=== PATIENT | male | born 1940 | race Caucasian/White ===

== ENCOUNTER 2017-10-16 15:26 | Inpatient (IN) | payer OTHER, MEDICARE ==
[~2017-10-16] VITALS: Ht 167.6 cm; Wt 77.9 kg
[~2017-10-16 15:26] MED LIST: ACET-1138 PO; ALLO1TAB51 PO; ASPEC325 PO; ATOR-22 PO; CETI10TA84 PO; FURO-85 PO; GLC/500 PO; GLUC1CAP33 PO; KRIL1CAP7 PO; LOSA1TAB PO; MULT-190 PO; NCY50 PO; OMEP20CA9 PO; PROB1CAP41 PO; QUIN200T PO; SAW450CA5 PO; TNR50 PO
--- NOTE | 2017-10-16 16:14 | EMERGENCY ROOM VISIT NOTE ---
History Report prepared by Carlos: Marty Godinez Under the Supervision of: Dr. Jamie Devine M.D. First contact with patient: 16:02 Chief Complaint: SHORTNESS OF BREATH Stated Complaint: SOB,FATIGUE,COUGH Nursing Triage Summary: c/o SOB, non productive cough and weakness for a few weeks. pt was sent by pcp for evaluation due to EKG that was performed at their office. History of Present Illness The patient is a 77 year old male who presents to the Emergency Room with complaints of constant shortness of breath beginning two to three weeks ago. The patient states he was evaluated today and told he has an abnormal EKG. He reports he has also been experiencing a cough and extreme fatigue. He notes states nothing makes his symptoms better or worse. The patient notes he has a history of pneumonia with acute renal failure. He states he has a history of seasonal allergies and has been blowing his nose. The patient reports he currently takes Lasix for his hypertension and Plavix for bilateral iliac stents. He denies using inhalers, a history of smoking, trouble eating or drinking, chest pain, diarrhea, fevers, body aches, vomiting, nausea, and congestion. Source of History: patient Onset: two to three weeks ago Quality: other (SOB) Timing: constant Modifying Factors (Worsening): other (nothing) Modifying Factors (Relieving): other (nothing) Associated Symptoms: + cough, + fatigue, No fevers, No chest pain, No nausea , No vomiting, No diarrhea Note: Denies: congestion, body aches, trouble eating or drinking Review of Systems See HPI for pertinent positives and negatives. A total of ten systems were reviewed and were otherwise negative. 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 (11) Lymphoma (12) Pneumonia (13) Stomach problems (14) Ulcer Surgical Problems: (1) H/O cataract removal with insertion of prosthetic lens (2) H/O colonoscopy (3) H/O inguinal hernia repair (4) H/O lymph node biopsy (5) History of back surgery (6) History of carpal tunnel surgery (7) S/p rectal fistula repair (8) S/P tonsillectomy and adenoidectomy Family History Cancer Diabetes mellitus Gallbladder disease Heart disease Hypertension Kidney disease Kidney stones Social History Smoking Status: Never Smoker Alcohol Use: occasionally Drug Use: none Marital Status: Housing Status: lives with significant other Occupation Status: retired Current/Historical Medications Scheduled Acetaminophen (Tylenol Extra Strength), 1,000 MG PO Q8 Allopurinol (Allopurinol), 100 MG PO BID Amoxicillin (Amoxil), 2,000 MG PO UD Aspirin (Aspirin Ec), 81 MG PO DAILY Atenolol (Atenolol), 1 TAB PO QAM Atorvastatin (Lipitor), 40 MG PO QPM Clopidogrel Bisulfate (Clopidogrel), 75 MG PO DAILY Furosemide (Lasix), 20 MG PO QAM Glucosamine-Chondroitin (Glucosamine & Chondroitin 500-400 mg), 1 CAP PO BID Krill Oil (Krill Oil [place]-3), 1 CAP PO QAM Losartan Potassium (Cozaar), 25 MG PO QP Metformin Hcl (Glucophage), 500 MG PO BID Ocuvite Preservision (Ocuvite Preservision), 1 TAB PO QAM Pantoprazole (Pantoprazole Sodium), 40 MG PO DAILY Probiotic Product (Probiotic Daily), 1 CAP PO MWF Saw [place] (Seren[place] Repens) (Saw [place]), 1 CAP PO QPM [Leg Cramps], 1 TAB PO QPM Scheduled PRN Cetirizine (Zyrtec), 10 MG PO QAM PRN for PRN Allergies Coded Allergies: POLLEN (Verified Allergy, Unknown, HAYFEVER, 03/11/16) Lactose Intolerance (GI) (Verified Adverse Reaction, Unknown, GI UPSET, ) Lisinopril (Verified Adverse Reaction, Unknown, COUGH, 03/11/16) Physical Exam Vital Signs Date Time Temp Pulse Resp B/P (MAP) Pulse Ox O2 Delivery O2 Flow Rate FiO2 10/16/17 18:19 67 18 165/90 94 Nasal Cannula 2.0 10/16/17 17:11 65 18 158/89 92 Room Air 10/16/17 16:44 64 10/16/17 16:30 99 Room Air 10/16/17 15:44 36.5 63 20 164/79 95 Room Air Physical Exam GENERAL: Awake, alert, fatigued-appearing, in no distress HENT: Normocephalic, atraumatic. Oropharynx has dry mucus membranes otherwise unremarkable. EYES: Normal conjunctiva. Sclera non-icteric. NECK: Supple. No nuchal rigidity. FROM. No JVD. RESPIRATORY: Clear to auscultation. CARDIAC: Regular rate, normal rhythm. Extremities warm and well perfused. Pulses equal. ABDOMEN: Soft, non-distended. No tenderness to palpation. No rebound or guarding. No masses. RECTAL: Deferred. MUSCULOSKELETAL: Chest examination reveals no tenderness. The back is symmetrical on inspection without obvious abnormality. There is no CVA tenderness to palpation. No joint edema. LOWER EXTREMITIES: Calves are equal size bilaterally and non-tender. No edema. No discoloration. NEURO: Normal sensorium. No sensory or motor deficits noted. SKIN: No rash or jaundice noted. Medical Decision & Procedures ER Provider Diagnostic Interpretation: X-ray: Per my interpretation, radiologist review. CHEST ONE VIEW PORTABLE CLINICAL HISTORY: CHEST PAIN dyspnea COMPARISON STUDY: 03/12/2016 FINDINGS: The bones soft tissues and hemidiaphragms are normal. The cardiomediastinal silhouette is normal. The lungs are clear. The pulmonary vasculature is normal. IMPRESSION: Negative chest. The above report was generated using voice recognition software. It may contain grammatical, syntax or spelling errors. Electronically signed by: Dioni Chapin M.D. 10/16/2017 4:32 PM Dictated Date/Time: 10/16/2017 4:32 PM Laboratory Results 10/16/17 16:28 Red Blood Count 4.94, Mean Corpuscular Volume 89.7, Mean Corpuscular Hemoglobin 31.2, Mean Corpuscular Hemoglobin Concent 34.8, Mean Platelet Volume 10.6, Neutrophils (%) (Auto) 61.2, Lymphocytes (%) (Auto) 32.7, Monocytes (%) (Auto) 5.0, Eosinophils (%) (Auto) 0.7, Basophils (%) (Auto) 0.3, Neutrophils # (Auto) 4.38, Lymphocytes # (Auto) 2.34, Monocytes # (Auto) 0.36, Eosinophils # (Auto) 0.05, Basophils # (Auto) 0.02 10/16/17 16:28 Test 10/16/17 16:28 10/16/17 17:13 White Blood Count 7.16 K/uL (4.8-10.8) Red Blood Count 4.94 M/uL (4.7-6.1) Hemoglobin 15.4 g/dL (14.0-18.0) Hematocrit 44.3 % (42-52) Mean Corpuscular Volume 89.7 fL (80-100) Mean Corpuscular Hemoglobin 31.2 pg (25-34) Mean Corpuscular Hemoglobin Concent 34.8 g/dl (32-36) Platelet Count 170 K/uL (130-400) Mean Platelet Volume 10.6 fL (7.4-10.4) Neutrophils (%) (Auto) 61.2 % Lymphocytes (%) (Auto) 32.7 % Monocytes (%) (Auto) 5.0 % Eosinophils (%) (Auto) 0.7 % Basophils (%) (Auto) 0.3 % Neutrophils # (Auto) 4.38 K/uL (1.4-6.5) Lymphocytes # (Auto) 2.34 K/uL (1.2-3.4) Monocytes # (Auto) 0.36 K/uL (0.11-0.59) Eosinophils # (Auto) 0.05 K/uL (0-0.5) Basophils # (Auto) 0.02 K/uL (0-0.2) RDW Standard Deviation 43.9 fL (36.4-46.3) RDW Coefficient of Variation 13.5 % (11.5-14.5) Immature Granulocyte % (Auto) 0.1 % Immature Granulocyte # (Auto) 0.01 K/uL (0.00-0.02) Anion Gap 5.0 mmol/L (3-11) Est Creatinine Clear Calc Drug Dose 40.5 ml/min Estimated GFR () 50.9 Estimated GFR (Non- 43.9 BUN/Creatinine Ratio 12.0 (10-20) Calcium Level 8.9 mg/dl (8.5-10.1) Magnesium Level 1.7 mg/dl (1.8-2.4) Total Bilirubin 0.9 mg/dl (0.2-1) Direct Bilirubin 0.2 mg/dl (0-0.2) Aspartate Amino Transf (AST/SGOT) 30 U/L (15-37) Alanine Aminotransferase (ALT/SGPT) 32 U/L (12-78) Alkaline Phosphatase 84 U/L (45-117) Pro-B-Type Natriuretic Peptide 2879 pg/ml (0-1800) Total Protein 7.8 gm/dl (6.4-8.2) Albumin 4.2 gm/dl (3.4-5.0) Lipase 194 U/L (73-393) Influenza Type A (RT-PCR) Neg for Influ A (NEG) Influenza Type B (RT-PCR) Neg for Influ B (NEG) Laboratory results reviewed by me Medications Administered Medications (Trade) Dose Ordered Sig/Corine Route Start Time Stop Time Status Last Admin Dose Admin Aspirin (Aspirin Chew) 324 mg NOW STAT PO 10/16/17 18:07 10/16/17 18:09 DC 10/16/17 18:14 324 MG Magnesium Sulfate (Magnesium Sulfate 1gm / D5W) 2 gm NOW STAT IV 10/16/17 18:07 10/16/17 18:09 DC 10/16/17 18:14 2 GM ECG Per My Interpretation Indication: SOB/dyspnea Rate (beats per minute): 63 Rhythm: normal sinus Findings: nonspecific-ST abn (Lateral), T-wave inversion (Leads V2 and V3) Comparison ECG Date: 03/12/2016 Change: TWI are new. ED Course 1603: The patient was evaluated in room B03B. A complete history and physical exam was performed. 1813: Upon reexamination, the patient was resting. I discussed the test results and treatment plan with him. The patient will be evaluated for further management. 1818: I discussed the patient's case with Dr. Gallardo, [facility] Hospitalist. The patient will be evaluated for further management. Medical Decision I reviewed the patient's past medical history, medications, and the nursing notes as described above. Differential diagnosis: Etiologies such as infections, reactive airway disease, pneumonia, pneumothorax , COPD, CHF, cardiac ischemia, pulmonary embolism, musculoskeletal, gastrointestinal, as well as others were entertained. The patient is a 77-year-old gentleman with a past medical history of CKD and PVD status post iliac stents who presents emergency department after being referred by his PCP for EKG changes from prior in the setting of feeling shortness of breath and fatigue over the past week per hpi. On arrival the patient is fatigued appearing but otherwise well-appearing in no acute distress , afebrile stable vital signs. Patient denies any chest pain or shortness of breath at this time. EKG demonstrates T-wave inversions in V2 V3 that are new from prior. Initial troponin elevated at 0.8 which is new for the patient. Creatinine 1.5 at baseline. BNP 2800 however chest x-ray unremarkable. Magnesium 1.7 repleted. Given the patient's symptoms over the past week patient 's troponin elevation is possibly related to an NSTEMI already occurred earlier in the week. The patient was given aspirin. Will continue to trend troponins at this time. Case was discussed with Tammy Kim Hospitalist, who will admit the patient for further management. Medication Reconcilliation Current Medication List: was personally reviewed by me Blood Pressure Screening Patient's blood pressure: Elevated blood pressure Monitored by hospitalist. Consults Time Called: 1812 Consulting Physician: Tammy Kim Hospitalist Returned Call: 1818 I discussed the patient's case with [facility]. The patient will be evaluated for further management. Impression Primary Impression: Elevated troponin I level Additional Impression: Shortness of breath Scribe Attestation The scribe's documentation has been prepared under my direction and personally reviewed by me in its entirety. I confirm that the note above accurately reflects all work, treatment, procedures, and medical decision making performed by me. Departure Information Dispostion Being Evaluated By Hospitalist Referrals Enio Berg III, M.D. (PCP) Patient Instructions My [facility] Problem Qualifiers
--- NOTE | 2017-10-16 16:33 | DIAGNOSTIC IMAGING REPORT ---
CHEST ONE VIEW PORTABLE CLINICAL HISTORY: CHEST PAIN dyspnea COMPARISON STUDY: 03/12/2016 FINDINGS: The bones soft tissues and hemidiaphragms are normal. The cardiomediastinal silhouette is normal. The lungs are clear. The pulmonary vasculature is normal. IMPRESSION: Negative chest. The above report was generated using voice recognition software. It may contain grammatical, syntax or spelling errors. Electronically signed by: Dioni Chapin M.D. 10/16/2017 4:32 PM Dictated Date/Time: 10/16/2017 4:32 PM
[2017-10-16 16:50] LABS: BASO % 0.3 %; BASO ABS # 0.02 K/uL (0-0.2); EOS % 0.7 %; EOS ABS # 0.05 K/uL (0-0.5); HEMATOCRIT 44.3 % (42-52); HEMOGLOBIN 15.4 g/dL (14.0-18.0); IG# 0.01 K/uL (0.00-0.02); LYMPH % 32.7 %; LYMPH ABS # 2.34 K/uL (1.2-3.4); MEAN CELL VOLUME 89.7 fL (80-100); MEAN CORPUSCULAR HEMOGLOBIN 31.2 pg (25-34); MEAN CORPUSCULAR HGB CONC 34.8 g/dl (32-36); MEAN PLATELET VOLUME 10.6 fL (7.4-10.4); MONO ABS # 0.36 K/uL (0.11-0.59); NEUT % 61.2 %; NEUT ABS # 4.38 K/uL (1.4-6.5); PLATELET COUNT 170 K/uL (130-400); RED CELL DISTRIBUTION WIDTH CV 13.5 % (11.5-14.5); RED CELL DISTRIBUTION WIDTH SD 43.9 fL (36.4-46.3); WHITE BLOOD COUNT 7.16 K/uL (4.8-10.8)
[2017-10-16 17:13] LABS: ALBUMIN 4.2 gm/dl (3.4-5.0); CALCIUM 8.9 mg/dl (8.5-10.1); CREATININE 1.51 mg/dl (0.60-1.40); POTASSIUM 4.1 mmol/L (3.5-5.1)
[2017-10-16] MEDS ORDERED: LEG CRAMPS PO (17:19)
[2017-10-16] MEDS ORDERED: ASPI81TA28 PO (17:19)
[2017-10-16] MEDS ORDERED: PANT40TA2 PO (17:19)
[2017-10-16] MEDS ORDERED: AMOX500C3 PO (17:19)
[2017-10-16] MEDS ORDERED: ALL100 PO (17:19)
[2017-10-16] MEDS ORDERED: PLV75 PO (17:19)
[2017-10-16 17:27] LABS: TOTAL PROTEIN 7.8 gm/dl (6.4-8.2)
[2017-10-16] MEDS ORDERED: ASPIRIN 81 MG CHEW PO STA (18:07)
[2017-10-16] MEDS ORDERED: MAGNESIUM SULFATE 1GM / D5W 1 GM BAG IV STA (18:07)
[2017-10-16 18:22] LABS: INFLUENZA A PCR Neg for Influ A (NEG); INFLUENZA B PCR Neg for Influ B (NEG)
[2017-10-16] MEDS ORDERED: POLYETHYLENE (MIRALAX) 17 GM PACK PO PRN (18:30)
[2017-10-16] MEDS ORDERED: ALUMINUM/MAGNESIUM/SIMETH (MAALOX MAX) 30 ML UDC PO PRN (18:30)
[2017-10-16] MEDS ORDERED: NITROGLYCERIN 0.4 MG SL PER TAB CHARGE SL PRN (18:30)
[2017-10-16] MEDS ORDERED: ONDANSETRON INJ 2 MG/ML 2 ML VIAL IV PRN (18:30)
[2017-10-16] MEDS ORDERED: ACETAMINOPHEN 325 MG TAB PO PRN (18:30)
[2017-10-16] MEDS ORDERED: MAGNESIUM HYDROXIDE SUSP 30 ML UDC PO PRN (18:30)
[2017-10-16] MEDS ORDERED: MAGNESIUM SULFATE 1GM / D5W 100 ML IV STA (18:32)
[2017-10-16] MEDS ORDERED: GLUCOSE 40% GEL 15 GM TUBE PO PRN (18:45)
[2017-10-16] MEDS ORDERED: GLUCOSE 10 TABS/TUBE PO PRN (18:45)
[2017-10-16] MEDS ORDERED: GLUCAGON FOR INJ 1 MG VIAL SQ PRN (18:45)
[2017-10-16] MEDS ORDERED: DEXTROSE 50% 50 ML SYR IV PRN (18:45)
[2017-10-16] MEDS ORDERED: CARBOHYDRATES FOR HYPOGLYCEMIA PO PRN (18:45)
[2017-10-16 19:26] LABS: INR 1.1 (0.9-1.1)
[2017-10-16 19:35] VITALS: BP 197/115; PULSE 73; TEMP 36.6; O2SAT 93; Ht 167.6 cm; Wt 77.9 kg
--- NOTE | 2017-10-16 19:55 | History and Physical ---
History & Physical Date & Time of Service: October 16, 2017 at 19:54 Chief Complaint: Chest Pain Primary Care Physician: Enio Berg III, M.D. History of Present Illness Source: patient This 77-year-old male with past medical history of CKD stage III, hypertension, type type 2 diabetes, dyslipidemia, aortic valve disease, peripheral vascular disease status post bilateral iliac artery stent placement Presented to ER complaining of shortness of breath/dyspnea on exertion which has been ongoing for the past several week. At baseline patient is very active does workout at [facility] approximately 45 minutes for weightlifting/static by cycle Denies of any shortness of breath or chest heaviness with with vigorous exercise No syncopal episode In the ER patient's vitals remained stable denies of any symptom of chest heaviness, SOB or orthopnea Past Medical/Surgical History Medical Problems: (1) Asthma (2) Bronchitis (3) Chest pain (4) CKD (chronic kidney disease), stage III (5) Congestive heart failure (6) Diabetes (7) Dyslipidemia (8) Gout (9) History of GI bleed (10) HTN (hypertension) (11) Hypoxemia (12) Left Hip DJD (13) Lymphoma (14) Pneumonia (15) Respiratory failure, acute (16) Stomach problems (17) Ulcer Surgical Problems: (1) H/O cataract removal with insertion of prosthetic lens (2) H/O colonoscopy (3) H/O inguinal hernia repair (4) H/O lymph node biopsy (5) History of back surgery (6) History of carpal tunnel surgery (7) S/p rectal fistula repair (8) S/P tonsillectomy and adenoidectomy Family History Cancer Diabetes mellitus Gallbladder disease Heart disease Hypertension Kidney disease Kidney stones Social History Smoking Status: Never Smoker Drug Use: none Marital Status: Occupational Status: retired Multi-Drug Resistant Organisms History of MDRO: Yes Type of MDRO: MRSA Allergies Coded Allergies: POLLEN (Verified Allergy, Unknown, HAYFEVER, 03/11/16) Lactose Intolerance (GI) (Verified Adverse Reaction, Unknown, GI UPSET, ) Lisinopril (Verified Adverse Reaction, Unknown, COUGH, 03/11/16) Home Medications Scheduled Acetaminophen (Tylenol Extra Strength), 1,000 MG PO Q8 Allopurinol (Allopurinol), 100 MG PO BID Amoxicillin (Amoxil), 2,000 MG PO UD Aspirin (Aspirin Ec), 81 MG PO DAILY Atenolol (Atenolol), 1 TAB PO QAM Atorvastatin (Lipitor), 40 MG PO QPM Clopidogrel Bisulfate (Clopidogrel), 75 MG PO DAILY Furosemide (Lasix), 20 MG PO QAM Glucosamine-Chondroitin (Glucosamine & Chondroitin 500-400 mg), 1 CAP PO BID Krill Oil (Krill Oil [place]-3), 1 CAP PO QAM Losartan Potassium (Cozaar), 25 MG PO QP Metformin Hcl (Glucophage), 500 MG PO BID Ocuvite Preservision (Ocuvite Preservision), 1 TAB PO QAM Pantoprazole (Pantoprazole Sodium), 40 MG PO DAILY Probiotic Product (Probiotic Daily), 1 CAP PO MWF Saw [place] ([place]) (Saw [place]), 1 CAP PO QPM [Leg Cramps], 1 TAB PO QPM Scheduled PRN Cetirizine (Zyrtec), 10 MG PO QAM PRN for PRN Review of Systems Constitutional: + problem reported (gradual decrease extercise tolerance over period of 1 yr ) Respiratory: + shortness of breath, + dyspnea on exertion Cardiovascular: No chest pain, No orthopnea, No PND, No edema, No claudication , No palpitations, No problem reported Abdomen: No pain, No nausea, No vomiting, No diarrhea, No constipation, No GI bleeding, No problem reported Musculoskeletal: No joint pain, No muscle pain, No swelling, No calf pain, No problem reported Neurologic: No memory loss, No paralysis, No weakness, No numbness/tingling, No vertigo, No balance problems, No problem reported Physical Exam Vital Signs Date Time Temp Pulse Resp B/P (MAP) Pulse Ox O2 Delivery O2 Flow Rate FiO2 10/16/17 19:00 64 18 173/87 92 10/16/17 18:19 67 18 165/90 94 Nasal Cannula 2.0 10/16/17 17:11 65 18 158/89 92 Room Air 10/16/17 16:44 64 10/16/17 16:30 99 Room Air 10/16/17 15:44 36.5 63 20 164/79 95 Room Air General Appearance: no apparent distress, + mild distress Head: atraumatic Eyes: normal inspection, PERRL, EOMI, sclerae normal ENT: normal ENT inspection Neck: no JVD, no carotid bruits, trachea midline Respiratory/Chest: chest non-tender, lungs clear, normal breath sounds, no respiratory distress Cardiovascular: regular rate, rhythm, no edema, no gallop, no JVD Abdomen/GI: normal bowel sounds, non tender, soft Extremities/Musculoskelatal: normal capillary refill, no pedal edema Neurologic/Psych: no motor/sensory deficits, alert, normal mood/affect, oriented x 3 Skin: normal color, warm/dry, no rash Lymphatic: no adenopathy Diagnostics Laboratory Results Results Past 24 Hours Test 10/16/17 16:28 10/16/17 17:13 10/16/17 19:03 Range/Units White Blood Count 7.16 4.8-10.8 K/uL Red Blood Count 4.94 4.7-6.1 M/uL Hemoglobin 15.4 14.0-18.0 g/dL Hematocrit 44.3 42-52 % Mean Corpuscular Volume 89.7 80-100 fL Mean Corpuscular Hemoglobin 31.2 25-34 pg Mean Corpuscular Hemoglobin Concent 34.8 32-36 g/dl Platelet Count 170 130-400 K/uL Mean Platelet Volume 10.6 7.4-10.4 fL Neutrophils (%) (Auto) 61.2 % Lymphocytes (%) (Auto) 32.7 % Monocytes (%) (Auto) 5.0 % Eosinophils (%) (Auto) 0.7 % Basophils (%) (Auto) 0.3 % Neutrophils # (Auto) 4.38 1.4-6.5 K/uL Lymphocytes # (Auto) 2.34 1.2-3.4 K/uL Monocytes # (Auto) 0.36 0.11-0.59 K/uL Eosinophils # (Auto) 0.05 0-0.5 K/uL Basophils # (Auto) 0.02 0-0.2 K/uL RDW Standard Deviation 43.9 36.4-46.3 fL RDW Coefficient of Variation 13.5 11.5-14.5 % Immature Granulocyte % (Auto) 0.1 % Immature Granulocyte # (Auto) 0.01 0.00-0.02 K/uL Sodium Level 141 136-145 mmol/L Potassium Level 4.1 3.5-5.1 mmol/L Chloride Level 106 98-107 mmol/L Carbon Dioxide Level 30 21-32 mmol/L Anion Gap 5.0 3-11 mmol/L Blood Urea Nitrogen 18 7-18 mg/dl Creatinine 1.51 0.60-1.40 mg/dl Est Creatinine Clear Calc Drug Dose 40.5 ml/min Estimated GFR () 50.9 Estimated GFR (Non- 43.9 BUN/Creatinine Ratio 12.0 10-20 Random Glucose 92 70-99 mg/dl Calcium Level 8.9 8.5-10.1 mg/dl Magnesium Level 1.7 1.8-2.4 mg/dl Total Bilirubin 0.9 0.2-1 mg/dl Direct Bilirubin 0.2 0-0.2 mg/dl Aspartate Amino Transf (AST/SGOT) 30 15-37 U/L Alanine Aminotransferase (ALT/SGPT) 32 12-78 U/L Alkaline Phosphatase 84 45-117 U/L Troponin I 0.851 0-0.045 ng/ml Pro-B-Type Natriuretic Peptide 2879 0-1800 pg/ml Total Protein 7.8 6.4-8.2 gm/dl Albumin 4.2 3.4-5.0 gm/dl Lipase 194 73-393 U/L Influenza Type A (RT-PCR) Neg for Influ A NEG Influenza Type B (RT-PCR) Neg for Influ B NEG Prothrombin Time 12.0 9.0-12.0 SECONDS Prothromb Time International Ratio 1.1 0.9-1.1 D-Dimer 450 0-500 ug/L FEU CXR normal EKG Twelve-lead EKG shows possible inferior infarct -T-wave inversion in the lead III and aVF with ST-T wave changes in V1 to V6 Impression Assessment and Plan MILD ELEVATION OF TROPONIN WITH EKG CHANGES Does not have any anginal symptom Cardiac risk factors include: Age/type 2 diabetes/peripheral vascular disease/ CKD/family history of coronary artery disease Patient has multiple family members including parents/siblings has VA status post CABG Father had VA at age 55 Had mild elevation of troponin, with EKG changes ST-T wave depression in anterior and inferior leads Monitoring telemetry Serial cardiac markers will be checked Resting echo ordered Cardiology evaluation requested Patient is ordered to be n.p.o. past midnight For possible cardiac stress test in the morning SHORTNESS OF BREATH/DYSPNEA ON EXERTION Does not have typical symptom of angina/dyspnea on exertion Chest x-ray shows no pulmonary congestion/normal proBNP D-dimer negative Patient does have underlying valvular disease/severely sclerotic aortic valve Echocardiogram ordered in a.m. to assess for the progression of aortic stenosis CKD STAGE III Renal function at baseline HYPERTENSION Blood pressure stable continue outpatient meds-losartan/Lasix HYPERLIPIDEMIA On statin Fasting lipid profile added in a.m. labs HISTORY OF PERIPHERAL ARTERY DISEASE STATUS POST ILIAC ARTERY STENT Status post bilateral iliac artery revascularization with stent /angioplasty done on 10/14/2016 at [facility] in [place] No report of leg pain or intermittent claudication Patient is continued with aspirin and Plavix and statin VALVULAR HEART DISEASE Echocardiogram in March 2016: Showed EF of 55-60% severe aortic sclerotic disease Mild mitral stenosis/mild tricuspid regurgitation Repeat echocardiogram ordered CODE STATUS: Full code DVT prophylaxis: Subcu heparin DISPOSITION: Expected to be discharged home when medically stable Medicine follow-up with Dr. Berg Level of Care Telemetry Resuscitation Status FULL RESUSCITATION VTE Prophylaxis Risk Level: Moderate Given or contraindicated: Unfractionated heparin SQ Additional Copies To Enio Berg III, M.D.
[2017-10-16] MEDS ORDERED: IV FLUIDS COMPLETED PRN (20:15)
[2017-10-16 20:35] VITALS: BP 178/97
[2017-10-16] MEDS ORDERED: [UNRECOGNIZED DRUG - OTHER] PO SCH (21:00)
[2017-10-16] MEDS ORDERED: GLUCOSAMINE CHONDROITIN PO SCH (21:00)
[2017-10-16] MEDS ORDERED: ATORVASTATIN 40 MG TAB PO SCH (21:00)
[2017-10-16] MEDS ORDERED: CRAMPS PO SCH (21:00)
[2017-10-16] MEDS ORDERED: NON-FORMULARY MEDICATION (Saw Palmetto (Serenoa Repens) (Saw Palmetto) 1 CAP) PO SCH (21:00)
[2017-10-16] MEDS: INSULIN ASPART 100 UNITS/ML 3 ML PEN SC SCH (21:00)
[2017-10-16] MEDS: ALLOPURINOL 100 MG TAB PO SCH (21:02)
[2017-10-16] MEDS: HEPARIN SOD 5000 UNIT/0.5 ML CARP SQ SCH (21:03)
[2017-10-16] MEDS: ALBUT/IPRATROP 3MG/0.5MG NEB 3 ML VIAL INH PRN (22:05)
[2017-10-16] MEDS ORDERED: NURSING VERBAL MED ORDER ONE (22:30)
[2017-10-16 22:40] VITALS: PULSE 68; O2SAT 93
[2017-10-16 23:47] VITALS: BP 160/85; PULSE 71; TEMP 36.4; O2SAT 92
[2017-10-17] VITALS (16 sets, daily range): BP systolic 134–178; BP diastolic 75–97; PULSE 59–74; TEMP 36.3–37; O2SAT 88–97
[2017-10-17] MEDS: ALBUT/IPRATROP 3MG/0.5MG NEB 3 ML VIAL INH PRN (04:24)
[2017-10-17] MEDS: HEPARIN SOD 5000 UNIT/0.5 ML CARP SQ SCH ×3 (06:21→21:07)
[2017-10-17 06:49] LABS: HEMATOCRIT 42.1 % (42-52); HEMOGLOBIN 14.4 g/dL (14.0-18.0); MEAN CELL VOLUME 89.4 fL (80-100); MEAN CORPUSCULAR HEMOGLOBIN 30.6 pg (25-34); MEAN CORPUSCULAR HGB CONC 34.2 g/dl (32-36); MEAN PLATELET VOLUME 10.7 fL (7.4-10.4); PLATELET COUNT 142 K/uL (130-400); RED CELL DISTRIBUTION WIDTH CV 13.6 % (11.5-14.5); RED CELL DISTRIBUTION WIDTH SD 44.2 fL (36.4-46.3); WHITE BLOOD COUNT 5.84 K/uL (4.8-10.8)
[2017-10-17] MEDS: INSULIN ASPART 100 UNITS/ML 3 ML PEN SC SCH ×4 (07:00→20:59)
[2017-10-17 07:25] LABS: CALCIUM 8.7 mg/dl (8.5-10.1); CREATININE 1.44 mg/dl (0.60-1.40); POTASSIUM 3.4 mmol/L (3.5-5.1)
[2017-10-17 07:42] LABS: HEMOGLOBIN A1C 6.3 % (4.5-5.6)
[2017-10-17] MEDS ORDERED: CLOPIDOGREL BISULFATE 75 MG TAB PO SCH (09:00)
[2017-10-17] MEDS ORDERED: ASPIRIN 81 MG ECTAB PO SCH (09:00)
[2017-10-17] MEDS: CETIRIZINE HCL 10 MG TAB PO PRN (09:36)
[2017-10-17] MEDS: ASPIRIN 81 MG ECTAB PO SCH (09:36)
[2017-10-17] MEDS: OMEGA-3 (PURIFIED FISH OIL) 1 GM CAP PO SCH (09:36)
[2017-10-17] MEDS: ALLOPURINOL 100 MG TAB PO SCH ×2 (09:36→21:02)
[2017-10-17] MEDS: CEROVITE ADV FORMULA TAB PO SCH (09:37)
[2017-10-17] MEDS: PANTOprazole SOD 40 MG TAB PO SCH (09:37)
--- NOTE | 2017-10-17 10:35 | ECHOCARDIOGRAM REPORT ---
*NOTICE TO RECEIVING DEMOCRAT AGENCY This information is strictly Confidential and protected under [place] law. [place] law prohibits you from making any further disclosure of this information unless further disclosure is expressly permitted by the written consent of the person to whom it pertains or is authorized by law. A general authorization for the release of medical or other information is not sufficient for this purpose. Hospital accepts no responsibility if the information is made available to any other person, INCLUDING THE PATIENT. Interpretation Summary * Name: SHANTE SHAH JR Study Date: 10/17/2017 06:29 AM BP: 152/79 mmHg * Patient Location: C.2E\S\E207\S\1 HR: 66 * : 1940 (M/d/yyy) Gender: Male Height: 66 in * Age: 77 yrs Ethnicity: CA Weight: 174 lb * Ordering Physician: Merly Gallardo * Referring Physician: Self, Referred * Performed By: Asya Fry RDCS * * Reason For Study: Chest pain * BSA: 1.9 m2 * -- Conclusions -- * Normal LV chamber size with mild concentric LVH. * Normal LV systolic function, EF 60-65%. * Incompletely visualized mid/basal inferior wall, however, grossly appear to be hypokinetic. Otherwise, normal wall motion. * Grade II diastolic dysfunction. * Moderate to severe calcification of the aortic valve with reduced systolic excursion of all three leaflets. Doppler readings do not support stenosis, however, visually appears to be at least moderately stenotic. No aortic regurgitation. * There is severe mitral annular calcification. The mitral valve leaflets appear thickened. Calcified mitral apparatus causing mitral stenosis. There is no mitral regurgitation noted. * Moderate left atrial enlargement. Procedure Details * A complete two-dimensional transthoracic echocardiogram was performed (2D, M-mode, Doppler and color flow Doppler). Left Ventricle * The left ventricle is normal in size. * There is mild concentric left ventricular hypertrophy. * Ejection Fraction = 60-65%. * Left ventricular systolic function is normal. * Incompletely visualized mid/basal inferior wall, however, grossly appear to be hypokinetic. Otherwise, normal wall motion. Right Ventricle * The right ventricular cavity size is normal (basal dimension <4.2 cm in right ventricular apical 4-chamber view). * The right ventricular systolic function is normal as assessed by tricuspid annular plane systolic excursion (TAPSE) (normal >1.5 cm). Atria * The left atrium is moderately dilated. * Right atrial size is normal. * No ASD detected; PFO is not assessed. Mitral Valve * There is severe mitral annular calcification. * The mitral valve leaflets appear thickened, but open well. * Calcified mitral apparatus causing mitral stenosis. * There is mild mitral stenosis. * There is no mitral regurgitation noted. Tricuspid Valve * The tricuspid valve is normal in structure and function. Aortic Valve * Moderate to severe calcification of the aortic valve with reduced systolic excursion of all three leaflets. Doppler readings do not support stenosis, however, visually appears to be at least moderately stenotic. No aortic regurgitation. Pulmonic Valve * The pulmonary valve is not well seen, but the Doppler examination is normal without significant regurgitation or stenosis. Great Vessels * The aortic root and proximal ascending aorta are normal sized. Pericardium/Pleural * There is no pericardial effusion. Left Ventricular Diastolic Function * Diastolic dysfunction, Grade II (pseudonormalization pattern). MMode 2D Measurements and Calculations IVSd 1.2 cm LVIDd 3.6 cm LVIDs 2.5 cm LVPWd 1.2 cm IVS/LVPW 1.0 FS 31.4 % EDV(Teich) 55.9 ml ESV(Teich) 22.3 ml EF(Teich) 60.2 % EDV(cubed) 48.3 ml ESV(cubed) 15.6 ml EF(cubed) 67.7 % LV mass(C)d 138.0 grams LV mass(C)dI 73.2 grams/m\S\2 SV(Teich) 33.7 ml SI(Teich) 17.9 ml/m\S\2 SV(cubed) 32.7 ml SI(cubed) 17.3 ml/m\S\2 Ao root diam 3.5 cm Ao root area 9.5 cm\S\2 ACS 0.39 cm LA dimension 3.6 cm asc Aorta Diam 3.5 cm LA/Ao 1.0 LVOT diam 2.0 cm LVOT area 3.2 cm\S\2 LVAd ap4 20.3 cm\S\2 LVLd ap4 7.1 cm EDV(MOD-sp4) 48.7 ml EDV(sp4-el) 49.3 ml LVAs ap4 11.0 cm\S\2 LVLs ap4 6.2 cm ESV(MOD-sp4) 18.8 ml ESV(sp4-el) 16.6 ml EF(MOD-sp4) 61.3 % EF(sp4-el) 66.2 % LVAd ap2 20.0 cm\S\2 LVLd ap2 7.0 cm EDV(MOD-sp2) 46.8 ml EDV(sp2-el) 48.5 ml LVAs ap2 11.2 cm\S\2 LVLs ap2 6.0 cm ESV(MOD-sp2) 20.2 ml ESV(sp2-el) 17.7 ml EF(MOD-sp2) 56.9 % EF(sp2-el) 63.5 % LVLd %diff -1.67 % EDV(MOD-bp) 47.8 ml LVLs %diff -3.61 % ESV(MOD-bp) 19.6 ml EF(MOD-bp) 59.0 % SV(MOD-sp4) 29.8 ml SI(MOD-sp4) 15.8 ml/m\S\2 SV(MOD-sp2) 26.6 ml SI(MOD-sp2) 14.1 ml/m\S\2 SV(MOD-bp) 28.2 ml SI(MOD-bp) 15.0 ml/m\S\2 SV(sp4-el) 32.6 ml SI(sp4-el) 17.3 ml/m\S\2 SV(sp2-el) 30.8 ml SI(sp2-el) 16.3 ml/m\S\2 Doppler Measurements and Calculations MV E max ying 218.9 cm/sec MV A max ying 141.0 cm/sec MV E/A 1.6 MV V2 max 211.8 cm/sec MV max PG 17.9 mmHg MV V2 mean 123.6 cm/sec MV mean PG 7.0 mmHg MV V2 VTI 56.6 cm MV P1/2t max ying 211.8 cm/sec MV P1/2t 83.6 msec MVA(P1/2t) 2.6 cm\S\2 MV dec slope 742.1 cm/sec\S\2 MV dec time 0.34 sec Ao V2 max 198.2 cm/sec Ao max PG 15.7 mmHg Ao max PG (full) 13.5 mmHg Ao V2 mean 130.8 cm/sec Ao mean PG 7.9 mmHg Ao V2 VTI 39.6 cm KERA(V,A) 1.2 cm\S\2 KERA(V,D) 1.2 cm\S\2 LV V1 max PG 2.2 mmHg LV V1 max 74.9 cm/sec SV(Ao) 376.5 ml SI(Ao) 199.7 ml/m\S\2 PA V2 max 82.8 cm/sec PA max PG 2.7 mmHg PA acc slope 551.0 cm/sec\S\2 PA acc time 0.10 sec PA pr(Accel) 34.6 mmHg
[2017-10-17] MEDS: SODIUM CHLORIDE 0.9% 1000ML 1,000 ML IV SCH (11:00)
--- NOTE | 2017-10-17 12:27 | HISTORY & PHYSICAL EXAMINATION ---
DATE OF ADMISSION: 10/17/2017 INPATIENT CONSULTATION DATE OF CONSULTATION: 10/17/2017. CONSULTATION REQUESTED BY: Merly Gallardo M.D. REASON FOR CONSULTATION: Dyspnea with exertion. 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 The patient states that for the last several weeks he has noticed he has been having difficult time getting his breath. He is normally very active, but over the last several weeks, he has noticed that his breathing has become a significant issue for him and curtailing his activities. He states he is normally able to walk long distances without an issue and rides exercise bike on a daily basis, but even those activities are making him short of breath now. Particularly, when he gets on his exercise bike, he notes that he gets significantly short of breath almost immediately, but continues to pedal and is able to work through the shortness of breath. Luckily though, he denies experiencing any chest pain, palpitations, shoulder pain, neck pain, jaw pain, diaphoresis or nausea. He states he has just been short of breath. He wanted to see his primary care physician and was seen by Dr. Dwyer on 10/16/2017. A resting EKG was performed, which was markedly abnormal and he is sent into the Emergency Room for further evaluation. In the emergency room, his initial troponin was mildly elevated at 0.8 and he was admitted to telemetry. The patient has no complaints at rest and has no issues overnight and again denies experiencing any chest pain. PAST SURGICAL HISTORY: 1. Bilateral iliac stents in 2017. 2. Left total hip. 3. Carpal tunnel surgery. 4. Knee surgery. 5. Tonsillectomy as a child. 6. Hernia repair as a child. 7. Cataracts. 8. History of A-port placement. MEDICAL ILLNESSES: 1. Peripheral vascular disease. 2. Dyslipidemia. 3. Prediabetes. 4. Borderline severe aortic stenosis and significant mitral annular calcifications. 5. Remote tobacco use history. 6. Stage III chronic kidney disease. FAMILY HISTORY: Noncontributory. SOCIAL HISTORY: The patient is a former smoker, smoked for 20 years, quit in 1969. Denies any alcohol or recreational drug use. He is . He has two children. They are in good health. Multiple grandchildren. He is very involved with his family. 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 ALLERGIES: LISINOPRIL. REVIEW OF SYSTEMS: As per HPI, all review of systems reviewed and negative at this time. MEDICATIONS AN OUTPATIENT: 1. Aspirin 81 mg daily. 2. Clopidogrel 75 mg daily. 3. Atorvastatin 40 mg daily. 4. Atenolol 25 mg b.i.d. 5. Allopurinol daily. 6. Lasix one tablet daily as needed. 7. Losartan 25 mg daily. 8. Metoprolol 500 mg b.i.d. 9. Protonix daily. PHYSICAL EXAM: VITALS: Temperature 36.4, pulse 69, respiratory rate 12, blood pressure 147/81. GENERAL: Awake, alert, oriented x3 in no acute distress. HEENT: Normocephalic, atraumatic. Pupils equal, round, reactive to light and accommodation. Extraocular muscles intact. Anicteric sclerae. Moist mucous membranes. NECK: No JVD. No bruit. CARDIOVASCULAR: Regular. Positive S4. Normal S1 and S2. No S3. Soft 2/6 mid-to-late systolic ejection murmur greatest at the right sternal border without radiation. No rubs. PULMONARY: Clear to auscultation bilaterally. No rales, rhonchi, or wheezing. ABDOMEN: Bowel sounds x4. Soft. No rebound, guarding, tenderness. No organomegaly. EXTREMITIES: No clubbing, cyanosis or edema. +2 pedal pulses bilaterally. SKIN: Warm and dry. TEST RESULTS: A 12-lead EKG performed in the Emergency Department on 10/16/2017 at 1552 independently reviewed at this time shows normal sinus rhythm at 63 beats per minute, low voltage study, inverted T waves anteriorly and inferiorly. The anterior ST segment depressions are new compared to previous study of 2017. LABORATORY STUDIES OF SIGNIFICANCE: Initial troponin of 0.8. Sodium 142, potassium 3.4, BUN 16, creatinine 1.44. IMPRESSION: 1. Unstable angina. 2. Peripheral vascular disease. 3. Remote tobacco use history. 4. Prediabetes. 5. Hypertension. 6. Dyslipidemia. 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 The patient, his , son and two grandsons were counseled on the pathophysiology of atherosclerotic disease and unstable angina. The patient was counseled at this point given his symptoms, along with EKG changes and possible inferior wall motion abnormality on echocardiogram, but I do believe he is suffering from unstable angina and I believe the most prudent course of action at this point will be for direct visualization of his coronary anatomy, so the patient will go for cardiac catheterization today. In the meantime, I will start him on fluids given his chronic kidney disease and his renal function will be followed closely afterwards. In terms of his echocardiogram, he did have severe sclerosis and calcifications of the mitral and aortic valves, which showed that he does have progressive atherosclerotic disease. So after the catheterization, I will likely change his atorvastatin to Crestor 40 mg daily. He will also need carotid Dopplers at some point.
[2017-10-17] MEDS ORDERED: HEPARIN SOD (PORCINE) 1000 UNIT/ML 10 ML VIAL ONE (15:33)
[2017-10-17] MEDS: MIDAZOLAM HCL 1 MG/ML 2ML VIAL ONE (15:33)
[2017-10-17] MEDS ORDERED: NiCARDipine HCL INJ 2.5 MG/ML 10 ML AMP ONE (15:33)
[2017-10-17] MEDS: FENTANYL CITRATE INJ 50 MCG/1 ML 2 ML VIAL ONE (15:33)
[2017-10-17] MEDS ORDERED: NITROGLYCERIN/D5W 100MCG/ML 20ML SYR ONE (15:34)
[2017-10-17] MEDS ORDERED: MIDAZOLAM HCL 1 MG/ML 2ML VIAL ONE (16:21)
[2017-10-17] MEDS ORDERED: FENTANYL CITRATE INJ 50 MCG/1 ML 2 ML VIAL ONE (16:21)
[2017-10-17] MEDS ORDERED: NITROGLYCERIN 2% OINTMENT 30GM TUBE EXT ONE (16:24)
--- NOTE | 2017-10-17 16:42 | Pre Sedation Assessment ---
Pre Sedation Assessment General Date of Sedation: October 17, 2017. Vital Signs Past 12 Hours Date Time Temp Pulse Resp B/P (MAP) Pulse Ox O2 Delivery O2 Flow Rate FiO2 10/17/17 16:40 66 18 137/74 (95) 10/17/17 16:35 66 18 146/80 (102) 10/17/17 16:30 80 18 161/91 (114) 96 Room Air 10/17/17 15:59 36.4 61 18 178/92 (120) 96 Nasal Cannula 2.0 10/17/17 12:00 96 Room Air 2.0 10/17/17 11:48 37.0 64 18 160/91 (114) 96 10/17/17 08:00 Room Air 10/17/17 07:09 36.4 69 16 147/81 (103) 94 Nasal Cannula 2.0 Review Cardiovascular: regular rate, rhythm, no edema Lungs: chest non-tender, lungs clear Pre-Sedation Airway Assessment Smoking Status: Never Smoker Hx of Sleep Apnea: No Hx of difficult intubation: No Short Thick Neck: No Thyro-mental Distance: > 3 Finger Breadths Oral Cavity: Capped Teeth Mallampati Classification: Class III ASA Classification: Class III NPO Status Date of Last Intake of Fluids: October 17, 2017 Time of Last Intake of Fluids: 0900 Date of Last Intake of Solids: October 16, 2017 Time of Last Intake of Solids: 2000 Procedure Planning Contraindications for Sedation: None Current Medications Reviewed: Yes Notes The planned sedation has been discussed with the patient. Informed Consent was obtained. I have identified the patient, determined the appropriateness of sedation and have assessed the patient immediately prior to the procedure. All medicine(s) and interventions are by my order.
--- NOTE | 2017-10-17 16:43 | Post Sedation Assessment ---
Post Sedation Assessment General Date of Sedation October 17, 2017. Vital Signs: Vital Signs Past 12 Hours Date Time Temp Pulse Resp B/P (MAP) Pulse Ox O2 Delivery O2 Flow Rate FiO2 10/17/17 16:40 66 18 137/74 (95) 10/17/17 16:35 66 18 146/80 (102) 10/17/17 16:30 80 18 161/91 (114) 96 Room Air 10/17/17 15:59 36.4 61 18 178/92 (120) 96 Nasal Cannula 2.0 10/17/17 12:00 96 Room Air 2.0 10/17/17 11:48 37.0 64 18 160/91 (114) 96 10/17/17 08:00 Room Air 10/17/17 07:09 36.4 69 16 147/81 (103) 94 Nasal Cannula 2.0 Post Procedure Recovery Score Activity: (2) Moves 4 extremities * Respiration: (2) Deep breath/cough Circulation: (2) +/-20% PreAnes Value Consciousness: (2) Fully Awake Oxygen Saturation: (2) > 92% On Room Air Post Anesthesia Score: 10 Discharge Sedation Level of Care: Fast Track Phase II Post Sedation Plan On clinical assessment, the patient appears to have tolerated the sedation without complications. Patient is recovering as anticipated. Patient will continue to be monitored by nursing and may be discharged when sedation discharge criteria are met per below protocol. Upon Completions of procedure and additional 15 minutes continue every 5 minute vital signs and the P.A.R. score; then discharge to a Phase I or Fast Track to Phase II per the following guidelines: * Discharge Patient to appropriate Phase II area if PAR is 8 or greater or return to pre- procedure baseline. The post - procedure orders will be as directed. * If PAR score is less than 8 or not return to pre-procedure baseline then patient will follow Phase I monitoring till PAR is reached for Phase II. The Phase I may be done in procedure room or may call to secure a Phase I area. * If naloxone or flumazenil are used for reversal, hold in Phase I for an additional 60 -120 minutes before discharge to Phase II. Please call the Sedation Physician to re-evaluate and complete post-note for discharge to Phase II area. Do NOT discharge from procedure sedation or Phase 1 until post- sedation evaluation note is complete by procedure /sedation MD Sedation Discharge Instructions to be given to the patient at discharge to home.
[2017-10-17] MEDS ORDERED: SODIUM CHLORIDE 0.9% 1000ML 1,000 ML IV SCH (16:46)
--- NOTE | 2017-10-17 16:46 | [facility] Post Operative Brief Note ---
Preliminary Procedure Note Procedure Date October 17, 2017. Pre-Procedure Diagnosis Acute Coronary Syndrome AUC Score 7 Post-Procedure Diagnosis Severe CAD, Normal Intracardiac Pressures Procedure(s) Performed Coronary Angiography, Left Heart Cath Rehabilitation Technician Noel Orthotist/Prosthetist(s) Chris Estimated Blood Loss 10 Preliminary Findings Severe multivessel disease including ostial and distal left main disease. Recommend evaluation for CABG Recommendations CABG Specimens None Anesthesia Moderate Procedural Complication(s) None Disposition PCU
--- NOTE | 2017-10-17 16:58 | Cardiac Catheterization ---
Procedure Note Procedure Date October 17, 2017. Pre-Procedure Diagnosis Non STEMI AUC Score 8 Post-Procedure Diagnosis Severe CAD, Normal Intracardiac Pressures Procedure(s) Performed Coronary Angiography, Left Heart Cath Trip Follower john Programming Specialist(s) crescencio Estimated Blood Loss 10 Medication(s) Fentanyl, Heparin, Nicardipine, Nitroglycerin, Versed, Lidocaine 1% Summary of Findings Indication: NSTEMI Access: 6Fr right radial artery Catheters: [place], [id number], [place] Findings: LM - heavily calcified, 60% ostial stenosis, 70-80% distal stenosis at bifurcation of LAD/circumflex LAD - moderately calcified proximally with 20 percent proximal to mid disease; mid to distal vessel moderate caliber without significant disease Circumflex - mildly calcified, 40 percent proximal disease, gives moderate caliber distal OM mild disease RCA - dominant, large caliber vessel, moderately calcified with diffuse proximal to mid disease with 2 areas of focal stenosis up to 90 percent; distal vessel with minimal disease LVEDP - 16 Arterial Closure: TR band Summary: 1. 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 Borderline intracardiac filling pressure Recommendations: Evaluation by [facility] Cardiac surgery for possible bypass surgery Continued ASCVD risk factor modification and antihypertensives per Dr. Duncan. Hemodynamics Rest Ao: 156/62/98 Final Ao: 164/77/113 LV: 154/16 Recommendations CABG Specimens None Radiation Exposure (mGy) 2002 Contrast (mls) 90 Fluids (cc crystalloids) 63 Drains None Anesthesia Moderate Procedural Complication(s) None Disposition PCU ACC Data Cardiac Status Clinical evaluation leading to the procedure CAD Presntation: Non STEMI Anginal Classification: CCS IV Heart Failure: No, NYHA Class: CCS I Cardiogenic Shock w/in 24Hrs: No Cardiac Arrest w/in 24Hrs: No Imaging studies past 6 months: Yes Stress studies past 6 months: No Closure Device Percutaneous Entry Location: Radial Closure Device: Radial Band Recommendations: CABG Intraprocedure Events Significant Dissection: No Perforation: No
--- NOTE | 2017-10-17 17:05 | Progress Note ---
Progress Note Date of Service October 17, 2017. Progress Note Cardiac cath revealed severe left main stenosis along with mid RCA stenosis coronary artery bypass is the intervention of choice discussed at great length with patient and family (, son, daughter in law, 2 grandsons) all in agreement clinically stable and on plavix will likely d/c to home in AM with outpatient CT surgery eval this week either at [facility] or [facility] (my office will arrange) . Plan: d/c Plavix change atenolol to metoprolol increase atorvastatin resume diet
[2017-10-17] MEDS: ATORVASTATIN 40 MG TAB PO SCH (21:02)
[2017-10-17] MEDS: METOPROLOL TARTRATE 25 MG TAB PO SCH (21:02)
--- NOTE | 2017-10-17 21:02 | Progress Note ---
Medicine Progress Note Date & Time of Visit: October 17, 2017 at 13:50 . Subjective CC: Follow-up visit for chest pain and other problems. HPI: Feels better. Scheduled for cardiac cath later today. No further chest pain. No cough or shortness of breath. ROS: General- no fever, no chills Resp- as noted above in HPI Cardiac- as noted above in HPI GI- no nausea, no vomiting, no diarrhea, no constipation - no dysuria, no difficulty voiding . Objective Last 8 Hrs Date Time Temp Pulse Resp B/P (MAP) Pulse Ox O2 Delivery O2 Flow Rate FiO2 10/17/17 19:00 36.4 61 18 141/78 (99) 95 Oxymask 4.0 10/17/17 17:48 36.4 63 20 156/88 (110) 94 Oxymask 4.0 10/17/17 17:30 36.6 60 20 145/78 (100) 93 Oxymask 4.0 10/17/17 17:15 36.4 59 20 135/75 (95) 92 Oxymask 10/17/17 17:00 92 Oxymask 4.0 10/17/17 16:57 36.3 61 18 134/82 (99) 88 Nasal Cannula 2.0 10/17/17 16:44 65 18 127/77 (94) 10/17/17 16:40 66 18 137/74 (95) 10/17/17 16:35 66 18 146/80 (102) 10/17/17 16:30 80 18 161/91 (114) 96 Room Air 10/17/17 15:59 36.4 61 18 178/92 (120) 96 Nasal Cannula 2.0 Physical Exam: General-lying in bed, no distress Lungs- clear to auscultation; no respiratory distress Cardiovascular- RRR; II/IV systolic murmur at base; no gallop appreciated; no JVD; no pretibial edema Abdomen- + bowel sounds, soft, nontender Extremities- no cyanosis; no calf tenderness Neuro- alert, oriented Skin- warm & dry . Laboratory Results: Last 24 Hours Test 10/17/17 00:03 10/17/17 06:14 10/17/17 07:42 10/17/17 11:27 Troponin I 0.723 ng/ml 0.606 ng/ml White Blood Count 5.84 K/uL Red Blood Count 4.71 M/uL Hemoglobin 14.4 g/dL Hematocrit 42.1 % Mean Corpuscular Volume 89.4 fL Mean Corpuscular Hemoglobin 30.6 pg Mean Corpuscular Hemoglobin Concent 34.2 g/dl RDW Standard Deviation 44.2 fL RDW Coefficient of Variation 13.6 % Platelet Count 142 K/uL Mean Platelet Volume 10.7 fL Sodium Level 142 mmol/L Potassium Level 3.4 mmol/L Chloride Level 106 mmol/L Carbon Dioxide Level 28 mmol/L Anion Gap 8.0 mmol/L Blood Urea Nitrogen 16 mg/dl Creatinine 1.44 mg/dl Est Creatinine Clear Calc Drug Dose 42.0 ml/min Estimated GFR () 53.9 Estimated GFR (Non- 46.5 BUN/Creatinine Ratio 10.9 Random Glucose 121 mg/dl Estimated Average Glucose 134 mg/dl Hemoglobin A1c 6.3 % Calcium Level 8.7 mg/dl Magnesium Level 2.1 mg/dl Triglycerides Level 189 mg/dl Cholesterol Level 89 mg/dl HDL Cholesterol 24 mg/dl LDL Cholesterol, Calculated 27 mg/dl VLDL Cholesterol, Calculated 38 mg/dl Cholesterol/HDL Ratio 3.7 Bedside Glucose 112 mg/dl 105 mg/dl Test 10/17/17 17:34 Bedside Glucose 109 mg/dl Date/Time Source Procedure Growth Status 10/17/17 07:10 Nasal MRSA DNA Surveillance Screen - Final Specimen Positive for MRSA by DNA Probe Complete Assessment & Plan ACUTE CORONARY SYNDROME (UNSTABLE ANGINA vs NON-STEMI) Serial troponins 0.851, 0.723, 0.606. EKG in the ED demonstrated normal sinus rhythm, T-wave inversions anteriorly and inferiorly, ST depression in lateral precordial leads. EKG this morning showed normal sinus rhythm at 70/minute, less pronounced ST, T- wave changes. Receiving aspirin, atenolol, statin. Seen in consultation by Cardiology. Echocardiogram demonstrated mild concentric LVH, possible inferior wall hypokinesis, overall LVEF 60-65%, grade 2 diastolic dysfunction, moderate- severe calcification of aortic valve with moderate stenosis. Cardiac catheterization recommended and is pending. AORTIC STENOSIS Echo showed moderate-severe calcification of aortic valve with moderate stenosis. Hemodynamically stable. Management per Cardiology. HYPERTENSION Continue atenolol. COPD Stable. CKD III Serum creatinine on admission 1.51. Serum creatinine today = 1.44. Follow. DIABETES MELLITUS TYPE 2 Usually well-controlled on metformin. Hemoglobin A1c 6.3. Fasting blood sugar this morning = 112. Hold metformin during hospital stay. Insulin coverage PRN. VTE PROPHYLAXIS SQ heparin. Ambulate. DISPOSITION Expected discharge to home. Family Medicine follow-up with Dr. Berg. . Current Inpatient Medications: Current Inpatient Medications Medications (Trade) Dose Ordered Sig/Corine Route Start Time Stop Time Status Last Admin Dose Admin Allopurinol (Zyloprim Tab) 100 mg BID PO 10/16/17 21:00 11/15/17 20:59 10/17/17 09:36 100 MG Aspirin (Ecotrin Tab) 81 mg DAILY PO 10/17/17 09:00 11/16/17 08:59 10/17/17 09:36 81 MG Cetirizine HCl (zyrTEC TAB) 10 mg QAM PRN PO 10/16/17 18:30 11/15/17 18:29 Multivitamins/ Minerals (Multivitamin W/ Minerals Tab) 1 tab QAM PO 10/17/17 09:00 11/16/17 08:59 10/17/17 09:37 1 TAB Pantoprazole Sodium (Protonix Tab) 40 mg DAILY PO 10/17/17 09:00 11/16/17 08:59 10/17/17 09:37 40 MG Fish Oil ([place]-3 (Purified Fish Oil) Cap) 1 gm QAM PO 10/17/17 09:00 11/16/17 08:59 10/17/17 09:36 1 GM Lactobacillus Acidophilus (Floranex Tab) 4 tab MoWeFr@0900 PO 10/18/17 09:00 11/17/17 08:59 Heparin Sodium (Porcine) (Heparin Sq 5000 Unit/0.5ml) 5,000 unit Q8 SQ 10/16/17 22:00 11/15/17 21:59 10/17/17 06:21 5,000 UNIT Acetaminophen (Tylenol Tab) 650 mg Q4H PRN PO 10/16/17 18:30 11/15/17 18:29 Al Hydrox/Mg Hydrox/Simethicone (Maalox Max Susp) 15 ml Q4H PRN PO 10/16/17 18:30 11/15/17 18:29 Magnesium Hydroxide (Milk Of Magnesia Susp) 30 ml Q12H PRN PO 10/16/17 18:30 11/15/17 18:29 Nitroglycerin (Nitrostat Tab) 0.4 mg UD PRN SL 10/16/17 18:30 11/15/17 18:29 Polyethylene (Miralax Powder Packet) 17 gm DAILY PRN PO 10/16/17 18:30 11/15/17 18:29 Insulin Aspart (novoLOG ASPART) SLIDING SCALE If C... ACHS SC 10/16/17 21:00 11/15/17 20:59 Glucose (Glucose 40% Gel) 15-30 GRAMS 15 GRAMS... UD PRN PO 10/16/17 18:45 11/15/17 18:44 Glucose (Glucose Chew Tab) 4-8 Tablets 4 Tabl... UD PRN PO 10/16/17 18:45 11/15/17 18:44 Dextrose (Dextrose 50% 50ML Syringe) 25-50ML 25ML FOR ... UD PRN IV 10/16/17 18:45 11/15/17 18:44 Glucagon (Glucagon Inj) 1 mg UD PRN SQ 10/16/17 18:45 11/15/17 18:44 Carbohydrates (Carbohydrates For Hypoglycemia) 15-30 GRAMS 15 grams if BSG 54-69... UD PRN PO 10/16/17 18:45 11/15/17 18:44 Miscellaneous (Iv Fluids Completed) 1 ea PRN PRN N/A 10/16/17 20:15 10/16/18 20:14 Albuterol/ Ipratropium (Duoneb) 3 ml Q6H PRN INH 10/16/17 22:30 11/15/17 22:29 10/17/17 04:24 3 ML Sodium Chloride 1,000 ml @ 100 mls/hr Q10H IV 10/17/17 10:15 11/16/17 10:14 10/17/17 11:00 100 MLS/HR Sodium Chloride 1,000 ml @ 75 mls/hr [id number] IV 10/17/17 16:46 10/17/17 23:25 10/17/17 17:33 75 MLS/HR Atorvastatin Calcium (Lipitor Tab) 80 mg QPM PO 10/17/17 21:00 11/15/17 20:59 Metoprolol Tartrate (Lopressor Tab) 25 mg BID PO 10/17/17 21:00 11/16/17 20:59
[2017-10-18] VITALS (8 sets, daily range): BP systolic 153–165; BP diastolic 78–88; PULSE 67–78; TEMP 36.4–36.6; O2SAT 91–96
[2017-10-18] MEDS: ALBUT/IPRATROP 3MG/0.5MG NEB 3 ML VIAL INH PRN (01:22)
[2017-10-18] MEDS ORDERED: GUAIFENESIN 200 MG TAB PO ONE (02:45)
[2017-10-18] MEDS: SODIUM CHLORIDE 0.9% 1000ML 1,000 ML IV SCH ×2 (02:46→06:15)
[2017-10-18] MEDS: HEPARIN SOD 5000 UNIT/0.5 ML CARP SQ SCH ×3 (06:23→20:38)
[2017-10-18] MEDS: INSULIN ASPART 100 UNITS/ML 3 ML PEN SC SCH ×4 (07:00→20:37)
[2017-10-18 07:25] LABS: CREATININE 1.39 mg/dl (0.60-1.40); POTASSIUM 3.9 mmol/L (3.5-5.1)
[2017-10-18] MEDS: ALLOPURINOL 100 MG TAB PO SCH ×2 (07:26→20:34)
[2017-10-18] MEDS: METOPROLOL TARTRATE 25 MG TAB PO SCH ×2 (07:28→20:34)
[2017-10-18] MEDS: ASPIRIN 81 MG ECTAB PO SCH (07:28)
[2017-10-18] MEDS: CEROVITE ADV FORMULA TAB PO SCH (07:28)
[2017-10-18] MEDS: OMEGA-3 (PURIFIED FISH OIL) 1 GM CAP PO SCH (07:28)
[2017-10-18] MEDS: PANTOprazole SOD 40 MG TAB PO SCH (07:28)
[2017-10-18] MEDS ORDERED: LACTOBACILLUS ACIDOPHILUS (FLORANEX) TAB PO SCH (09:00)
--- NOTE | 2017-10-18 09:06 | DIAGNOSTIC IMAGING REPORT ---
CAROTID DOPPLER NECK ART HISTORY: Mental status change carotid stenosis COMPARISON: None. TECHNIQUE: Real-time, grayscale, and color Doppler sonography of the carotid arteries was performed. Imaging reviewed in the transverse and longitudinal planes. All measurements were calculated based on NASCET criteria. FINDINGS: Antegrade flow is seen in the bilateral vertebral arteries. The brachial pressures are hemodynamically similar. Moderate atherosclerotic change The peak systolic velocity within the right ICA is 65. The right systolic ratio is 0.8 The peak systolic velocity within the left ICA is 53. The left systolic ratio is 0.6. IMPRESSION: No hemodynamically significant stenosis seen within the carotid arteries. Moderate plaque formation bilaterally The above report was generated using voice recognition software. It may contain grammatical, syntax or spelling errors. Electronically signed by: Dioni Chapin M.D. 10/18/2017 9:05 AM Dictated Date/Time: 10/18/2017 9:02 AM
[2017-10-18] MEDS: CETIRIZINE HCL 10 MG TAB PO PRN (10:31)
[2017-10-18] MEDS ORDERED: FLUTICASONE PROPIONATE NA SPR 16 GM BTL ONE (10:54)
[2017-10-18] MEDS ORDERED: AMLODIPINE BESYLATE 5 MG TAB PO ONE (11:00)
--- NOTE | 2017-10-18 12:18 | Cardiology Follow-Up ---
Subjective Subjective Date of Service: October 18, 2017. Pt evaluation today including: conversation w/ patient, conversation w/ family , physical exam, chart review, lab review, review of studies, review of inpatient medication list Additional Details: Pt seen and examined with and grandson at bedside. States that he feels well. Cough overnight with some postnasal drip. Denies cp, sob, palpitations, lightheadedness or dizziness. Still requiring oxygen at rest. Tele reviewed: sinus rhythm without arrhythmia or significant valvular pathology. Problem List Medical Problems: (1) Elevated troponin I level Status: Acute (2) Shortness of breath Status: Acute Review of Systems Respiratory: No see HPI, No cough, No sputum, No wheezing, No shortness of breath, No dyspnea on exertion, No dyspnea at rest, No hemoptysis, No problem reported Cardiac: No see HPI, No chest pain, No orthopnea, No PND, No edema, No claudication, No palpitations, No problem reported Objective Vital Signs Last Vital Signs Documentation Date Time Temp Pulse Resp B/P (MAP) Pulse Ox O2 Delivery O2 Flow Rate FiO2 10/18/17 11:22 36.4 67 16 153/83 (106) 92 Room Air 10/18/17 08:00 2.0 Physical Exam: General Appearance: WD/WN, no apparent distress Eyes: bilateral eyes normal inspection, bilateral eyes PERRL, bilateral eyes EOMI ENT: normal ENT inspection, hearing grossly normal, pharynx normal Neck: supple, no adenopathy, thyroid normal, no JVD, no carotid bruits, trachea midline Respiratory/Chest: chest non-tender, lungs clear, normal breath sounds, no respiratory distress, no accessory muscle use Cardiovascular: regular rate, rhythm, no JVD, + systolic murmur (3/6 mid to late, vitor, 2nd ics), + gallop/S4 Abdomen: normal bowel sounds, non tender, soft, no organomegaly, no pulsatile mass Extremities: normal inspection, no pedal edema, no calf tenderness 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 Gillespie, head of cardiothoracic surgery, at [facility] he has reviewed the films and would like to transfer patient to [facility] for CABG in the very near future patient's valves will likely be evaluated further by [facility] discussed with patient, he is in agreement spoke with Dr. Alfonso, also in agreement with plan and will arrange transfer to [facility] cardiothoracic surgery service today last dose of Plavix 10/17 ok to transfer from cardiac standpoint.
--- NOTE | 2017-10-18 13:11 | DIAGNOSTIC IMAGING REPORT ---
CHEST ONE VIEW PORTABLE CLINICAL HISTORY: cough COMPARISON STUDY: 10/16/2017 FINDINGS: The cardiac and mediastinal contours are normal. There is no evidence of focal pulmonary consolidation. There is no evidence of failure. No pleural effusions are visualized.[A 4 mm nodule within the right midlung zone, and a 3 mm nodule within the left upper lung zone, are likely postinflammatory. There is persistent but diminished interstitial thickening at the lung bases. IMPRESSION: No active disease in the chest. Electronically signed by: Jose Polk M.D. 10/18/2017 1:10 PM Dictated Date/Time: 10/18/2017 1:09 PM
--- NOTE | 2017-10-18 14:48 | Progress Note ---
Medicine Progress Note Date & Time of Visit: October 18, 2017 at 14:41. Subjective Doing well. No anginal symptoms. Mild nonproductive cough. No dyspnea at rest. No nausea or vomiting. . Objective Last 8 Hrs Date Time Temp Pulse Resp B/P (MAP) Pulse Ox O2 Delivery O2 Flow Rate FiO2 10/18/17 12:00 Room Air 10/18/17 11:22 36.4 67 16 153/83 (106) 92 Room Air 10/18/17 08:00 Nasal Cannula 2.0 10/18/17 06:58 36.4 78 19 165/88 (113) 92 Nasal Cannula 2.0 Physical Exam: General- sitting in chair, no distress Lungs- clear to auscultation; no respiratory distress Cardiovascular- RRR; II/IV systolic murmur at base; no gallop appreciated; no JVD; no pretibial edema Abdomen- + bowel sounds, soft, nontender Extremities- no cyanosis; no calf tenderness; mid bruising at cath site right wrist; capillary refill right fingers 1 sec Neuro- alert, oriented Skin- warm & dry . Laboratory Results: Last 24 Hours Test 10/17/17 17:34 10/17/17 20:57 10/18/17 06:18 10/18/17 07:30 Bedside Glucose 109 mg/dl 110 mg/dl 103 mg/dl Sodium Level 140 mmol/L Potassium Level 3.9 mmol/L Chloride Level 110 mmol/L Carbon Dioxide Level 26 mmol/L Anion Gap 4.0 mmol/L Blood Urea Nitrogen 16 mg/dl Creatinine 1.39 mg/dl Est Creatinine Clear Calc Drug Dose 43.7 ml/min Estimated GFR () 56.3 Estimated GFR (Non- 48.5 BUN/Creatinine Ratio 11.7 Random Glucose 104 mg/dl Calcium Level 8.0 mg/dl Magnesium Level 2.1 mg/dl Test 10/18/17 11:27 Bedside Glucose 113 mg/dl Assessment & Plan ACUTE CORONARY SYNDROME (UNSTABLE ANGINA vs NON-STEMI) Serial troponins 0.851, 0.723, 0.606. EKG in the ED demonstrated normal sinus rhythm, T-wave inversions anteriorly and inferiorly, ST depression in lateral precordial leads. EKG this morning showed normal sinus rhythm at 70/minute, less pronounced ST, T- wave changes. Receiving aspirin, atenolol, statin. Seen in consultation by Cardiology. Echocardiogram demonstrated mild concentric LVH, possible inferior wall hypokinesis, overall LVEF 60-65%, grade 2 diastolic dysfunction, moderate- severe calcification of aortic valve without Doppler evidence of significant aortic stenosis, mild mitral stenosis. Cardiac catheterization performed 10/17/17. Summary: 1. 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 Borderline intracardiac filling pressure CABG recommended. Clopidogrel discontinued 10/17/17. Aspirin continued. Beta kerri changed from atenolol to metoprolol. Dr. Duncan discussed case with Dr. Gillespie (Cardiothoracic Surgery at [facility]). CABG tentatively planned for 10/20/17. HYPERTENSION Beta kerri transitioned from atenolol to metoprolol. COPD Stable. CKD III Serum creatinine on admission 1.51. Serum creatinine today = 1.39. Follow. DIABETES MELLITUS TYPE 2 Usually well-controlled on metformin. Hemoglobin A1c 6.3. Fasting blood sugar this morning = 103. Hold metformin during hospital stay. Insulin coverage PRN. DYSLIPIDEMIA LDL-c = 27. Atorvastatin increased to 80 mg daily in light of cath findings. COUGH Patient complained of mild nonproductive cough. History of seasonal allergies. No fever. Chest x-ray- no infiltrates, effusions, CHF. HISTORY OF DELIRIUM Experienced postop confusion in 2016 after receiving diphenhydramine and scopolamine. No problems during this hospitalization. 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 VTE PROPHYLAXIS SQ heparin. Ambulate. DISPOSITION Arrangements being made for transfer to [facility] for CABG. [facility] called. Patient accepted by Dr. Gillespie, CT Surgery. Family Medicine follow-up with Dr. Berg. . Current Inpatient Medications: Current Inpatient Medications Medications (Trade) Dose Ordered Sig/Corine Route Start Time Stop Time Status Last Admin Dose Admin Allopurinol (Zyloprim Tab) 100 mg BID PO 10/16/17 21:00 11/15/17 20:59 10/18/17 07:26 100 MG Aspirin (Ecotrin Tab) 81 mg DAILY PO 10/17/17 09:00 11/16/17 08:59 10/18/17 07:28 81 MG Cetirizine HCl (zyrTEC TAB) 10 mg QAM PRN PO 10/16/17 18:30 11/15/17 18:29 10/18/17 10:31 10 MG Multivitamins/ Minerals (Multivitamin W/ Minerals Tab) 1 tab QAM PO 10/17/17 09:00 11/16/17 08:59 10/18/17 07:28 1 TAB Pantoprazole Sodium (Protonix Tab) 40 mg DAILY PO 10/17/17 09:00 11/16/17 08:59 10/18/17 07:28 40 MG Fish Oil ([place]-3 (Purified Fish Oil) Cap) 1 gm QAM PO 10/17/17 09:00 11/16/17 08:59 10/18/17 07:28 1 GM Lactobacillus Acidophilus (Floranex Tab) 4 tab MoWeFr@0900 PO 10/18/17 09:00 11/17/17 08:59 10/18/17 07:27 4 TAB Heparin Sodium (Porcine) (Heparin Sq 5000 Unit/0.5ml) 5,000 unit Q8 SQ 10/16/17 22:00 11/15/17 21:59 10/18/17 14:30 5,000 UNIT Acetaminophen (Tylenol Tab) 650 mg Q4H PRN PO 10/16/17 18:30 11/15/17 18:29 Al Hydrox/Mg Hydrox/Simethicone (Maalox Max Susp) 15 ml Q4H PRN PO 10/16/17 18:30 11/15/17 18:29 Magnesium Hydroxide (Milk Of Magnesia Susp) 30 ml Q12H PRN PO 10/16/17 18:30 11/15/17 18:29 Nitroglycerin (Nitrostat Tab) 0.4 mg UD PRN SL 10/16/17 18:30 11/15/17 18:29 Polyethylene (Miralax Powder Packet) 17 gm DAILY PRN PO 10/16/17 18:30 11/15/17 18:29 Insulin Aspart (novoLOG ASPART) SLIDING SCALE If C... ACHS SC 10/16/17 21:00 11/15/17 20:59 Glucose (Glucose 40% Gel) 15-30 GRAMS 15 GRAMS... UD PRN PO 10/16/17 18:45 11/15/17 18:44 Glucose (Glucose Chew Tab) 4-8 Tablets 4 Tabl... UD PRN PO 10/16/17 18:45 11/15/17 18:44 Dextrose (Dextrose 50% 50ML Syringe) 25-50ML 25ML FOR ... UD PRN IV 10/16/17 18:45 11/15/17 18:44 Glucagon (Glucagon Inj) 1 mg UD PRN SQ 10/16/17 18:45 11/15/17 18:44 Carbohydrates (Carbohydrates For Hypoglycemia) 15-30 GRAMS 15 grams if BSG 54-69... UD PRN PO 10/16/17 18:45 11/15/17 18:44 Miscellaneous (Iv Fluids Completed) 1 ea PRN PRN N/A 10/16/17 20:15 10/16/18 20:14 Albuterol/ Ipratropium (Duoneb) 3 ml Q6H PRN INH 10/16/17 22:30 11/15/17 22:29 10/18/17 01:22 3 ML Sodium Chloride 1,000 ml @ 100 mls/hr Q10H IV 10/17/17 10:15 11/16/17 10:14 10/18/17 02:46 100 MLS/HR Atorvastatin Calcium (Lipitor Tab) 80 mg QPM PO 10/17/17 21:00 11/15/17 20:59 10/17/17 21:02 80 MG Metoprolol Tartrate (Lopressor Tab) 25 mg BID PO 10/17/17 21:00 11/16/17 20:59 10/18/17 07:28 25 MG Fluticasone Propionate (Flonase Nasal [place]) 2 sprays DAILY NA 10/19/17 09:00 11/18/17 08:59
[2017-10-18] MEDS ORDERED: NURSING VERBAL MED ORDER ONE (15:15)
--- NOTE | 2017-10-18 16:18 | Discharge Summary ---
Discharge Summary Date of Service October 18, 2017. Discharge Summary Admission Date: October 17, 2017 at 14:04 Discharge Date: October 18, 2017 Discharge Disposition: Acute care facility ([facility]) Principal Diagnosis: non ST-elevation myocardial infarction multivessel coronary artery disease (80% left main, 20% LAD lesions, 40% proximal circ, 90% late proximal RCA, 90% mid RCA) . 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 Procedures: cardiac monitoring echocardiogram cardiac catheterization 10/17/17 carotid duplex . Consultations: Cardiology with Dr. Duncan and Dr. Cohen . Admission Information HPI (per Admitting provider): This 77-year-old male with past medical history of CKD stage III, hypertension, type type 2 diabetes, dyslipidemia, aortic valve disease, peripheral vascular disease status post bilateral iliac artery stent placement Presented to ER complaining of shortness of breath/dyspnea on exertion which has been ongoing for the past several week. At baseline patient is very active does workout at [facility] approximately 45 minutes for weightlifting/static by cycle Denies of any shortness of breath or chest heaviness with with vigorous exercise No syncopal episode In the ER patient's vitals remained stable denies of any symptom of chest heaviness, SOB or orthopnea . Physical Exam (per Admitting): General Appearance: no apparent distress, + mild distress Head: atraumatic Eyes: normal inspection, PERRL, EOMI, sclerae normal ENT: normal ENT inspection Neck: no JVD, no carotid bruits, trachea midline Respiratory/Chest: chest non-tender, lungs clear, normal breath sounds, no respiratory distress Cardiovascular: regular rate, rhythm, no edema, no gallop, no JVD Abdomen/GI: normal bowel sounds, non tender, soft Extremities/Musculoskelatal: normal capillary refill, no pedal edema Neurologic/Psych: no motor/sensory deficits, alert, normal mood/affect, oriented x 3 Skin: normal color, warm/dry, no rash Lymphatic: no adenopathy Hospital Course ACUTE CORONARY SYNDROME (UNSTABLE ANGINA vs NON-STEMI) Presented with dyspnea on exertion. EKG in the ED demonstrated normal sinus rhythm, T-wave inversions anteriorly and inferiorly, ST depression in lateral precordial leads. Serial troponins 0.851, 0.723, 0.606. Subsequent EKG showed normal sinus rhythm at 70/minute, less pronounced ST, T- wave changes. Received aspirin, atenolol, statin. Seen in consultation by Cardiology. Echocardiogram demonstrated mild concentric LVH, possible inferior wall hypokinesis, overall LVEF 60-65%, grade 2 diastolic dysfunction, moderate- severe calcification of aortic valve without Doppler evidence of significant aortic stenosis, mild mitral stenosis. Cardiac catheterization performed 10/17/17. Summary: 1. 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 Borderline intracardiac filling pressure CABG recommended. Aspirin continued. Clopidogrel discontinued 10/17/17. Beta kerri changed from atenolol to metoprolol. Dr. Duncan discussed case with Dr. Gillespie (Cardiothoracic Surgery at [facility]). CABG tentatively planned for 10/20/17. HYPERTENSION Beta kerri transitioned from atenolol to metoprolol. COPD Stable. CKD III Serum creatinine on admission 1.51. Serum creatinine today = 1.39. Follow. DIABETES MELLITUS TYPE 2 Usually well-controlled on metformin. Hemoglobin A1c 6.3. Fasting blood sugar this morning = 103. Hold metformin during hospital stay. Insulin coverage PRN. DYSLIPIDEMIA LDL-c = 27. Atorvastatin increased to 80 mg daily in light of cath findings. COUGH Patient complained of mild nonproductive cough. History of seasonal allergies. No fever. Chest x-ray- no infiltrates, effusions, CHF. HISTORY OF DELIRIUM Experienced postop confusion in 2016 after receiving diphenhydramine and scopolamine. No problems during this hospitalization. Avoid medications with [employer] side effects, especially anticholinergic meds, as much as possible. VTE PROPHYLAXIS SQ heparin. Ambulate. DISPOSITION Arrangements being made for transfer to [facility] for CABG. [facility] called. Patient accepted by Dr. Gillespie, CT Surgery. Family Medicine follow-up with Dr. Berg. . Total time spent on discharge = 50 min. This includes examination of the patient, discharge planning, medication reconciliation, and communication with other providers. . Discharge Instructions Reported Home Medications Medications Dose Route/Sig Max Daily Dose Days Date Category Dose Instructions Amoxil (Amoxicillin) 500 Mg Cap 2,000 Mg PO UD 10/16/17 Reported [Leg Cramps] 1 Tab PO QPM 10/16/17 Reported Pantoprazole Sodium (Pantoprazole) 40 Mg Tab 40 Mg PO DAILY 10/16/17 Reported Aspirin Ec (Aspirin) 81 Mg Tab 81 Mg PO DAILY 10/16/17 Reported Allopurinol 100 Mg Tab 100 Mg PO BID 10/16/17 Reported Clopidogrel (Clopidogrel Bisulfate) 75 Mg Tab 75 Mg PO DAILY 10/16/17 Reported Tylenol Extra Strength (Acetaminophen) 500 Mg Tab 1,000 Mg PO Q8 30 03/12/16 Rx Take 3 times per day to lessen pain. Zyrtec (Cetirizine HCl) 10 Mg Tab 10 Mg PO QAM PRN 03/01/16 Reported Ocuvite Preservision (Multivitamins/Minerals) 1 Tab Tab 1 Tab PO QAM 03/01/16 Reported Lipitor (Atorvastatin Calcium) 20 Mg Tab 40 Mg PO QPM 03/01/16 Reported Glucophage (Metformin Hcl) 500 Mg Tab 500 Mg PO BID 03/01/16 Reported Probiotic Daily (Probiotic Product) 1 Cap Cap 1 Cap PO MWF 07/06/15 Reported Glucosamine & Chondroitin 500-400 mg (Glucosamine-Chondroitin) 1 Cap Cap 1 Cap PO BID 07/06/15 Reported Saw [place] (Saw [place] (Serenoa Repens)) 450 Mg Cap 1 Cap PO QPM 07/06/15 Reported Cozaar (Losartan Potassium) 25 Mg Tab 25 Mg PO QP 07/06/15 Reported Lasix (Furosemide) 20 Mg Tab 20 Mg PO QAM 07/06/15 Reported Krill Oil [place]-3 (Krill Oil) 1 Cap Cap 1 Cap PO QAM 07/06/15 Reported ON HOLD PER PT Atenolol 50 Mg Tab 1 Tab PO QAM 08/01/14 Reported Current Inpatient Medications Medications (Trade) Dose Ordered Sig/Corine Route Start Time Stop Time Status Last Admin Dose Admin Allopurinol (Zyloprim Tab) 100 mg BID PO 10/16/17 21:00 11/15/17 20:59 10/18/17 07:26 100 MG Aspirin (Ecotrin Tab) 81 mg DAILY PO 10/17/17 09:00 11/16/17 08:59 10/18/17 07:28 81 MG Cetirizine HCl (zyrTEC TAB) 10 mg QAM PRN PO 10/16/17 18:30 11/15/17 18:29 10/18/17 10:31 10 MG Multivitamins/ Minerals (Multivitamin W/ Minerals Tab) 1 tab QAM PO 10/17/17 09:00 11/16/17 08:59 10/18/17 07:28 1 TAB Pantoprazole Sodium (Protonix Tab) 40 mg DAILY PO 10/17/17 09:00 11/16/17 08:59 10/18/17 07:28 40 MG Fish Oil ([place]-3 (Purified Fish Oil) Cap) 1 gm QAM PO 10/17/17 09:00 11/16/17 08:59 10/18/17 07:28 1 GM Lactobacillus Acidophilus (Floranex Tab) 4 tab MoWeFr@0900 PO 10/18/17 09:00 11/17/17 08:59 10/18/17 07:27 4 TAB Heparin Sodium (Porcine) (Heparin Sq 5000 Unit/0.5ml) 5,000 unit Q8 SQ 10/16/17 22:00 11/15/17 21:59 10/18/17 14:30 5,000 UNIT Acetaminophen (Tylenol Tab) 650 mg Q4H PRN PO 10/16/17 18:30 11/15/17 18:29 Al Hydrox/Mg Hydrox/Simethicone (Maalox Max Susp) 15 ml Q4H PRN PO 10/16/17 18:30 11/15/17 18:29 Magnesium Hydroxide (Milk Of Magnesia Susp) 30 ml Q12H PRN PO 10/16/17 18:30 11/15/17 18:29 Nitroglycerin (Nitrostat Tab) 0.4 mg UD PRN SL 10/16/17 18:30 11/15/17 18:29 Polyethylene (Miralax Powder Packet) 17 gm DAILY PRN PO 10/16/17 18:30 11/15/17 18:29 Insulin Aspart (novoLOG ASPART) SLIDING SCALE If C... ACHS SC 10/16/17 21:00 11/15/17 20:59 Glucose (Glucose 40% Gel) 15-30 GRAMS 15 GRAMS... UD PRN PO 10/16/17 18:45 11/15/17 18:44 Glucose (Glucose Chew Tab) 4-8 Tablets 4 Tabl... UD PRN PO 10/16/17 18:45 11/15/17 18:44 Dextrose (Dextrose 50% 50ML Syringe) 25-50ML 25ML FOR ... UD PRN IV 10/16/17 18:45 11/15/17 18:44 Glucagon (Glucagon Inj) 1 mg UD PRN SQ 10/16/17 18:45 11/15/17 18:44 Carbohydrates (Carbohydrates For Hypoglycemia) 15-30 GRAMS 15 grams if BSG 54-69... UD PRN PO 10/16/17 18:45 11/15/17 18:44 Miscellaneous (Iv Fluids Completed) 1 ea PRN PRN N/A 10/16/17 20:15 10/16/18 20:14 Albuterol/ Ipratropium (Duoneb) 3 ml Q6H PRN INH 10/16/17 22:30 11/15/17 22:29 10/18/17 01:22 3 ML Atorvastatin Calcium (Lipitor Tab) 80 mg QPM PO 10/17/17 21:00 11/15/17 20:59 10/17/17 21:02 80 MG Metoprolol Tartrate (Lopressor Tab) 25 mg BID PO 10/17/17 21:00 11/16/17 20:59 10/18/17 07:28 25 MG Fluticasone Propionate (Flonase Nasal [place]) 2 sprays DAILY NA 5/10/18 09:00 11/18/17 08:59 ALLERGIES / ADRs: diphenhydramine delirium lisinopril cough DIET: AHA, diabetic, low lactose IV: saline lock ACTIVITY: as tolerated O2: per protocol VTE heparin 5000 units SQ q 8 hrs PROPHYLAXIS: Thank you for receiving this patient in transfer. Please call or TigerText if you have any questions. Enio Alfonso . Additional Copies To Enio Berg III, M.D.
[2017-10-18] MEDS ORDERED: NTRSLP4 SL (17:30)
[2017-10-18] MEDS ORDERED: LPR25 PO (17:30)
[2017-10-18] MEDS ORDERED: LPT40 PO (17:30)
--- NOTE | 2017-10-18 17:31 | Discharge Instructions ---
Discharge Instructions Date of Service October 18, 2017. Admission Reason for Admission: chest pain . Discharge Discharge Diagnosis / Problem: heart attack Discharge Goals Goal(s): Decrease discomfort, Improve disease control Activity Recommendations Activity Limitations: as noted below (as instructed at [employer]) . Instructions / Follow-Up Instructions / Follow-Up APPOINTMENTS: FAMILY MEDICINE Dr. Berg OTHER INSTRUCTIONS: Seek medical attention if you have: * temperature above 101 * chest pain or trouble breathing * abdominal pain, nausea, vomiting * diarrhea, dark stools or bloody stools * any unanswered questions or concerns Call 911 if symptoms are severe. Call if you have any questions or problems. My cell # is [phone]. You can also reach a [facility] hospitalist on duty at [facility] 24 hours a day by calling [phone]. Please take good care of yourself. Enio Alfonso . Current Hospital Diet Patient's current hospital diet: Diabetes Type 2 Diet, AHA Diet (Heart Healthy) Discharge Diet Recommended Diet: AHA Diet (Heart Healthy), Diabetes Type 2 Diet Pending Studies Studies pending at discharge: no Laboratory Results Hemoglobin A1c Test 10/17/17 06:14 Range/Units Estimated Average Glucose 134 mg/dl Hemoglobin A1c 6.3 H 4.5-5.6 % Lipid Panel Test 10/17/17 06:14 Range/Units Triglycerides Level 189 H 0-150 mg/dl Cholesterol Level 89 0-200 mg/dl HDL Cholesterol 24 mg/dl Cholesterol/HDL Ratio 3.7 LDL Cholesterol, Calculated 27 mg/dl Medical Emergencies . Who to Call and When: Medical Emergencies: If at any time you feel your situation is an emergency, please call 911 immediately. . Non-Emergent Contact Non-Emergency issues call your: Primary Care Provider, Business Planner, Hospital Doctor . . "Provider Documentation" section prepared by Enio Alfonso. .
[2017-10-18] MEDS: ATORVASTATIN 40 MG TAB PO SCH (20:33)
[2017-10-19] MEDS ORDERED: FLUTICASONE PROPIONATE NA SPR 16 GM BTL SCH (09:00)
== END 2017-10-18 21:10 | disposition short-term general hospital (02) | DRG 281 ==
LOC: C.EDB 15:26 → C.2E 18:27 → ENRESERV 18:33 → OBSVTOIN 10-17 14:04
PROVIDERS: ADMIT Hospitalist; ATTEND Hospitalist
PROC: B2111ZZ Fluoroscopy of Multiple Coronary Arteries using Low Osmolar Contrast (ICD-10-PCS; principal; 2017-10-17 15:10)
PROC: 4A023N7 Measurement of Cardiac Sampling and Pressure, Left Heart, Percutaneous Approach (ICD-10-PCS; principal; 2017-10-17 15:10)
DX: I21.4 Non-ST elevation (NSTEMI) myocardial infarction (principal); C83.30 Diffuse large B-cell lymphoma, unspecified site; I25.110 Atherosclerotic heart disease of native coronary artery with unstable angina pectoris; I08.0 Rheumatic disorders of both mitral and aortic valves; I12.9 Hypertensive chronic kidney disease with stage 1 through stage 4 chronic kidney disease, or unspecified chronic kidney disease; E11.22 Type 2 diabetes mellitus with diabetic chronic kidney disease; N18.3 Chronic kidney disease, stage 3 (moderate); J44.9 Chronic obstructive pulmonary disease, unspecified; R06.02 Shortness of breath; R05 Cough; E78.5 Hyperlipidemia, unspecified; M10.9 Gout, unspecified; M16.12 Unilateral primary osteoarthritis, left hip; I73.9 Peripheral vascular disease, unspecified; E73.9 Lactose intolerance, unspecified; Z95.820 Peripheral vascular angioplasty status with implants and grafts; Z96.642 Presence of left artificial hip joint; Z86.59 Personal history of other mental and behavioral disorders; Z86.14 Personal history of Methicillin resistant Staphylococcus aureus infection; Z87.891 Personal history of nicotine dependence; Z82.49 Family history of ischemic heart disease and other diseases of the circulatory system; Z79.2 Long term (current) use of antibiotics; Z79.02 Long term (current) use of antithrombotics/antiplatelets; Z79.82 Long term (current) use of aspirin; Z79.84 Long term (current) use of oral hypoglycemic drugs; Z79.899 Other long term (current) drug therapy; Z88.8 Allergy status to other drugs, medicaments and biological substances

== ENCOUNTER 2019-02-20 04:59 | Inpatient (IN) ==
--- NOTE | 2019-02-05 15:56 | PAT Medication Instructions ---
Medication Instructions Date of Service February 05, 2019 Home Medications Glucosamine Chondroitin 1 cap PO BID Ocuvite Eye Health 1 tab PO QAM Probiotic and Acidophilus 1 cap PO DAILY PRN albuterol sulfate 2 puff INHALATION Q6H PRN allopurinol 100 mg PO BID amlodipine 2.5 mg PO QAM amoxicillin 500 mg PO UD PRN aspirin [Aspirin Low Dose] 81 mg PO QAM atorvastatin 40 mg PO PM benzonatate 200 mg PO TID PRN calcitriol 0.25 mcg PO QAM cetirizine 10 mg PO DAILY PRN clopidogrel 75 mg PO QAM docusate sodium 100 mg PO BID furosemide 20 mg PO QAM losartan 50 mg PO QAM metformin 500 mg PO BIDM pantoprazole 40 mg PO QPM saw palmetto fruit 450 mg PO QPM Leg Cramps/Quinine 324mg 1 dose PO HS Continue as directed amoxicillin 500 mg PO UD PRN ASK your prescriber and surgeon clopidogrel 75 mg PO QAM (in order for spinal anesthesia, clopidogrel/plavix needs to be stopped 7 days prior to surgery- please check is this is okay with doctor that prescribes this medication to you) STOP taking 2 weeks before surgery (or as soon as possible if surgery is within 2 weeks) Glucosamine Chondroitin 1 cap PO BID Ocuvite Eye Health 1 tab PO QAM saw [place]met[place] fruit 450 mg PO QPM Leg Cramps/Quinine 324mg 1 dose PO HS DO NOT take the morning of surgery Probiotic and Acidophilus 1 cap PO DAILY PRN benzonatate 200 mg PO TID PRN calcitriol 0.25 mcg PO QAM cetirizine 10 mg PO DAILY PRN docusate sodium 100 mg PO BID furosemide 20 mg PO QAM losartan 50 mg PO QAM metformin 500 mg PO BIDM Take morning of surgery With a small sip of water, OTHERWISE NOTHING TO EAT OR DRINK AFTER MIDNIGHT: albuterol sulfate 2 puff INHALATION Q6H PRN (use if needed; please bring with you to hospital day of surgery if possible) allopurinol 100 mg PO BID amlodipine 2.5 mg PO QAM aspirin [Aspirin Low Dose] 81 mg PO QAM Take evening before surgery albuterol sulfate 2 puff INHALATION Q6H PRN (if needed) allopurinol 100 mg PO BID atorvastatin 40 mg PO PM benzonatate 200 mg PO TID PRN (if needed) docusate sodium 100 mg PO BID metformin 500 mg PO BIDM pantoprazole 40 mg PO QPM Other Notes If you have any questions please call us at [phone] or [phone] or [phone] or [phone]
--- NOTE | 2019-02-06 09:50 | Anesthesiology Consultation ---
Date of Service February 06, 2019 Assessment & Plan (1) Encounter for pre-operative examination: - Cardiology note: 01/29/19: As long as he is asymptomatic from a cardiac standpoint, I would place him as a moderate risk for adverse perioperative cardiovascular event, i.e. heart attack, stroke or , with risk of approximately less than 5%. If you are accepting this risk, no preop is necessary." Patient denies cardiopulmonary complaints at PAT visit 02/06/19* - *Hx aortic stenosis*: Moderate aortic stenosis (KERA 1.0cm2, MG 7mmhg) per 06/2018 ECHO Chart Review Chart Review: Acceptable Risk for Surgery (pending preop testing (testing, CXR)) and Patient seen in Pre Admission Testing Teaching & Discussion Pre-Anesthesia Teaching/Discussion Notes: Instructed NPO after midnight before surgery,except medications with 15 cc of water. Medication instructions provided according to the PAT guidelines. History Surgery Operation Date: 02/20/19 09:05 Proposed Procedures p Right Total Hip Replacement - Thien Reynoso MD Height/Weight Height: 5 ft 6 in Weight: 77.7 kg Allergies Allergy/AdvReac Type Severity Reaction Status Date / Time amiodarone Allergy Unknown "streaking Verified 02/01/19 13:51 up vein" and painful lactose Allergy Unknown GI UPSET Verified 02/01/19 13:51 pollen extracts Allergy Unknown HAYFEVER Verified 02/01/19 13:51 tramadol Allergy Unknown Hallucinati Verified 02/01/19 13:51 ng lisinopril AdvReac Unknown COUGH Verified 02/01/19 13:51 Medications Home Medications Medication Instructions Recorded Confirmed Last Taken Glucosamine Chondroitin 1 cap PO BID 01/11/19 02/01/19 02/01/19 Ocuvite Eye Health 1 tab PO QAM 01/11/19 02/01/19 02/01/19 Probiotic and Acidophilus 1 cap PO DAILY PRN 01/11/19 02/01/19 01/13/19 albuterol sulfate 2 puff INHALATION Q6H PRN 01/11/19 02/01/19 Unknown allopurinol 100 mg PO BID 01/11/19 02/01/19 02/01/19 amlodipine 2.5 mg PO QAM 01/11/19 02/01/19 02/01/19 amoxicillin 500 mg PO UD PRN 01/11/19 02/01/19 Unknown aspirin [Aspirin Low Dose] 81 mg PO QAM 01/11/19 02/01/19 02/01/19 atorvastatin 40 mg PO PM 01/11/19 02/01/19 01/13/19 benzonatate 200 mg PO TID PRN 01/11/19 02/01/19 Unknown calcitriol 0.25 mcg PO QAM 01/11/19 02/01/19 02/01/19 cetirizine 10 mg PO DAILY PRN 01/11/19 02/01/19 01/13/19 clopidogrel 75 mg PO QAM 01/11/19 02/01/19 02/01/19 docusate sodium 100 mg PO BID 01/11/19 02/01/19 02/01/19 furosemide 20 mg PO QAM 01/11/19 02/01/19 02/01/19 losartan 50 mg PO QAM 01/11/19 02/01/19 02/01/19 metformin 500 mg PO BIDM 01/11/19 02/01/19 02/01/19 pantoprazole 40 mg PO QPM 01/11/19 02/01/19 01/13/19 saw palmetto fruit 450 mg PO QPM 01/11/19 02/01/19 01/13/19 Leg Cramps 1 dose PO HS 02/01/19 02/01/19 Unknown Past Medical History Medical History Aortic stenosis Moderate aortic stenosis (KERA 1.0cm2, MG 7mmhg) Asthma allergy induced-- inhaler prn Chronic kidney disease, stage 3 baseline creatinine 1.4-1.7 per chart reviewe Colitis Diabetes mellitus, type 2 Diverticular disease Fibromyalgia Gout Hearing deficit History of GI bleed Hyperlipidemia Hypertension Non-Hodgkin lymphoma diagnosed 2004 s/p chemo Osteoarthritis PAD (peripheral artery disease) s/p b/l iliac artery stents (2015) Exercise / Class Metabolic Activity III < 4 Walking/Shop/Light housework Past Family History Family History Grandmother (Paternal) Family history of diabetes mellitus Mother Family history of diabetes mellitus Aunt Family history of diabetes mellitus Uncle Family history of diabetes mellitus Grandfather (Maternal) Family history of diabetes mellitus Sister Family history of diabetes mellitus Father Family hx colonic polyps Other No family history of adverse response to anesthesia Past Surgical History Surgical History History of bilateral carpal tunnel release History of cardiac cath 2017= subsequent CABG x3 History of lumbar discectomy History of lymph node biopsy History of phacoemulsification of cataract of both eyes with intraocular lens implantation History of tonsillectomy and adenoidectomy History of tooth extraction History of total left hip replacement History of umbilical hernia repair Hx of left inguinal hernia repair Hx of right inguinal hernia repair S/P CABG x 3 10/2016 S/P colonoscopy 01/15/19 Status post insertion of iliac artery stent b/l (2015) Past Anesthesia History No Family Hx of Anesthesia Complications and Other 10/08/18 lap hernia repair ([facility])-- decreased pulse ox, placed on oxygen for an hour and then discharged to home, no further issues. No anesthesia issues/complications per anesthesia records (Grade view 1, MAC#3, ETT 7.5) History of PONV No Hx of PONV and No Hx of Motion Sickness Social History Smoking Status: Former smoker Do You Dip or Chew Tobacco: No (HX OF) Smoking End Date: QUIT 40 YEARS AGO Hx Alcohol Use: No alcohol intake frequency: other Alcohol Intake Frequency Comment: ONCE A MONTH Hx Substance Use: No substance use type: does not use Review of Systems Occasional reflux. Patient denies chest pain, shortness of breath, cough, wheezing, palpitations. Physical Exam Vital Signs VITALS BP 130/78 P 0 TEMP 97.8 SP02 95%RA RESP 18 PHYSICAL Mildly decreased cervical extension Full TMJ range of motion. TMD 3.5 finger breaths Mallampati Score 2 Dentition: missing molars, several caps including upper front right Lungs: clear throughout to auscultation Cardiac: regular rate and rhythm, I/ systolic murmur Spine: normal Carotid arteries: negative bruit Extremities: no edema Testing Laboratory Results 01/09/19 WBC 10.43 H/H 16.5/47.2 PLATELETS 159 SODIUM 142 POTASSIUM 4.7 CHLORIDE 103 CO2 25 BUN 24 CREATININE 1.6 GFR 41.3 GLUCOSE 132 Electrocardiogram Date: 07/03/18 NSR at 61bpm. Rightward axis. Septal infarct. TWA, consider inferior ischemia vs. nonspecific changes (significantly improved compared to 9/20/[address] [facility]). Subsequent nuclear stress test done 07/06/18* Echocardiogram Date: 06/29/18 EF 55-60%. Abnormal septal wall motion consistent with postoperative state, otherwise "normal." Mild cLVH. Moderate aortic stenosis (KERA 1.0cm2, MG 7mmhg).* Estimated PASP 59mmhg. Grade III DD. Severe mitral annular calcification. Moderate MV leaflets calcified. Mild TR. Stress Test Date: 07/06/18 Type: nuclear Myocardial perfusion is normal. LVEF >70%. 112% MPHR. 5.4METS. Cardiac Catheterization Date: 10/17/17 Severe multivessel disease including ostial and distal left main disease. 60% ostial left main, 70-80% distal left main at bifurcation of LAD/circumflex. 90% disease in late-proximal and mid RCA. Subsequent CABG x 3*
--- NOTE | 2019-02-06 10:32 | XRay Report ---
XR chest Pre-admission PA/Lat HISTORY: preop COMPARISON: 10/18/2017. FINDINGS: The lungs are clear. Cardiac silhouette is normal in size. No pleural effusions. No pneumot horax. Stable punctate calcified granuloma within the right midlung zone. Poststernotomy changes note d. IMPRESSION: No acute process. Electronically signed by: Venkat Yost M.D. 02/06/2019 10:31 AM
[2019-02-06 11:02] LABS: INR 1.1 (0.9-1.1); Partial Thromboplastin Time 27.2 Seconds (21.0-31.0); Prothrombin Time 11.4 Seconds (9.0-12.0)
[2019-02-06 11:41] LABS: Estimated Average Glucose 137 mg/dl; Hemoglobin A1C 6.4 % (4.5-5.6)
--- NOTE | 2019-02-17 13:24 | History and Physical Report ---
DATE OF ADMISSION: 02/20/2019 CHIEF COMPLAINT: Right hip pain. HISTORY OF PRESENT ILLNESS: A 79-year-old gentleman well known to me from previous left hip replacement done back in 02/2016. Over the past year, he has developed increased pain and discomfort in his right hip. It is really starting to limit his activities. About a month ago, he was markedly debilitated by the pain. It has eased up a little bit. He describes mostly groin pain and thigh pain. The more he walks, the more it hurts. He has nighttime discomfort. He has difficulty going up and down stairs and putting his shoes-on on this side. He elected to proceed with right hip replacement. Of note, since his last hip replacement, he did have bypass surgery at [facility] in 10/2017. He has also had some vascular stenting. PAST MEDICAL HISTORY: 1. Coronary artery disease status post CABG done at [facility] in 10/2017. 2. Elevated cholesterol. 3. Diabetes x10 years. 4. Arthritis. 5. History of non-Hodgkin's lymphoma, disease free since 2009. PAST SURGICAL HISTORY: Include: 1. Laparoscopic herniorrhaphy. 2. CABG x3 done at [facility] in 2017. 3. Left hip replacement on 03/11/2016. 4. Carpal tunnel release. 5. Fistula. 6. Vasectomy. 7. Right knee scope. ALLERGIES: None. CURRENT MEDICINES: 1. Plavix 75 mg. 2. Allopurinol 100 mg a day. 3. Atenolol 50 mg. 4. Glipizide. 5. Metformin. 6. Furosemide. 7. Amlodipine. 8. Docusate sodium. 9. Calcitriol. 10. Albuterol. 11. Baby aspirin. 12. Clotrimazole. SOCIAL HISTORY: A 79-year-old male. He is . Lives in [place]. PRIMARY CARE PHYSICIAN: Dr. Berg. JAILER: Dr. Duncan. FAMILY HISTORY: Noncontributory. REVIEW OF SYSTEMS: Significant for coronary artery disease. He is on Plavix. Denies any current chest pain or shortness of breath. Denies any known history of DVT or PE. PHYSICAL EXAMINATION: GENERAL: Shows a pleasant, healthy appearing elderly male. He looks younger than his stated age. HEENT: Benign. NECK: Supple, no lymphadenopathy. LUNGS: Clear to auscultation. HEART: Has a regular rate and rhythm. ABDOMEN: Soft, nontender, nondistended. EXTREMITIES: Grossly neurovascularly intact except as follows: Examination of the right hip reveals the patient walks with a little bit of a limp. Leg lengths clinically appear pretty equal. He does have stiffness and pain with hip motion. He can internally rotate to neutral, external rotation to 20 degrees. Negative straight leg raise. X-RAYS: X-ray of the right hip were reviewed, shows advanced right hip DJD. He has got near complete loss of his superior joint space. ASSESSMENT: A 79-year-old gentleman who is status post a left hip replacement with advanced right hip degenerative joint disease. It has gotten significantly worse clinically over the past year. He would like to have his right hip replaced. PLAN: We will proceed with right total hip replacement. The risks and benefits of this procedure were explained to the patient including but not limited to DVT, PE, , infection, neurological injury, vascular injury, bleeding problem, pain, limited range of motion, stiffness, failure to relieve symptoms, incomplete relief of symptoms, need for further surgery in future, fracture, leg length inequality, nerve palsy, dislocation, etc. The patient understands and desires to proceed. Informed consent was obtained. He will need to stop his Plavix 7 days preop. He had a lot of troubles with confusion after his hip surgery in the past. We will try and limit his pain medicines, particularly tramadol. We will try and stick to Tylenol as much as possible. We will use Plavix for DVT prophylaxis along with TEDs and SCDs.
[2019-02-20] MEDS ORDERED: LR 15ML/HR IV SCH ×2 (06:00)
[2019-02-20] MEDS ORDERED: FAMOTIDINE 20 MG TAB PO SCH (06:00)
[2019-02-20] MEDS ORDERED: ACETAMINOPHEN 500 MG TAB PO SCH (06:00)
[2019-02-20] MEDS ORDERED: CEFAZOLIN 1000MG 1,000 MG/7.5 ML SYR IV SCH (06:00)
[2019-02-20] MEDS ORDERED: METOCLOPRAMIDE HCL 10 MG TABLET PO SCH (06:00)
[2019-02-20] MEDS ORDERED: GABAPENTIN 300 MG CAP PO SCH (06:00)
[2019-02-20] MEDS ORDERED: CEFAZOLIN 2000MG 2,000 MG/15 ML SYR IV SCH (06:00)
[2019-02-20] MEDS ORDERED: BUPIVACAINE 0.5 % 5 MG/1 ML PF 10ML VIAL ONE (06:22)
[2019-02-20] MEDS ORDERED: LIDOCAINE HCL 2% 2 ML VIAL/AMP(20MG/ML) INFIL ONE (06:48)
[2019-02-20] MEDS ORDERED: ONDANSETRON INJ 2 MG/ML 2 ML VIAL ONE (06:48)
[2019-02-20] MEDS ORDERED: fentaNYL citrate 100 MCG/2 ML VIAL ONE (06:48)
[2019-02-20] MEDS ORDERED: MIDAZOLAM HCL 1 MG/ML 2ML VIAL ONE (06:48)
[2019-02-20] MEDS ORDERED: PROPOFOL IV EMULSION 10 MG/ML 20 ML VIAL IV ONE (06:48)
--- NOTE | 2019-02-20 06:52 | History & Physical Bridge Note ---
Date of Service February 20, 2019 History & Physical Bridge Note I have examined the patient, reviewed the History & Physical and in the interval since the performance of the History & Physical I have noted the following changes of clinical significance: no changes noted
[2019-02-20] MEDS ORDERED: BACITRACIN INJ 50,000 UNIT VIAL ONE (07:00)
[2019-02-20] MEDS ORDERED: BUPIVACAINE/EPINEPHRINE 0.5% MPF 1:200,000 30 ML VIAL ONE (07:00)
[2019-02-20] MEDS ORDERED: PHENYLEPHRINE HCL 10 MG/ML VIAL ONE (08:04)
[2019-02-20] MEDS ORDERED: ePHEDrine sulfate 50 MG/ML AMP ONE (08:04)
[2019-02-20] MEDS ORDERED: VANCOMYCIN HCL 1000MG/20ML VIAL ONE (08:34)
[2019-02-20] MEDS ORDERED: fentaNYL citrate 100 MCG/2 ML VIAL IV PRN (08:35)
[2019-02-20] MEDS ORDERED: PHENYLEPHRINE 100MCG/ML 5ML SYR IV PRN (08:35)
[2019-02-20] MEDS ORDERED: LABETALOL HCL IV 5 MG/ML 20ML IV PRN (08:35)
[2019-02-20] MEDS ORDERED: ATROPINE SULFATE 0.1 MG/ML 10ML SYR IV PRN (08:35)
[2019-02-20] MEDS ORDERED: ePHEDrine sulfate 50 MG/ML AMP IV PRN (08:35)
[2019-02-20] MEDS ORDERED: ONDANSETRON INJ 2 MG/ML 2 ML VIAL IV PRN ×2 (08:35→10:27)
--- NOTE | 2019-02-20 08:44 | Post Operative Brief Note ---
PG Immediate Post Op with CF Date of Surgery February 20, 2019 Pre & Post Diagnosis Operation Date: 02/20/19 07:15 Pre-Op Diagnosis: Right Hip Degenerative Joint Disease Post-Op Diagnosis: Right Hip Degenerative Joint Disease Procedure Operation Date: 02/20/19 07:15 Actual Procedures p Right Total Hip Arthroplasty, Uncemented(Right) - Thien Reynoso MD Surgeon Thien Reynoso MD [employer] Piper, PAC Estimated Blood Loss 200 Findings Consistent with Post-Op Diagnosis Fluids 800 cc Specimens Specimen Description: Permanent Specimen A: Right femoral head Drains Cole Catheter Anesthesia Type Spinal MAC Complications none Disposition Accompanied Patient To Recovery: Yes Disposition: Recovery Room
--- NOTE | 2019-02-20 09:18 | XRay Report ---
XR hip 1V RT w pelvis CLINICAL HISTORY: Postoperative evaluation. COMPARISON: Pelvis radiograph February 01, 2019. FINDINGS: Alignment of the total right hip arthroplasty is anatomic. There is no fracture or unexpec tevin radiopaque foreign body. Acetabular screws and skin lopez are noted. Left hip arthroplasty is n oted. IMPRESSION: Expected findings following total right hip arthroplasty. Electronically signed by: Vaughn Lujan M.D. 02/20/2019 9:17 AM
--- NOTE | 2019-02-20 10:03 | Anesthesiology Progress Note ---
Date of Service February 20, 2019 Anesthesia Post Procedure Vital Signs Vital Signs: Temp Pulse Pulse Resp BP Pulse Ox 02/20/19 09:55 78 16 104/57 L 100 02/20/19 09:45 36.3 C L 79 13 106/55 L 99 02/20/19 09:35 80 12 102/53 L 100 02/20/19 09:25 80 10 L 110/53 L 100 02/20/19 09:15 81 12 103/53 L 99 02/20/19 09:05 83 13 116/51 L 97 02/20/19 08:55 84 13 119/66 96 02/20/19 08:46 36.2 C L 87 16 101/52 L 100 02/20/19 05:38 36.6 C 107 H 16 175/100 H 93 Pain Intensity Right Hip: Pain Intensity: 0 Transfer of Care Handoff Completed per policy Notes Mental Status: alert / awake / arousable Patient Amnestic to Procedure: Yes Nausea / Vomiting: adequately controlled Pain: adequately controlled Airway Patency, RR, SpO2: stable & adequate BP & HR: stable & adequate Hydration State: stable & adequate Neuraxial Anesthesia: was administered and sensory block is resolving Anesthetic Complications: no major complications apparent and Pt Satisfied with anesthetic care
[2019-02-20] MEDS ORDERED: MULTIVITAMIN TAB PO SCH (10:27)
[2019-02-20] MEDS ORDERED: GLUCOSE 10 TABS/TUBE PO PRN (10:27)
[2019-02-20] MEDS ORDERED: BISACODYL 10 MG SUPP PR PRN (10:27)
[2019-02-20] MEDS ORDERED: VANCOMYCIN CONSULT ACTIVE PRN (10:27)
[2019-02-20] MEDS ORDERED: TAMSULOSIN HCL 0.4 MG CAP PO PRN (10:27)
[2019-02-20] MEDS ORDERED: CARBOHYDRATES FOR HYPOGLYCEMIA PO PRN (10:27)
[2019-02-20] MEDS ORDERED: ALUMINUM/MAGNESIUM SUSP 30 ML UDC PO PRN (10:27)
[2019-02-20] MEDS ORDERED: CETIRIZINE HCL 10 MG TABLET PO PRN (10:27)
[2019-02-20] MEDS ORDERED: BENZONATATE 100 MG CAPSULE PO PRN (10:27)
[2019-02-20] MEDS ORDERED: GLUCAGON FOR INJ 1 MG VIAL SQ PRN (10:27)
[2019-02-20] MEDS ORDERED: METOCLOPRAMIDE HCL INJ 5 MG/ML 2 ML VIAL IV PRN (10:27)
[2019-02-20] MEDS ORDERED: GLUCOSE 40% GEL 15 GM TUBE PO PRN (10:27)
[2019-02-20] MEDS ORDERED: MAGNESIUM HYDROXIDE SUSP 30 ML UDC PO PRN (10:27)
[2019-02-20] MEDS ORDERED: PHARMACY GLYCEMIC MGMT CONSULT STA (10:27)
[2019-02-20] MEDS ORDERED: LACTOBACILLUS ACIDOPHILUS (FLORANEX) TAB PO PRN (10:27)
[2019-02-20] MEDS ORDERED: DEXTROSE 50% 50 ML SYRINGE IV PRN (10:27)
[2019-02-20] MEDS ORDERED: ALBUTEROL HFA 8 GM INHALER INH PRN (10:27)
[2019-02-20] MEDS ORDERED: NON-FORMULARY MEDICATION (Docusate Sodium 100 MG) PO SCH (10:27)
[2019-02-20] MEDS ORDERED: NALOXONE HCL 0.4 MG/1 ML VIAL/CARP IV PRN (10:27)
[2019-02-20] MEDS ORDERED: PHARMACY GLYCEMIC MGMT CONSULT PRN (10:41)
[2019-02-20] MEDS: SODIUM CHLORIDE 0.9% 1000ML 1,000 ML IV SCH (10:50)
[2019-02-20] MEDS: ASPIRIN 81 MG ECTAB PO SCH (10:51)
[2019-02-20] MEDS: AMLODIPINE BESYLATE 5 MG TAB PO SCH (10:51)
[2019-02-20] MEDS: ALLOPURINOL 100 MG TAB PO SCH ×2 (10:52→21:39)
[2019-02-20] MEDS: DOCUSATE SODIUM 100 MG CAP PO SCH ×2 (11:40→21:41)
[2019-02-20] MEDS: FUROSEMIDE 20 MG TAB PO SCH (11:40)
[2019-02-20] MEDS: LOSARTAN POTASSIUM 50 MG TAB PO SCH (11:41)
[2019-02-20] MEDS: CALCITRIOL 0.25 MCG CAPSULE PO SCH (11:42)
[2019-02-20] MEDS: CEROVITE ADV FORMULA TAB PO SCH (12:00)
--- NOTE | 2019-02-20 12:01 | Operative Report ---
DATE OF OPERATION: 02/20/2019 SURGEON: Thien Reynoso MD RN ENT: ERNST Casas PREOPERATIVE DIAGNOSIS: Right hip degenerative joint disease. POSTOPERATIVE DIAGNOSIS: Right hip degenerative joint disease. PROCEDURE PERFORMED: Right uncemented ceramic on highly cross-linked polyethylene total hip arthroplasty. COMPLICATIONS: None. ESTIMATED BLOOD LOSS: 200 mL. FLUID REPLACEMENT: 800 mL crystalloid fluid replacement. ANESTHESIA: Spinal. DRAINS: None. SPECIMEN: Right femoral head sent for pathology. OPERATIVE INDICATIONS: The patient is a 79-year-old gentleman who has had a long history of some hip problems. He underwent a left hip replacement 3 years ago. Over the past year, he has developed increasing pain and discomfort in his right hip that has been pretty incapacitating at times. X-rays showed advanced hip arthritis. He elected to proceed with surgical treatment. OPERATIVE FINDINGS: Operative findings revealed fairly advanced hip DJD. He did have full thickness cartilage loss of his femoral head. Not a lot of osteophyte formation. He did have a pretty significant hip joint effusion. OPERATIVE IMPLANTS: Operative implants consisted of: 1. A Biomet G7 size 56 mm acetabular shell. 2. A 6.5 cancellous acetabular screws, 1 at 35 mm in length and 1 at 25 mm in length. 3. An apex hole eliminator. 4. A highly cross-linked polyethylene liner with 56 mm outer diameter, 36 mm inner diameter. 5. A DePuy Corail size 12 KLA femoral stem. 6. A +5/36 mm ceramic articular ball. OPERATIVE PROCEDURE: The patient was taken to the operating room, identified and placed on the operating table in supine position. All contact areas were appropriately padded. IV antibiotics provided by anesthesia team. Spinal anesthetic had been implemented in the holding area. Cole catheter was placed in sterile fashion. The patient was then placed in the left lateral decubitus position. An axillary roll was placed. [facility] was used for positioning. Right hip and leg were then prepped and draped in usual sterile fashion. A posterolateral approach to the right hip was then performed through a curvilinear incision centered over the greater trochanter. Sharp dissection was carried through subcutaneous tissue down to the level of the IT band and gluteal fascia. The IT band and gluteal fascia was incised longitudinally in line with skin incision. The underlying greater trochanteric bursa was excised. The piriformis and external rotators were taken off the posterior aspect of the hip joint along with the posterior capsule as a single layer. Great care was taken throughout the procedure to protect the sciatic nerve at all times. Hip was internally rotated and dislocated. Femoral neck osteotomy cut was made with the initial cut about 17 mm above the lesser trochanter. Femoral head was removed and sent for pathology. The femur was retracted anteriorly. Attention was then drawn to the acetabulum. The acetabulum labrum was excised. The pulvinar fat was excised. Sequential reaming of the acetabulum was then performed beginning with size 45 and progressing up to 55. We then placed a 56 mm Biomet G7 acetabular shell in about 40 degrees of lateral opening and 20 degrees of anteversion. It was fixed with two 6.5 cancellous acetabular screws. A trial liner was placed. Attention was then drawn to the femur. The proximal femur was entered with a [employer] cutter followed by canal finder. I broached beginning with a size 8 and progressing up to 12. I got good fit at 12. I then trialed the hip. It was fully stable, but just seemed a little bit tight. Therefore, I removed the implant and resected the neck cut about 5 mm. I replaced the implant. Once again, I got good fit. I trialed the hip and the hip was fully stable. Soft tissue tension seemed appropriate. It was fully stable in full extension and external rotation and flexion to 90 degrees, internal rotation to over [address] I elected to place these implants. All trial implants were removed. An apex hole eliminator was placed. A highly cross-linked polyethylene liner was placed. A DePuy Corail size 12 KLA femoral stem was impacted in position. A +5/36 mm articular ball was placed. Hip was located and once again found to be stable. Attention was then drawn toward closing. The wound was irrigated with copious amounts of pulsatile lavage solution. I did inject locally with 50 mL of 0.5% Marcaine with epinephrine. Posterior capsule and external rotators were then repaired through drill holes with #2 Ti-Cron suture. The IT band and gluteal fascia were then closed with #1 PDS suture and subcutaneous tissue was then closed with 2 layers, the deep layer #1 Vicryl suture and subcutaneous tissue with 2-0 Dexon suture in a buried interrupted fashion. Skin was closed with skin lopez. Leg was then cleaned, dried and a sterile dressing with Xeroform, 4 x 4, sterile ABD pad and foam tape was applied. The patient then transferred to the recovery room in stable condition. The patient tolerated the procedure well with no complication. All needle and sponge counts were correct at the end of the operation. I attest to the content of the Intraoperative Record and any orders documented therein. Any exception s are noted below.
--- NOTE | 2019-02-20 12:19 | Pharmacy Report ---
Glycemic Control Consultation - Date of Service February 20, 2019 - Scope Scope: Glycemic Pharmacist consulted by Dr Reynoso on 02/20 for glycemic control and to write orders per [facility] inpatient glycemic control protocol - Objective Weight: 77.2 kg Accuchecks BSG (last 24hrs): 02/20/19 02/20/19 02/20/19 05:31 08:53 11:38 POC Glucose 118 H 167 H 105 H HbA1c: Hemoglobin A1c 6.4 % (4.5-5.6) H 02/06/19 09:26 - Recent Pertinent Medications Outpatient Anti-diabetic Regimen: * Metformin 500 mg BID * A1c = 6.4 % 02/06/19 Risk Factors for Insulin Resistance: * Recent Surgery: POD 0 s/p R SARAH * Diet: NPO -> type 2 diabetes - Assessment & Plan Assessment & Plan: ASSESSMENT: * 79 y/o male admitted s/p R SARAH. He has a history of type 2 diabetes, well controlled as per A1c. * Pt is maintained on oral antidiabetic agents as an outpatient * Oral agents are not recommended for inpatient use d/t drug interactions, changing PO intake, and difficulty titrating for acute hyper/hypoglycemia. ADA recommends re-initiating outpatient oral agents 1-2 days prior to discharge if/when appropriate if they were held on admission. * Will hold oral agents for admission and utilize SQ basal bolus insulin regimen which is the recommended regimen for inpatient glycemic control. * Will initiate weight based insulin dosing for insulin kailey patient and titrate based on BSG trends. PLAN FOR INPATIENT GLYCEMIC CONTROL: * Holding outpatient oral diabetes medications - can consider resuming tomorrow, as long as patient meets criteria * Basal insulin * Lantus 15 units SQ x 1 at dinner today. Further dosing tomorrow if plan will be to resume metformin at a later date * Bolus insulin * NovoLog per scale ACHS or Q6hrs while NPO * Goal Range: Low 110 mg/dL - High 150 mg/dL * Correction Factor: 30 mg/dL/unit * Nutritional / Prandial insulin per carb ratio of 1 unit per 10 grams CHO consumed Discharge Recommendations: * A1c = 6.4 % on * Goal A1c = < 8 % based on age and comorbidities Less stringent A1C goals (such as less than 8%) may be appropriate for patients with a history of severe hypoglycemia, limited life expectancy, advanced microvascular or macrovascular complications, extensive comorbid conditions, or long-standing diabetes in whom the goal is difficult to achieve despite diabetes self-management education, appropriate glucose monitoring, and effective doses of multiple glucose-lowering agents including insulin. * Recommend to continue outpatient regimen on discharge Thank you.
[2019-02-20] MEDS: INSULIN ASPART 100 UNITS/ML 3 ML PEN SC SCH ×3 (12:57→22:47)
[2019-02-20] MEDS: KETOROLAC TROMETHAMINE 15 MG/ML VIAL IV SCH ×2 (12:59→18:06)
[2019-02-20] MEDS: ACETAMINOPHEN 500 MG TAB PO SCH ×2 (12:59→21:40)
[2019-02-20] MEDS: CEFAZOLIN 1000MG 1,000 MG/7.5 ML SYR IV SCH (16:27)
[2019-02-20] MEDS ORDERED: LANTUS PER UNIT CHARGE SQ SCH (16:30)
[2019-02-20] MEDS: ASCORBIC ACID 500 MG TAB PO SCH (16:35)
[2019-02-20] MEDS: FERROUS GLUCONATE 324 MG TAB PO SCH (16:35)
--- NOTE | 2019-02-20 18:05 | Progress Note ---
DATE: 02/20/2019 SUBJECTIVE: A 79-year-old gentleman postop from a right hip replacement. He is doing well. Not having any pain yet. No chest pain or shortness of breath. Not feeling dizzy or lightheaded. OBJECTIVE: VITAL SIGNS: Temperature 36.4. Vital signs stable. GENERAL: This is a pleasant elderly male. He is sitting up in bed. He is awake, alert and oriented and appropriate. LUNGS: Clear to auscultation. HEART: Has a regular rate and rhythm. ABDOMEN: Soft, nontender, nondistended. EXTREMITIES: Grossly neurovascularly intact except as follows. Examination of the right hip and leg reveals his leg lengths to be equal. Dressing is clean, dry and intact. His thigh is soft and supple. His hip is located. He is neurologically intact. X-RAYS: The right hip from recovery room reviewed. It shows right uncemented total hip arthroplasty. Components looked to be in good position. No signs of problems. ASSESSMENT: A 79-year-old gentleman postop from a right hip replacement, doing well. Pain is controlled. Hip is located. He is neurologically intact. He did have some problems with confusion and sundowning last visit. We are going to really try and limit narcotics and avoid these issues if possible. PLAN: 1. DVT prophylaxis including thigh-high TEDs, SCDs, and aspirin once a day and restart plavix POD 1 2. PT/OT. Weight bear as tolerated. Right total hip protocol. 3. IV antibiotics x24 hours. 4. Disposition: Hoping to be discharged home likely with some home health once adequately recovered and medically stable. FLAQUITA
[2019-02-20] MEDS ORDERED: VANCOMYCIN HCL 1,250 MG in SODIUM CHLORIDE 0.9% 250 ML IV SCH (20:00)
[2019-02-20] MEDS ORDERED: CRAMPS PO SCH (21:00)
[2019-02-20] MEDS ORDERED: SAW PALMETTO FRUIT 450 MG PO SCH (21:00)
[2019-02-20] MEDS: PANTOprazole 40 MG TAB PO SCH (21:39)
[2019-02-20] MEDS: SENNA 8.6 MG TAB PO SCH (21:39)
[2019-02-20] MEDS: ATORVASTATIN 40 MG TAB PO SCH (21:39)
[2019-02-21] MEDS: SODIUM CHLORIDE 0.9% 1000ML 1,000 ML IV SCH (00:01)
[2019-02-21] MEDS: KETOROLAC TROMETHAMINE 15 MG/ML VIAL IV SCH ×3 (00:07→06:21)
[2019-02-21] MEDS: CEFAZOLIN 1000MG 1,000 MG/7.5 ML SYR IV SCH (00:07)
[2019-02-21 06:10] LABS: Basophils # (auto) 0.03 K/uL (0-0.2); Basophils % (auto) 0.4 %; Eosinophils # (auto) 0.07 K/uL (0-0.5); Eosinophils % (auto) 0.9 %; Hematocrit (blood only) 34.8 % (42-52); Hemoglobin 11.8 g/dL (14.0-18.0); Immature Granulocytes # (auto) 0.02 K/uL (0.00-0.02); Immature Granulocytes % (auto) 0.3 %; Lymphocytes % (auto) 19.2 %; Mean Corpuscular Hgb Conc 33.9 g/dL (32-36); Mean Corpuscular Volume 90.6 fL (80-100); Mean Platelet Volume 10.6 fL (7.4-10.4); Monocytes # (auto) 0.94 K/uL (0.11-0.59); Monocytes % (auto) 12.1 %; Neutrophils # (auto) 5.24 K/uL (1.4-6.5); Neutrophils % (auto) 67.1 %; Platelet Count 112 K/uL (130-400); RDW Coefficient of Variation 13.5 % (11.5-14.5); RDW Standard Deviation 44.3 fL (36.4-46.3); Red Blood Count 3.84 M/uL (4.7-6.1)
[2019-02-21] MEDS: ACETAMINOPHEN 500 MG TAB PO SCH ×4 (06:19→21:31)
[2019-02-21 06:44] LABS: BUN Creatinine Ratio 11.5 (10-20); Calcium 8.5 mg/dl (8.5-10.1); Creatinine Clr Calc Pharmacy 31.2 ml/min; Est GFR (African American) 38.5; Est GFR (Non-African American) 33.2; Potassium 4.4 mmol/L (3.5-5.1)
--- NOTE | 2019-02-21 07:46 | Progress Note ---
DATE: 02/21/2019 SUBJECTIVE: A 79-year-old gentleman postop day 1 from a right hip replacement. He is doing well. Pain is controlled. No chest pain or shortness of breath. Not feeling dizzy or lightheaded. OBJECTIVE: VITAL SIGNS: Temperature 36.7. Vital signs stable. GENERAL: Shows a pleasant, middle-aged male. He is lying in bed, appears awake, alert, appropriate and oriented. EXTREMITIES: Examination of the right hip reveals the leg lengths to be equal. Dressing is clean, dry and intact. Thigh is soft and supple. He is neurologically intact. LABORATORY DATA: Hemoglobin is 11.8. Hematocrit 34.8. Electrolytes are pretty stable. Creatinine is slightly elevated. ASSESSMENT: A 79-year-old gentleman postoperative day 1 from right hip replacement, doing pretty well. His pain is controlled. Hip is located. He is neurologically intact. is slightly elevated and we are going to hold his Toradol. PLAN: 1. DVT prophylaxis including thigh-high TEDs, SCDs, and back on his Plavix. He is also on a baby aspirin; we will use that for DVT prophylaxis. 2. PT/OT. Weight bear as tolerated. Right total hip protocol. 3. Pain control. Doing pretty well with current pain regimen. 4. Elevated creatinine. Encourage p.o. intake. Stop his Toradol. 6. Disposition: Plan to discharge to home with some home health once medically stable.
--- NOTE | 2019-02-21 08:18 | Anesthesiology Progress Note ---
Date of Service February 21, 2019 Anesthesia Post Procedure Vital Signs Vital Signs: Temp Pulse Pulse Resp BP BP Pulse Ox 02/21/19 07:44 36.8 C 96 H 18 106/66 96 02/21/19 03:16 36.7 C 90 16 107/66 100 02/20/19 23:30 37.5 C 98 H 16 120/75 92 02/20/19 19:28 37.4 C 102 H 18 136/71 90 02/20/19 15:53 36.4 C L 90 18 124/73 97 02/20/19 13:27 36.3 C L 84 18 127/86 97 02/20/19 12:30 36.4 C L 85 16 117/71 97 02/20/19 11:31 36.3 C L 81 16 122/77 94 02/20/19 10:30 36.5 C 82 18 105/64 96 02/20/19 10:15 79 12 108/61 94 02/20/19 10:05 80 15 110/55 L 100 02/20/19 09:55 78 16 104/57 L 100 02/20/19 09:45 36.3 C L 79 13 106/55 L 99 02/20/19 09:35 80 12 102/53 L 100 02/20/19 09:25 80 10 L 110/53 L 100 02/20/19 09:15 81 12 103/53 L 99 02/20/19 09:05 83 13 116/51 L 97 02/20/19 08:55 84 13 119/66 96 02/20/19 08:46 36.2 C L 87 16 101/52 L 100 Pain Intensity Right Hip: Pain Intensity: 0 Notes Mental Status: alert / awake / arousable and participated in evaluation Nausea / Vomiting: adequately controlled Pain: adequately controlled Airway Patency, RR, SpO2: stable & adequate BP & HR: stable & adequate Hydration State: stable & adequate
[2019-02-21] MEDS: FERROUS GLUCONATE 324 MG TAB PO SCH ×2 (09:19→18:23)
[2019-02-21] MEDS: ASCORBIC ACID 500 MG TAB PO SCH ×2 (09:20→18:23)
[2019-02-21] MEDS: DOCUSATE SODIUM 100 MG CAP PO SCH ×2 (09:20→21:30)
[2019-02-21] MEDS: LOSARTAN POTASSIUM 50 MG TAB PO SCH (09:20)
[2019-02-21] MEDS: AMLODIPINE BESYLATE 5 MG TAB PO SCH (09:21)
[2019-02-21] MEDS: CEROVITE ADV FORMULA TAB PO SCH (09:21)
[2019-02-21] MEDS: ASPIRIN 81 MG ECTAB PO SCH (09:21)
[2019-02-21] MEDS: CLOPIDOGREL BISULFATE 75 MG TAB PO SCH (09:22)
[2019-02-21] MEDS: FUROSEMIDE 20 MG TAB PO SCH (09:23)
[2019-02-21] MEDS: ALLOPURINOL 100 MG TAB PO SCH ×2 (09:23→21:31)
[2019-02-21] MEDS: CALCITRIOL 0.25 MCG CAPSULE PO SCH (09:23)
[2019-02-21] MEDS: INSULIN ASPART 100 UNITS/ML 3 ML PEN SC SCH ×4 (09:26→22:02)
[2019-02-21] MEDS: HYDROmorphone INJ 0.5 MG/0.5 ML SYR IV PRN ×3 (12:45→19:54)
[2019-02-21] MEDS: ATORVASTATIN 40 MG TAB PO SCH (21:30)
[2019-02-21] MEDS: PANTOprazole 40 MG TAB PO SCH (21:30)
[2019-02-21] MEDS: SENNA 8.6 MG TAB PO SCH (21:30)
[2019-02-22] MEDS: ACETAMINOPHEN 500 MG TAB PO SCH (05:21)
[2019-02-22 06:21] LABS: BUN Creatinine Ratio 12.3 (10-20); Calcium 8.2 mg/dl (8.5-10.1); Creatinine Clr Calc Pharmacy 38.3 ml/min; Est GFR (African American) 49.4; Est GFR (Non-African American) 42.6; Potassium 4.2 mmol/L (3.5-5.1)
--- NOTE | 2019-02-22 08:03 | Progress Note ---
DATE: 02/22/2019 SUBJECTIVE: A 79-year-old gentleman postop day 2 from right hip replacement. Had quite a bit of pain yesterday but doing better this morning. No chest pain, no shortness of breath. Not feeling dizzy or lightheaded. OBJECTIVE: VITAL SIGNS: Temperature is 36.8. Vital signs stable. GENERAL: Shows a pleasant elderly male. He is sitting up in his bedside chair, talking to his . He is awake, alert, and oriented. EXTREMITIES: Examination of the right hip reveals the incision to be clean, dry and intact. The leg lengths are equal. Fairly minimal thigh swelling. He can dorsiflex and plantarflex his foot appropriately. He is neurologically intact. LABORATORY DATA: Creatinine improved at 1.53. He has got some chronic underlying renal insufficiency. ASSESSMENT: A 79-year-old gentleman postop day 2 from a right hip replacement, doing reasonably well. Had a good bit of pain yesterday but doing better this morning. His creatinine is improved. We have been holding his Toradol. That may be one reason why he had a little bit more pain yesterday. PLAN: 1. DVT prophylaxis including thigh-high TEDs, SCDs, back on his Plavix and his baby aspirin daily. 2. PT/OT. Weight bear as tolerated. Right total hip protocol. 3. Pain control, doing okay with current pain regimen. We will write for some Dilaudid p.o. as needed at home. 4. Disposition: Plan to discharge to home with some home health. FLAQUITA
[2019-02-22] MEDS: ASPIRIN 81 MG ECTAB PO SCH (08:06)
[2019-02-22] MEDS: DOCUSATE SODIUM 100 MG CAP PO SCH (08:06)
[2019-02-22] MEDS: LOSARTAN POTASSIUM 50 MG TAB PO SCH (08:07)
[2019-02-22] MEDS: FERROUS GLUCONATE 324 MG TAB PO SCH (08:07)
[2019-02-22] MEDS: CEROVITE ADV FORMULA TAB PO SCH (08:07)
[2019-02-22] MEDS: ALLOPURINOL 100 MG TAB PO SCH (08:07)
[2019-02-22] MEDS: CLOPIDOGREL BISULFATE 75 MG TAB PO SCH (08:07)
[2019-02-22] MEDS: AMLODIPINE BESYLATE 5 MG TAB PO SCH (08:08)
[2019-02-22] MEDS: ASCORBIC ACID 500 MG TAB PO SCH (08:09)
[2019-02-22] MEDS: FUROSEMIDE 20 MG TAB PO SCH (08:10)
[2019-02-22] MEDS: CALCITRIOL 0.25 MCG CAPSULE PO SCH (08:11)
[2019-02-22] MEDS: INSULIN ASPART 100 UNITS/ML 3 ML PEN SC SCH (09:13)
--- NOTE | 2019-02-27 16:12 | Discharge Summary ---
ADMITTING PHYSICIAN AND SURGEON: Dr. Thien Reynoso. ADMITTING DIAGNOSIS: Right hip degenerative joint disease. SURGERY PERFORMED: Right total hip arthroplasty. SECONDARY DIAGNOSES: Coronary artery disease, elevated cholesterol, diabetes, arthritis and non-Hodgkin's lymphoma. CONSULTS: None obtained. HISTORY AND PHYSICAL EXAMINATION: Well documented in the patient's chart. HOSPITAL COURSE: The patient was admitted on 02/20/2019 underwent total hip arthroplasty, tolerated the procedure well. There were no complications. He was transferred to the PACU postoperatively and later to the orthopedic floor for further care. He was given Ancef for antibiotic prophylaxis, TONY stockings, SCDs for DVT prophylaxis and also was on Plavix and a baby aspirin daily. Hemoglobin, hematocrit and vital signs were monitored during his hospital stay and remained stable, did not require any blood transfusions. There were no complications. By postoperative day 2 he was tolerating a diabetic diet. Pain was controlled with oral pain medicine. He was participating in physical therapy. On postop day 2 he was discharged home. He was given printed discharge instructions as well as new prescriptions for extra strength Tylenol and hydromorphone. Continue his home medications, continue physical therapy, weightbearing as tolerated, TONY stockings, total hip precautions. Follow up approximately 2 weeks postop or sooner if there are any problems or concerns.
== END 2019-02-22 10:59 | disposition home or self-care (01) | DRG 470 ==
LOC: ASU 04:59 → 3E 08:49

== ENCOUNTER 2020-07-10 12:47 | Inpatient (IN) ==
--- NOTE | 2020-07-10 13:30 | Emergency Department Note ---
Impression & Plan Pleural effusion, Elevated troponin, Breath shortness ED Provider Note NAME: SHANTE SHAH JR AGE: 80 SEX: M : 1940 ARRIVES VIA: Walk-In INFORMANT: Patient ED PROVIDER(S): Anshu Garrison DO CHIEF COMPLAINT: shortness of breath HPI: Patient is an 80-year-old male that presents to the ER for shortness of breath and a cough. Symptoms have been present for the past 3 months. He is short of breath when he lies flat. History of non-Hodgkin's lymphoma and he was treated for this and has been cancer free since 2009. Patient denies any belly pain, nausea, vomiting or diarrhea. No dysuria, urgency or frequency. Seen evaluated by PCP and had an x-ray done and was referred in for possible effusion. ROS: See above HPI for pertinent positives & negatives. A total of 10 systems reviewed and were otherwise negative. PAST MEDICAL HISTORY:See Below PAST SURGICAL HISTORY:See Below FAMILY HISTORY:See Below SOCIAL HISTORY:See Below HOME MEDICATIONS:See Below ALLERGIES:See Below VITALS:See Below PHYSICAL EXAMINATION: GENERAL: Sitting up in bed, alert, well appearing, well nourished, no distress, non-toxic EYE EXAM: normal conjunctiva. OROPHARYNX: Mask in place NECK: supple, no nuchal rigidity, no adenopathy, non-tender LUNGS: Diminished at the right base. Normal chest wall mechanics HEART: no murmurs, S1 normal and S2 normal ABDOMEN: abdomen soft, non-tender, normo-active bowel sounds, no masses, no rebound or guarding. BACK: Back is symmetrical on inspection and there is no deformity, no midline tenderness, no CVA tenderness. SKIN: no rashes and no bruising UPPER EXTREMITIES: upper extremities are grossly normal. LOWER EXTREMITIES: No pitting edema. NEURO EXAM: Normal sensorium, cranial nerves II-XII grossly intact, normal speech, no gross weakness of arms, no gross weakness of legs. MEDICAL DECISION MAKING: Patient is an 80-year-old male with a history of non-Hodgkin's lymphoma that presents the ER for shortness of breath referred in by PCP. IV was established blood work was obtained. He does take Plavix. Labs show no significant leukocytosis or anemia. INR at 1.4. BMP with a creatinine of 1.7. Troponin was elevated at 0.070. proBNP was elevated to 8000. Chest x-ray with a right-sided pleural effusion. He denies any chest pain. Previous history of a CABG x3. He was updated bedside discussed with hospitalist admitted for further work-up. Do favor that the effusion is likely related to his non-Hodgkin's lymphoma but cannot be certain at this time. Triage Nursing notes reviewed. Limited review of prior medical records performed Vital Signs: reviewed and remarkable for no significant abnormalities Differential diagnosis: Differential diagnoses includes but is not limited to pneumonia, bronchitis, COPD/Asthma exacerbation, pneumothorax, pulmonary embolism, congestive heart failure, acute coronary syndrome ER treatment provided: See below Diagnostics interpreted by me: ECG: Sinus rhythm rate of 93 Poor baseline Inferior Q waves QTC 447 Cardiac Monitoring: An order was placed for continuous cardiac monitoring. The monitor shows a rate of 91 with sinus rhythm. Laboratory studies: As stated above and show below. Imaging studies: Portable AP upright 1 view of the chest shows pleural effusion Consultation(s): Discussed with the hospitalist for further work-up Procedures: none Critical Care: None Past Med/Surg History Medical History (Updated 07/10/20 @ 16:46 by Maya Bae PA-C) Aortic stenosis Moderate aortic stenosis (KERA 1.0cm2, MG 7mmhg) Asthma allergy induced-- inhaler prn CAD (coronary artery disease) Chronic kidney disease, stage 3 baseline creatinine 1.4-1.7 per chart reviewe Colitis Diabetes mellitus, type 2 Diverticular disease Fibromyalgia Gout Hearing deficit History of GI bleed Hyperlipidemia Hypertension Non-Hodgkin lymphoma diagnosed 2004 s/p chemo Osteoarthritis PAD (peripheral artery disease) s/p b/l iliac artery stents (2015) Surgical History (Updated 07/10/20 @ 16:43 by Maya Bae PA-C) History of bilateral carpal tunnel release History of cardiac cath 2017= subsequent CABG x3 History of lumbar discectomy History of lymph node biopsy History of phacoemulsification of cataract of both eyes with intraocular lens implantation History of tonsillectomy and adenoidectomy History of tooth extraction History of total left hip replacement History of umbilical hernia repair Hx of left inguinal hernia repair Hx of right inguinal hernia repair S/P CABG x 3 2018 S/P colonoscopy 01/15/19 Status post insertion of iliac artery stent b/l (2015) Family History Grandmother (Paternal) Family history of diabetes mellitus Mother Family history of diabetes mellitus Aunt Family history of diabetes mellitus Uncle Family history of diabetes mellitus Grandfather (Maternal) Family history of diabetes mellitus Sister Family history of diabetes mellitus Father Family hx colonic polyps Other No family history of adverse response to anesthesia Social History Smoking Status: Never smoker Second Hand Exposure: Yes (father smoked); Hx Alcohol Use: No Hx Substance Use: No Preferred Language: Divehi Communication Ability: Effective Service Person Required: No Beliefs That Will Affect Care: None marital status: Current Living Situation: Spouse Other Information That Helps Us Care for You: No Feels Safe at Home: Yes Safety Concerns: Feels Safe At This Time Assistive Devices: None, Hearing Aid - Bilateral and Walker Allergies Allergies Allergy/AdvReac Type Severity Reaction Status Date / Time amiodarone Allergy Unknown "streaking Verified 07/10/20 15:00 up vein" and painful lactose Allergy Unknown GI UPSET Verified 07/10/20 15:00 pollen extracts Allergy Unknown HAYFEVER Verified 07/10/20 15:00 tramadol Allergy Unknown Hallucinati Verified 07/10/20 15:00 ng lisinopril AdvReac Unknown COUGH Verified 07/10/20 15:00 Home Meds Home Medications Medication Instructions Recorded Confirmed Glucosamine Chondroitin 1 cap PO BID 01/11/19 07/10/20 Ocuvite Eye Health 1 tab PO QAM 01/11/19 07/10/20 albuterol sulfate 2 puff INHALATION Q6H PRN 01/11/19 07/10/20 allopurinol 100 mg PO BID 01/11/19 07/10/20 amlodipine 2.5 mg PO QPM 01/11/19 07/10/20 amoxicillin 500 mg PO UD PRN 01/11/19 07/10/20 aspirin [Aspirin Low Dose] 81 mg PO QAM 01/11/19 07/10/20 atorvastatin 40 mg PO PM 01/11/19 07/10/20 benzonatate 200 mg PO TID PRN 01/11/19 07/10/20 calcitriol 0.25 mcg PO QAM 01/11/19 07/10/20 cetirizine 10 mg PO DAILY PRN 01/11/19 07/10/20 clopidogrel 75 mg PO QAM 01/11/19 07/10/20 docusate sodium 100 mg PO BID 01/11/19 07/10/20 losartan 50 mg PO QPM 01/11/19 07/10/20 metformin 500 mg PO BIDM 01/11/19 07/10/20 saw palmetto 450 mg PO QPM 01/11/19 07/10/20 Leg Cramps 1 dose PO HS 02/01/19 07/10/20 famotidine 40 mg PO DAILY 07/10/20 07/10/20 furosemide 40 mg PO DAILY 07/10/20 07/10/20 omeprazole 20 mg PO DAILY 07/10/20 07/10/20 Results & Data (ED) Vital Signs Vital Signs - 24 hr 07/10/20 13:01 07/10/20 13:18 07/10/20 13:30 Temperature 36.5 C Temperature Source Oral Pulse Rate 95 H 87 88 Pulse Rate [Left Finger] Pulse Rate from SpO2 Sensor 88 Pulse Rhythm Regular Pulse Strength Normal Respiratory Rate 20 17 20 Respiratory Effort / Characteristics Non-Labored Respiratory Depth Normal Respiratory Pattern Regular Blood Pressure 119/85 Blood Pressure [Left Arm] Blood Pressure Mean 96 Blood Pressure Mean [Left Arm] Blood Pressure Position Sitting Pulse Oximetry 92 93 Oxygen Delivery Method Room Air Oxygen Flow Rate Sepsis Recent Fever Within 48 Hours No Sepsis New/Unexplained Change in Mental Status No Sepsis Action Taken by Nursing No Action Required 07/10/20 13:43 07/10/20 13:47 07/10/20 14:00 Temperature Temperature Source Pulse Rate 85 83 Pulse Rate [Left Finger] Pulse Rate from SpO2 Sensor 86 87 Pulse Rhythm Pulse Strength Respiratory Rate 19 19 Respiratory Effort / Characteristics Respiratory Depth Respiratory Pattern Blood Pressure 116/82 Blood Pressure [Left Arm] Blood Pressure Mean 93 Blood Pressure Mean [Left Arm] Blood Pressure Position Pulse Oximetry 94 93 93 Oxygen Delivery Method Room Air Oxygen Flow Rate Sepsis Recent Fever Within 48 Hours Sepsis New/Unexplained Change in Mental Status Sepsis Action Taken by Nursing 07/10/20 14:49 07/10/20 14:54 Temperature Temperature Source Pulse Rate Pulse Rate [Left Finger] 87 Pulse Rate from SpO2 Sensor Pulse Rhythm Pulse Strength Respiratory Rate 18 Respiratory Effort / Characteristics Respiratory Depth Respiratory Pattern Blood Pressure Blood Pressure [Left Arm] 116/79 Blood Pressure Mean Blood Pressure Mean [Left Arm] 91 Blood Pressure Position Pulse Oximetry 92 95 Oxygen Delivery Method Room Air Nasal Cannula Oxygen Flow Rate 2 Sepsis Recent Fever Within 48 Hours Sepsis New/Unexplained Change in Mental Status Sepsis Action Taken by Nursing Laboratory Data Result diagrams: 07/10/20 13:40 07/10/20 13:40 Lab Results 07/10/20 07/10/20 07/10/20 Range/Units 13:40 13:40 13:40 WBC 8.29 (4.8-10.8) K/uL RBC 5.23 (4.7-6.1) M/uL Hgb 16.4 (14.0-18.0) g/dL Hct 47.9 (42-52) % MCV 91.6 (80-100) fL MCH 31.4 (25-34) pg MCHC 34.2 (32-36) g/dL RDW Std Deviation 52.8 H (36.4-46.3) fL RDW Coeff of Josh 15.9 H (11.5-14.5) % Plt Count 128 L (130-400) K/uL MPV 11.6 H (7.4-10.4) fL Immature Gran % (Auto) 0.2 % Neut % (Auto) 75.0 % Lymph % (Auto) 16.0 % Grady % (Auto) 8.4 % Eos % (Auto) 0.2 % Baso % (Auto) 0.2 % Neut # (Auto) 6.20 (1.4-6.5) K/uL Lymph # (Auto) 1.33 (1.2-3.4) K/uL Grady # (Auto) 0.70 H (0.11-0.59) K/uL Eos # (Auto) 0.02 (0-0.5) K/uL Baso # (Auto) 0.02 (0-0.2) K/uL Immature Gran # (Auto) 0.02 (0.00-0.02) K/uL PT 14.6 H (9.0-12.0) Seconds INR 1.4 H (0.9-1.1) APTT 31.9 H (21.0-31.0) Seconds PTT Ratio 1.1 Sodium 136 (136-145) mmol/L Potassium 4.1 (3.5-5.1) mmol/L Chloride 104 (98-107) mmol/L Carbon Dioxide 24 (21-32) mmol/L Anion Gap 8.0 (3-11) BUN 40 H (7-18) mg/dl Creatinine 1.70 H (0.6-1.4) mg/dl Est Cr Clr Drug Dosing 33.9 ml/min Est GFR ( Amer) 43.2 Est GFR (Non-Af Amer) 37.3 BUN/Creatinine Ratio 23.8 H (10-20) Glucose 102 H (70-99) mg/dl Calcium 10.0 (8.5-10.1) mg/dl Total Bilirubin 1.4 H (0.2-1) mg/dl AST 33 (15-37) U/L ALT 34 (12-78) U/L Alkaline Phosphatase 325 H (45-117) U/L Troponin I 0.070 H* (0-0.045) ng/ml NT-Pro-B Natriuret Pep 8072 H (0-1800) pg/ml Total Protein 7.7 (6.4-8.2) gm/dl Albumin 4.2 (3.4-5.0) gm/dl Globulin 3.5 (2.5-4.0) gm/dl Albumin/Globulin Ratio 1.2 (0.9-2) Lipase 377 (73-393) U/L Specimen Hemolysis COVID-19 Eval Order SARS-CoV-2, RNA, NAAT (NEGATIVE) 07/10/20 07/10/20 Range/Units 15:05 15:05 WBC (4.8-10.8) K/uL RBC (4.7-6.1) M/uL Hgb (14.0-18.0) g/dL Hct (42-52) % MCV (80-100) fL MCH (25-34) pg MCHC (32-36) g/dL RDW Std Deviation (36.4-46.3) fL RDW Coeff of Josh (11.5-14.5) % Plt Count (130-400) K/uL MPV (7.4-10.4) fL Immature Gran % (Auto) % Neut % (Auto) % Lymph % (Auto) % Grady % (Auto) % Eos % (Auto) % Baso % (Auto) % Neut # (Auto) (1.4-6.5) K/uL Lymph # (Auto) (1.2-3.4) K/uL Grady # (Auto) (0.11-0.59) K/uL Eos # (Auto) (0-0.5) K/uL Baso # (Auto) (0-0.2) K/uL Immature Gran # (Auto) (0.00-0.02) K/uL PT (9.0-12.0) Seconds INR (0.9-1.1) APTT (21.0-31.0) Seconds PTT Ratio Sodium (136-145) mmol/L Potassium (3.5-5.1) mmol/L Chloride (98-107) mmol/L Carbon Dioxide (21-32) mmol/L Anion Gap (3-11) BUN (7-18) mg/dl Creatinine (0.6-1.4) mg/dl Est Cr Clr Drug Dosing ml/min Est GFR ( Amer) Est GFR (Non-Af Amer) BUN/Creatinine Ratio (10-20) Glucose (70-99) mg/dl Calcium (8.5-10.1) mg/dl Total Bilirubin (0.2-1) mg/dl AST (15-37) U/L ALT (12-78) U/L Alkaline Phosphatase (45-117) U/L Troponin I (0-0.045) ng/ml NT-Pro-B Natriuret Pep (0-1800) pg/ml Total Protein (6.4-8.2) gm/dl Albumin (3.4-5.0) gm/dl Globulin (2.5-4.0) gm/dl Albumin/Globulin Ratio (0.9-2) Lipase (73-393) U/L Specimen Hemolysis COVID-19 Eval Order Covid19 [facility] SARS-CoV-2, RNA, NAAT NEGATIVE (NEGATIVE) Administered Medications Discontinued Medications Furosemide (Furosemide 10 Mg/Ml 10 Ml Vial) 60 mg IV NOW STA Stop: 07/10/20 16:31 Last Admin: 07/10/20 16:47 Dose: 60 mg Documented by: [id number] Discharge Plan Visit Data Chief Complaint: Referred by Doctor Stated Complaint: REFERRED BY DR. VILLALBA FOR INFUSION ED Provider: Anshu Garrison Discharge Problem: Pleural effusion, Elevated troponin, Breath shortness Patient Disposition: Admitted As Inpatient Discharge Instructions Interventions: ED Discharge Assessment Last Done: 07/10/20 16:35
--- NOTE | 2020-07-10 13:41 | XRay Report ---
XR chest 1V portable CLINICAL HISTORY: Atypical chest pain COMPARISON STUDY: 02/06/2019 FINDINGS: The heart is the upper limits of normal in size. There are postsurgical changes of midline sternotomy. There is a new right basilar opacity, likely representing a combination of pleural fluid and right lower lobe atelectasis/consolidation.[A pulmonary infarct with associated pleural fluid cou ld appear similar. IMPRESSION: New right basilar opacity, likely representing a combination of pleural fluid and right l ower lobe atelectasis/consolidation. Clinical and radiographic follow-up are recommended. ACT 112: Negative or not required by law. Electronically signed by: Jose Polk M.D. 07/10/2020 1:40 PM
[2020-07-10 13:53] LABS: Basophils # (auto) 0.02 K/uL (0-0.2); Basophils % (auto) 0.2 %; Eosinophils # (auto) 0.02 K/uL (0-0.5); Eosinophils % (auto) 0.2 %; Hematocrit (blood only) 47.9 % (42-52); Hemoglobin 16.4 g/dL (14.0-18.0); Immature Granulocytes # (auto) 0.02 K/uL (0.00-0.02); Immature Granulocytes % (auto) 0.2 %; Lymphocytes # (auto) 1.33 K/uL (1.2-3.4); Mean Corpuscular Hemoglobin 31.4 pg (25-34); Mean Corpuscular Hgb Conc 34.2 g/dL (32-36); Mean Corpuscular Volume 91.6 fL (80-100); Mean Platelet Volume 11.6 fL (7.4-10.4); Monocytes % (auto) 8.4 %; Platelet Count 128 K/uL (130-400); RDW Coefficient of Variation 15.9 % (11.5-14.5); RDW Standard Deviation 52.8 fL (36.4-46.3); Red Blood Count 5.23 M/uL (4.7-6.1); White Blood Count 8.29 K/uL (4.8-10.8)
[2020-07-10 14:03] LABS: INR 1.4 (0.9-1.1); Partial Thromboplastin Ratio 1.1; Partial Thromboplastin Time 31.9 Seconds (21.0-31.0); Prothrombin Time 14.6 Seconds (9.0-12.0)
[2020-07-10 14:14] LABS: Albumin Level 4.2 gm/dl (3.4-5.0); BUN Creatinine Ratio 23.8 (10-20); Bilirubin,Total 1.4 mg/dl (0.2-1); Creatinine Clr Calc Pharmacy 33.9 ml/min; Est GFR (African American) 43.2; Est GFR (Non-African American) 37.3; Potassium 4.1 mmol/L (3.5-5.1)
[2020-07-10 14:22] LABS: Albumin Globulin Ratio 1.2 (0.9-2); Globulin 3.5 gm/dl (2.5-4.0); Total Protein 7.7 gm/dl (6.4-8.2); Troponin I 0.07 ng/ml (0-0.045)
--- NOTE | 2020-07-10 15:32 | Electrocardiogram Report ---
Test Reason : Blood Pressure : / mmHG Vent. Rate : 093 BPM Atrial Rate : 093 BPM P-R Int : 170 ms QRS Dur : 094 ms QT Int : 360 ms P-R-T Axes : 094 231 076 degrees QTc Int : 447 ms Poor data quality, interpretation may be adversely affected Suspect arm lead reversal, interpretation assumes no reversal Normal sinus rhythm Right superior axis deviation Incomplete right bundle branch block Inferior infarct , age undetermined Abnormal ECG When compared with ECG of 18-OCT-2017 06:56, Incomplete right bundle branch block is now Present Confirmed by Luis Monsivais ([id number]) on 07/10/2020 3:32:20 PM Referred By: Confirmed By:Jeremy Monsivais
[2020-07-10] MEDS ORDERED: FUROSEMIDE 10 MG/ML 10 ML VIAL IV STA (16:30)
--- NOTE | 2020-07-10 16:34 | Electrocardiogram Report ---
Test Reason : Blood Pressure : / mmHG Vent. Rate : 083 BPM Atrial Rate : 083 BPM P-R Int : 196 ms QRS Dur : 094 ms QT Int : 418 ms P-R-T Axes : 070 227 121 degrees QTc Int : 491 ms Normal sinus rhythm Right superior axis deviation Possible Inferior infarct (cited on or before 10-JUL-2020) Abnormal ECG When compared with ECG of 10-JUL-2020 13:10, No significant change was found Confirmed by Luis Monsivais ([id number]) on 07/10/2020 4:34:02 PM Referred By: REFERRED SELF Confirmed By:Jeremy Monsivais
--- NOTE | 2020-07-10 16:34 | History & Physical Report ---
Date of Service July 10, 2020 Assessment & Plan (1) CHF (congestive heart failure): (2) Acute respiratory failure with hypoxia: Pt is 80 y/o M with PMH CAD s/p CABG x 3 in 2018, HTN, HLD, PAD s/p bilateral iliac stent, CKD III, DM II, PAD, aortic stenosis presented to ER with c/o progressive SOB, cough x 3 months with increased BLE x several weeks. In ER pt afebrile, O2 sat noted to drop to high 80's on RA up to 95% on 2L via NC, other vitals stable No leukocytosis, BNP: 8072. Negative COVID. CXR: New right basilar opacity, likely representing a combination of pleural fluid and right lower lobe atelectasis/consolidation No signs of infection at this time. Dose lasix 60mg IV now Monitor I&Os, low sodium diet Echo Consider cardiology consult if no improvement AM labs (3) Elevated troponin: Initial troponin: 0.7. EKG without acute ST elevation H/O CKD Trend troponin (4) CAD (coronary artery disease): S/P CABG x 3 in 2018 Continue aspirin, statin, plavix (5) Aortic stenosis: History echo: 05/2019, EF: 50-54%, borderline diffuse left ventricular hypokinesis, borderline severe-severe aortic stenosis, mild pulmonary hypertension Obtain new echo (6) Diabetes mellitus, type 2: A1c: 6.8 on 04/2020 Hold metformin Novolog sliding scale per protocol (7) HTN (hypertension): Continue amlodipine, losartan (8) CKD (chronic kidney disease), stage III: Cr: 1.7. Baseline Cr: 1.6-1.7 Monitor renal functions, avoid nephrotoxic agents when possible DVT Prophylaxis -Heparin SQ DNR/DNI as per discussion with pt Follows with Dr Berg for routine care Pt was seen and care coordinated with Dr Andrade. See addendum History of Present Illness Chief Complaint: SOB Primary Care Provider: Enio Berg MD Pt is 80 y/o M with PMH CAD s/p CABG x 3 in 2018, HTN, HLD, PAD s/p bilateral iliac stent, CKD III, DM II, PAD, aortic stenosis presented to ER with c/o pr ogressive SOB x 3 months. Patient reports nonproductive cough x3 months. Has been taking Mucinex and Tessalon Perles and ProAir without improvement. Also complains of progressive exertional shortness of breath and orthopnea. Noticed increased bilateral lower extremity edema. Had a 4 pound weight gain. This week increase Lasix from 40 mg daily to twice daily. Also reports progressive fatigue. Denies any chest pains. Denies fevers, diaphoresis, N/V/D/C, OCHOA, dizziness, syncope, vision changes, neck pain, palpitations, hemoptysis, sore throat, choking, otalgia, rhinorrhea, abdominal pain, paresthesias, weakness, extremity weakness, rashes, urinary symptoms. Allergies Allergy/AdvReac Type Severity Reaction Status Date / Time amiodarone Allergy Unknown "streaking Verified 07/10/20 15:00 up vein" and painful lactose Allergy Unknown GI UPSET Verified 07/10/20 15:00 pollen extracts Allergy Unknown HAYFEVER Verified 07/10/20 15:00 tramadol Allergy Unknown Hallucinati Verified 07/10/20 15:00 ng lisinopril AdvReac Unknown COUGH Verified 07/10/20 15:00 Home Medications Medication Instructions Recorded Confirmed Type Glucosamine Chondroitin 1 cap PO BID 01/11/19 07/10/20 History Ocuvite Eye Health 1 tab PO QAM 01/11/19 07/10/20 History albuterol sulfate 2 puff INHALATION Q6H PRN 01/11/19 07/10/20 History allopurinol 100 mg PO BID 01/11/19 07/10/20 History amlodipine 2.5 mg PO QPM 01/11/19 07/10/20 History amoxicillin 500 mg PO UD PRN 01/11/19 07/10/20 History aspirin [Aspirin Low Dose] 81 mg PO QAM 01/11/19 07/10/20 History atorvastatin 40 mg PO PM 01/11/19 07/10/20 History benzonatate 200 mg PO TID PRN 01/11/19 07/10/20 History calcitriol 0.25 mcg PO QAM 01/11/19 07/10/20 History cetirizine 10 mg PO DAILY PRN 01/11/19 07/10/20 History clopidogrel 75 mg PO QAM 01/11/19 07/10/20 History docusate sodium 100 mg PO BID 01/11/19 07/10/20 History losartan 50 mg PO QPM 01/11/19 07/10/20 History metformin 500 mg PO BIDM 01/11/19 07/10/20 History saw palmetto 450 mg PO QPM 01/11/19 07/10/20 History Leg Cramps 1 dose PO HS 02/01/19 07/10/20 History famotidine 40 mg PO DAILY 07/10/20 07/10/20 History furosemide 40 mg PO DAILY 07/10/20 07/10/20 History omeprazole 20 mg PO DAILY 07/10/20 07/10/20 History Past Med/Surg History Medical History (Updated 07/10/20 @ 16:46 by Maya Bae PA-C) Aortic stenosis Moderate aortic stenosis (KERA 1.0cm2, MG 7mmhg) Asthma allergy induced-- inhaler prn CAD (coronary artery disease) Chronic kidney disease, stage 3 baseline creatinine 1.4-1.7 per chart reviewe Colitis Diabetes mellitus, type 2 Diverticular disease Fibromyalgia Gout Hearing deficit History of GI bleed Hyperlipidemia Hypertension Non-Hodgkin lymphoma diagnosed 2004 s/p chemo Osteoarthritis PAD (peripheral artery disease) s/p b/l iliac artery stents (2015) Surgical History (Updated 07/10/20 @ 16:43 by Maya Bae PA-C) History of bilateral carpal tunnel release History of cardiac cath 2017= subsequent CABG x3 History of lumbar discectomy History of lymph node biopsy History of phacoemulsification of cataract of both eyes with intraocular lens implantation History of tonsillectomy and adenoidectomy History of tooth extraction History of total left hip replacement History of umbilical hernia repair Hx of left inguinal hernia repair Hx of right inguinal hernia repair S/P CABG x 3 2018 S/P colonoscopy 01/15/19 Status post insertion of iliac artery stent b/l (2015) Family History Grandmother (Paternal) Family history of diabetes mellitus Mother Family history of diabetes mellitus Aunt Family history of diabetes mellitus Uncle Family history of diabetes mellitus Grandfather (Maternal) Family history of diabetes mellitus Sister Family history of diabetes mellitus Father Family hx colonic polyps Other No family history of adverse response to anesthesia Social History Smoking Status: Never smoker Second Hand Exposure: Yes (father smoked); Hx Alcohol Use: No Hx Substance Use: No Preferred Language: Syriac Communication Ability: Effective 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 Beliefs That Will Affect Care: None marital status: Current Living Situation: Spouse Other Information That Helps Us Care for You: No Feels Safe at Home: Yes Safety Concerns: Feels Safe At This Time Assistive Devices: Glasses, Hearing Aid - Left and Hearing Aid - Right Review of Systems Review of Systems: All systems reviewed & are unremarkable except as noted in HPI & below Physical Exam Physical Exam: General: no distress, WDWN Head: normocephalic, atraumatic Eyes: PERRL, EOM's intact, conjunctiva non-injected, anicteric ENT: normal inspection external ears, nose, mucous membranes moist Neck: supple, trachea midline Lungs: clear, no respiratory distress, no wheezing/rhonchi/rales CV: RRR, + systolic murmur, no JVD, 2+ pretibial edema Abd: normal BS, soft, non-tender Ext: no cyanosis, BLE with brown skin discoloration, no calf tenderness Neuro: A&O x 3, no focal deficits noted, normal affect Skin: warm, dry Results & Data Results & Data ([facility]) Vital Signs (Past 12 Hours) Vital Signs Temp Pulse Pulse Resp BP BP Pulse Ox 07/10/20 16:05 88 18 123/82 95 07/10/20 14:54 95 07/10/20 14:49 87 18 116/79 92 07/10/20 14:00 83 19 93 07/10/20 13:47 93 07/10/20 13:43 85 19 116/82 94 07/10/20 13:30 88 20 93 07/10/20 13:18 87 17 07/10/20 13:01 36.5 C 95 H 20 119/85 92 Laboratory Results Short CBC 07/10/20 Range/Units 13:40 WBC 8.29 (4.8-10.8) K/uL Hgb 16.4 (14.0-18.0) g/dL Hct 47.9 (42-52) % Plt Count 128 L (130-400) K/uL BMP 07/10/20 13:40 Sodium 136 Potassium 4.1 Chloride 104 Carbon Dioxide 24 BUN 40 H Creatinine 1.70 H Glucose 102 H Calcium 10.0 Cardiac Enzymes 07/10/20 Range/Units 13:40 Troponin I 0.070 H* (0-0.045) ng/ml Liver Function 07/10/20 Range/Units 13:40 Total Bilirubin 1.4 H (0.2-1) mg/dl AST 33 (15-37) U/L ALT 34 (12-78) U/L Alkaline Phosphatase 325 H (45-117) U/L Albumin 4.2 (3.4-5.0) gm/dl Diagnostic Findings CXR: IMPRESSION: New right basilar opacity, likely representing a combination of pleural fluid and right lower lobe atelectasis/consolidation. Clinical and radiographic follow-up are recommended. Code Status & VTE Plan VTE Prophylaxis Plan VTE Prophylaxis will be ordered: Yes Supervising Physician Co-Signing Physician Notes Acute hypoxic respiratory failure Acute on chronic diastolic heart failure exacerbation History of coronary artery disease status post CABG x3 History of peripheral arterial disease status post bilateral iliac stents Diabetes mellitus type 2 History of hypertension History of hyperlipidemia Worsening shortness of breath and cough that has been going on for the last 3 months but is progressively getting worse over the last few days. Patient is lately using 4 pillows but he has gained weight. Increase his Lasix dose from 40 mg daily to twice daily for the last 1 week but still does not feel significant improvement. Start patient on IV Lasix 60 mg twice daily. We will repeat a transthoracic echo. Patient denies any exposure to Covid patient. COVID-19 is negative. Monitor ins and outs along with daily weights. Trend cardiac enzymes. Patient denies any chest pain. Patient was seen and discussed with ERNST Correia Late entry Patient was seen and examined on 07/10/2020.
[2020-07-10] MEDS ORDERED: GLUCOSE 40% GEL 15 GM TUBE PO PRN (17:12)
[2020-07-10] MEDS ORDERED: CARBOHYDRATES FOR HYPOGLYCEMIA PO PRN (17:12)
[2020-07-10] MEDS ORDERED: CETIRIZINE HCL 10 MG TABLET PO PRN (17:12)
[2020-07-10] MEDS ORDERED: GLUCOSE 10 TABS/TUBE PO PRN (17:12)
[2020-07-10] MEDS ORDERED: ACETAMINOPHEN 325 MG TAB PO PRN (17:12)
[2020-07-10] MEDS ORDERED: GLUCAGON FOR INJ 1 MG VIAL SQ PRN (17:12)
[2020-07-10] MEDS ORDERED: DEXTROSE 50% 50 ML SYRINGE IV PRN (17:12)
[2020-07-10] MEDS: allopurinoL 100 MG TAB PO SCH (21:02)
[2020-07-10] MEDS: amLODIPine BESYLATE 5 MG TAB PO SCH (21:02)
[2020-07-10] MEDS: ATORVASTATIN 40 MG TAB PO SCH (21:04)
[2020-07-10] MEDS: DOCUSATE SODIUM 100 MG CAP PO SCH (21:05)
[2020-07-10] MEDS: HEPARIN SOD 5,000 UNIT/0.5 ML VIAL SQ SCH (21:07)
[2020-07-10] MEDS: INSULIN ASPART 100 UNITS/ML 3 ML PEN SC SCH (21:13)
[2020-07-10] MEDS: LOSARTAN POTASSIUM 50 MG TAB PO SCH (21:24)
[2020-07-11] MEDS: HEPARIN SOD 5,000 UNIT/0.5 ML VIAL SQ SCH ×3 (05:59→20:54)
[2020-07-11 06:55] LABS: Hemoglobin 15.9 g/dL (14.0-18.0); Mean Corpuscular Hemoglobin 31.4 pg (25-34); Mean Corpuscular Hgb Conc 34.6 g/dL (32-36); Mean Corpuscular Volume 90.9 fL (80-100); Mean Platelet Volume 12.7 fL (7.4-10.4); Platelet Count 128 K/uL (130-400); RDW Standard Deviation 52.9 fL (36.4-46.3); Red Blood Count 5.06 M/uL (4.7-6.1); White Blood Count 7.35 K/uL (4.8-10.8)
[2020-07-11 07:01] LABS: BUN Creatinine Ratio 25.5 (10-20); Calcium 9.3 mg/dl (8.5-10.1); Creatinine Clr Calc Pharmacy 29.9 ml/min; Est GFR (African American) 40.8; Est GFR (Non-African American) 35.2
[2020-07-11 07:03] LABS: Platelet Estimate Decreased (Normal)
[2020-07-11] MEDS: CALCITRIOL 0.25 MCG CAPSULE PO SCH (08:19)
[2020-07-11] MEDS: DOCUSATE SODIUM 100 MG CAP PO SCH ×2 (08:19→20:54)
[2020-07-11] MEDS: ASPIRIN 81 MG ECTAB PO SCH (08:20)
[2020-07-11] MEDS: FAMOTIDINE 40 MG TABLET PO SCH (08:20)
[2020-07-11] MEDS: CLOPIDOGREL BISULFATE 75 MG TAB PO SCH (08:20)
[2020-07-11] MEDS: allopurinoL 100 MG TAB PO SCH ×2 (08:20→20:54)
[2020-07-11] MEDS: PANTOprazole 40 MG TAB PO SCH (08:20)
[2020-07-11] MEDS: INSULIN ASPART 100 UNITS/ML 3 ML PEN SC SCH ×4 (08:23→20:42)
[2020-07-11] MEDS ORDERED: FUROSEMIDE 60 MG in SYRINGE 0 ML IV ONE ×2 (09:30→11:47)
[2020-07-11] MEDS ORDERED: HEPARIN SODIUM/DEXTROSE 25,000 UNITS/500 ML BAG IV SCH (09:45)
--- NOTE | 2020-07-11 10:10 | Ultrasound Report ---
US venous doppler LE BI CLINICAL HISTORY: Leg edema. Possible pulmonary embolism. COMPARISON STUDY: No previous studies for comparison. FINDINGS: Real-time and color flow Doppler imaging were performed. Flow was seen within the femoral, popliteal and calf veins with no intraluminal thrombus demonstrated. The saphenous vein is patent. IMPRESSION: No evidence of lower extremity DVT. ACT 112: Negative or not required by law. Electronically signed by: Jose Polk M.D. 07/11/2020 10:09 AM
[2020-07-11] MEDS ORDERED: HEPARIN 25000 UNIT/500 ML D5W IV ONE (10:23)
[2020-07-11] MEDS ORDERED: Heparin Adult STANDARD Wt-Based Dextrose 5% 25,000 units/500 mL IV SCH (10:30)
[2020-07-11] MEDS ORDERED: HEPARIN IV BOLUS 5,000 UNITS in SYRINGE 0 ML IV ONE (10:30)
--- NOTE | 2020-07-11 10:51 | Cardiology Consultation ---
Date of Consultation July 11, 2020 Assessment & Plan (1) Acute respiratory failure with hypoxia: (2) Right lower lobe pulmonary infiltrate: (3) Suspected pulmonary embolism: (4) Congestive heart failure with right ventricular systolic dysfunction: (5) Aortic stenosis: (6) Mitral stenosis: (7) Elevated troponin: (8) CKD (chronic kidney disease), stage III: 80-year-old patient admitted with acute on chronic respiratory insufficiency. 2D transthoracic echocardiographic evidence of RV dilatation and dysfunction. Pulmonary embolus is suspected. Recommend intravenous heparin infusion, VQ scan, and lower extremity venous duplex. Physical exam evidence of lower extremity edema suggesting congestive heart failure with primarily right-sided signs/symptoms. Continue diuretic therapy with close monitoring of GFR, electrolytes, and daily weight. Patient will receive 60 mg IV Lasix today with repeat lab testing in a.m. Pulmonary consultation requested due to x-ray evidence of right lower lobe consolidation. Considerations for pulmonary infarct, infiltrate, pleural effusi on, versus mucous plug with volume loss. Evidence of rheumatic valvular heart disease with borderline severe aortic stenosis (not supported by Doppler interrogation) and moderate mitral stenosis. Systolic gradients unchanged when compared to most recent echocardiogram reviewed in the [facility] medical record dated 05/2019. Consideration for referral to [facility] valve clinic for invasive evaluation pending clinical course and response to medical therapy. History of Present Illness Reason for Consultation: acute on chronic CHF, SOB Requesting Physician: Dr. Kaufman Attending Physician: Ezra Andrade MD History of Present Illness 80-year-old patient presented to the emergency department with or than 2 months of progressive shortness of breath. Patient began noticing a nonproductive cough more than 8 weeks ago. His functional capacity has slowly declined with progressive dyspnea. Endorses orthopnea without paroxysmal nocturnal dyspnea. Reports bilateral lower extremity edema. Patient treated with Mucinex and [id number] remedies. No improvement. No significant weight changes. Denies exertional chest heaviness or tightness. Complex cardiovascular history listed below. Treated with IV Lasix on admission. Fluid balance -1300 cc with mild improvement of respiratory symptoms. Oxygen saturation stable on 2 L nasal cannula. Denies any recent noncompliance with cardiovascular therapies or diuretics. History of chronic kidney disease with stable creatinine on admission. sinus rhythm without No palpitations, lightheadedness, dizziness, sy ncope, or near syncope. Telemetry demonstrates dysrhythmia. PMH: 1.Coronary artery disease, status post CABG x3, October 2017, with a LUCERO to the LAD, vein graft to OM1, and vein graft to the RCA. 2.Moderate aortic stenosis. 3.Peripheral arterial disease with bilateral iliac stents, October 2016, following with Vascular Surgery. 4.Dyslipidemia. 5.Prediabetes. 6.Stage III chronic kidney disease. 7.Fleeting postoperative atrial fibrillation, with an adverse reaction to amiodarone. Allergies Allergy/AdvReac Type Severity Reaction Status Date / Time amiodarone Allergy Unknown "streaking Verified 07/10/20 15:00 up vein" and painful lactose Allergy Unknown GI UPSET Verified 07/10/20 15:00 pollen extracts Allergy Unknown HAYFEVER Verified 07/10/20 15:00 tramadol Allergy Unknown Hallucinati Verified 07/10/20 15:00 ng lisinopril AdvReac Unknown COUGH Verified 07/10/20 15:00 Home Medications Medication Instructions Recorded Confirmed Type Glucosamine Chondroitin 1 cap PO BID 01/11/19 07/10/20 History Ocuvite Eye Health 1 tab PO QAM 01/11/19 07/10/20 History albuterol sulfate 2 puff INHALATION Q6H PRN 01/11/19 07/10/20 History allopurinol 100 mg PO BID 01/11/19 07/10/20 History amlodipine 2.5 mg PO QPM 01/11/19 07/10/20 History amoxicillin 500 mg PO UD PRN 01/11/19 07/10/20 History aspirin [Aspirin Low Dose] 81 mg PO QAM 01/11/19 07/10/20 History atorvastatin 40 mg PO PM 01/11/19 07/10/20 History benzonatate 200 mg PO TID PRN 01/11/19 07/10/20 History calcitriol 0.25 mcg PO QAM 01/11/19 07/10/20 History cetirizine 10 mg PO DAILY PRN 01/11/19 07/10/20 History clopidogrel 75 mg PO QAM 01/11/19 07/10/20 History docusate sodium 100 mg PO BID 01/11/19 07/10/20 History losartan 50 mg PO QPM 01/11/19 07/10/20 History metformin 500 mg PO BIDM 01/11/19 07/10/20 History saw palmetto 450 mg PO QPM 01/11/19 07/10/20 History Leg Cramps 1 dose PO HS 02/01/19 07/10/20 History famotidine 40 mg PO DAILY 07/10/20 07/10/20 History furosemide 40 mg PO DAILY 07/10/20 07/10/20 History omeprazole 20 mg PO DAILY 07/10/20 07/10/20 History Patient History Medical History (Updated 07/12/20 @ 10:04 by Wiliam Urbina MD) Aortic stenosis Moderate aortic stenosis (KERA 1.0cm2, MG 7mmhg) Asthma allergy induced-- inhaler prn CAD (coronary artery disease) Chronic kidney disease, stage 3 baseline creatinine 1.4-1.7 per chart reviewe Colitis Coronary artery disease Diabetes mellitus, type 2 Diverticular disease Fibromyalgia Gout Hearing deficit History of GI bleed Hyperlipidemia Hypertension Non-Hodgkin lymphoma diagnosed 2004 s/p chemo Osteoarthritis PAD (peripheral artery disease) s/p b/l iliac artery stents (2015) Pleural effusion due to CHF (congestive heart failure) Right lower lobe pulmonary infiltrate Shortness of breath Surgical History History of bilateral carpal tunnel release History of cardiac cath 2017= subsequent CABG x3 History of lumbar discectomy History of lymph node biopsy History of phacoemulsification of cataract of both eyes with intraocular lens implantation History of tonsillectomy and adenoidectomy History of tooth extraction History of total left hip replacement History of umbilical hernia repair Hx of left inguinal hernia repair Hx of right inguinal hernia repair S/P CABG x 3 2018 S/P colonoscopy 01/15/19 Status post insertion of iliac artery stent b/l (2015) Family History Grandmother (Paternal) Family history of diabetes mellitus Mother Family history of diabetes mellitus Aunt Family history of diabetes mellitus Uncle Family history of diabetes mellitus Grandfather (Maternal) Family history of diabetes mellitus Sister Family history of diabetes mellitus Father Family hx colonic polyps Other No family history of adverse response to anesthesia Social History Smoking Status: Never smoker Second Hand Exposure: Yes (father smoked); Hx Alcohol Use: No Hx Substance Use: No Preferred Language: Central African 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 Beliefs That Will Affect Care: None marital status: Current Living Situation: Spouse Other Information That Helps Us Care for You: No Feels Safe at Home: Yes Safety Concerns: Feels Safe At This Time Assistive Devices: None Review of Systems Review of Systems: All systems reviewed & are unremarkable except as noted in Subjective Physical Exam Constitutional: well nourished, + ill appearing and average body habitus; no acute distress Respiratory: Auscultation: + diminished lung sounds (Right base ) and + crackles (Right base); no rales, no rhonchi and no wheezes Cardiovascular: Rate/Rhythm: regular rate and regular rhythm Heart Sounds: normal S1, normal S2 and + murmur (Soft, 1/6 systolic ejection murmur heard best at the right second intercost) Vessels: + JVD and + carotid bruit Extremities: + pedal edema (1+ bilateral pretibial) Gastrointestinal (Abdomen): Inspection/Auscultation: abdomen normal to inspection and normal bowel sounds; abdomen not distended Percussion/Palpation: abdomen soft; abdomen nontender and no guarding Skin: no rashes, warm and dry Neurologic: CN's II-XI intact bilaterally and moves all extremities Motor/Sensory: no tremor Psychiatric: A+Ox3, euthymic affect Results & Data ([facility]) Vital Signs (Past 12 Hours) Vital Signs Temp Pulse Pulse Resp BP Pulse Ox 07/11/20 07:55 36.4 C L 99 H 18 141/89 H 95 07/11/20 03:50 36.5 C 92 H 18 123/84 94 07/11/20 00:04 36.4 C L 07/10/20 23:57 94 H 07/10/20 23:29 35.6 C L 92 H 18 110/73 93 (1) Aortic stenosis Cardiac valve disease etiology: rheumatic Qualified Code(s): I06.0 - R heumatic aortic stenosis (2) 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
--- NOTE | 2020-07-11 10:51 | Pulmonary Consultation ---
Date of Consultation July 11, 2020 Assessment & Plan (1) Right lower lobe pulmonary infiltrate: The CT chest that I ordered demonstrates bilateral effusions, right greater than left. There is bilateral compressive atelectasis. I did speak with the patient's severity of illness coordinator and the hospitalist regarding these findings. We are going to try another dose of IV Lasix, 60 mg. I will obtain a follow-up chest x-ray tomorrow. If the effusion appears to be improved and the patient is clinically improved, I will hold off thoracentesis. Otherwise if he continues to have significant symptoms, we will consider performing a therapeutic and diagnostic thoracentesis. VQ scan is ordered to assess for the possibility of pulmonary embolism given his worsening RV failure seen on echo. Pulmonary continue to follow along with you. Thank you for the consult. (2) Shortness of breath: (3) CHF (congestive heart failure): (4) Coronary artery disease: History of Present Illness Reason for Consultation: Right lower lobe infiltrate Requesting Physician: Dr. Alex Attending Physician: Ezra Andrade MD History of Present Illness 80-year-old male with a past medical history of coronary artery bypass grafting x3 in 2018, peripheral artery disease, CKD 3, diabetes mellitus, aortic stenosis and secondary pulmonary hypertension who presented to the hospital last night due to progressive shortness of breath and cough. Patient has tried [id number] medications and Tessalon Perles without significant improvement. He uses albuterol occasionally without much improvement. He did note a 4 to 5 pound weight gain. He is followed by [facility] cardiology as an outpatient for history of aortic stenosis. Echo completed today demonstrated severe dilation of the right ventricle. RVSP was estimated at 54 mmHg. EF was 50%. Aortic valve was severely calcified. Lower extremity Doppler completed today which was negative for evidence of DVT. WBC count has been normal. Platelet count is mildly low at 128,000. INR is 1.4. Creatinine is elevated at 1.78. His baseline creatinine appears to be 1.4-1.5. COVID-19 testing was negative. Chest x-ray demonstrates a new right basilar opacity. He was initiated on a heparin drip by cardiology due to concern of possible pulmonary embolism. He is being sent for VQ scan. He is also chronically on Plavix and aspirin. Patient notes increasing orthopnea, lower extremity edema and cough. He denies any chest pain or pressure. He does note his symptoms seem similar to when he had his coronary artery bypass grafting in 2018. He denies any fevers or chills. No night sweats. He is currently eating his lunch. He feels better after receiving IV Lasix. He denies any dizziness or headache. 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 He did smoke cigarettes over 50 years ago. He is fairly independent at home. Allergies Allergy/AdvReac Type Severity Reaction Status Date / Time amiodarone Allergy Unknown "streaking Verified 07/10/20 15:00 up vein" and painful lactose Allergy Unknown GI UPSET Verified 07/10/20 15:00 pollen extracts Allergy Unknown HAYFEVER Verified 07/10/20 15:00 tramadol Allergy Unknown Hallucinati Verified 07/10/20 15:00 ng lisinopril AdvReac Unknown COUGH Verified 07/10/20 15:00 Home Medications Medication Instructions Recorded Confirmed Type Glucosamine Chondroitin 1 cap PO BID 01/11/19 07/10/20 History Ocuvite Eye Health 1 tab PO QAM 01/11/19 07/10/20 History albuterol sulfate 2 puff INHALATION Q6H PRN 01/11/19 07/10/20 History allopurinol 100 mg PO BID 01/11/19 07/10/20 History amlodipine 2.5 mg PO QPM 01/11/19 07/10/20 History amoxicillin 500 mg PO UD PRN 01/11/19 07/10/20 History aspirin [Aspirin Low Dose] 81 mg PO QAM 01/11/19 07/10/20 History atorvastatin 40 mg PO PM 01/11/19 07/10/20 History benzonatate 200 mg PO TID PRN 01/11/19 07/10/20 History calcitriol 0.25 mcg PO QAM 01/11/19 07/10/20 History cetirizine 10 mg PO DAILY PRN 01/11/19 07/10/20 History clopidogrel 75 mg PO QAM 01/11/19 07/10/20 History docusate sodium 100 mg PO BID 01/11/19 07/10/20 History losartan 50 mg PO QPM 01/11/19 07/10/20 History metformin 500 mg PO BIDM 01/11/19 07/10/20 History saw palmetto 450 mg PO QPM 01/11/19 07/10/20 History Leg Cramps 1 dose PO HS 02/01/19 07/10/20 History famotidine 40 mg PO DAILY 07/10/20 07/10/20 History furosemide 40 mg PO DAILY 07/10/20 07/10/20 History omeprazole 20 mg PO DAILY 07/10/20 07/10/20 History Patient History Medical History (Updated 07/11/20 @ 11:11 by Joseph Alex DO) Aortic stenosis Moderate aortic stenosis (KERA 1.0cm2, MG 7mmhg) Asthma allergy induced-- inhaler prn CAD (coronary artery disease) Chronic kidney disease, stage 3 baseline creatinine 1.4-1.7 per chart reviewe Colitis Coronary artery disease Diabetes mellitus, type 2 Diverticular disease Fibromyalgia Gout Hearing deficit History of GI bleed Hyperlipidemia Hypertension Non-Hodgkin lymphoma diagnosed 2004 s/p chemo Osteoarthritis PAD (peripheral artery disease) s/p b/l iliac artery stents (2015) Right lower lobe pulmonary infiltrate Shortness of breath Surgical History History of bilateral carpal tunnel release History of cardiac cath 2017= subsequent CABG x3 History of lumbar discectomy History of lymph node biopsy History of phacoemulsification of cataract of both eyes with intraocular lens implantation History of tonsillectomy and adenoidectomy History of tooth extraction History of total left hip replacement History of umbilical hernia repair Hx of left inguinal hernia repair Hx of right inguinal hernia repair S/P CABG x 3 2018 S/P colonoscopy 01/15/19 Status post insertion of iliac artery stent b/l (2015) Family History Grandmother (Paternal) Family history of diabetes mellitus Mother Family history of diabetes mellitus Aunt Family history of diabetes mellitus Uncle Family history of diabetes mellitus Grandfather (Maternal) Family history of diabetes mellitus Sister Family history of diabetes mellitus Father Family hx colonic polyps Other No family history of adverse response to anesthesia Social History Smoking Status: Never smoker Second Hand Exposure: Yes (father smoked); Hx Alcohol Use: No Hx Substance Use: No Preferred Language: Khmer Communication Ability: Effective 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 Beliefs That Will Affect Care: None marital status: Current Living Situation: Spouse Other Information That Helps Us Care for You: No Feels Safe at Home: Yes Safety Concerns: Feels Safe At This Time Assistive Devices: Glasses, Hearing Aid - Left and Hearing Aid - Right Review of Systems Review of Systems: All systems reviewed & are unremarkable except as noted in HPI & below Physical Exam Constitutional: WD/WN, vitals as above Eyes: PERRL, conjunctivae normal, anicteric sclerae ENMT: external ear and nose normal, oropharynx normal Ears: + hearing impairment Neck: normal visual inspection Respiratory: Diminished breath sounds at the right lung base. No significant tachypnea present. Cardiovascular: RRR, no murmur, no edema Gastrointestinal (Abdomen): normal bowel sounds, soft, nontender, no hepatosplenomegaly Musculoskeletal: no cyanosis or clubbing, extremities motor strength 5/5 Skin: no rashes, warm and dry Neurologic: PERRL, EOMI, accommodation nl, no face palsy, no dysarthria Psychiatric: A+Ox3, euthymic affect Results & Data Results & Data ([facility]) Vital Signs (Past 12 Hours) Vital Signs Temp Pulse Pulse Resp BP Pulse Ox 07/11/20 07:55 97.5 F L 99 H 18 141/89 H 95 07/11/20 03:50 97.7 F 92 H 18 123/84 94 07/11/20 00:04 97.5 F L 07/10/20 23:57 94 H 07/10/20 23:29 96.1 F L 92 H 18 110/73 93 I reviewed the vital signs, labs and imaging PG Care Time/CCT Total # of Minutes Spent Total Time Spent with Patient: Total time spent is greater than 50% in coordination of care (as documented) at patient's floor/unit and/or counseling patient: Coding Level of Care Code 86065 Inpt Consult Level 5 Diagnoses Right lower lobe pulmonary infiltrate R91.8 Shortness of breath R06.02 CHF (congestive heart failure) I50.9 Coronary artery disease I25.10
--- NOTE | 2020-07-11 10:53 | Hospitalist Progress Note ---
Date of Service July 11, 2020 Assessment & Plan (1) CHF (congestive heart failure): (2) Acute respiratory failure with hypoxia: Pt is 80 y/o M with PMH CAD s/p CABG x 3 in 2018, HTN, HLD, PAD s/p bilateral iliac stent, CKD III, DM II, PAD, aortic stenosis presented to ER with c/o progressive SOB, cough x 3 months with increased BLE x several weeks. She presented with worsening shortness of breath and cough for the last 3 months. proBNP of roughly 8000 on admission. Chest x-ray with concern for effusion/atelectasis. Patient remains afebrile but white count is within normal limit. On new oxygen requirement of 2 L. Adequate urine output this admission. Will give another IV Lasix 60 mg now. Monitor ins and outs along with daily weights. Continue to monitor daily BMP. Will consult cardiology for further input. Transthoracic echo is pending. Cardiac enzymes trended upward. However patient denies any chest pain. Will await cardiology input. (3) Elevated troponin: Initial troponin: 0.7-0.075 in the setting of CKD. Patient denies any chest pain. EKG nonischemic. (4) CAD (coronary artery disease): S/P CABG x 3 in 2018 Continue aspirin, statin, plavix (5) Aortic stenosis: History echo: 05/2019, EF: 50-54%, borderline diffuse left ventricular hypokinesis, borderline severe-severe aortic stenosis, mild pulmonary hypertension Transthoracic echo is pending. (6) Diabetes mellitus, type 2: A1c: 6.8 on 04/2020 Hold metformin Novolog sliding scale per protocol (7) HTN (hypertension): Continue amlodipine, losartan (8) CKD (chronic kidney disease), stage III: Cr: 1.7-.78. Baseline Cr: 1.6-1.7 Monitor renal functions, avoid nephrotoxic agents when possible DVT Prophylaxis -Heparin SQ DNR/DNI as per discussion with pt Follows with Dr Berg for routine care Admission and Anticipated Discharge Date Admission Date: July 10, 2020 Subjective Patient is doing okay this morning. Currently he is on 2 L of nasal cannula. Reports he is feeling better than he came in with. Reports shortness of breath is improved. Denies any chest pain or any significant cough. Denies any abdominal pain, diarrhea or dysuria. Review of Systems Review of Systems: All systems reviewed & are unremarkable except as noted in HPI & below Physical Exam Physical Exam: General: A&Ox3 HENT: NCAT, MMM, EOMI Eyes: PERRLA Neck: Supple, normal range of motion CVS: normal rate and rhythm Resp: b/l basal crackles appreciated Abdomen: Soft, distended and nontender Extremities: 2+ lower extremity edema Neuro: face symmetric, strength grossly equal, no focal deficit Skin: warm and dry, no rashes/lesions/errythema MSK: normal ROM, no joint swelling/erythema Results & Data Results & Data ([facility]) Vital Signs (Past 12 Hours) Vital Signs Temp Pulse Pulse Resp BP Pulse Ox 07/11/20 07:55 36.4 C L 99 H 18 141/89 H 95 07/11/20 03:50 36.5 C 92 H 18 123/84 94 07/11/20 00:04 36.4 C L 07/10/20 23:57 94 H 07/10/20 23:29 35.6 C L 92 H 18 110/73 93
--- NOTE | 2020-07-11 11:46 | CT Scan Report ---
CT chest diagnostic wo con CLINICAL HISTORY: Abnormal chest x-ray. COMPARISON STUDY: CT scan dated 08/01/2014 CT DOSE: 342.75 mGy.cm TECHNIQUE: CT of the thorax was performed from the thoracic inlet to the lung bases. Images are revi ewed in the axial, sagittal, and coronal planes. IV contrast was not administered for this examinatio n. A dose lowering technique was utilized adhering to the principles of ALARA. FINDINGS: Thyroid: Imaged portions of the thyroid gland are normal in appearance. Thoracic aorta: The thoracic aorta is normal in course and caliber, noting standard 3 vessel arch neo rj. There is minimal grade vessel gas, likely iatrogenic. Heart: The heart is mildly enlarged. There are coronary artery calcifications. There is no significan t pericardial effusion. There are postsurgical changes of a midline sternotomy Lungs and pleural spaces: There is a small left pleural effusion, and moderate right pleural effusion . There are multiple scattered calcified granulomas and micronodules, likely postinflammatory. There are dependent right lower lobe airspace opacities, likely representing compressive atelectasis. Mediastinum: There is no evidence of pathologic mediastinal lymphadenopathy Cyn: There is no evidence of pathologic hilar adenopathy given the limitations of a noncontrast stud y. Axilla: There is no evidence of pathologic axillary lymphadenopathy. There is mild distention of the left subscapular bursa. Upper abdomen: There is upper abdominal ascites. Skeletal structures: There are no lytic or blastic osseous lesions. IMPRESSION: 1. Moderate right pleural effusion and small left pleural effusion 2. Dependent right lower lobe airspace opacities likely representing compressive atelectasis 3. No evidence of pathologic adenopathy 4. Upper abdominal ascites ACT 112: Negative or not required by law. Electronically signed by: Jose Polk M.D. 07/11/2020 11:45 AM
--- NOTE | 2020-07-11 12:52 | Nuclear Medicine Report ---
NM pul perfusion CLINICAL HISTORY: Chest pain. Abnormal chest x-ray. COMPARISON STUDY: Chest CT dated 07/11/2020 FINDINGS: The perfusion study was performed following the intravenous administration of 5 mCi of technetium 99m MAA. Ventilation studies are not being performed during the Covid pandemic. There are perfusion defects corresponding to the pleural effusions. Other than these defects, there a re no moderate or large perfusion defects. This study is felt to be of relatively low probability for pulmonary embolism. IMPRESSION: 1. Perfusion defects corresponding pleural effusions 2. The study is felt to be of relatively low probability of acute pulmonary embolism. ACT 112: Negative or not required by law. Electronically signed by: Jose Polk M.D. 07/11/2020 12:50 PM
--- NOTE | 2020-07-11 13:22 | Electrocardiogram Report ---
Test Reason : Blood Pressure : / mmHG Vent. Rate : 087 BPM Atrial Rate : 087 BPM P-R Int : 186 ms QRS Dur : 090 ms QT Int : 404 ms P-R-T Axes : 077 153 022 degrees QTc Int : 486 ms Normal sinus rhythm Right axis deviation Septal infarct , age undetermined Abnormal ECG When compared with ECG of 10-JUL-2020 16:03, Questionable change in QRS axis Nonspecific T wave abnormality, improved in Lateral leads Confirmed by Ruperto Cedeno ([id number]) on 07/11/2020 1:21:25 PM Referred By: REFERRED SELF Confirmed By:Ruperto Cedeno
[2020-07-11] MEDS: amLODIPine BESYLATE 5 MG TAB PO SCH (20:52)
[2020-07-11] MEDS: LOSARTAN POTASSIUM 50 MG TAB PO SCH (20:53)
[2020-07-11] MEDS: ATORVASTATIN 40 MG TAB PO SCH (20:53)
[2020-07-12 08:04] LABS: Basophils # (auto) 0.03 K/uL (0-0.2); Basophils % (auto) 0.4 %; Eosinophils # (auto) 0.02 K/uL (0-0.5); Eosinophils % (auto) 0.3 %; Hematocrit (blood only) 46.7 % (42-52); Hemoglobin 16.1 g/dL (14.0-18.0); Immature Granulocytes # (auto) 0.02 K/uL (0.00-0.02); Immature Granulocytes % (auto) 0.3 %; Lymphocytes # (auto) 1.62 K/uL (1.2-3.4); Lymphocytes % (auto) 23.2 %; Mean Corpuscular Hemoglobin 31.6 pg (25-34); Mean Corpuscular Hgb Conc 34.5 g/dL (32-36); Mean Corpuscular Volume 91.6 fL (80-100); Monocytes # (auto) 0.68 K/uL (0.11-0.59); Monocytes % (auto) 9.8 %; Platelet Count 107 K/uL (130-400); RDW Standard Deviation 53.5 fL (36.4-46.3); White Blood Count 6.97 K/uL (4.8-10.8)
[2020-07-12 08:29] LABS: Calcium 9.6 mg/dl (8.5-10.1); Creatinine Clr Calc Pharmacy 32.2 ml/min; Est GFR (African American) 44.8; Est GFR (Non-African American) 38.6
[2020-07-12] MEDS: DOCUSATE SODIUM 100 MG CAP PO SCH ×2 (08:29→20:19)
[2020-07-12] MEDS: allopurinoL 100 MG TAB PO SCH ×2 (08:29→20:18)
[2020-07-12] MEDS: HEPARIN SOD 5,000 UNIT/0.5 ML VIAL SQ SCH ×3 (08:29→20:20)
[2020-07-12] MEDS: CLOPIDOGREL BISULFATE 75 MG TAB PO SCH (08:30)
[2020-07-12] MEDS: ASPIRIN 81 MG ECTAB PO SCH (08:30)
[2020-07-12] MEDS: PANTOprazole 40 MG TAB PO SCH (08:30)
[2020-07-12] MEDS: FAMOTIDINE 40 MG TABLET PO SCH (08:30)
[2020-07-12] MEDS: CALCITRIOL 0.25 MCG CAPSULE PO SCH (08:30)
[2020-07-12 08:32] LABS: Albumin Globulin Ratio 1.2 (0.9-2); Bilirubin,Total 1.4 mg/dl (0.2-1); Globulin 3.3 gm/dl (2.5-4.0); Total Protein 7.3 gm/dl (6.4-8.2)
[2020-07-12] MEDS: INSULIN ASPART 100 UNITS/ML 3 ML PEN SC SCH ×4 (08:32→20:13)
[2020-07-12] MEDS ORDERED: FUROSEMIDE 60 MG in SYRINGE 0 ML IV ONE ×2 (08:45→11:03)
--- NOTE | 2020-07-12 09:07 | XRay Report ---
XR chest 2V PA/lateral CLINICAL HISTORY: post diuresis COMPARISON STUDY: Chest radiograph July 10, 2010. Chest CT July 11, 2020. FINDINGS: Note is made of median sternotomy wires. There is mild cardiomegaly. No pneumothorax is not ed. A right pleural effusion has decreased in size. There is a trace left pleural effusion. Mild righ t basilar opacity is present. Interstitial thickening has resolved. IMPRESSION: 1. Interval resolution of interstitial thickening. No evidence for pulmonary edema 2. Interval decrease in a right pleural effusion. Trace left pleural effusion. ACT 112: Negative or not required by law. Electronically signed by: Vaughn Lujan M.D. 07/12/2020 9:06 AM
--- NOTE | 2020-07-12 10:05 | Pulmonology Progress Note ---
Date of Service July 12, 2020 Assessment & Plan (1) Pleural effusion due to CHF (congestive heart failure): The bilateral pleural effusions appear to be improved substantially on follow-up chest x-ray imaging status post diuresis. These are likely related to CHF. His creatinine is improved as well. Recommend continued judicious diuresis. We will hold off on thoracentesis at this time. 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 The plan is for a potential outpatient right and left heart cath to evaluate the pressure gradient of the aortic valve. Pulmonary is available should the need arise. At this time will sign off. Thank you for the consult. (2) Right lower lobe pulmonary infiltrate: (3) Shortness of breath: (4) CHF (congestive heart failure): (5) Coronary artery disease: Admission and Anticipated Discharge Date Admission Date: July 10, 2020 Subjective Patient is feeling less short of breath today. He is able to ambulate without feeling as fatigued and dyspneic. He continues to have significant lower extremity swelling. He denies any chest pain or pressure. No fevers or chills overnight. Cough is improved slightly. Review of Systems Review of Systems: All systems reviewed & are unremarkable except as noted in HPI & below Physical Exam Constitutional: + ill appearing and average body habitus; no acute distress Eyes: PERRL, conjunctivae normal, anicteric sclerae ENMT: external ear and nose normal, oropharynx normal Neck: normal visual inspection Respiratory: Auscultation: + diminished lung sounds (Right base ) and + crackles (Right base) Cardiovascular: Rate/Rhythm: regular rate and regular rhythm Heart Sounds: normal S1, normal S2 and + murmur (Soft, 1/6 systolic ejection murmur heard best at the right second intercost) Vessels: + JVD and + carotid bruit Extremities: + pedal edema (1+ bilateral pretibial) Gastrointestinal (Abdomen): normal bowel sounds, soft, nontender, no hepatosplenomegaly Inspection/Auscultation: + abdomen distended and normal bowel sounds Musculoskeletal: no cyanosis or clubbing, extremities motor strength 5/5 Skin: no rashes, warm and dry Neurologic: CN's II-XI intact bilaterally and moves all extremities Psychiatric: A+Ox3, euthymic affect Results & Data Results & Data ([facility]) Vital Signs (Past 12 Hours) Vital Signs Temp Pulse Pulse Resp BP Pulse Ox 07/12/20 08:00 97.7 F 95 H 18 139/79 93 07/12/20 03:57 98.1 F 93 H 18 133/89 93 07/11/20 23:32 98.1 F 87 17 122/77 95 07/11/20 23:21 93 H I reviewed his vital signs, labs and imaging PG Care Time/CCT Total # of Minutes Spent Total Time Spent with Patient: Total time spent is greater than 50% in coordination of care (as documented) at patient's floor/unit and/or counseling patient: Coding Level of Care Code 87179 Subseq Hosp Care Lvl 2 Diagnoses Pleural effusion due to CHF (congestive heart failure) I50.9 Right lower lobe pulmonary infiltrate R91.8 Shortness of breath R06.02 CHF (congestive heart failure) I50.9 Coronary artery disease I25.10
--- NOTE | 2020-07-12 11:07 | Hospitalist Progress Note ---
Date of Service July 12, 2020 Assessment & Plan (1) CHF (congestive heart failure): (2) Acute respiratory failure with hypoxia: Pt is 80 y/o M with PMH CAD s/p CABG x 3 in 2018, HTN, HLD, PAD s/p bilateral iliac stent, CKD III, DM II, PAD, aortic stenosis presented to ER with c/o progressive SOB, cough x 3 months with increased BLE x several weeks. Patient presented with worsening shortness of breath and cough for the last 3 months. proBNP of roughly 8000 on admission. Chest x-ray with concern for effusion/atelectasis. Patient remains afebrile but white count is within normal limit. Currently on room air. Adequate urine output this admission. CT IV Lasix 60 mg this morning. Urine output of 1600s in the last 24 hours. Monitor ins and outs along with daily weights. Continue to monitor daily BMP. Will consult cardiology for further input. Transthoracic echo EF of 50% and moderate to severe aortic stenosis is suspected, severe mitral annular calcification. Right ventricular systolic function is severely reduced. Ventilation/perfusion scan is negative. X-ray this morning with a significant improvement of the pleural effusion. (3) Elevated troponin: Initial troponin: 0.7-0.075 in the setting of CKD. Patient denies any chest pain. EKG nonischemic. (4) CAD (coronary artery disease): S/P CABG x 3 in 2018 Continue aspirin, statin, plavix (5) Aortic stenosis: History echo: 05/2019, EF: 50-54%, borderline diffuse left ventricular hypokinesis, borderline severe-severe aortic stenosis, mild pulmonary hypertension Transthoracic echo is pending. (6) Diabetes mellitus, type 2: A1c: 6.8 on 04/2020 Hold metformin Novolog sliding scale per protocol (7) HTN (hypertension): Continue amlodipine, losartan (8) CKD (chronic kidney disease), stage III: Cr: 1.7-.78. Baseline Cr: 1.6-1.7 Monitor renal functions, avoid nephrotoxic agents when possible DVT Prophylaxis -Heparin SQ DNR/DNI as per discussion with pt Follows with Dr Berg for routine care Admission and Anticipated Discharge Date Admission Date: July 10, 2020 Subjective Patient reports shortness of breath and cough is better. Currently remains on room air. Rest of the review of system is negative. Review of Systems Review of Systems: All systems reviewed & are unremarkable except as noted in HPI & below Physical Exam Physical Exam: General: A&Ox3 HENT: NCAT, MMM, EOMI Eyes: PERRLA Neck: Supple, normal range of motion CVS: normal rate and rhythm Resp: b/l basal crackles appreciated Abdomen: Soft, distended and nontender Extremities: 2+ lower extremity edema Neuro: face symmetric, strength grossly equal, no focal deficit Skin: warm and dry, no rashes/lesions/errythema MSK: normal ROM, no joint swelling/erythema Results & Data Results & Data ([facility]) Vital Signs (Past 12 Hours) Vital Signs Temp Pulse Pulse Resp BP Pulse Ox 07/12/20 08:00 36.5 C 95 H 18 139/79 93 07/12/20 03:57 36.7 C 93 H 18 133/89 93 07/11/20 23:32 36.7 C 87 17 122/77 95 07/11/20 23:21 93 H (1) Aortic stenosis 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
--- NOTE | 2020-07-12 11:38 | Cardiology Progress Note ---
Date of Service July 12, 2020 Assessment & Plan (1) Congestive heart failure with right ventricular systolic dysfunction: (2) Acute respiratory failure with hypoxia: (3) Pleural effusion on right: (4) Aortic stenosis: (5) Mitral stenosis: (6) Elevated troponin: (7) CKD (chronic kidney disease), stage III: 60 mg intravenous Lasix ordered this morning. Patient is not a candidate for Aldactone due to underlying renal dysfunction. Continue intravenous diuretic therapy during hospitalization as renal function tolerates. Repeat basic metabolic panel in the a.m. 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 Evaluation of his aortic valve is discordant with 2D imaging suggesting severe stenosis not supported by Doppler interrogation. Consider further evaluation with referral to [facility] valve clinic and invasive studies including right and left cardiac catheterization in the outpatient setting pending clinical course. Pleural effusion improving with intravenous diuretic therapy. No plan for thoracentesis at this time. Pulmonary medicine input appreciated. Admission and Anticipated Discharge Date Admission Date: July 10, 2020 Subjective Patient seen and examined at the bedside. Clinically improving with IV diuretic therapy. X-ray demonstrates reduced volume of right-sided pleural effusion. VQ scan negative for pulmonary embolus. Intravenous anticoagulation discontinued. Orthopnea resolving. No paroxysmal nocturnal dyspnea. Telemetry demonstrates sinus rhythm. Patient denies chest pain or palpitations. Lower extremity edema mildly improved. Review of Systems Review of Systems: All systems reviewed & are unremarkable except as noted in Subjective Physical Exam Constitutional: well nourished, + ill appearing and average body habitus; no acute distress Respiratory: Auscultation: + diminished lung sounds (Right base ) and + crack les (Right base); no rales, no rhonchi and no wheezes Cardiovascular: Rate/Rhythm: regular rate and regular rhythm Heart Sounds: normal S1, normal S2 and + murmur (Soft, 1/6 systolic ejection murmur heard best at the right second intercost) Vessels: + JVD and + carotid bruit Extremities: + pedal edema (1+ bilateral pretibial) Gastrointestinal (Abdomen): Inspection/Auscultation: abdomen normal to inspection and normal bowel sounds; abdomen not distended Percussion/Palpation: abdomen soft; abdomen nontender and no guarding Skin: no rashes, warm and dry Neurologic: CN's II-XI intact bilaterally and moves all extremities Motor/Sensory: no tremor Psychiatric: A+Ox3, euthymic affect Results & Data ([facility]) Vital Signs (Past 12 Hours) Vital Signs Temp Pulse Resp BP Pulse Ox 07/12/20 08:00 36.5 C 95 H 18 139/79 93 07/12/20 03:57 36.7 C 93 H 18 133/89 93 (1) Aortic stenosis 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
[2020-07-12] MEDS: amLODIPine BESYLATE 5 MG TAB PO SCH (20:19)
[2020-07-12] MEDS: LOSARTAN POTASSIUM 50 MG TAB PO SCH (20:19)
[2020-07-12] MEDS: ATORVASTATIN 40 MG TAB PO SCH (20:19)
[2020-07-13] MEDS: HEPARIN SOD 5,000 UNIT/0.5 ML VIAL SQ SCH ×3 (05:44→21:16)
[2020-07-13 07:12] LABS: BUN Creatinine Ratio 27.6 (10-20); Calcium 9.6 mg/dl (8.5-10.1); Creatinine Clr Calc Pharmacy 33.2 ml/min; Est GFR (African American) 46.5; Est GFR (Non-African American) 40.1; Magnesium 2.2 mg/dl (1.8-2.4); Phosphorus 3.3 mg/dl (2.5-4.9); Potassium 3.6 mmol/L (3.5-5.1)
[2020-07-13] MEDS: INSULIN ASPART 100 UNITS/ML 3 ML PEN SC SCH ×4 (08:24→21:16)
[2020-07-13] MEDS: CLOPIDOGREL BISULFATE 75 MG TAB PO SCH (08:26)
[2020-07-13] MEDS: ASPIRIN 81 MG ECTAB PO SCH (08:26)
[2020-07-13] MEDS: CALCITRIOL 0.25 MCG CAPSULE PO SCH (08:27)
[2020-07-13] MEDS: PANTOprazole 40 MG TAB PO SCH (08:27)
[2020-07-13] MEDS: FAMOTIDINE 40 MG TABLET PO SCH (08:27)
[2020-07-13] MEDS: allopurinoL 100 MG TAB PO SCH ×2 (08:28→20:36)
[2020-07-13] MEDS: DOCUSATE SODIUM 100 MG CAP PO SCH ×2 (08:34→20:32)
--- NOTE | 2020-07-13 10:07 | Cardiology Progress Note ---
Date of Service July 13, 2020 Assessment & Plan (1) Congestive heart failure with right ventricular systolic dysfunction: (2) Acute respiratory failure with hypoxia: (3) Pleural effusion on right: (4) Aortic stenosis: (5) Mitral stenosis: (6) Elevated troponin: (7) CKD (chronic kidney disease), stage III: Increase intravenous Lasix to 60 mg twice daily. Repeat basic metabolic panel in a.m. 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 Evaluation of his aortic valve is discordant with 2D imaging suggesting severe stenosis not supported by Doppler interrogation. Consider further evaluation with referral to [facility] valve clinic and invasive studies including right and left cardiac catheterization in the outpatient setting pending clinical course. Pleural effusion improving with intravenous diuretic therapy. No plan for thoracentesis at this time. Pulmonary medicine input appreciated. Clinical progress and plan of care discussed at length with patient's via telephone. Admission and Anticipated Discharge Date Admission Date: July 10, 2020 Subjective Patient seen and examined at the bedside. Fluid balance -800 cc overnight. Serum creatinine trending downward. Patient feeling better from a cardiovascular perspective. Denies orthopnea or PND. No dysrhythmias on telemetry. Lower extremity edema unchanged. Denies lightheadedness, dizziness, syncope, or near syncope. Review of Systems Review of Systems: All systems reviewed & are unremarkable except as noted in Subjective Physical Exam Constitutional: well nourished, + ill appearing and average body habitus; no acute distress Respiratory: Auscultation: + diminished lung sounds (Right base ) and + crackles (Right base); no rales, no rhonchi and no wheezes Cardiovascular: Rate/Rhythm: regular rate and regular rhythm Heart Sounds: normal S1, normal S2 and + murmur (Soft, 1/6 systolic ejection murmur heard best at the right second intercost) Vessels: + JVD and + carotid bruit Extremities: + pedal edema (1+ bilateral pretibial) Gastrointestinal (Abdomen): Inspection/Auscultation: abdomen normal to inspection and normal bowel sounds; abdomen not distended Percussion/Palpation: abdomen soft; abdomen nontender and no guarding Skin: no rashes, warm and dry Neurologic: CN's II-XI intact bilaterally and moves all extremities Motor/Sensory: no tremor Psychiatric: A+Ox3, euthymic affect Results & Data ([facility]) Vital Signs (Past 12 Hours) Vital Signs Temp Pulse Pulse Resp BP Pulse Ox 07/13/20 07:06 36.3 C L 89 19 129/85 95 07/13/20 04:17 37.0 C 86 17 130/82 94 07/13/20 00:42 83 07/12/20 23:12 36.6 C 92 H 22 124/85 93 (1) Aortic stenosis 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
[2020-07-13] MEDS: FUROSEMIDE 60 MG in SYRINGE 0 ML IV SCH ×2 (11:09→20:34)
--- NOTE | 2020-07-13 12:07 | Hospitalist Progress Note ---
Date of Service July 13, 2020 Assessment & Plan (1) CHF (congestive heart failure): (2) Acute respiratory failure with hypoxia: Pt is 80 y/o M with PMH CAD s/p CABG x 3 in 2018, HTN, HLD, PAD s/p bilateral iliac stent, CKD III, DM II, PAD, aortic stenosis presented to ER with c/o progressive SOB, cough x 3 months with increased BLE x several weeks. Patient presented with worsening shortness of breath and cough for the last 3 months. proBNP of roughly 8000 on admission. Chest x-ray with concern for effusion/atelectasis. Patient remains afebrile but white count is within normal limit. Adequate urine output in the last 24 hours; 2 L. Continue with IV Lasix 60 mg twice daily. Monitor ins and outs along with daily weights. Continue to monitor daily BMP. Transthoracic echo EF of 50% and moderate to severe aortic stenosis is suspected, severe mitral annular calcification. Right ventricular systolic function is severely reduced. Ventilation/perfusion scan is negative. X-ray this morning with a significant improvement of the pleural effusion. (3) Elevated troponin: Initial troponin: 0.7-0.075 in the setting of CKD. Patient denies any chest pain. EKG nonischemic. (4) CAD (coronary artery disease): S/P CABG x 3 in 2018 Continue aspirin, statin, plavix (5) Aortic stenosis: History echo: 05/2019, EF: 50-54%, borderline diffuse left ventricular hypokinesis, borderline severe-severe aortic stenosis, mild pulmonary hypertension (6) Diabetes mellitus, type 2: A1c: 6.8 on 04/2020 Hold metformin Novolog sliding scale per protocol (7) HTN (hypertension): Continue amlodipine, losartan (8) CKD (chronic kidney disease), stage III: Cr: 1.6. Baseline Cr: 1.6-1.7 Monitor renal functions, avoid nephrotoxic agents when possible DVT Prophylaxis -Heparin SQ DNR/DNI as per discussion with pt Follows with Dr Berg for routine care Admission and Anticipated Discharge Date Admission Date: July 10, 2020 Subjective Patient was placed back on 2 L of nasal cannula overnight. Otherwise he is feeling okay this morning. Reports shortness of breath and cough is fairly improved from before. Urine output of roughly 2 L in the last 24 hours. Review of Systems Review of Systems: All systems reviewed & are unremarkable except as noted in HPI & below Physical Exam Physical Exam: General: A&Ox3 HENT: NCAT, MMM, EOMI Eyes: PERRLA Neck: Supple, normal range of motion CVS: normal rate and rhythm Resp: b/l basal crackles appreciated Abdomen: Soft, distended and nontender Extremities: 2+ lower extremity edema Neuro: face symmetric, strength grossly equal, no focal deficit Skin: warm and dry, no rashes/lesions/errythema MSK: normal ROM, no joint swelling/erythema Results & Data Results & Data ([facility]) Vital Signs (Past 12 Hours) Vital Signs Temp Pulse Pulse Resp BP Pulse Ox Pulse Ox 07/13/20 11:04 36.7 C 99 H 20 153/75 H 97 07/13/20 08:00 84 97 07/13/20 07:06 36.3 C L 89 19 129/85 95 07/13/20 04:17 37.0 C 86 17 130/82 94 07/13/20 00:42 83 (1) Aortic stenosis 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
[2020-07-13] MEDS: LOSARTAN POTASSIUM 50 MG TAB PO SCH (20:33)
[2020-07-13] MEDS: amLODIPine BESYLATE 5 MG TAB PO SCH (20:34)
[2020-07-13] MEDS: ATORVASTATIN 40 MG TAB PO SCH (20:34)
[2020-07-14] MEDS: HEPARIN SOD 5,000 UNIT/0.5 ML VIAL SQ SCH ×3 (05:55→20:29)
[2020-07-14 07:00] LABS: BUN Creatinine Ratio 27.1 (10-20); Calcium 9.5 mg/dl (8.5-10.1); Creatinine Clr Calc Pharmacy 27.1 ml/min; Est GFR (African American) 36.4; Est GFR (Non-African American) 31.4; Magnesium 2.3 mg/dl (1.8-2.4); Phosphorus 3.2 mg/dl (2.5-4.9); Potassium 3.7 mmol/L (3.5-5.1)
[2020-07-14] MEDS: DOCUSATE SODIUM 100 MG CAP PO SCH ×2 (08:28→20:30)
[2020-07-14] MEDS: allopurinoL 100 MG TAB PO SCH ×2 (08:29→20:31)
[2020-07-14] MEDS: ASPIRIN 81 MG ECTAB PO SCH (08:29)
[2020-07-14] MEDS: PANTOprazole 40 MG TAB PO SCH (08:29)
[2020-07-14] MEDS: CLOPIDOGREL BISULFATE 75 MG TAB PO SCH (08:30)
[2020-07-14] MEDS: FAMOTIDINE 40 MG TABLET PO SCH (08:30)
[2020-07-14] MEDS: CALCITRIOL 0.25 MCG CAPSULE PO SCH (08:30)
[2020-07-14] MEDS: INSULIN ASPART 100 UNITS/ML 3 ML PEN SC SCH ×4 (08:31→21:43)
--- NOTE | 2020-07-14 11:20 | Hospitalist Progress Note ---
Date of Service July 14, 2020 Assessment & Plan (1) CHF (congestive heart failure): (2) Acute respiratory failure with hypoxia: Pt is 80 y/o M with PMH CAD s/p CABG x 3 in 2018, HTN, HLD, PAD s/p bilateral iliac stent, CKD III, DM II, PAD, aortic stenosis presented to ER with c/o progressive SOB, cough x 3 months with increased BLE x several weeks. Patient presented with worsening shortness of breath and cough for the last 3 months. proBNP of roughly 8000 on admission. Chest x-ray with concern for effusion/atelectasis. Patient remains afebrile but white count is within normal limit. Adequate urine output in the last 24 hours; 2.7 L. Renal function increase today, hold further diuretics for today and likely switch to PO tomorrow. Monitor ins and outs along with daily weights. Continue to monitor daily BMP. Transthoracic echo EF of 50% and moderate to severe aortic stenosis is suspected, severe mitral annular calcification. Right ventricular systolic function is severely reduced. Ventilation/perfusion scan is negative. X-ray this morning with a significant improvement of the pleural effusion. (3) Elevated troponin: Initial troponin: 0.7-0.075 in the setting of CKD. Patient denies any chest pain. EKG nonischemic. (4) CAD (coronary artery disease): S/P CABG x 3 in 2018 Continue aspirin, statin, plavix (5) Aortic stenosis: History echo: 05/2019, EF: 50-54%, borderline diffuse left ventricular hypokinesis, borderline severe-severe aortic stenosis, mild pulmonary hypertension (6) Diabetes mellitus, type 2: A1c: 6.8 on 04/2020 Hold metformin Novolog sliding scale per protocol (7) HTN (hypertension): Continue amlodipine, losartan (8) CKD (chronic kidney disease), stage III: Cr: 1.9. Baseline Cr: 1.6-1.7 Hold diuretics for today. Monitor renal functions, avoid nephrotoxic agents when possible DVT Prophylaxis -Heparin SQ DNR/DNI as per discussion with pt Follows with Dr Berg for routine care Admission and Anticipated Discharge Date Admission Date: July 10, 2020 Subjective Urine output of 2.7 L in the last 24 hours. Patient is currently on room air. He reports he feels 75% better in terms of his breathing and cough. Rest of the review of system is negative. Did work with PT/OT today and walked in the hallway yesterday. Physical Exam Physical Exam: General: A&Ox3 HENT: NCAT, MMM, EOMI Eyes: PERRLA Neck: Supple, normal range of motion CVS: normal rate and rhythm Resp: b/l basal crackles appreciated Abdomen: Soft, distended and nontender Extremities: 2+ lower extremity edema Neuro: face symmetric, strength grossly equal, no focal deficit Skin: warm and dry, no rashes/lesions/errythema MSK: normal ROM, no joint swelling/erythema Results & Data Results & Data ([facility]) Vital Signs (Past 12 Hours) Vital Signs Temp Pulse Pulse Resp BP Pulse Ox 07/14/20 08:07 36.3 C L 95 H 17 147/96 H 91 07/14/20 04:04 36.6 C 95 H 18 145/94 H 92 07/13/20 23:59 85 (1) Aortic stenosis 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
--- NOTE | 2020-07-14 12:02 | Cardiology Progress Note ---
Date of Service July 14, 2020 Assessment & Plan (1) Congestive heart failure with right ventricular systolic dysfunction: (2) Acute respiratory failure with hypoxia: (3) Pleural effusion on right: (4) Aortic stenosis: (5) Mitral stenosis: (6) Elevated troponin: (7) CKD (chronic kidney disease), stage III: Hold intravenous diuretic therapy today. Repeat basic metabolic panel in a.m. Consider transition to oral diuretic therapy in a.m. pending review of lab studies. Below the knee bilateral compression stockings ordered. 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 Evaluation of his aortic valve is discordant with 2D imaging suggesting severe stenosis not supported by Doppler interrogation. Consider further evaluation with referral to [facility] valve clinic and invasive studies including right and left cardiac catheterization in the outpatient setting pending clinical course. Pleural effusion improving with intravenous diuretic therapy. No plan for thoracentesis at this time. Pulmonary medicine input appreciated. Tentative plan for discharge in 24-48 hours. Admission and Anticipated Discharge Date Admission Date: July 10, 2020 Subjective Patient seen and examined the bedside. Respiratory status continues to improve. Fluid balance negative approximately 1.1 L overnight. Weight trending downward. Creatinine trending upward. Previously noted orthopnea has resolved. Review of Systems Review of Systems: All systems reviewed & are unremarkable except as noted in Subjective Physical Exam Constitutional: well nourished, + ill appearing and average body habitus; no acute distress Respiratory: Auscultation: + diminished lung sounds (Right base ) and + crackles (Right base); no rales, no rhonchi and no wheezes Cardiovascular: Rate/Rhythm: regular rate and regular rhythm Heart Sounds: normal S1, normal S2 and + murmur (Soft, 1/6 systolic ejection murmur heard best at the right second intercost) Vessels: + JVD and + carotid bruit Extremities: + pedal edema (1+ bilateral pretibial) Gastrointestinal (Abdomen): Inspection/Auscultation: abdomen normal to inspection and normal bowel sounds; abdomen not distended Percussion/Palpation: abdomen soft; abdomen nontender and no guarding Skin: no rashes, warm and dry Neurologic: CN's II-XI intact bilaterally and moves all extremities Motor/Sensory: no tremor Psychiatric: A+Ox3, euthymic affect Results & Data ([facility]) Vital Signs (Past 12 Hours) Vital Signs Temp Pulse Resp BP BP Pulse Ox 07/14/20 11:52 36.3 C L 82 18 116/81 95 07/14/20 08:07 36.3 C L 95 H 17 147/96 H 91 07/14/20 04:04 36.6 C 95 H 18 145/94 H 92 (1) Aortic stenosis 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
[2020-07-14] MEDS: ATORVASTATIN 40 MG TAB PO SCH (20:30)
[2020-07-14] MEDS: LOSARTAN POTASSIUM 50 MG TAB PO SCH (20:30)
[2020-07-14] MEDS: amLODIPine BESYLATE 5 MG TAB PO SCH (20:30)
[2020-07-14] MEDS ORDERED: guaiFENesin SUGAR FREE 200 MG/10 ML UDC PO PRN (21:24)
[2020-07-14] MEDS ORDERED: BENZONATATE 100 MG CAPSULE PO PRN (21:24)
[2020-07-15] MEDS: HEPARIN SOD 5,000 UNIT/0.5 ML VIAL SQ SCH ×2 (05:29→11:43)
[2020-07-15] MEDS: INSULIN ASPART 100 UNITS/ML 3 ML PEN SC SCH ×2 (08:23→11:43)
[2020-07-15] MEDS: CLOPIDOGREL BISULFATE 75 MG TAB PO SCH (08:25)
[2020-07-15] MEDS: allopurinoL 100 MG TAB PO SCH (08:25)
[2020-07-15] MEDS: FAMOTIDINE 40 MG TABLET PO SCH (08:26)
[2020-07-15] MEDS: CALCITRIOL 0.25 MCG CAPSULE PO SCH (08:26)
[2020-07-15] MEDS: ASPIRIN 81 MG ECTAB PO SCH (08:26)
[2020-07-15] MEDS: DOCUSATE SODIUM 100 MG CAP PO SCH (08:27)
[2020-07-15] MEDS: PANTOprazole 40 MG TAB PO SCH (08:27)
[2020-07-15 09:06] LABS: BUN Creatinine Ratio 29.4 (10-20); Calcium 9.8 mg/dl (8.5-10.1); Creatinine Clr Calc Pharmacy 33.2 ml/min; Est GFR (African American) 46.5; Est GFR (Non-African American) 40.1; Potassium 4.2 mmol/L (3.5-5.1)
[2020-07-15] MEDS ORDERED: FUROSEMIDE 40 MG TAB PO SCH (10:00)
--- NOTE | 2020-07-15 12:59 | Cardiology Progress Note ---
Date of Service July 15, 2020 Assessment & Plan (1) Congestive heart failure with right ventricular systolic dysfunction: (2) Acute respiratory failure with hypoxia: (3) Pleural effusion on right: (4) Aortic stenosis: (5) Mitral stenosis: (6) Elevated troponin: (7) CKD (chronic kidney disease), stage III: Restart oral diuretic therapy. Recommend Lasix 60 mg once daily. Repeat basic metabolic panel in 1 week. Courage compliance with bilateral below the knee compression stockings. Natural history and pathophysiology of patient's rheumatic valvular heart disease discussed including mitral and aortic stenosis. 2D echocardiogram findings are discordant with 2D imaging suggesting severe aortic stenosis not supported by Doppler interrogation. With complex history of peripheral vascular disease status post iliac stenting and coronary artery bypass grafting, recommend evaluation with [facility] valve clinic. Patient agreeable. Below the knee bilateral compression stockings ordered. Patient may be discharged home from a cardiovascular perspective today. Recommend outpatient cardiology follow-up in 1 week with repeat basic metabolic panel. Patient will continue to weigh himself daily, and restrict sodium intake. Admission and Anticipated Discharge Date Admission Date: July 10, 2020 Subjective Patient seen and examined the bedside. Respiratory status continues to improve. Diuretics placed on hold yesterday due to elevated creatinine. Fluid balance positive over the past 24 hours. Weight is down 10 pounds since admission. Creatinine has returned to baseline today. He is feeling well from a cardiovascular perspective. Edema improved. Wearing bilateral compression stockings. Denies orthopnea or PND. No dysrhythmias on telemetry. Requesting discharge if possible. Review of Systems Review of Systems: All systems reviewed & are unremarkable except as noted in Subjective Physical Exam Constitutional: well nourished, + ill appearing and average body habitus; no acute distress Respiratory: Auscultation: + diminished lung sounds (Right base ); no crackles (Right base), no rales, no rhonchi and no wheezes Cardiovascular: Rate/Rhythm: regular rate and regular rhythm Heart Sounds: normal S1, normal S2 and + murmur (Soft, 1/6 systolic ejection murmur heard best at the right second intercost) Vessels: + JVD and + carotid bruit Extremities: + pedal edema (1+ bilateral pretibial) Gastrointestinal (Abdomen): Inspection/Auscultation: abdomen normal to inspection and normal bowel sounds; abdomen not distended Percussion/Palpation: abdomen soft; abdomen nontender and no guarding Skin: no rashes, warm and dry Neurologic: CN's II-XI intact bilaterally and moves all extremities Motor/Sensory: no tremor Psychiatric: A+Ox3, euthymic affect Results & Data ([facility]) Vital Signs (Past 12 Hours) Vital Signs Temp Pulse Resp BP BP Pulse Ox 07/15/20 12:00 36.7 C 63 18 125/72 98 07/15/20 07:40 36.4 C L 75 20 122/81 98 07/15/20 03:55 36.7 C 86 16 109/67 93 07/15/20 01:08 36.3 C L 92 H 16 126/84 93 (1) Aortic stenosis 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
[2020-07-15] MEDS ORDERED: FUROSEMIDE 20 MG TAB PO ONE (13:09)
--- NOTE | 2020-07-15 13:47 | Communication Note ---
Date of Service: July 15, 2020 pt admitted with decompensated CHF acute hypoxemic resp failure due to above vol status improved with IV diuresis appreciate input from Cardiology , plan is to discharge home today with PO Lasix dose increased to 60 mg daily cont to use bilateral lower ext compression stocking regularly CKD stage 3 Cr improved to baseline 1.6 valvular heart disease- follow up with Cardiology clinic in a week Lab : Basic metabolic panel in a week Merly Gallardo Md
--- NOTE | 2020-07-15 15:28 | Discharge Summary ---
Date of Service July 15, 2020 Admission HPI Per Admitting Provider Pt is 80 y/o M with PMH CAD s/p CABG x 3 in 2018, HTN, HLD, PAD s/p bilateral iliac stent, CKD III, DM II, PAD, aortic stenosis presented to ER with c/o progressive SOB x 3 months. Patient reports nonproductive cough x3 months. Has been taking Mucinex and Tessalon Perles and ProAir without improvement. Also complains of progressive exertional shortness of breath and orthopnea. Noticed increased bilateral lower extremity edema. Had a 4 pound weight gain. This week increase Lasix from 40 mg daily to twice daily. Also reports progressive fatigue. Denies any chest pains. Denies fevers, diaphoresis, N/V/D/C, OCHOA, dizziness, syncope, vision changes, neck pain, palpitations, hemoptysis, sore throat, choking, otalgia, rhinorrhea, abdominal pain, paresthesias, weakness, extremity weakness, rashes, urinary symptoms. Principal Diagnosis Congestive heart failure with right ventricular systolic dysfunction Chronic kidney disease stage 3 Aortic stenosis Discharge Exam Constitutional WD/WN, vitals as above Eyes PERRL, conjunctivae normal, anicteric sclerae ENMT external ear and nose normal, oropharynx normal Neck trachea midline, no thyromegaly Respiratory normal respiratory effort, lungs clear to auscultation Cardiovascular Rate/Rhythm: regular rate and regular rhythm Extremities: + edema (trace) Gastrointestinal (Abdomen) normal bowel sounds, soft, nontender, no hepatosplenomegaly Musculoskeletal no cyanosis or clubbing, extremities motor strength 5/5 Skin no rashes, warm and dry Neurologic PERRL, EOMI, accommodation nl, no face palsy, no dysarthria Psychiatric A+Ox3, euthymic affect Discharge Data Allergies Allergy/AdvReac Type Severity Reaction Status Date / Time amiodarone Allergy Unknown "streaking Verified 07/10/20 15:00 up vein" and painful lactose Allergy Unknown GI UPSET Verified 07/10/20 15:00 pollen extracts Allergy Unknown HAYFEVER Verified 07/10/20 15:00 tramadol Allergy Unknown Hallucinati Verified 07/10/20 15:00 ng lisinopril AdvReac Unknown COUGH Verified 07/10/20 15:00 Consultations 07/10/20 14:58 ED Decision to Admit Stat 07/10/20 17:12 Consult Case Management - Discharge Planning Routine 07/11/20 07:59 Consult Cardiology Routine 07/11/20 09:40 Consult Pulmonology Routine Ordered Studies 07/11/20 09:15 US venous doppler LE BI Urgent 07/11/20 10:42 CT chest diagnostic wo con Urgent Hospital Course (1) CHF (congestive heart failure): (2) Acute respiratory failure with hypoxia: Pt is 80 y/o M with PMH CAD s/p CABG x 3 in 2018, HTN, HLD, PAD s/p bilateral iliac stent, CKD III, DM II, PAD, aortic stenosis presented to ER with c/o progressive SOB, cough x 3 months with increased BLE x several weeks. Acute decompensated CHF with right heart failure Patient presented with worsening shortness of breath and cough for the last 3 months. proBNP of roughly 8000 on admission. Chest x-ray with concern for effusion/atelectasis. Transthoracic echo EF of 50% and moderate to severe aortic stenosis is suspected, severe mitral annular calcification. Right ventricular systolic function is severely reduced. appreciate input from Cardiology pt was adequately diuresed with IV Lasix vol status stable , with improvement of lower ext edema. no SOB , CHEN or orthopnea remains in room air pt will be discharged home today with increased dose of Lasix 60 mg daily ( was on 40 mg daily ) advised for low salt diet bilateral lower ext compression stockings all the time to prevent lower ext edema (3) Elevated troponin: Initial troponin: 0.7-0.075 in the setting of CKD/decompensated CHF - cardiac strain no evidence of ACS ECHO shows no wall motion abnormality (4) CAD (coronary artery disease): S/P CABG x 3 in 2018 Continue aspirin, statin, plavix no complain of chest pain , no active issue noted (5) Aortic stenosis: hx of rheumatic valvular heart disease leading to valvular heart disease : mitral and aortic stenosis. 2D echocardiogram shows moderate to severe , Doppler finding minimum gradient suggesting less severe stenosis with complex cardiac hx s/p CABG , PVD s/p illiac stenting pt will need to be evaluated at [facility] Cardiology clinic for any valvular procedure (6) Diabetes mellitus, type 2: A1c: 6.8 on 04/2020 Novolog sliding scale per protocol during hospital staty (7) HTN (hypertension): Continue amlodipine, losartan (8) CKD (chronic kidney disease), stage III: Cr 1.6 to approx baseline discharged home with lasix 60 mg daily repeat BMP in a week at Cardiology office pt is advised to avoid NSAID's DVT Prophylaxis -Heparin SQ stable to be discharged home today Total Time Total Time Spent Total Time Spent (In Minutes): 35 mins Total Time Includes: Examination of the Patient, Discharge Planning and Medication Reconciliation Discharge Plan Discharge Items Patient Disposition: Home - Self-Care Reason For Visit: SOB Discharge Diagnosis: Congestive heart failure with right ventricular systolic dysfunction Chronic kidney disease stage 3 Aortic stenosis Activity: Resume your previous activity Non-emergency contact: Primary Care Provider and Bridge Maintenance Worker Call non-emergency contact if: you have any medication questions and your symptoms worsen Follow-up/Referrals: Joseph Alex DO [Bridge Maintenance Worker] - Eino Berg MD [Primary Care Provider] - 07/22/20 11:00 am (Date & Time 07/22/2020 11:00 AM Provider Enio Berg III, MD Department [facility] ) Diet: Heart Healthy and Low Sodium (2gm) Addtl Attending Provider Instructions: Call your Primary Care doctor if any of the following symptoms or problems start or get worse: * Shortness of breath or difficulty breathing * Wake up at night short of breath * Chest pain * Cough * Swelling of your hands, feet, or legs * More fatigued or tired with your normal activity * Palpitations - sudden fast heart beats WEIGHT * Weigh yourself every morning after using the bathroom. * Use the same scale. * Wear the same amount of clothing. * Write your weight down on a chart. * Call your Primary Care doctor if you gain more than 2-3 pounds in 1-2 days. MEDICATIONS * Use this discharge instruction sheet for medication instructions. * Take your medications at the time your doctor ordered. * Do not skip a dose of your medicines. * If you miss a dose of medicine, take it as soon as possible, but DO NOT DOUBLE A DOSE. * Read your medicine information when you get home. * Know all of the side effects of your medicine. If in doubt, ask your pharmacist * Call your Primary Care doctor's office if you have any side effects. * Be sure all of your doctors know what medicine and herbs you take (including cold, flu, and herbal medicine). Take the following with you to your follow-up doctor appointments: * Weight Chart * Medication List * List of questions Do not drink excessive alcohol, beer or wine. Addtl Linen Clerk Provider Instructions: Please wear compression stocking all the time to prevent swelling of legs and ankles . 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 to change into alternative blood pressure medicine Pending Studies at Discharge: No Stand-Alone Forms: My [facility], Smoking Cessation Medications and DC Order Prescriptions: Continued omeprazole 20 mg capsule,delayed release(DR/EC) 20 mg PO DAILY RF: 0 famotidine 40 mg tablet 40 mg PO DAILY RF: 0 losartan 50 mg Tablet 50 mg PO QPM RF: 0 amoxicillin 500 mg Capsule 500 mg PO UD PRN (Reason: prior to procedures) RF: 0 atorvastatin 40 mg Tablet 40 mg PO PM RF: 0 metformin 500 mg Tablet 500 mg PO BIDM RF: 0 cetirizine 10 mg Tablet 10 mg PO DAILY PRN (Reason: Allergy Symptoms) RF: 0 benzonatate 200 mg Capsule 200 mg PO TID PRN (Reason: Cough) RF: 0 amlodipine 2.5 mg Tablet 2.5 mg PO QPM RF: 0 clopidogrel 75 mg Tablet 75 mg PO QAM RF: 0 allopurinol 100 mg Tablet 100 mg PO BID RF: 0 aspirin [Aspirin Low Dose] 81 mg Tablet,Delayed Release (Dr/Ec) 81 mg PO QAM RF: 0 albuterol sulfate 90 mcg/actuation Hfa Aerosol Inhaler 2 puff INHALATION Q6H PRN (Reason: Shortness Of Breath) RF: 0 calcitriol 0.25 mcg Capsule 0.25 mcg PO QAM RF: 0 docusate sodium 100 mg Tablet 100 mg PO BID RF: 0 saw palmetto 450 mg Capsule 450 mg PO QPM RF: 0 Ocuvite Eye Health 50 mg-15 unit- 4.5 mg-2.5 mg Tablet,Chewable 1 tab PO QAM RF: 0 Glucosamine Chondroitin 550-30-1 mg Capsule 1 cap PO BID RF: 0 Leg Cramps 1 dose PO HS RF: 0 Changed furosemide 40 mg tablet 60 mg PO DAILY 30 Days Qty: 45 RF: 0 Discharge Orders: Discharge Order (Routine); Ordered 07/15/20 Ordered By: Merly Delong/Other Patient Handouts: Low-Salt Choices, Low Salt Diet Dc Admission Data Admit Date/Time: 07/10/20 15:43 Attending Provider: Merly Gallardo Admit Provider: Ezra Andrade Primary Care Provider: Enio Berg Other Providers: Ezra Andrade ; Cecilio Duncan ; Thien Arteaga ; Ok Jasso ; Joseph Alex ; Dago Abdi ; Dioni Mistry ; Olga Lidia Rodriguez ; Abi Jacobo ; Destin Paige ; Wiliam Urbina
[2020-07-16] MEDS ORDERED: FUROSEMIDE 20 MG TAB PO SCH (09:00)
== END 2020-07-15 16:23 | disposition home or self-care (01) | DRG 291 ==
LOC: ED 12:47 → 2S 15:43 → SUATTDRO 15:43 → 2S 16:35

== ENCOUNTER 2021-03-25 16:01 | Inpatient (IN) ==
[2021-03-25] MEDS ORDERED: MoRPHine SULFATE 2 MG/ML CARP IV STA ×2 (16:50→19:00)
[2021-03-25] MEDS ORDERED: ONDANSETRON INJ 2 MG/ML 2 ML VIAL IV STA (16:50)
--- NOTE | 2021-03-25 16:52 | Emergency Department Note ---
History of Present Illness General Chief complaint: Rectal Pain Stated complaint: UNABLE TO URINATE, CAN NOT SIT Time Seen by Provider: 03/25/21 16:39 History of Present Illness Maximum Pain Intensity: 10 This is an 81-year-old male with a complex past medical history that presents to the emergency department via private vehicle accompanied by with complaints of "unable to urinate, rectal pain". The patient notes that he normally has a bowel movement daily. No bowel movement as of today. Around 1 PM he attempted to produce a bowel movement but was unable to do so. He then notes that as he continued to try to produce a bowel movement and he developed pain in the rectal region. He and his attempted to manually/digitally disimpact the stool without success noting an increase of discomfort. They have tried stool softeners, MiraLAX, glycerin suppositories, mineral oil enema without relief. With the patient's discomfort worsening without any successful passage of stool they presented here for evaluation. The patient also notes he has not been able to urinate since his onset of rectal pain. He denies any fevers, chills or chest pain. He notes chronic shortness of breath. Patient's at bedside notes that he needs a mitral valve replacement however is not a candidate at this time. Current pain 03/21. Home Medications Medication Instructions Recorded Confirmed Type albuterol sulfate 90 mcg/actuation 2 puff INHALATION Q6H PRN 01/11/19 08/28/20 History aerosol inhaler allopurinol 100 mg tablet 100 mg PO BID 01/11/19 08/28/20 History amoxicillin 500 mg capsule 500 mg PO UD PRN 01/11/19 08/28/20 History aspirin 81 mg tablet,delayed 81 mg PO QAM 01/11/19 08/28/20 History release (Aspirin Low Dose) atorvastatin 40 mg tablet 40 mg PO PM 01/11/19 08/28/20 History benzonatate 200 mg capsule 200 mg PO TID PRN 01/11/19 08/28/20 History cetirizine 10 mg tablet 10 mg PO DAILY PRN 01/11/19 08/28/20 History clopidogrel 75 mg tablet 75 mg PO QAM 01/11/19 08/28/20 History docusate sodium 100 mg tablet 100 mg PO BID 01/11/19 08/28/20 History glucosamine sulf dipot 1 cap PO BID 01/11/19 08/28/20 History chlr,msm,chond 550 mg-C 30 mg-narcisa 1 mg capsule (Glucosamine Chondroitin) saw palmetto 450 mg capsule 450 mg PO QPM 01/11/19 08/28/20 History vit C 50 mg-E 15 unit-zinc cit 4.5 1 tab PO QAM 01/11/19 08/28/20 History mg-lutein 2.5 mg-zeaxan chew tablet (Destineer) Leg Cramps 324 mg PO HS 02/01/19 08/28/20 History famotidine 40 mg tablet 40 mg PO DAILY PRN 07/10/20 08/28/20 History omeprazole 20 mg capsule,delayed 20 mg PO QAM 07/10/20 08/28/20 History release cholecalciferol (vitamin D3) 50 50 mcg PO QAM 08/28/20 08/28/20 History mcg (2,000 unit) tablet (Vitamin D3) glipizide 2.5 mg tablet, extended 2.5 mg PO DAILY 03/10/21 History release 24 hr spironolactone 25 mg tablet 25 mg PO QAM tab 03/10/21 History torsemide 10 mg tablet 10 mg PO DAILY PRN 03/10/21 History torsemide 10 mg tablet 10 mg PO QPM tab 03/10/21 History torsemide 20 mg tablet 30 mg PO DAILY tab 03/10/21 History Allergies Allergy/AdvReac Type Severity Reaction Status Date / Time tramadol Allergy Severe Hallucinati Verified 03/25/21 10:02 ng amiodarone Allergy Intermediate "streaking Verified 03/25/21 10:02 up vein" and painful lactose Allergy Mild GI UPSET Verified 03/25/21 10:02 pollen extracts Allergy Mild HAYFEVER Verified 03/25/21 10:02 lisinopril AdvReac Mild COUGH Verified 03/25/21 10:02 Past Med/Surg History Medical History Aortic stenosis 08/05/20 TTE suggestive of severe Cardio records state moderate per cath Asthma LAST USED INHALER THIS AM Chronic kidney disease, stage 3 Congestive heart failure with right ventricular systolic dysfunction Per records Admitted 06/2020 due to acute CHF with right heart failure to [facility]- cardio consulted- pt put on increased diuretics Coronary artery disease S/p 3 vessel CABG 2018 Per cardiac records- recent cath showing 80% distal LM and 90% LCx stenosis Diabetes mellitus, type 2 Fibromyalgia Hearing deficit History of GI bleed Hx of gout Hyperlipidemia Hypertension Mitral valve disease Mitral stenosis- REASON FOR UPCOMING CLEOPATRA Non-Hodgkin lymphoma diagnosed 2004 s/p chemo PAD (peripheral artery disease) s/p b/l iliac artery stents (2015) Pleural effusion due to CHF (congestive heart failure) REASON FOR LASIX Sleep apnea TESTING IN PROCESS Venous stasis ulcer Surgical History History of anesthesia reaction LOW OXYGEN SATURATION AFTER HERNIA SURGERY History of bilateral carpal tunnel release History of cardiac cath 2016 AND 08/25/20 AT [facility] History of esophagogastroduodenoscopy (EGD) History of left hip replacement History of lumbar discectomy History of lymph node biopsy History of phacoemulsification of cataract of both eyes with intraocular lens implantation History of right hip replacement History of tonsillectomy and adenoidectomy History of tooth extraction History of total hip arthroplasty RT/LEFT History of transesophageal echocardiography (CLEOPATRA) History of umbilical hernia repair Hx of left inguinal hernia repair Hx of right inguinal hernia repair S/P CABG x 3 2017 AT [facility] S/P colonoscopy 01/15/19 Status post insertion of iliac artery stent b/l (2015) Family History Grandmother (Paternal) Family history of diabetes mellitus Mother Family history of diabetes mellitus Aunt Family history of diabetes mellitus Uncle Family history of diabetes mellitus Grandfather (Maternal) Family history of diabetes mellitus Sister Family history of diabetes mellitus Father Family hx colonic polyps Other No family history of adverse response to anesthesia Social History Smoking Status: Never smoker Cigarettes Per Day: QUIT 45 YEARS AGO; Second Hand Exposure: No (father smoked); Hx Alcohol Use: Yes Alcohol type: beer Alcohol Intake Frequency: Monthly or Less Hx Substance Use: No Preferred Language: Salvadorean Communication Ability: Effective Visual Impairment: Partially Limited Hearing Ability: Use of Hearing Aid Software Applications Developer Required: No Beliefs That Will Affect Care: None marital status: Current Living Situation: Spouse current occupational status: retired Feels Safe at Home: Yes Diet Comment: 1500 cc fluid restiction per pt caffeine: No during the past year weight has: decreased > 10 lbs Physical Activity Frequency: Does not Exercise Do you think of yourself as: straight/heterosexual Gender Identity: Male Assistive Devices: BiPap, Glasses and Hearing Aid - Bilateral Review of Systems A total of 10 systems reviewed and were otherwise negative Physical Exam Vital Signs Vital Signs - 24 hr 03/25/21 16:15 03/25/21 17:50 03/25/21 18:00 Temperature 37.0 C Temperature Source Oral Pulse Rate 96 H 90 95 H Pulse Rate from SpO2 Sensor 91 H 97 H Pulse Rhythm Regular Pulse Strength Normal Respiratory Rate 20 19 20 Respiratory Effort / Characteristics Non-Labored Respiratory Depth Normal Respiratory Pattern Regular Blood Pressure 111/75 103/64 Blood Pressure Mean 87 77 Blood Pressure Position Lying Pulse Oximetry 97 92 92 Oxygen Delivery Method Room Air Oxygen Flow Rate Sepsis Recent Fever Within 48 Hours No Sepsis New/Unexplained Change in Mental Status No Sepsis Action Taken by Nursing No Action Required 03/25/21 20:00 03/25/21 22:00 03/25/21 22:30 Temperature Temperature Source Pulse Rate 94 H 102 H 101 H Pulse Rate from SpO2 Sensor 95 H 101 H 101 H Pulse Rhythm Pulse Strength Respiratory Rate 20 19 19 Respiratory Effort / Characteristics Respiratory Depth Respiratory Pattern Blood Pressure 118/61 102/62 101/57 L Blood Pressure Mean 80 75 71 Blood Pressure Position Pulse Oximetry 94 91 90 Oxygen Delivery Method Nasal Cannula Nasal Cannula Oxygen Flow Rate 4 4 Sepsis Recent Fever Within 48 Hours Sepsis New/Unexplained Change in Mental Status Sepsis Action Taken by Nursing 03/25/21 23:00 03/25/21 23:30 Temperature Temperature Source Pulse Rate 108 H 102 H Pulse Rate from SpO2 Sensor 108 H 101 H Pulse Rhythm Pulse Strength Respiratory Rate 23 23 Respiratory Effort / Characteristics Respiratory Depth Respiratory Pattern Blood Pressure 126/73 Blood Pressure Mean 90 Blood Pressure Position Pulse Oximetry 92 94 Oxygen Delivery Method Nasal Cannula Nasal Cannula Oxygen Flow Rate 4 4 Sepsis Recent Fever Within 48 Hours Sepsis New/Unexplained Change in Mental Status Sepsis Action Taken by Nursing VITAL SIGNS - Vital signs and nursing notes were reviewed. Stable and afebrile. GENERAL -81-year-old male appearing his stated age who is in the position in the examination bed moaning in pain. Communicates well with provider and answers questions appropriately. SKIN - Without rashes. No meningeal or petechial rash. HEAD - NC/AT. EYES -Sclera anicteric. LUNGS -clear to auscultation. CARDIAC -regular rate and rhythm. ABDOMEN - Abdominal contour normal without pulsations or visible masses. BS normoactive all four quadrants. No tenderness, palpable masses, hepatosplenomegaly, or ascites noted. EXTREMITIES - +5/5 strength noted in UE/LE bilaterally. NEUROLOGIC - Cranial nerves II through XII grossly intact. PSYCH - A&O, and cooperates fully with examiner. Pt is very pleasant and interacts well with examiner. RECTAL: After obtaining consent a rectal exam was performed. There is a large, hard portion of stool protruding from the rectal region. No bleeding. No hemorrhoids. No large fissure. No laceration or tears. Rectal region is erythematous without evidence of acute infection. Course Administered Medications Discontinued Medications Glycerin (Glycerin Adult 12 Supp/Box Supp) 1 supp SD NOW ONE Stop: 03/25/21 19:36 Last Admin: 03/25/21 19:42 Dose: 1 supp Documented by: [id number] Hydromorphone HCl (Hydromorphone Inj 0.5 Mg/0.5 Ml Syr) 0.5 mg IV NOW STA Stop: 03/26/21 00:26 Last Admin: 03/26/21 00:47 Dose: 0.5 mg Documented by: [id number] Mineral Oil (Mineral Oil Enema 133 Ml Btl) 133 ml SD NOW STA Stop: 03/25/21 17:13 Last Admin: 03/25/21 21:22 Dose: 133 ml Documented by: [id number] Morphine Sulfate (Morphine Sulfate 2 Mg/Ml Carp) 2 mg IV NOW STA Stop: 03/25/21 16:51 Last Admin: 03/25/21 17:16 Dose: 2 mg Documented by: [id number] Morphine Sulfate (Morphine Sulfate 2 Mg/Ml Carp) 2 mg IV NOW STA Stop: 03/25/21 19:01 Last Admin: 03/25/21 19:27 Dose: 2 mg Documented by: [id number] Ondansetron HCl (Ondansetron Inj 2 Mg/Ml 2 Ml Vial) 4 mg IV NOW STA Stop: 03/25/21 16:51 Last Admin: 03/25/21 17:16 Dose: 4 mg Documented by: [id number] Medical Decision Making Laboratory Data Result diagrams: 03/25/21 16:39 03/25/21 16:39 Lab Results 03/25/21 03/25/21 03/25/21 Range/Units 16:39 16:39 22:25 WBC 8.03 (4.8-10.8) K/uL RBC 4.71 (4.7-6.1) M/uL Hgb 15.2 (14.0-18.0) g/dL Hct 44.0 (42-52) % MCV 93.4 (80-100) fL MCH 32.3 (25-34) pg MCHC 34.5 (32-36) g/dL RDW Std Deviation 56.4 H (36.4-46.3) fL RDW Coeff of Josh 16.6 H (11.5-14.5) % Plt Count 121 L (130-400) K/uL MPV 12.2 H (7.4-10.4) fL Immature Gran % (Auto) 0.1 % Neut % (Auto) 82.4 % Lymph % (Auto) 9.7 % [place] % (Auto) 7.6 % Eos % (Auto) 0.1 % Baso % (Auto) 0.1 % Neut # (Auto) 6.61 H (1.4-6.5) K/uL Lymph # (Auto) 0.78 L (1.2-3.4) K/uL [place] # (Auto) 0.61 H (0.11-0.59) K/uL Eos # (Auto) 0.01 (0-0.5) K/uL Baso # (Auto) 0.01 (0-0.2) K/uL Immature Gran # (Auto) 0.01 (0.00-0.02) K/uL Sodium 136 (136-145) mmol/L Potassium (3.5-5.1) mmol/L Chloride 101 (98-107) mmol/L Carbon Dioxide 23 (21-32) mmol/L Anion Gap 12.0 H (3-11) BUN 44 H (7-18) mg/dl Creatinine 2.02 H (0.6-1.4) mg/dl Est Cr Clr Drug Dosing 24.0 ml/min Est GFR ( Amer) 34.8 ml/min Est GFR (Non-Af Amer) 30.0 ml/min BUN/Creatinine Ratio 21.9 H (10-20) Glucose 112 H (70-99) mg/dl Calcium 9.7 (8.5-10.1) mg/dl Total Bilirubin 3.2 H (0.2-1) mg/dl AST (15-37) U/L ALT 31 (12-78) U/L Alkaline Phosphatase 412 H (45-117) U/L Total Protein 8.2 (6.4-8.2) gm/dl Albumin 4.0 (3.4-5.0) gm/dl Globulin 4.2 H (2.5-4.0) gm/dl Albumin/Globulin Ratio 1.0 (0.9-2) Lipase 229 (73-393) U/L Urine Color Urine Appearance (Clear) Urine pH (4.5-7.5) Ur Specific Elliott (1.000-1.030) Urine Protein (Negative) Urine Glucose (UA) (Negative) Urine Ketones (Negative) Urine Blood (Negative) Urine Nitrite (Negative) Urine Bilirubin (Negative) Urine Urobilinogen (Negative) Ur Leukocyte Esterase (Negative) Urine WBC (Auto) (0-5) /hpf Urine RBC (Auto) (0-4) /hpf U Hyaline Cast (Auto) (0-5) /lpf U Epithel Cells (Auto) (0-5) /lpf Urine Bacteria (Auto) (Negative) COVID-19 Eval Order Covid19 at [facility] SARS-CoV-2 (PCR) (Negative) 03/25/21 03/25/21 Range/Units 22:25 22:25 WBC (4.8-10.8) K/uL RBC (4.7-6.1) M/uL Hgb (14.0-18.0) g/dL Hct (42-52) % MCV (80-100) fL MCH (25-34) pg MCHC (32-36) g/dL RDW Std Deviation (36.4-46.3) fL RDW Coeff of Josh (11.5-14.5) % Plt Count (130-400) K/uL MPV (7.4-10.4) fL Immature Gran % (Auto) % Neut % (Auto) % Lymph % (Auto) % [place] % (Auto) % Eos % (Auto) % Baso % (Auto) % Neut # (Auto) (1.4-6.5) K/uL Lymph # (Auto) (1.2-3.4) K/uL [place] # (Auto) (0.11-0.59) K/uL Eos # (Auto) (0-0.5) K/uL Baso # (Auto) (0-0.2) K/uL Immature Gran # (Auto) (0.00-0.02) K/uL Sodium (136-145) mmol/L Potassium (3.5-5.1) mmol/L Chloride (98-107) mmol/L Carbon Dioxide (21-32) mmol/L Anion Gap (3-11) BUN (7-18) mg/dl Creatinine (0.6-1.4) mg/dl Est Cr Clr Drug Dosing ml/min Est GFR ( Amer) ml/min Est GFR (Non-Af Amer) ml/min BUN/Creatinine Ratio (10-20) Glucose (70-99) mg/dl Calcium (8.5-10.1) mg/dl Total Bilirubin (0.2-1) mg/dl AST (15-37) U/L ALT (12-78) U/L Alkaline Phosphatase (45-117) U/L Total Protein (6.4-8.2) gm/dl Albumin (3.4-5.0) gm/dl Globulin (2.5-4.0) gm/dl Albumin/Globulin Ratio (0.9-2) Lipase (73-393) U/L Urine Color Yellow Urine Appearance Clear (Clear) Urine pH 5.0 (4.5-7.5) Ur Specific Elliott 1.012 (1.000-1.030) Urine Protein 1+ H (Negative) Urine Glucose (UA) Negative (Negative) Urine Ketones Negative (Negative) Urine Blood Negative (Negative) Urine Nitrite Negative (Negative) Urine Bilirubin Negative (Negative) Urine Urobilinogen Negative (Negative) Ur Leukocyte Esterase Negative (Negative) Urine WBC (Auto) 1-5 (0-5) /hpf Urine RBC (Auto) 0-4 (0-4) /hpf U Hyaline Cast (Auto) 1-5 (0-5) /lpf U Epithel Cells (Auto) 5-10 H (0-5) /lpf Urine Bacteria (Auto) Negative (Negative) COVID-19 Eval Order SARS-CoV-2 (PCR) NEGATIVE (Negative) Imaging Data Radiologist's Impression: Abdomen/Pelvis CT 03/25/21 16:[address] WITHOUT CONTRAST CT DOSE: 399.26 mGy.cm HISTORY: not able to move bowels, rectal pain TECHNIQUE: Multiaxial CT images of the abdomen and pelvis were performed without contrast. A dose lowering technique was utilized adhering to the principles of ALARA. COMPARISON STUDY: Chest CT 07/11/2020. FINDINGS: No pneumoperitoneum. No pneumatosis. There are bilateral total hip arthroplasties. No suspicious lytic are blastic osseous lesions. Moderate right pleural effusion and right basilar linear densities have slightly improved. Mild body wall edema with a small amount of ascites. Stable 1 cm hypodense lesion within the left hepatic lobe. This is incompletely characterized on this noncontrast study but favors a cyst. The unenhanced gallbladder, spleen, adrenal glands, and pancreas are unremarkable. No retroperitoneal lymphadenopathy. No renal or ureteral stones. No hydronephrosis. Bilateral iliac artery stents are noted. Normal caliber abdominal aorta. Normal bladder. Suboptimal evaluation for bowel pathology due to the lack of intravenous and oral contrast. However, there is no definite bowel wall thickening or obstruction. Colonic diverticulosis. No evidence for acute diverticulitis. No evidence for acute appendicitis. Moderate well-formed stool seen throughout the majority the colon. There is also a large rectal stool ball measuring 6.7 cm. This may account for the patient's reported history of constipation. IMPRESSION: 1. Moderate stool within the colon with a large rectal stool ball. This may account for the patient's reported constipation. 2. Moderate right pleural effusion. This is slightly improved in the interval. 3. Small amount of ascites. 4. No evidence for bowel obstruction. 5. Colonic diverticulosis. 6. Additional findings as described above. ACT 112: Negative or not required by law. Electronically signed by: Venkat Yost M.D. 03/25/2021 6:29 PM MDM Narrative Patient was seen and evaluated as above in room D04. Review was performed of nursing notes and vital signs. I did review pertinent previous visits and patient history. After obtaining a thorough history and physical examination the above work up was performed. Patient presents to us today with trouble moving his bowels. He and his have tried many things at home to produce a bowel movement without success. Patient notes now there is a severe pain in the rectal region as he is not able to move his bowels. Current pain 10/10. He is moaning in pain. He has a benign abdominal exam. No chest pain. Vital signs stable. Options of care were discussed with the patient. IV access was established. Labs were drawn. I discussed the presentation with the attending physician. Benefit versus risk of pain medication discussed. Patient and at bedside aware that higher strength pain medications such as narcotics can actually worsen constipation. It was felt that the benefit outweighed the risk noting his severity of pain at the time of evaluation. I will note that this is all felt to be secondary to fecal impaction. Patient had minimal improvement with the pain medication. A CT scan was obtained to ensure there was no other emergent acute intra-abdominal process. The IV contrasted CT scan of the abdomen pelvis was changed to without contrast noting his kidney function. CT scan results as above. There is a moderate stool within the colon with a large rectal stool ball. Patient does have other findings as noted in the report. Consent was obtained and it was felt that rectal disimpaction would be best. Please refer to the procedure note below regarding this. Patient tolerated this quite well however once a fair amount of stool was removed harder stool was encountered and it was felt that at this time it would be in the patient's best interest to advance a glycerin suppository. After obtaining consent a glycerin suppository was then placed. This was allowed to be in place for about 20 minutes. I then further disimpacted the patient. A fair amount of stool was ultimately retrieved. Patient tolerated this very well. He then attempted to move the bowels and was unable to do so. He was also still unable to urinate. Cole catheter was then placed noting bladder scan indicating over 500 cc of urine. The patient at this time is quite weak I believe from straining to move the bowels earlier today and from the stress of pain/event while attempting to move his bowels at home. With the patient still not being able to produce a bowel movement on his own here in department and with his rectal discomfort and inability to urinate I do believe that it would be reasonable to have the patient stay in the hospital for further evaluation and management. I suspect that in time with the fecal impaction improved manually that he should be able to move his bowels. I will also note that the patient has required some oxygen here in the ED however will note that he denies any complaints of chest pain and does not note any new shortness of breath. Case discussed with the hospitalist. Please refer to further documentation regarding his stay. Laboratory studies reveal no leukocytosis or concerning anemia. There is mild thrombocytopenia at 121. This is similar compared to previous. Creatinine 2.02. BUN 44. Patient notes that he is on a fluid restricted diet and is capped at 1500 cc/day. Urinalysis does not suggest infection. Covid testing negative. Case was discussed with the attending physician. GCS: 15 In the evaluation and treatment of this patient the following differential diagnoses were entertained: Proctitis, bowel obstruction, fecal impaction, constipation, hemorrhoid, fissure, among others. PROCEDURE: Rectal/fecal disimpaction. Consent was obtained. Benefit versus risk discussed. It is felt that the benefit outweighs the risk. With sterile gloves I was able to then use sterile lubricant to gently disimpact the patient. Small amounts of stool were able to be retrieved with each pass. Patient tolerated this very well. Once harder stool was encountered a glycerin suppository was advanced with care being taken to not injury the mucosa. This was in place for about 20 minutes. I then further disimpacted the patient. Again a fair amount of stool was able to be removed. Patient tolerated this very well. With the patient still having a fair amount of hard stool in the rectal region that is beyond reach I do believe that it be reasonable to attempt an enema at this time. This was performed by the RN. Although this was not immediately successful to produce a bowel movement the patient then was able to produce small bowel movements throughout his stay in the ED once admitted. Impression & Plan Pain in rectum, Fecal impaction, Thrombocytopenia Discharge Plan Visit Data Chief Complaint: Rectal Pain Stated Complaint: UNABLE TO URINATE, CAN NOT SIT ED Provider: Anshu Garrison ED Midlevel Provider: Cheikh Anthony Discharge Problem: Pain in rectum, Fecal impaction, Thrombocytopenia Patient Disposition: Admitted As Inpatient Condition: Good Discharge Instructions Interventions: ED Discharge Assessment Last Done: 03/26/21 01:38
[2021-03-25] MEDS ORDERED: MINERAL OIL ENEMA 133 ML BTL PR STA (17:12)
[2021-03-25 17:20] LABS: BUN Creatinine Ratio 21.9 (10-20); Bilirubin,Total 3.2 mg/dl (0.2-1); Calcium 9.7 mg/dl (8.5-10.1); Est GFR (African American) 34.8 ml/min; Globulin 4.2 gm/dl (2.5-4.0); Total Protein 8.2 gm/dl (6.4-8.2)
--- NOTE | 2021-03-25 18:30 | CT Scan Report ---
ABDOMEN AND PELVIS CT WITHOUT CONTRAST CT DOSE: 399.26 mGy.cm HISTORY: not able to move bowels, rectal pain TECHNIQUE: Multiaxial CT images of the abdomen and pelvis were performed without contrast. A dose lo wering technique was utilized adhering to the principles of ALARA. COMPARISON STUDY: Chest CT 07/11/2020. FINDINGS: No pneumoperitoneum. No pneumatosis. There are bilateral total hip arthroplasties. No suspi cious lytic are blastic osseous lesions. Moderate right pleural effusion and right basilar linear den sities have slightly improved. Mild body wall edema with a small amount of ascites. Stable 1 cm hypod ense lesion within the left hepatic lobe. This is incompletely characterized on this noncontrast stud y but favors a cyst. The unenhanced gallbladder, spleen, adrenal glands, and pancreas are unremarkabl e. No retroperitoneal lymphadenopathy. No renal or ureteral stones. No hydronephrosis. Bilateral rachel c artery stents are noted. Normal caliber abdominal aorta. Normal bladder. Suboptimal evaluation for bowel pathology due to the lack of intravenous and oral contrast. However, there is no definite bowel wall thickening or obstruction. Colonic diverticulosis. No evidence for acute diverticulitis. No mihir dence for acute appendicitis. Moderate well-formed stool seen throughout the majority the colon. Ther e is also a large rectal stool ball measuring 6.7 cm. This may account for the patient's reported his tory of constipation. IMPRESSION: 1. Moderate stool within the colon with a large rectal stool ball. This may account for the patient's reported constipation. 2. Moderate right pleural effusion. This is slightly improved in the interval. 3. Small amount of ascites. 4. No evidence for bowel obstruction. 5. Colonic diverticulosis. 6. Additional findings as described above. ACT 112: Negative or not required by law. Electronically signed by: Venkat Yost M.D. 03/25/2021 6:29 PM
[2021-03-25 18:44] LABS: Hemoglobin 15.2 g/dL (14.0-18.0); Mean Corpuscular Hemoglobin 32.3 pg (25-34); Mean Corpuscular Hgb Conc 34.5 g/dL (32-36); Mean Corpuscular Volume 93.4 fL (80-100); Mean Platelet Volume 12.2 fL (7.4-10.4); Platelet Count 121 K/uL (130-400); RDW Coefficient of Variation 16.6 % (11.5-14.5); RDW Standard Deviation 56.4 fL (36.4-46.3); Red Blood Count 4.71 M/uL (4.7-6.1); White Blood Count 8.03 K/uL (4.8-10.8)
[2021-03-25 18:45] LABS: Basophils # (auto) 0.01 K/uL (0-0.2); Basophils % (auto) 0.1 %; Eosinophils # (auto) 0.01 K/uL (0-0.5); Eosinophils % (auto) 0.1 %; Immature Granulocytes # (auto) 0.01 K/uL (0.00-0.02); Immature Granulocytes % (auto) 0.1 %; Lymphocytes # (auto) 0.78 K/uL (1.2-3.4); Lymphocytes % (auto) 9.7 %; Monocytes # (auto) 0.61 K/uL (0.11-0.59); Monocytes % (auto) 7.6 %; Neutrophils # (auto) 6.61 K/uL (1.4-6.5); Neutrophils % (auto) 82.4 %
[2021-03-25] MEDS ORDERED: GLYCERIN ADULT 12 SUPP/BOX SUPP PR ONE (19:35)
[2021-03-25 22:42] LABS: Appearance Urine Clear (Clear); Bacteria Urine Automated Negative (Negative); Bilirubin Urine Negative (Negative); Blood Urine Negative (Negative); Color Urine Yellow; Glucose Urine UA Negative (Negative); Ketones Urine Negative (Negative); Leukocyte Esterase Urine Negative (Negative); Nitrite Urine Negative (Negative); Protein Urine 1+ (Negative); RBC Urine Automated 0-4 /hpf (0-4); Specific Gravity Urine 1.012 (1.000-1.030); Urobilinogen Urine Negative (Negative)
[2021-03-26] MEDS ORDERED: HYDROmorphone INJ 0.5 MG/0.5 ML SYR IV STA ×2 (00:25→04:06)
[2021-03-26] MEDS ORDERED: SODIUM CHLORIDE 0.9% 1000ML 1,000 ML IV SCH (02:19)
[2021-03-26] MEDS ORDERED: ALBUTEROL HFA 8 GM INHALER INH PRN (02:19)
[2021-03-26] MEDS ORDERED: BENZONATATE 100 MG CAPSULE PO PRN (02:19)
[2021-03-26] MEDS ORDERED: MoRPHine SULFATE 2 MG/ML CARP IV PRN (02:19)
[2021-03-26] MEDS ORDERED: MoRPHine SULFATE 2 MG/ML CARP ONE (02:35)
--- NOTE | 2021-03-26 02:45 | History and Physical Report ---
DATE OF ADMISSION: 03/25/2021. CHIEF COMPLAINT: Rectal pain, constipation, urinary retention. 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 The patient says for last 2 weeks, he is having constipation, last bowel movement was a couple of 2 days ago. Today, he could not move his bowels and there was a lot of rectal pain. He also having rectal pain from last 2 weeks, but it got worse in the last couple of days. Today, he also could not micturate, so he came to the ER. He has tried mineral oil enema and stool softeners at home, but it did not help. In the ER, CAT scan showed stool impaction and in ER, he was disimpacted and as per the ER physician large amount of stool came out, but still patient is not able to move his bowels on his own yet and is still having a lot of rectal pain. In the ER, he was also having urinary retention, was placed Cole catheter.Patient was also given morphine for severe pain. Currently the patient could not lie on his back because of rectal pain. Denies any other complaints. No headache, no blurred visions, no earache, no runny nose, no sore throat, no cough, no nausea, no chest pain. He has some shortness of breath on exertion. He used to have lot of swelling in the legs, but has improved with diuretics. He has a small wound on the leg following with wound care. He was also recently treated for cellulitis with Keflex and he finished the course of antibiotics. ALLERGIES: TRAMADOL, AMIODARONE, LACTOSE, POLLEN EXTRACTS, LISINOPRIL. PAST MEDICAL HISTORY: As mentioned above. PAST SURGICAL HISTORY: History of carpal tunnel disease, history of cardiac catheterization status post CABG, history of lumbar diskectomy, history of lymph node biopsy, history of tonsillectomy and adenoidectomy, history of phacoemulsification of cataract of both eyes with intraocular lens implantation, history of tooth extraction, history of left total hip replacement, history of umbilical hernia repair, history of left inguinal hernia repair, history of right inguinal hernia repair, status post colonoscopy, status post insertion of iliac artery stent. FAMILY HISTORY: Significant for diabetes, colon polyps. MEDICATIONS: The patient is on albuterol 2 puffs inhalation q. 6 hours p.r.n., allopurinol 100 mg p.o. b.i.d., amoxicillin 500 mg p.o. p.r.n., aspirin 81 mg p.o. daily, atorvastatin 80 mg p.o. p.m., benzoate 200 mg p.o. t.i.d. p.r.n., cetirizine 10 mg p.o. daily p.r.n., vitamin D 50 mg p.o. a.m., Plavix 75 mg p.o. a.m., Colace 100 mg p.o. b.i.d., famotidine 40 mg p.o. daily p.r.n., glipizide 2.5 mg p.o. daily, glucosamine chondroitin 1 capsule p.o. b.i.d., Ocuvite 1 tablet p.o. daily, omeprazole 20 mg p.o. a.m., saw palmetto 450 mg p.o. p.m., spironolactone 25 mg p.o. a.m., torsemide 10 mg in p.m. and 10 mg daily p.r.n. and also quinine sulfate 325 mg p.o. at bedtime. SOCIAL HISTORY: No alcohol use. No smoking. Lives with his . REVIEW OF SYSTEMS: As per HPI. Rest of the review of systems is negative. PHYSICAL EXAMINATION: GENERAL: The patient is of moderate build, not in acute distress. VITAL SIGNS: Temperature 37, pulse 102, respiratory rate 23, blood pressure 126/77, oxygen 94% on 4 liters. HEENT: Pupils equal, round and reactive to light. Oral mucosa moist. NECK: No JVD, no neck masses. CARDIOVASCULAR: S1 and S2 heard, regular rate and rhythm. No murmur, no gallop. RESPIRATORY: Normal AP diameter. No accessory muscle use. No wheezing, no crackles. ABDOMEN: Soft, bowel sounds present, nontender, no distention. CENTRAL NERVOUS SYSTEM: Cranial nerves II-XII grossly intact, nonfocal. EXTREMITIES: Lower extremities, chronic skin changes seen. Currently, no edema seen. LABORATORY DATA: WBC 8, hemoglobin 15.2, hematocrit 44, platelets 121. Sodium 136, chloride 101, bicarbonate 23, BUN 44, creatinine 2.02, serum glucose 112, calcium 9.7, total bilirubin 3.2,,Alt 31 alkaline phosphatase 412. Lipase 229. Urinalysis negative. SARS-CoV-2 PCR negative. IMAGING DATA: CT of abdomen and pelvis without contrast shows moderate stool within the colon with a large rectal stool ball possible patient reported constipation, moderate right pleural effusion this slightly improved with intravenous, small amount of ascites. No evidence for bowel obstruction colonic diverticulosis. ASSESSMENT AND PLAN: This is an 81-year-old male presented with constipation, severe rectal pain, and also urinary retention. 1. Severe rectal pain and constipation,. Severe rectal pain, could be from fissures from ongoing constipation. we are not able to give him Toradol because of acute kidney injury. Placed him on gentle pain medications, MiraLax b.i.d. N.p.o. after midnight. Consult GI in the a.m. for further recommendations. May need treatment for possible fissures and stool impaction, even after disimpacted in the ER still patient is not able to move his bowels and says when he is moving bowels he is having a lot of pain. 2. Urinary retention, placed on Cole catheter. Consult Urology in a.m. 3. History of right sided heart failure and history of diastolic congestive heart failure and valvular heart failure, currently holding diuretics.gentle fluids, monitor for volume overload. 4. History of acute kidney injury and chronic kidney disease stage III. Baseline creatinine 1.3, present creatinine of 2. Getting gentle fluids. Holding diuretics. Monitor the labs. 5. History of hypertension. . Currently he is not on any other BP meds except diuretics,Holding diuretics as above will monitor blood pressure . 6. History of Aortic stenosis rheumatic valvular heart disease. needs followup. 7. History of coronary artery disease, status post CABG. Continue home medications. 8. History peripheral vascular disease status post illiac stent. Continue aspirin, Plavix and statin. 9. Diabetes: Hold glipizide, place on insulin sliding scale. Follow the blood sugars. 10. Deep venous thrombosis prophylaxis, subcutaneous heparin, 11. Thrombocytopenia, seems chronic. Follow the labs in a.m. Current platelets are 121. 12. Elevated bilirubin and alk phosp. will get gall bladder ultrasound. follow repeat labs DISPOSITION: Monitor in the medical floor. Expect to discharge home and follow with family doctor. PT, OT prior to discharge. Social service to help with discharge planning. Level 1 full code. Addendum: Morning labs showed wbc 20k, lactic acid 3.1. Adding zosyn, increasing iv fluids. Transferring to tele. Job ID: [id number] [facility]
[2021-03-26] MEDS ORDERED: GLUCAGON FOR INJ 1 MG VIAL IM PRN (03:15)
[2021-03-26] MEDS ORDERED: DEXTROSE 50% 50 ML SYRINGE IV PRN (03:15)
[2021-03-26] MEDS ORDERED: GLUCOSE 40% GEL 15 GM TUBE PO PRN (03:15)
[2021-03-26] MEDS ORDERED: GLUCOSE 10 TABS/TUBE PO PRN (03:15)
[2021-03-26] MEDS ORDERED: CARBOHYDRATES FOR HYPOGLYCEMIA PO PRN (03:15)
[2021-03-26] MEDS ORDERED: DICYCLOMINE HCL 10 MG CAP PO ONE (03:21)
[2021-03-26] MEDS: POLYETHYLENE (MIRALAX) 17 GM PACK PO SCH ×3 (03:32→21:22)
[2021-03-26] MEDS: HYDROmorphone INJ 0.5 MG/0.5 ML SYR IV PRN ×2 (03:33→13:24)
[2021-03-26 06:28] LABS: Hematocrit (blood only) 44.1 % (42-52); Hemoglobin 14.8 g/dL (14.0-18.0); Mean Corpuscular Hemoglobin 32.2 pg (25-34); Mean Corpuscular Hgb Conc 33.6 g/dL (32-36); Mean Corpuscular Volume 96.1 fL (80-100); Platelet Count 103 K/uL (130-400); RDW Coefficient of Variation 16.8 % (11.5-14.5); RDW Standard Deviation 58.5 fL (36.4-46.3); Red Blood Count 4.59 M/uL (4.7-6.1); White Blood Count 21.06 K/uL (4.8-10.8)
[2021-03-26] MEDS: HEPARIN SOD 5,000 UNIT/0.5 ML VIAL SQ SCH ×3 (06:38→21:23)
[2021-03-26 06:51] LABS: Basophils # (auto) 0.02 K/uL (0-0.2); Basophils % (auto) 0.1 %; Immature Granulocytes # (auto) 0.07 K/uL (0.00-0.02); Immature Granulocytes % (auto) 0.3 %; Lymphocytes # (auto) 1.02 K/uL (1.2-3.4); Lymphocytes % (auto) 4.8 %; Monocytes # (auto) 1.75 K/uL (0.11-0.59); Monocytes % (auto) 8.3 %; Neutrophils % (auto) 86.5 %
[2021-03-26 07:01] LABS: BUN Creatinine Ratio 19.5 (10-20); Calcium 9.6 mg/dl (8.5-10.1); Creatinine Clr Calc Pharmacy 19.1 ml/min; Est GFR (African American) 26.4 ml/min; Est GFR (Non-African American) 22.8 ml/min; Magnesium 2.3 mg/dl (1.8-2.4); Potassium 4.4 mmol/L (3.5-5.1)
[2021-03-26 07:42] LABS: Estimated Average Glucose 140 mg/dl; Hemoglobin A1C 6.5 % (4.5-5.6)
--- NOTE | 2021-03-26 08:43 | Hospitalist Progress Note ---
Date of Service March 26, 2021 Assessment & Plan Admission and Anticipated Discharge Date Admission Date: March 25, 2021 Subjective Patient requiring oxygen. Thought from receiving iv pain meds vs being exhausted from being in pain. But will get ct chest to rule out any infectious process as patient developing sepsis. Results & Data Results & Data ([facility]) Vital Signs (Past 12 Hours) Vital Signs Temp Pulse Pulse Resp BP BP Pulse Ox 03/26/21 05:34 37.0 C 103 H 18 113/69 95 03/26/21 02:05 37.1 C 22 96/59 L 93 03/25/21 23:30 102 H 23 94 03/25/21 23:00 108 H 23 126/73 92 03/25/21 22:30 101 H 19 101/57 L 90 03/25/21 22:00 102 H 19 102/62 91
--- NOTE | 2021-03-26 08:52 | Gastrointestinal Consultation ---
Date of Consultation March 26, 2021 Assessment & Plan (1) Pain in rectum: 81 year old male w/ medical comorbidities presenting with rectal pain, constipation, admitted w/ leukocytosis, elevated lactic acid CT w/ stool ball, constipation but no evidence of evidence for bowel obstruction. Await results of ABD US Tap water enema TID x 1 day Avoid narcotic analgesia Once bowels moving from enema therapy would add miralax 1-2 capfuls 1-2 times day Repeat Lactic acid If persistently elevated consider general surgery consultation Thank you for allowing us to participate in the care of this patient. Please call with any acute changes, questions or concerns. Please see addendum below with additional recommendation from my supervising physician. (2) Fecal impaction: Supervising Physician Co-Signing Physician Notes I performed a history and physical examination of the patient today, including specifically on physical exam - soft abdomen. I have discussed the patient's management with the advanced practitioner. Please refer to the nurse practitioner's note for the documented findings and plan of care. Patient with rectal pain and fecal impaction, constipation, CT scan showed liver cirrhosis, currently moving his bowel. No bleeding. Labs showed lactic acidosis but trending down and leukocytosis. Also has JAMIE. Recommend: Paracentesis to r/o SBP. Cover with ABx. Renal consultation for JAMIE though doubt HRS, likely due to CHF. Consider colonoscopy as OP. Follow up in GI office for cirrhosis. Otherwise, recall GI if needed. 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 Pt was seen and evaluated, cahrt reviewed. Notes symptoms started about 1 week ago. Constipation, rectal pain, inability to move bowels or urinate. Denies abd pain, nausea, vomiting. No fever, chills, CP, SOB. In the ED, WBC elevated at 12, stable HGB, plt 103, BUN 50, DIE BARBER 2.5, lactic acid 3, tbili 3.2 w/ ALKP 412 and lipase 230 CTAP 2020: 1. Moderate stool within the colon with a large rectal stool ball. This may account for the patient's reported constipation. 2. Moderate right pleural effusion. This is slightly improved in the interval. 3. Small amount of ascites. 4. No evidence for bowel obstruction. 5. Colonic diverticulosis. 6. Additional findings as described above. Allergies Allergy/AdvReac Type Severity Reaction Status Date / Time tramadol Allergy Severe Hallucinati Verified 03/25/21 10:02 ng amiodarone Allergy Intermediate "streaking Verified 03/25/21 10:02 up vein" and painful lactose Allergy Mild GI UPSET Verified 03/25/21 10:02 pollen extracts Allergy Mild HAYFEVER Verified 03/25/21 10:02 lisinopril AdvReac Mild COUGH Verified 03/25/21 10:02 Home Medications Medication Instructions Recorded Confirmed Type albuterol sulfate 90 mcg/actuation 2 puff INHALATION Q6H PRN 01/11/19 08/28/20 History aerosol inhaler allopurinol 100 mg tablet 100 mg PO BID 01/11/19 08/28/20 History amoxicillin 500 mg capsule 500 mg PO UD PRN 01/11/19 08/28/20 History aspirin 81 mg tablet,delayed 81 mg PO QAM 01/11/19 08/28/20 History release (Aspirin Low Dose) atorvastatin 40 mg tablet 40 mg PO PM 01/11/19 08/28/20 History benzonatate 200 mg capsule 200 mg PO TID PRN 01/11/19 08/28/20 History cetirizine 10 mg tablet 10 mg PO DAILY PRN 01/11/19 08/28/20 History clopidogrel 75 mg tablet 75 mg PO QAM 01/11/19 08/28/20 History docusate sodium 100 mg tablet 100 mg PO BID 01/11/19 08/28/20 History glucosamine sulf dipot 1 cap PO BID 01/11/19 08/28/20 History chlr,msm,chond 550 mg-C 30 mg-narcisa 1 mg capsule (Glucosamine Chondroitin) saw palmetto 450 mg capsule 450 mg PO QPM 01/11/19 08/28/20 History vit C 50 mg-E 15 unit-zinc cit 4.5 1 tab PO QAM 01/11/19 08/28/20 History mg-lutein 2.5 mg-zeaxan chew tablet ([employer]) Leg Cramps 324 mg PO HS 02/01/19 08/28/20 History famotidine 40 mg tablet 40 mg PO DAILY PRN 07/10/20 08/28/20 History omeprazole 20 mg capsule,delayed 20 mg PO QAM 07/10/20 08/28/20 History release cholecalciferol (vitamin D3) 50 50 mcg PO QAM 08/28/20 08/28/20 History mcg (2,000 unit) tablet (Vitamin D3) glipizide 2.5 mg tablet, extended 2.5 mg PO DAILY 03/10/21 History release 24 hr spironolactone 25 mg tablet 25 mg PO QAM tab 03/10/21 History torsemide 10 mg tablet 10 mg PO DAILY PRN 03/10/21 History torsemide 10 mg tablet 10 mg PO QPM tab 03/10/21 History torsemide 20 mg tablet 30 mg PO DAILY tab 03/10/21 History Patient History Medical History Aortic stenosis 08/05/20 TTE suggestive of severe Cardio records state moderate per cath Asthma LAST USED INHALER THIS AM Chronic kidney disease, stage 3 Congestive heart failure with right ventricular systolic dysfunction Per records Admitted 06/2020 due to acute CHF with right heart failure to [facility]- cardio consulted- pt put on increased diuretics Coronary artery disease S/p 3 vessel CABG 2017 Per cardiac records- recent cath showing 80% distal LM and 90% LCx stenosis Diabetes mellitus, type 2 Fibromyalgia Hearing deficit History of GI bleed Hx of gout Hyperlipidemia Hypertension Mitral valve disease Mitral stenosis- REASON FOR UPCOMING CLEOPATRA Non-Hodgkin lymphoma diagnosed 2004 s/p chemo PAD (peripheral artery disease) s/p b/l iliac artery stents (2015) Pleural effusion due to CHF (congestive heart failure) REASON FOR LASIX Sleep apnea TESTING IN PROCESS Venous stasis ulcer Surgical History History of anesthesia reaction LOW OXYGEN SATURATION AFTER HERNIA SURGERY History of bilateral carpal tunnel release History of cardiac cath 2016 AND 08/25/20 AT [facility] History of esophagogastroduodenoscopy (EGD) History of left hip replacement History of lumbar discectomy History of lymph node biopsy History of phacoemulsification of cataract of both eyes with intraocular lens implantation History of right hip replacement History of tonsillectomy and adenoidectomy History of tooth extraction History of total hip arthroplasty RT/LEFT History of transesophageal echocardiography (CLEOPATRA) History of umbilical hernia repair Hx of left inguinal hernia repair Hx of right inguinal hernia repair S/P CABG x 3 2018 AT [facility] S/P colonoscopy 01/15/19 Status post insertion of iliac artery stent b/l (2016) Family History Grandmother (Paternal) Family history of diabetes mellitus Mother Family history of diabetes mellitus Aunt Family history of diabetes mellitus Uncle Family history of diabetes mellitus Grandfather (Maternal) Family history of diabetes mellitus Sister Family history of diabetes mellitus Father Family hx colonic polyps Other No family history of adverse response to anesthesia Social History Smoking Status: Never smoker Cigarettes Per Day: QUIT 45 YEARS AGO; Second Hand Exposure: No (father smoked); Hx Alcohol Use: Yes Alcohol type: beer Alcohol Intake Frequency: Monthly or Less Hx Substance Use: No Preferred Language: Slovenian Communication Ability: Effective Visual Impairment: Partially Limited Hearing Ability: Use of Hearing Aid Tanker Serviceman Required: No Beliefs That Will Affect Care: None marital status: Current Living Situation: Spouse current occupational status: retired Feels Safe at Home: Yes Safety Concerns: Feels Safe At This Time Diet Comment: 1500 cc fluid restiction per pt caffeine: No during the past year weight has: decreased > 10 lbs Physical Activity Frequency: Does not Exercise Do you think of yourself as: straight/heterosexual Gender Identity: Male Assistive Devices: None Review of Systems Review of Systems: All systems reviewed & are unremarkable except as noted in HPI & below Physical Exam Constitutional: WD/WN, vitals as above Neck: trachea midline, no thyromegaly Respiratory: normal respiratory effort, lungs clear to auscultation Cardiovascular: Rate/Rhythm: regular rate and regular rhythm Gastrointestinal (Abdomen): normal bowel sounds, soft, nontender, no hepatosplenomegaly Skin: no rashes, warm and dry Results & Data ([facility]) Vital Signs (Past 12 Hours) Vital Signs Temp Pulse Pulse Resp BP BP Pulse Ox 03/26/21 05:34 37.0 C 103 H 18 113/69 95 03/26/21 02:05 37.1 C 22 96/59 L 93 03/25/21 23:30 102 H 23 94 03/25/21 23:00 108 H 23 126/73 92 03/25/21 22:30 101 H 19 101/57 L 90 03/25/21 22:00 102 H 19 102/62 91 Laboratory Results 03/26/21 03/26/21 03/26/21 Range/Units 08:24 06:13 06:13 WBC (4.8-10.8) K/uL RBC (4.7-6.1) M/uL Hgb (14.0-18.0) g/dL Hct (42-52) % MCV (80-100) fL MCH (25-34) pg MCHC (32-36) g/dL RDW Std Deviation (36.4-46.3) fL RDW Coeff of Josh (11.5-14.5) % Plt Count (130-400) K/uL MPV (7.4-10.4) fL Immature Gran % (Auto) % Neut % (Auto) % Lymph % (Auto) % [place] % (Auto) % Eos % (Auto) % Baso % (Auto) % Neut # (Auto) (1.4-6.5) K/uL Lymph # (Auto) (1.2-3.4) K/uL [place] # (Auto) (0.11-0.59) K/uL Eos # (Auto) (0-0.5) K/uL Baso # (Auto) (0-0.2) K/uL Immature Gran # (Auto) (0.00-0.02) K/uL Sodium 134 L (136-145) mmol/L Potassium 4.4 (3.5-5.1) mmol/L Chloride 99 (98-107) mmol/L Carbon Dioxide 23 (21-32) mmol/L Anion Gap 11.0 (3-11) BUN 50 H (7-18) mg/dl Creatinine 2.54 H D (0.6-1.4) mg/dl Est Cr Clr Drug Dosing 19.1 ml/min Est GFR ( Amer) 26.4 ml/min Est GFR (Non-Af Amer) 22.8 ml/min BUN/Creatinine Ratio 19.5 (10-20) Glucose 112 H (70-99) mg/dl POC Glucose 105 H (70-99) mg/dl Estimat Average Glucose 140 mg/dl Hemoglobin A1c 6.5 H (4.5-5.6) % Lactate (0.4-2.0) mmol/L Calcium 9.6 (8.5-10.1) mg/dl Magnesium 2.3 (1.8-2.4) mg/dl Total Bilirubin (0.2-1) mg/dl AST (15-37) U/L ALT (12-78) U/L Alkaline Phosphatase (45-117) U/L Total Protein (6.4-8.2) gm/dl Albumin (3.4-5.0) gm/dl Globulin (2.5-4.0) gm/dl Albumin/Globulin Ratio (0.9-2) Lipase (73-393) U/L Urine Color Urine Appearance (Clear) Urine pH (4.5-7.5) Ur Specific Chestnut (1.000-1.030) Urine Protein (Negative) Urine Glucose (UA) (Negative) Urine Ketones (Negative) Urine Blood (Negative) Urine Nitrite (Negative) Urine Bilirubin (Negative) Urine Urobilinogen (Negative) Ur Leukocyte Esterase (Negative) Urine WBC (Auto) (0-5) /hpf Urine RBC (Auto) (0-4) /hpf U Hyaline Cast (Auto) (0-5) /lpf U Epithel Cells (Auto) (0-5) /lpf Urine Bacteria (Auto) (Negative) COVID-19 Eval Order SARS-CoV-2 (PCR) (Negative) 03/26/21 03/26/21 03/25/21 Range/Units 06:13 06:13 22:25 WBC 21.06 H D (4.8-10.8) K/uL RBC 4.59 L (4.7-6.1) M/uL Hgb 14.8 (14.0-18.0) g/dL Hct 44.1 (42-52) % MCV 96.1 (80-100) fL MCH 32.2 (25-34) pg MCHC 33.6 (32-36) g/dL RDW Std Deviation 58.5 H (36.4-46.3) fL RDW Coeff of Josh 16.8 H (11.5-14.5) % Plt Count 103 L (130-400) K/uL MPV 12.0 H (7.4-10.4) fL Immature Gran % (Auto) 0.3 % Neut % (Auto) 86.5 % Lymph % (Auto) 4.8 % [place] % (Auto) 8.3 % Eos % (Auto) 0.0 % Baso % (Auto) 0.1 % Neut # (Auto) 18.20 H (1.4-6.5) K/uL Lymph # (Auto) 1.02 L (1.2-3.4) K/uL [place] # (Auto) 1.75 H (0.11-0.59) K/uL Eos # (Auto) 0.00 (0-0.5) K/uL Baso # (Auto) 0.02 (0-0.2) K/uL Immature Gran # (Auto) 0.07 H (0.00-0.02) K/uL Sodium (136-145) mmol/L Potassium (3.5-5.1) mmol/L Chloride (98-107) mmol/L Carbon Dioxide (21-32) mmol/L Anion Gap (3-11) BUN (7-18) mg/dl Creatinine (0.6-1.4) mg/dl Est Cr Clr Drug Dosing ml/min Est GFR ( Amer) ml/min Est GFR (Non-Af Amer) ml/min BUN/Creatinine Ratio (10-20) Glucose (70-99) mg/dl POC Glucose (70-99) mg/dl Estimat Average Glucose mg/dl Hemoglobin A1c (4.5-5.6) % Lactate 3.1 H* (0.4-2.0) mmol/L Calcium (8.5-10.1) mg/dl Magnesium (1.8-2.4) mg/dl Total Bilirubin (0.2-1) mg/dl AST (15-37) U/L ALT (12-78) U/L Alkaline Phosphatase (45-117) U/L Total Protein (6.4-8.2) gm/dl Albumin (3.4-5.0) gm/dl Globulin (2.5-4.0) gm/dl Albumin/Globulin Ratio (0.9-2) Lipase (73-393) U/L Urine Color Urine Appearance (Clear) Urine pH (4.5-7.5) Ur Specific Chestnut (1.000-1.030) Urine Protein (Negative) Urine Glucose (UA) (Negative) Urine Ketones (Negative) Urine Blood (Negative) Urine Nitrite (Negative) Urine Bilirubin (Negative) Urine Urobilinogen (Negative) Ur Leukocyte Esterase (Negative) Urine WBC (Auto) (0-5) /hpf Urine RBC (Auto) (0-4) /hpf U Hyaline Cast (Auto) (0-5) /lpf U Epithel Cells (Auto) (0-5) /lpf Urine Bacteria (Auto) (Negative) COVID-19 Eval Order SARS-CoV-2 (PCR) NEGATIVE (Negative) 03/25/21 03/25/21 03/25/21 Range/Units 22:25 22:25 16:39 WBC (4.8-10.8) K/uL RBC (4.7-6.1) M/uL Hgb (14.0-18.0) g/dL Hct (42-52) % MCV (80-100) fL MCH (25-34) pg MCHC (32-36) g/dL RDW Std Deviation (36.4-46.3) fL RDW Coeff of Josh (11.5-14.5) % Plt Count (130-400) K/uL MPV (7.4-10.4) fL Immature Gran % (Auto) % Neut % (Auto) % Lymph % (Auto) % [place] % (Auto) % Eos % (Auto) % Baso % (Auto) % Neut # (Auto) (1.4-6.5) K/uL Lymph # (Auto) (1.2-3.4) K/uL [place] # (Auto) (0.11-0.59) K/uL Eos # (Auto) (0-0.5) K/uL Baso # (Auto) (0-0.2) K/uL Immature Gran # (Auto) (0.00-0.02) K/uL Sodium 136 (136-145) mmol/L Potassium (3.5-5.1) mmol/L Chloride 101 (98-107) mmol/L Carbon Dioxide 23 (21-32) mmol/L Anion Gap 12.0 H (3-11) BUN 44 H (7-18) mg/dl Creatinine 2.02 H (0.6-1.4) mg/dl Est Cr Clr Drug Dosing 24.0 ml/min Est GFR ( Amer) 34.8 ml/min Est GFR (Non-Af Amer) 30.0 ml/min BUN/Creatinine Ratio 21.9 H (10-20) Glucose 112 H (70-99) mg/dl POC Glucose (70-99) mg/dl Estimat Average Glucose mg/dl Hemoglobin A1c (4.5-5.6) % Lactate (0.4-2.0) mmol/L Calcium 9.7 (8.5-10.1) mg/dl Magnesium (1.8-2.4) mg/dl Total Bilirubin 3.2 H (0.2-1) mg/dl AST (15-37) U/L ALT 31 (12-78) U/L Alkaline Phosphatase 412 H (45-117) U/L Total Protein 8.2 (6.4-8.2) gm/dl Albumin 4.0 (3.4-5.0) gm/dl Globulin 4.2 H (2.5-4.0) gm/dl Albumin/Globulin Ratio 1.0 (0.9-2) Lipase 229 (73-393) U/L Urine Color Yellow Urine Appearance Clear (Clear) Urine pH 5.0 (4.5-7.5) Ur Specific Chest[place] 1.012 (1.000-1.030) Urine Protein 1+ H (Negative) Urine Glucose (UA) Negative (Negative) Urine Ketones Negative (Negative) Urine Blood Negative (Negative) Urine Nitrite Negative (Negative) Urine Bilirubin Negative (Negative) Urine Urobilinogen Negative (Negative) Ur Leukocyte Esterase Negative (Negative) Urine WBC (Auto) 1-5 (0-5) /hpf Urine RBC (Auto) 0-4 (0-4) /hpf U Hyaline Cast (Auto) 1-5 (0-5) /lpf U Epithel Cells (Auto) 5-10 H (0-5) /lpf Urine Bacteria (Auto) Negative (Negative) COVID-19 Eval Order Covid19 at [facility] SARS-CoV-2 (PCR) (Negative) 03/25/21 Range/Units 16:39 WBC 8.03 (4.8-10.8) K/uL RBC 4.71 (4.7-6.1) M/uL Hgb 15.2 (14.0-18.0) g/dL Hct 44.0 (42-52) % MCV 93.4 (80-100) fL MCH 32.3 (25-34) pg MCHC 34.5 (32-36) g/dL RDW Std Deviation 56.4 H (36.4-46.3) fL RDW Coeff of Josh 16.6 H (11.5-14.5) % Plt Count 121 L (130-400) K/uL MPV 12.2 H (7.4-10.4) fL Immature Gran % (Auto) 0.1 % Neut % (Auto) 82.4 % Lymph % (Auto) 9.7 % [place] % (Auto) 7.6 % Eos % (Auto) 0.1 % Baso % (Auto) 0.1 % Neut # (Auto) 6.61 H (1.4-6.5) K/uL Lymph # (Auto) 0.78 L (1.2-3.4) K/uL [place] # (Auto) 0.61 H (0.11-0.59) K/uL Eos # (Auto) 0.01 (0-0.5) K/uL Baso # (Auto) 0.01 (0-0.2) K/uL Immature Gran # (Auto) 0.01 (0.00-0.02) K/uL Sodium (136-145) mmol/L Potassium (3.5-5.1) mmol/L Chloride (98-107) mmol/L Carbon Dioxide (21-32) mmol/L Anion Gap (3-11) BUN (7-18) mg/dl Creatinine (0.6-1.4) mg/dl Est Cr Clr Drug Dosing ml/min Est GFR ( Amer) ml/min Est GFR (Non-Af Amer) ml/min BUN/Creatinine Ratio (10-20) Glucose (70-99) mg/dl POC Glucose (70-99) mg/dl Estimat Average Glucose mg/dl Hemoglobin A1c (4.5-5.6) % Lactate (0.4-2.0) mmol/L Calcium (8.5-10.1) mg/dl Magnesium (1.8-2.4) mg/dl Total Bilirubin (0.2-1) mg/dl AST (15-37) U/L ALT (12-78) U/L Alkaline Phosphatase (45-117) U/L Total Protein (6.4-8.2) gm/dl Albumin (3.4-5.0) gm/dl Globulin (2.5-4.0) gm/dl Albumin/Globulin Ratio (0.9-2) Lipase (73-393) U/L Urine Color Urine Appearance (Clear) Urine pH (4.5-7.5) Ur Specific [place] (1.000-1.030) Urine Protein (Negative) Urine Glucose (UA) (Negative) Urine Ketones (Negative) Urine Blood (Negative) Urine Nitrite (Negative) Urine Bilirubin (Negative) Urine Urobilinogen (Negative) Ur Leukocyte Esterase (Negative) Urine WBC (Auto) (0-5) /hpf Urine RBC (Auto) (0-4) /hpf U Hyaline Cast (Auto) (0-5) /lpf U Epithel Cells (Auto) (0-5) /lpf Urine Bacteria (Auto) (Negative) COVID-19 Eval Order SARS-CoV-2 (PCR) (Negative)
--- NOTE | 2021-03-26 09:12 | Urology Consultation ---
Date of Consultation March 26, 2021 Assessment & Plan (1) Urinary retention: (2) Hematuria: 81 year-old male patient, with multiple comorbidities, admitted with rectal pain and severe constipation. -Urology consulted for urinary retention, which is likely multifactorial including severe constipation/underlying BPH. -Patient did develop hematuria post catheter insertion which is notable on exam. -Plan of care reviewed with Dr. Rosen. -He is afebrile. -Labs reviewed - white count elevated at 21.06, hgb 14.8, creatinine elevated at 2.54. -Urinalysis on admission not suspicious for infection, however recommend urine culture given elevated white count today. -Imaging reviewed - no evidence of acute findings or obstruction, no hydronephrosis. -No acute intervention indicated at this time. -Can consider initiation of Tamsulosin for BPH. -Recommend bowel regimen per GI/primary team. -Continue with supportive care, antibiotic therapy, and close monitoring. Continue to monitor catheter output. -Recommend maintaining catheter for at least 7-10 days, while correcting severe constipation. -Will continue to follow clinical progress while inpatient. History of Present Illness Reason for Consultation: Acute urinary retention Attending Physician: Siddhartha Knight MD History of Present Illness 81-year-old male patient, with past medical history significant for hypertension, chronic kidney disease, hyperlipidemia, peripheral artery disease, type 2 diabetes, heart failure secondary to valvular disease, moderate aortic stenosis, history of CAD, chronic diastolic heart failure, status post stent, obstructive sleep apnea, and other comorbidities listed below, presented to the emergency room 03/25 with complaints of severe constipation, rectal pain, and difficulty urinating. He underwent fecal disimpaction and jacobson catheter placement in the ER. Patient admitted to medicine service thereafter for further evaluation and treatment. Urology consulted for acute urinary retention. No prior urology records available for review. Patient states he has not followed with urologist in the past. Patient taking Saw Fleming at home. Chart review: Afebrile Wbc 21.06 Hgb 14.8 Creatinine 2.54 (previously 2.02) Urinalysis on admission with 1-5 wbc, 0-4 rbc, negative leukocytes, negative bacteria, negative nitrates. Imaging: CT abd/pelvis without contrast - IMPRESSION: 1. Moderate stool within the colon with a large rectal stool ball. This may account for the patient's reported constipation. 2. Moderate right pleural effusion. This is slightly improved in the interval. 3. Small amount of ascites. 4. No evidence for bowel obstruction. 5. Colonic diverticulosis. Patient seen and evaluated at bedside, sitting at the side of his bed. He is alert, appears comfortable, and non-toxic in appearance. He currently denies abdominal or flank pain. Tolerating jacobson catheter well without discomfort. Catheter intact, patent, draining yellow/pink-tinged urine. Denies fevers but does note chills. Denies nausea or vomiting. States he did move his bowels "a little" today. Baseline urinary symptoms include some urinary frequency. Denies urgency. States over the past 3-6 months he has noticed more trouble initiating urine stream. Stream is weak at times. Typically felt like he was emptying his bladder well. No prior history of hematuria but did experience occasional dysuria. As above, he takes Saw Fleming. Overall, has had some improvement in rectal discomfort since admission. Denies additional urologic concerns today. Allergies Allergy/AdvReac Type Severity Reaction Status Date / Time tramadol Allergy Severe Hallucinati Verified 03/25/21 10:02 ng amiodarone Allergy Intermediate "streaking Verified 03/25/21 10:02 up vein" and painful lactose Allergy Mild GI UPSET Verified 03/25/21 10:02 pollen extracts Allergy Mild HAYFEVER Verified 03/25/21 10:02 lisinopril AdvReac Mild COUGH Verified 03/25/21 10:02 Home Medications Medication Instructions Recorded Confirmed Type albuterol sulfate 90 mcg/actuation 2 puff INHALATION Q6H PRN 01/11/19 08/28/20 History aerosol inhaler allopurinol 100 mg tablet 100 mg PO BID 01/11/19 08/28/20 History amoxicillin 500 mg capsule 500 mg PO UD PRN 01/11/19 08/28/20 History aspirin 81 mg tablet,delayed 81 mg PO QAM 01/11/19 08/28/20 History release (Aspirin Low Dose) atorvastatin 40 mg tablet 40 mg PO PM 01/11/19 08/28/20 History benzonatate 200 mg capsule 200 mg PO TID PRN 01/11/19 08/28/20 History cetirizine 10 mg tablet 10 mg PO DAILY PRN 01/11/19 08/28/20 History clopidogrel 75 mg tablet 75 mg PO QAM 01/11/19 08/28/20 History docusate sodium 100 mg tablet 100 mg PO BID 01/11/19 08/28/20 History glucosamine sulf dipot 1 cap PO BID 01/11/19 08/28/20 History chlr,msm,chond 550 mg-C 30 mg-narcisa 1 mg capsule (Glucosamine Chondroitin) saw palmetto 450 mg capsule 450 mg PO QPM 01/11/19 08/28/20 History vit C 50 mg-E 15 unit-zinc cit 4.5 1 tab PO QAM 01/11/19 08/28/20 History mg-lutein 2.5 mg-zeaxan chew tablet ([employer]) Leg Cramps 324 mg PO HS 02/01/19 08/28/20 History famotidine 40 mg tablet 40 mg PO DAILY PRN 07/10/20 08/28/20 History omeprazole 20 mg capsule,delayed 20 mg PO QAM 07/10/20 08/28/20 History release cholecalciferol (vitamin D3) 50 50 mcg PO QAM 08/28/20 08/28/20 History mcg (2,000 unit) tablet (Vitamin D3) glipizide 2.5 mg tablet, extended 2.5 mg PO DAILY 03/10/21 History release 24 hr spironolactone 25 mg tablet 25 mg PO QAM tab 03/10/21 History torsemide 10 mg tablet 10 mg PO DAILY PRN 03/10/21 History torsemide 10 mg tablet 10 mg PO QPM tab 03/10/21 History torsemide 20 mg tablet 30 mg PO DAILY tab 03/10/21 History Patient History Medical History Aortic stenosis 08/05/20 TTE suggestive of severe Cardio records state moderate per cath Asthma LAST USED INHALER THIS AM Chronic kidney disease, stage 3 Congestive heart failure with right ventricular systolic dysfunction Per records Admitted 06/2020 due to acute CHF with right heart failure to [facility]- cardio consulted- pt put on increased diuretics Coronary artery disease S/p 3 vessel CABG 2017 Per cardiac records- recent cath showing 80% distal LM and 90% LCx stenosis Diabetes mellitus, type 2 Fibromyalgia Hearing deficit History of GI bleed Hx of gout Hyperlipidemia Hypertension Mitral valve disease Mitral stenosis- REASON FOR UPCOMING CLEOPATRA Non-Hodgkin lymphoma diagnosed 2004 s/p chemo PAD (peripheral artery disease) s/p b/l iliac artery stents (2015) Pleural effusion due to CHF (congestive heart failure) REASON FOR LASIX Sleep apnea TESTING IN PROCESS Venous stasis ulcer Surgical History History of anesthesia reaction LOW OXYGEN SATURATION AFTER HERNIA SURGERY History of bilateral carpal tunnel release History of cardiac cath 2016 AND 08/25/20 AT [facility] History of esophagogastroduodenoscopy (EGD) History of left hip replacement History of lumbar discectomy History of lymph node biopsy History of phacoemulsification of cataract of both eyes with intraocular lens implantation History of right hip replacement History of tonsillectomy and adenoidectomy History of tooth extraction History of total hip arthroplasty RT/LEFT History of transesophageal echocardiography (CLEOPATRA) History of umbilical hernia repair Hx of left inguinal hernia repair Hx of right inguinal hernia repair S/P CABG x 3 2017 AT [facility] S/P colonoscopy 01/15/19 Status post insertion of iliac artery stent b/l (2015) Family History Grandmother (Paternal) Family history of diabetes mellitus Mother Family history of diabetes mellitus Aunt Family history of diabetes mellitus Uncle Family history of diabetes mellitus Grandfather (Maternal) Family history of diabetes mellitus Sister Family history of diabetes mellitus Father Family hx colonic polyps Other No family history of adverse response to anesthesia Social History Smoking Status: Never smoker Cigarettes Per Day: QUIT 45 YEARS AGO; Second Hand Exposure: No (father smoked); Hx Alcohol Use: Yes Alcohol type: beer Alcohol Intake Frequency: Monthly or Less Hx Substance Use: No Preferred Language: [place] Communication Ability: Effective Visual Impairment: Partially Limited Hearing Ability: Use of Hearing Aid Office Nurse Practitioner Required: No Beliefs That Will Affect Care: None marital status: Current Living Situation: Spouse current occupational status: retired Feels Safe at Home: Yes Safety Concerns: Feels Safe At This Time Diet Comment: 1500 cc fluid restiction per pt caffeine: No during the past year weight has: decreased > 10 lbs Physical Activity Frequency: Does not Exercise Do you think of yourself as: straight/heterosexual Gender Identity: Male Assistive Devices: None Review of Systems Constitutional: as per Subjective / HPI and + chills; no fever Eyes: no problem reported Ear, Nose, Mouth, Throat: no dizziness Respiratory: + dyspnea (at baseline); no cough Cardiovascular: + edema; no chest pain Gastrointestinal: as per Subjective / HPI Genitourinary: + as per Subjective / HPI Musculoskeletal: as per Subjective / HPI Neurologic: no dizziness Endocrine: no fatigue Hematologic / Lymphatic: no easy bleeding and no easy bruising Physical Exam Constitutional: well developed and well nourished; no acute distress and not ill appearing ENMT: Ears: no external ear abnormality Nose: no external nose abnormality Neck: normal visual inspection and trachea midline Respiratory: normal respiratory effort and able to speak in complete sentences; no respiratory distress and no audible wheezes On oxygen therapy via nasal cannula Cardiovascular: Extremities: no calf tenderness Gastrointestinal (Abdomen): Inspection/Auscultation: abdomen normal to inspection; abdomen not distended Percussion/Palpation: + abdomen firm; abdomen nontender and no guarding Musculoskeletal: Moves all extremities without difficulty. Skin: No visible rashes, lesions, or wounds noted. Neurologic: moves all extremities and awake Psychiatric: Orientation: alert, oriented x 3 and cooperative Affect: euthymic affect Genitourinary: Jacobson catheter patent, intact, draining yellow/pink-tinged urine. No visible clots. Results & Data ([facility]) Vital Signs (Past 12 Hours) Vital Signs Temp Pulse Pulse Resp BP BP Pulse Ox 03/26/21 05:34 37.0 C 103 H 18 113/69 95 03/26/21 02:05 37.1 C 22 96/59 L 93 03/25/21 23:30 102 H 23 94 03/25/21 23:00 108 H 23 126/73 92 03/25/21 22:30 101 H 19 101/57 L 90 03/25/21 22:00 102 H 19 102/62 91 PG Care Time/CCT Total # of Minutes Spent Total Time Spent with Patient: Total time spent is greater than 50% in coordination of care (as documented) at patient's floor/unit and/or counseling patient: Coding Level of Care Code 94819 Initial Inpt Care Lvl 2 Diagnoses Urinary retention R33.9 Hematuria R31.9
[2021-03-26] MEDS: DICYCLOMINE HCL 10 MG CAP PO SCH ×3 (09:37→21:22)
[2021-03-26] MEDS: CEROVITE ADV FORMULA TAB PO SCH (09:37)
[2021-03-26] MEDS: PANTOprazole 40 MG TAB PO SCH (09:38)
[2021-03-26] MEDS: CLOPIDOGREL BISULFATE 75 MG TAB PO SCH (09:38)
[2021-03-26] MEDS: ASPIRIN 81 MG ECTAB PO SCH (09:38)
[2021-03-26] MEDS: CHOLECALCIFEROL 1,000 UNITS 25 MCG TAB PO SCH (09:39)
[2021-03-26] MEDS: DOCUSATE SODIUM 100 MG CAP PO SCH ×2 (09:39→21:22)
[2021-03-26] MEDS: allopurinoL 100 MG TAB PO SCH ×2 (09:39→21:22)
[2021-03-26] MEDS ORDERED: PIPERACILL/TAZOBAC CONSULT ACTIVE PRN (11:02)
[2021-03-26] MEDS: INSULIN ASPART 100 UNITS/ML 3 ML PEN SC SCH ×3 (11:19→18:41)
--- NOTE | 2021-03-26 11:23 | Ultrasound Report ---
ULTRASOUND RIGHT UPPER QUADRANT ABDOMEN CLINICAL HISTORY: Sepsis. Elevated hepatic transaminases. COMPARISON STUDY: Abdominal CT dated 03/25/2021 TECHNIQUE: Real-time, grayscale, and color flow sonography of the right upper quadrant of the abdomen was performed. Images are reviewed in the transverse and longitudinal planes. FINDINGS: Liver: The liver is cirrhotic in morphology and heterogeneous in echotexture. There is nodularity of the hepatic surface contour. There is no intrahepatic biliary ductal dilatation. The main portal vein is patent. The left lobe hypodensity suggested by CT is not seen by ultrasound. Gallbladder: There is mild nonspecific gallbladder wall thickening, likely due to cirrhosis and ascit es. No shadowing gallstones are identified. A sonographic Salas's sign is reportedly absent. The com mon bile duct measures up to 0.3 cm in diameter. Pancreas: Not visualized due to overlying bowel gas. Right kidney: Survey images of the right kidney demonstrate normal size and echotexture. There is no hydronephrosis. Ascites: There is a small volume of perihepatic ascites. Pleural spaces: A right pleural effusion is noted. IMPRESSION: 1. The liver is cirrhotic in morphology and heterogeneous in echotexture. 2. Small volume perihepatic ascites. 3. No shadowing gallstones are identified. 4. Mild nonspecific gallbladder wall thickening is likely related to cirrhosis and ascites. 5. Nonvisualization of the pancreas. 6. Right pleural effusion. ACT 112: Negative or not required by law. Electronically signed by: Darrell Painting M.D. 03/26/2021 11:22 AM
[2021-03-26] MEDS ORDERED: PIPERACILLIN/TAZOBACTAM 3.375 GM in DEXTROSE 5% 100 ML IV ONE (11:30)
[2021-03-26 12:26] LABS: Hematocrit (blood only) 44.2 % (42-52); Hemoglobin 14.8 g/dL (14.0-18.0); Mean Corpuscular Hemoglobin 32.4 pg (25-34); Mean Corpuscular Hgb Conc 33.5 g/dL (32-36); Mean Corpuscular Volume 96.7 fL (80-100); Mean Platelet Volume 12.4 fL (7.4-10.4); Platelet Count 111 K/uL (130-400); RDW Coefficient of Variation 16.8 % (11.5-14.5); RDW Standard Deviation 58.7 fL (36.4-46.3); Red Blood Count 4.57 M/uL (4.7-6.1); White Blood Count 23.84 K/uL (4.8-10.8)
[2021-03-26 12:44] LABS: Albumin Globulin Ratio 0.9 (0.9-2); Albumin Level 3.5 gm/dl (3.4-5.0); BUN Creatinine Ratio 18.2 (10-20); Bilirubin,Total 3.8 mg/dl (0.2-1); Calcium 9.9 mg/dl (8.5-10.1); Creatinine Clr Calc Pharmacy 16.4 ml/min; Est GFR (African American) 21.9 ml/min; Est GFR (Non-African American) 18.9 ml/min; Globulin 3.9 gm/dl (2.5-4.0); Magnesium 2.4 mg/dl (1.8-2.4); Potassium 5.1 mmol/L (3.5-5.1); Total Protein 7.4 gm/dl (6.4-8.2)
--- NOTE | 2021-03-26 12:47 | Hospitalist Progress Note ---
Date of Service March 26, 2021 Assessment & Plan (1) Fecal impaction: (2) Pain in rectum: (3) Urinary retention: (4) Hematuria: Plan: Sepsis This is an 81-year-old male presented with constipation, severe rectal pain, and also urinary retention. 1. Severe rectal pain and constipation Severe rectal pain, could be from fissures from ongoing constipation. Underwent disimpaction in the ER May need treatment for possible fissures and stool impaction, even after disimpacted in the ER Placed him on gentle pain medications, MiraLax b.i.d. N.p.o. after midnight. GI consulted Sepsis Repeat morning labs significant for white blood cell count of 20,000, lactic acid 3.1. Started on Zosyn in the morning and IV fluids, by floral assistant Patient also found to be hypoxic, on 4 to 5 L of oxygen and chest CT was obtained After IV fluids and being on IV Zosyn, blood work repeated. Lactic acid 4.9 and white blood cell count 23,000. In addition urine brown, and creatinine 3, elevated from baseline of 1.4, and 2 earlier this morning Contacted urology and GI General surgery also consulted Patient was to be transferred to telemetry, however there he had presyncopal/syncopal episode, systolic blood pressure into 80s Therefore ore storage drier was consulted, patient now in ICU and stat CT abdomen ordered 2. Urinary retention, placed on Cole catheter. Urology consulted 3. JAMIE on CKD III. Baseline creatinine 1.3, on admission creatinine of 2. After IVF and Abx , now Cr 3 Urine brown, repeat UA, u cultx Nephrology consulted Continue IVF, IV albumin for now 4. History of right sided HF and history of diastolic CHF and valvular heart failure, currently holding diuretics. IV fluids, monitor for volume overload. 5. History of hypertension. Currently BP low despite IVF, likely sepsis, cont IV Abx, care per ICU team Holding diuretics as above will monitor blood pressure. 6. Aortic stenosis rheumatic valvular heart disease. needs followup. 7. CAD, s/p CABG. Continue home medications. 8. PAD s/p illiac stent. Continue aspirin, Plavix and statin. 9. Diabetes: Hold glipizide, place on insulin sliding scale. Follow the blood sugars. 11. Thrombocytopenia, seems chronic. Continue to monitor 12. Elevated bilirubin and alk phosp. will get gall bladder ultrasound. follow repeat labs DVT subq heparin DISPOSITION: now transfer to ICU Code: Full Admission and Anticipated Discharge Date Admission Date: March 25, 2021 Subjective Patient admitted last night, due to stool burden, underwent disimpaction in the ED, but continued to have severe rectal pain Was found to have urine retention, and Cole catheter was placed GI and urology were consulted and saw patient this morning Unfortunately, morning labs different from ED. 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 blood pressure low into 80s Discussed this with ore storage drier, patient will remain in ICU for now, CT abdomen pelvis stat also ordered Review of Systems Review of Systems: All systems reviewed & are unremarkable except as noted in Subjective Physical Exam Physical Exam: GENERAL: slender M, not in acute distress, but on NC, and discomfort in rectal region HEENT: NC/AT, EOMI, PERRL NECK: No JVD, no neck masses. CARDIOVASCULAR: S1 and S2 heard, regular rate and rhythm. No murmur, no gallop. RESPIRATORY: Normal AP diameter. No accessory muscle use. No wheezing, no crackles. ABDOMEN: Soft, bowel sounds present, nontender, no distention. NEURO: Alert oriented answering questions appropriately, speech fluent, moves extremities EXTREMITIES: Lower extremities, chronic skin changes noted. Currently, no significant edema. Results & Data Results & Data ([facility]) Vital Signs (Past 12 Hours) Vital Signs Temp Pulse Resp BP Pulse Ox 03/26/21 10:31 36.3 C L 94 H 18 100/66 95 03/26/21 05:34 37.0 C 103 H 18 113/69 95 03/26/21 02:05 37.1 C 22 96/59 L 93 Laboratory Results 03/26/21 03/26/21 03/26/21 Range/Units 11:55 11:55 11:55 WBC 23.84 H (4.8-10.8) K/uL RBC 4.57 L (4.7-6.1) M/uL Hgb 14.8 (14.0-18.0) g/dL Hct 44.2 (42-52) % MCV 96.7 (80-100) fL MCH 32.4 (25-34) pg MCHC 33.5 (32-36) g/dL RDW Std Deviation 58.7 H (36.4-46.3) fL RDW Coeff of Josh 16.8 H (11.5-14.5) % Plt Count 111 L (130-400) K/uL MPV 12.4 H (7.4-10.4) fL Immature Gran % (Auto) % Neut % (Auto) % Lymph % (Auto) % Sullivan % (Auto) % Eos % (Auto) % Baso % (Auto) % Neut # (Auto) (1.4-6.5) K/uL Lymph # (Auto) (1.2-3.4) K/uL Sullivan # (Auto) (0.11-0.59) K/uL Eos # (Auto) (0-0.5) K/uL Baso # (Auto) (0-0.2) K/uL Immature Gran # (Auto) (0.00-0.02) K/uL Sodium Pending (136-145) mmol/L Potassium Pending (3.5-5.1) mmol/L Chloride Pending (98-107) mmol/L Carbon Dioxide Pending (21-32) mmol/L Anion Gap Pending (3-11) BUN Pending (7-18) mg/dl Creatinine Pending (0.6-1.4) mg/dl Est Cr Clr Drug Dosing Pending ml/min Est GFR ( Amer) Pending ml/min Est GFR (Non-Af Amer) Pending ml/min BUN/Creatinine Ratio Pending (10-20) Glucose Pending (70-99) mg/dl POC Glucose (70-99) mg/dl Estimat Average Glucose mg/dl Hemoglobin A1c (4.5-5.6) % Lactate 4.9 H* (0.4-2.0) mmol/L Calcium Pending (8.5-10.1) mg/dl Phosphorus Pending Magnesium Pending (1.8-2.4) mg/dl Total Bilirubin Pending (0.2-1) mg/dl AST Pending (15-37) U/L ALT Pending (12-78) U/L Alkaline Phosphatase Pending (45-117) U/L Total Protein Pending (6.4-8.2) gm/dl Albumin Pending (3.4-5.0) gm/dl Globulin Pending (2.5-4.0) gm/dl Albumin/Globulin Ratio Pending (0.9-2) Lipase (73-393) U/L Urine Color Urine Appearance (Clear) Urine pH (4.5-7.5) Ur Specific Duncan (1.000-1.030) Urine Protein (Negative) Urine Glucose (UA) (Negative) Urine Ketones (Negative) Urine Blood (Negative) Urine Nitrite (Negative) Urine Bilirubin (Negative) Urine Urobilinogen (Negative) Ur Leukocyte Esterase (Negative) Urine WBC (Auto) (0-5) /hpf Urine RBC (Auto) (0-4) /hpf U Hyaline Cast (Auto) (0-5) /lpf U Epithel Cells (Auto) (0-5) /lpf Urine Bacteria (Auto) (Negative) COVID-19 Eval Order SARS-CoV-2 (PCR) (Negative) 03/26/21 03/26/21 03/26/21 Range/Units 08:24 06:13 06:13 WBC (4.8-10.8) K/uL RBC (4.7-6.1) M/uL Hgb (14.0-18.0) g/dL Hct (42-52) % MCV (80-100) fL MCH (25-34) pg MCHC (32-36) g/dL RDW Std Deviation (36.4-46.3) fL RDW Coeff of Josh (11.5-14.5) % Plt Count (130-400) K/uL MPV (7.4-10.4) fL Immature Gran % (Auto) % Neut % (Auto) % Lymph % (Auto) % Sullivan % (Auto) % Eos % (Auto) % Baso % (Auto) % Neut # (Auto) (1.4-6.5) K/uL Lymph # (Auto) (1.2-3.4) K/uL Sullivan # (Auto) (0.11-0.59) K/uL Eos # (Auto) (0-0.5) K/uL Baso # (Auto) (0-0.2) K/uL Immature Gran # (Auto) (0.00-0.02) K/uL Sodium 134 L (136-145) mmol/L Potassium 4.4 (3.5-5.1) mmol/L Chloride 99 (98-107) mmol/L Carbon Dioxide 23 (21-32) mmol/L Anion Gap 11.0 (3-11) BUN 50 H (7-18) mg/dl Creatinine 2.54 H D (0.6-1.4) mg/dl Est Cr Clr Drug Dosing 19.1 ml/min Est GFR ( Amer) 26.4 ml/min Est GFR (Non-Af Amer) 22.8 ml/min BUN/Creatinine Ratio 19.5 (10-20) Glucose 112 H (70-99) mg/dl POC Glucose 105 H (70-99) mg/dl Estimat Average Glucose 140 mg/dl Hemoglobin A1c 6.5 H (4.5-5.6) % Lactate (0.4-2.0) mmol/L Calcium 9.6 (8.5-10.1) mg/dl Phosphorus Magnesium 2.3 (1.8-2.4) mg/dl Total Bilirubin (0.2-1) mg/dl AST (15-37) U/L ALT (12-78) U/L Alkaline Phosphatase (45-117) U/L Total Protein (6.4-8.2) gm/dl Albumin (3.4-5.0) gm/dl Globulin (2.5-4.0) gm/dl Albumin/Globulin Ratio (0.9-2) Lipase (73-393) U/L Urine Color Urine Appearance (Clear) Urine pH (4.5-7.5) Ur Specific Duncan (1.000-1.030) Urine Protein (Negative) Urine Glucose (UA) (Negative) Urine Ketones (Negative) Urine Blood (Negative) Urine Nitrite (Negative) Urine Bilirubin (Negative) Urine Urobilinogen (Negative) Ur Leukocyte Esterase (Negative) Urine WBC (Auto) (0-5) /hpf Urine RBC (Auto) (0-4) /hpf U Hyaline Cast (Auto) (0-5) /lpf U Epithel Cells (Auto) (0-5) /lpf Urine Bacteria (Auto) (Negative) COVID-19 Eval Order SARS-CoV-2 (PCR) (Negative) 03/26/21 03/26/21 03/25/21 Range/Units 06:13 06:13 22:25 WBC 21.06 H D (4.8-10.8) K/uL RBC 4.59 L (4.7-6.1) M/uL Hgb 14.8 (14.0-18.0) g/dL Hct 44.1 (42-52) % MCV 96.1 (80-100) fL MCH 32.2 (25-34) pg MCHC 33.6 (32-36) g/dL RDW Std Deviation 58.5 H (36.4-46.3) fL RDW Coeff of Josh 16.8 H (11.5-14.5) % Plt Count 103 L (130-400) K/uL MPV 12.0 H (7.4-10.4) fL Immature Gran % (Auto) 0.3 % Neut % (Auto) 86.5 % Lymph % (Auto) 4.8 % Sullivan % (Auto) 8.3 % Eos % (Auto) 0.0 % Baso % (Auto) 0.1 % Neut # (Auto) 18.20 H (1.4-6.5) K/uL Lymph # (Auto) 1.02 L (1.2-3.4) K/uL Sullivan # (Auto) 1.75 H (0.11-0.59) K/uL Eos # (Auto) 0.00 (0-0.5) K/uL Baso # (Auto) 0.02 (0-0.2) K/uL Immature Gran # (Auto) 0.07 H (0.00-0.02) K/uL Sodium (136-145) mmol/L Potassium (3.5-5.1) mmol/L Chloride (98-107) mmol/L Carbon Dioxide (21-32) mmol/L Anion Gap (3-11) BUN (7-18) mg/dl Creatinine (0.6-1.4) mg/dl Est Cr Clr Drug Dosing ml/min Est GFR ( Amer) ml/min Est GFR (Non-Af Amer) ml/min BUN/Creatinine Ratio (10-20) Glucose (70-99) mg/dl POC Glucose (70-99) mg/dl Estimat Average Glucose mg/dl Hemoglobin A1c (4.5-5.6) % Lactate 3.1 H* (0.4-2.0) mmol/L Calcium (8.5-10.1) mg/dl Phosphorus Magnesium (1.8-2.4) mg/dl Total Bilirubin (0.2-1) mg/dl AST (15-37) U/L ALT (12-78) U/L Alkaline Phosphatase (45-117) U/L Total Protein (6.4-8.2) gm/dl Albumin (3.4-5.0) gm/dl Globulin (2.5-4.0) gm/dl Albumin/Globulin Ratio (0.9-2) Lipase (73-393) U/L Urine Color Urine Appearance (Clear) Urine pH (4.5-7.5) Ur Specific Duncan (1.000-1.030) Urine Protein (Negative) Urine Glucose (UA) (Negative) Urine Ketones (Negative) Urine Blood (Negative) Urine Nitrite (Negative) Urine Bilirubin (Negative) Urine Urobilinogen (Negative) Ur Leukocyte Esterase (Negative) Urine WBC (Auto) (0-5) /hpf Urine RBC (Auto) (0-4) /hpf U Hyaline Cast (Auto) (0-5) /lpf U Epithel Cells (Auto) (0-5) /lpf Urine Bacteria (Auto) (Negative) COVID-19 Eval Order SARS-CoV-2 (PCR) NEGATIVE (Negative) 03/25/21 03/25/21 03/25/21 Range/Units 22:25 22:25 16:39 WBC (4.8-10.8) K/uL RBC (4.7-6.1) M/uL Hgb (14.0-18.0) g/dL Hct (42-52) % MCV (80-100) fL MCH (25-34) pg MCHC (32-36) g/dL RDW Std Deviation (36.4-46.3) fL RDW Coeff of Josh (11.5-14.5) % Plt Count (130-400) K/uL MPV (7.4-10.4) fL Immature Gran % (Auto) % Neut % (Auto) % Lymph % (Auto) % Sullivan % (Auto) % Eos % (Auto) % Baso % (Auto) % Neut # (Auto) (1.4-6.5) K/uL Lymph # (Auto) (1.2-3.4) K/uL Sullivan # (Auto) (0.11-0.59) K/uL Eos # (Auto) (0-0.5) K/uL Baso # (Auto) (0-0.2) K/uL Immature Gran # (Auto) (0.00-0.02) K/uL Sodium 136 (136-145) mmol/L Potassium (3.5-5.1) mmol/L Chloride 101 (98-107) mmol/L Carbon Dioxide 23 (21-32) mmol/L Anion Gap 12.0 H (3-11) BUN 44 H (7-18) mg/dl Creatinine 2.02 H (0.6-1.4) mg/dl Est Cr Clr Drug Dosing 24.0 ml/min Est GFR ( Amer) 34.8 ml/min Est GFR (Non-Af Amer) 30.0 ml/min BUN/Creatinine Ratio 21.9 H (10-20) Glucose 112 H (70-99) mg/dl POC Glucose (70-99) mg/dl Estimat Average Glucose mg/dl Hemoglobin A1c (4.5-5.6) % Lactate (0.4-2.0) mmol/L Calcium 9.7 (8.5-10.1) mg/dl Phosphorus Magnesium (1.8-2.4) mg/dl Total Bilirubin 3.2 H (0.2-1) mg/dl AST (15-37) U/L ALT 31 (12-78) U/L Alkaline Phosphatase 412 H (45-117) U/L Total Protein 8.2 (6.4-8.2) gm/dl Albumin 4.0 (3.4-5.0) gm/dl Globulin 4.2 H (2.5-4.0) gm/dl Albumin/Globulin Ratio 1.0 (0.9-2) Lipase 229 (73-393) U/L Urine Color Yellow Urine Appearance Clear (Clear) Urine pH 5.0 (4.5-7.5) Ur Specific Duncan 1.012 (1.000-1.030) Urine Protein 1+ H (Negative) Urine Glucose (UA) Negative (Negative) Urine Ketones Negative (Negative) Urine Blood Negative (Negative) Urine Nitrite Negative (Negative) Urine Bilirubin Negative (Negative) Urine Urobilinogen Negative (Negative) Ur Leukocyte Esterase Negative (Negative) Urine WBC (Auto) 1-5 (0-5) /hpf Urine RBC (Auto) 0-4 (0-4) /hpf U Hyaline Cast (Auto) 1-5 (0-5) /lpf U Epithel Cells (Auto) 5-10 H (0-5) /lpf Urine Bacteria (Auto) Negative (Negative) COVID-19 Eval Order Covid19 at [facility] SARS-CoV-2 (PCR) (Negative) 03/25/21 Range/Units 16:39 WBC 8.03 (4.8-10.8) K/uL RBC 4.71 (4.7-6.1) M/uL Hgb 15.2 (14.0-18.0) g/dL Hct 44.0 (42-52) % MCV 93.4 (80-100) fL MCH 32.3 (25-34) pg MCHC 34.5 (32-36) g/dL RDW Std Deviation 56.4 H (36.4-46.3) fL RDW Coeff of Josh 16.6 H (11.5-14.5) % Plt Count 121 L (130-400) K/uL MPV 12.2 H (7.4-10.4) fL Immature Gran % (Auto) 0.1 % Neut % (Auto) 82.4 % Lymph % (Auto) 9.7 % Sullivan % (Auto) 7.6 % Eos % (Auto) 0.1 % Baso % (Auto) 0.1 % Neut # (Auto) 6.61 H (1.4-6.5) K/uL Lymph # (Auto) 0.78 L (1.2-3.4) K/uL Sullivan # (Auto) 0.61 H (0.11-0.59) K/uL Eos # (Auto) 0.01 (0-0.5) K/uL Baso # (Auto) 0.01 (0-0.2) K/uL Immature Gran # (Auto) 0.01 (0.00-0.02) K/uL Sodium (136-145) mmol/L Potassium (3.5-5.1) mmol/L Chloride (98-107) mmol/L Carbon Dioxide (21-32) mmol/L Anion Gap (3-11) BUN (7-18) mg/dl Creatinine (0.6-1.4) mg/dl Est Cr Clr Drug Dosing ml/min Est GFR ( Amer) ml/min Est GFR (Non-Af Amer) ml/min BUN/Creatinine Ratio (10-20) Glucose (70-99) mg/dl POC Glucose (70-99) mg/dl Estimat Average Glucose mg/dl Hemoglobin A1c (4.5-5.6) % Lactate (0.4-2.0) mmol/L Calcium (8.5-10.1) mg/dl Phosphorus Magnesium (1.8-2.4) mg/dl Total Bilirubin (0.2-1) mg/dl AST (15-37) U/L ALT (12-78) U/L Alkaline Phosphatase (45-117) U/L Total Protein (6.4-8.2) gm/dl Albumin (3.4-5.0) gm/dl Globulin (2.5-4.0) gm/dl Albumin/Globulin Ratio (0.9-2) Lipase (73-393) U/L Urine Color Urine Appearance (Clear) Urine pH (4.5-7.5) Ur Specific Duncan (1.000-1.030) Urine Protein (Negative) Urine Glucose (UA) (Negative) Urine Ketones (Negative) Urine Blood (Negative) Urine Nitrite (Negative) Urine Bilirubin (Negative) Urine Urobilinogen (Negative) Ur Leukocyte Esterase (Negative) Urine WBC (Auto) (0-5) /hpf Urine RBC (Auto) (0-4) /hpf U Hyaline Cast (Auto) (0-5) /lpf U Epithel Cells (Auto) (0-5) /lpf Urine Bacteria (Auto) (Negative) COVID-19 Eval Order SARS-CoV-2 (PCR) (Negative) Medications Administered Current Inpatient Medications Acetaminophen (Acetaminophen 1000 Mg/100 Ml Iv) 1,000 mg IV TID PRN PRN Reason: Pain or Fever Stop: 03/29/21 02:18 Albuterol (Albuterol Hfa 8 Gm Inhaler) 2 puffs INH Q6H PRN PRN Reason: Shortness Of Breath Stop: 04/25/21 02:18 Allopurinol (Allopurinol 100 Mg Tab) 100 mg PO BID [facility] Stop: 04/25/21 08:59 Last Admin: 03/26/21 09:39 Dose: 100 mg Documented by: Aspirin (Aspirin 81 Mg Ectab) 81 mg PO QAM [facility] Stop: 04/25/21 08:59 Last Admin: 03/26/21 09:38 Dose: 81 mg Documented by: Benzonatate (Benzonatate 100 Mg Capsule) 200 mg PO TID PRN PRN Reason: Cough Stop: 04/25/21 02:18 Cetirizine HCl (Cetirizine Hcl 10 Mg Tablet) 10 mg PO DAILY PRN PRN Reason: Allergy Symptoms Stop: 04/25/21 02:18 Clopidogrel Bisulfate (Clopidogrel Bisulfate 75 Mg Tab) 75 mg PO QAM [facility] Stop: 04/25/21 08:59 Last Admin: 03/26/21 09:38 Dose: 75 mg Documented by: Dextrose (Dextrose 50% 50 Ml Syringe) 25 - 50 ml IV UD PRN; Protocol PRN Reason: Hypoglycemia Protocol Stop: 04/25/21 03:14 Dicyclomine HCl (Dicyclomine Hcl 10 Mg Cap) 10 mg PO TID [facility] Stop: 04/25/21 08:59 Last Admin: 03/26/21 09:37 Dose: 10 mg Documented by: Docusate Sodium (Docusate Sodium 100 Mg Cap) 100 mg PO BID [facility] Stop: 04/25/21 08:59 Last Admin: 03/26/21 09:39 Dose: 100 mg Documented by: Famotidine (Famotidine 40 Mg Tablet) 40 mg PO DAILY PRN PRN Reason: Heartburn Stop: 04/25/21 02:18 Glucagon (Glucagon For Inj 1 Mg Vial) 1 mg IM UD PRN; Protocol PRN Reason: Hypoglycemia Protocol Stop: 04/25/21 03:14 Glucose (Glucose 40% Gel 15 Gm Tube) 15 - 30 gm PO UD PRN; Protocol PRN Reason: Hypoglycemia Protocol Stop: 04/25/21 03:14 Glucose (Glucose 10 Tabs/Tube) 4 - 8 tabs PO UD PRN; Protocol PRN Reason: Hypoglycemia Protocol Stop: 04/25/21 03:14 Heparin Sodium (Porcine) (Heparin Sod 5,000 Unit/0.5 Ml Vial) 5,000 units SQ Q8 SIMRAN Stop: 04/25/21 05:59 Last Admin: 03/26/21 06:38 Dose: 5,000 units Documented by: Hydromorphone HCl (Hydromorphone Inj 0.5 Mg/0.5 Ml Syr) 0.5 mg IV Q4H PRN PRN Reason: Pain Stop: 04/09/21 03:20 Last Admin: 03/26/21 03:33 Dose: 0.5 mg Documented by: Piperacillin Sod/Tazobactam (Sod 3.375 gm/ Dextrose) 115 mls @ 28.75 mls/hr IV Q12H SIMRAN; Protocol Stop: 04/05/21 19:59 Insulin Aspart (Insulin Aspart 100 Units/Ml 3 Ml Pen) 0 units SC ACHS [facility] Stop: 04/25/21 07:29 Last Admin: 03/26/21 11:19 Dose: Not Given Documented by: Miscellaneous (Carbohydrates For Hypoglycemia ) 15 - 30 gm PO UD PRN PRN Reason: Hypoglycemia Treatment Stop: 04/25/21 03:14 Miscellaneous Information (Piperacill/Tazobac Consult Active) 1 ea N/A UD PRN PRN Reason: Consult Stop: 04/25/21 11:01 Multivitamins/Minerals (Cerovite Adv Formula Tab) 1 tab PO QAM [facility] Stop: 04/25/21 08:59 Last Admin: 03/26/21 09:37 Dose: 1 tab Documented by: Ondansetron HCl (Ondansetron Inj 2 Mg/Ml 2 Ml Vial) 4 mg IV Q6H PRN PRN Reason: Nausea Stop: 04/25/21 02:18 Pantoprazole Sodium (Pantoprazole 40 Mg Tab) 40 mg PO QAM SIMRAN Stop: 04/25/21 08:59 Last Admin: 03/26/21 09:38 Dose: 40 mg Documented by: Polyethylene Glycol (Polyethylene (Miralax) 17 Gm Pack) 17 gm PO BID [facility] Stop: 04/25/21 02:18 Last Admin: 03/26/21 09:37 Dose: 17 gm Documented by: Vitamin D (Cholecalciferol 1,000 Units 25 Mcg Tab) 2,000 units PO QAM [facility] Stop: 04/25/21 08:59 Last Admin: 03/26/21 09:39 Dose: 2,000 units Documented by:
[2021-03-26] MEDS ORDERED: SODIUM CHLORIDE 0.9% 1000ML 1,000 ML IV ONE (12:57)
--- NOTE | 2021-03-26 13:12 | CT Scan Report ---
CT chest diagnostic wo con CT DOSE: 329.47 mGy.cm CLINICAL HISTORY: 81 years-old Male with hypoxia. Acute shortness of breath with hypoxia TECHNIQUE: Multiaxial CT images of the chest were performed without contrast. A dose lowering techni que was utilized adhering to the principles of ALARA. COMPARISON: Chest CT 07/11/2020 FINDINGS: Unremarkable thyroid. No adenopathy. Moderate cardiomegaly. Extensive coronary artery calcifications with advanced atherosclerotic plaque of the thoracic aorta. Prior median sternotomy with findings sug gestive of CABG. Aortic and mitral annular calcifications. The pulmonary artery is dilated measuring up to 3.3 cm suggestive of pulmonary artery hypertension. Small left and moderate right pleural effusions appear stable to mildly decreased in size from compar usman. No pneumothorax. There are consolidative and groundglass opacities of the right lung base. Mini mal compressive atelectasis of the left lower lobe. 3 mm solid nodule of the left upper lobe on image 114 is unchanged. Scattered punctate pulmonary granulomata. Mild emphysema. 3 mm solid nodule of the right upper lobe on image 103 previously measured 2 mm. Central airways are patent. There is a small volume of upper abdominal ascites. Recanalization of the umbilical vein. Hepatomegal y with hepatic steatosis. Mild nonspecific distal esophageal wall thickening with gastric distention. Small subxiphoid intra-abdominal wall hernia. No acute fracture. Degenerative changes of the shoulde rs and spine. IMPRESSION: 1. Small left and moderate right pleural effusions appear stable to mildly decreased in size from com parison. 2. Groundglass and consolidative opacities of the right lung base are suspicious for pneumonia versus aspiration pneumonitis. 3. Small volume of upper abdominal ascites. 4. Mild emphysema. 5. Additional findings as above. ACT 112: Negative or not required by law. Electronically signed by: Chavo Long M.D. 03/26/2021 1:10 PM
[2021-03-26] MEDS ORDERED: Nursing to Pharmacy Communication SCH (14:45)
--- NOTE | 2021-03-26 14:59 | Surgery Consultation ---
Date of Consultation March 26, 2021 Assessment & Plan (1) Fecal impaction: Disimpacted in ED. Agree with GI recommendation for enemas. No acute abdominal findings to suggest ischemia. Lactate is down slightly this afternoon from 4.9 to 4.0. He also has renal and hepatic impairment that may be contributing to earlier rise/slower improvement in lactate. Supervising Physician Co-Signing Physician Notes Pnt S&E, agree with above. 81 y/o male admitted with constipation, found to be impacted, disimpacted in ED. Today wbc increased with elevated lactate. no abdominal pain. Multiple medical problems. on exam afvss, nad, aaox3. abd soft, nt, benign exam. wbc 23, lactate elevated but downtrending. Repeat CT limited by lack of iv and oral contrast, but no obvious source of leukocytosis. still with colonic stool burden, but rectal stool ball removed. some proctatitis. pneumonia, stercoral proctitis, no surgical intervention indicated. resume enemas. sitz baths. surgery will sign off. History of Present Illness Attending Physician: Siddhartha Knight MD History of Present Illness 81 y/o male admitted yesterday for constipation and rectal pain/pressure, urinary retention. Last BM was two days before presentation. Was disimpacted in the ED and felt a little better after that. Denies abdominal pain, nausea, fevers. H/o laparoscopic hernia repair. Has noticed some constipation over the past month but regularly takes Metamucil and prn miralax. Allergies Allergy/AdvReac Type Severity Reaction Status Date / Time tramadol Allergy Severe Hallucinati Verified 03/25/21 10:02 ng amiodarone Allergy Intermediate "streaking Verified 03/25/21 10:02 up vein" and painful lactose Allergy Mild GI UPSET Verified 03/25/21 10:02 pollen extracts Allergy Mild HAYFEVER Verified 03/25/21 10:02 lisinopril AdvReac Mild COUGH Verified 03/25/21 10:02 Home Medications Medication Instructions Recorded Confirmed Type albuterol sulfate 90 mcg/actuation 2 puff INHALATION Q6H PRN 01/11/19 08/28/20 History aerosol inhaler allopurinol 100 mg tablet 100 mg PO BID 01/11/19 08/28/20 History amoxicillin 500 mg capsule 500 mg PO UD PRN 01/11/19 08/28/20 History aspirin 81 mg tablet,delayed 81 mg PO QAM 01/11/19 08/28/20 History release (Aspirin Low Dose) atorvastatin 40 mg tablet 40 mg PO PM 01/11/19 08/28/20 History benzonatate 200 mg capsule 200 mg PO TID PRN 01/11/19 08/28/20 History cetirizine 10 mg tablet 10 mg PO DAILY PRN 01/11/19 08/28/20 History clopidogrel 75 mg tablet 75 mg PO QAM 01/11/19 08/28/20 History docusate sodium 100 mg tablet 100 mg PO BID 01/11/19 08/28/20 History glucosamine sulf dipot 1 cap PO BID 01/11/19 08/28/20 History chlr,msm,chond 550 mg-C 30 mg-narcisa 1 mg capsule (Glucosamine Chondroitin) saw palmetto 450 mg capsule 450 mg PO QPM 01/11/19 08/28/20 History vit C 50 mg-E 15 unit-zinc cit 4.5 1 tab PO QAM 01/11/19 08/28/20 History mg-lutein 2.5 mg-zeaxan chew tablet (Tactics Cloud) Leg Cramps 324 mg PO HS 02/01/19 08/28/20 History famotidine 40 mg tablet 40 mg PO DAILY PRN 07/10/20 08/28/20 History omeprazole 20 mg capsule,delayed 20 mg PO QAM 07/10/20 08/28/20 History release cholecalciferol (vitamin D3) 50 50 mcg PO QAM 08/28/20 08/28/20 History mcg (2,000 unit) tablet (Vitamin D3) glipizide 2.5 mg tablet, extended 2.5 mg PO DAILY 03/10/21 History release 24 hr spironolactone 25 mg tablet 25 mg PO QAM tab 03/10/21 History torsemide 10 mg tablet 10 mg PO DAILY PRN 03/10/21 History torsemide 10 mg tablet 10 mg PO QPM tab 03/10/21 History torsemide 20 mg tablet 30 mg PO DAILY tab 03/10/21 History Patient History Medical History Aortic stenosis 08/05/20 TTE suggestive of severe Cardio records state moderate per cath Asthma LAST USED INHALER THIS AM Chronic kidney disease, stage 3 Congestive heart failure with right ventricular systolic dysfunction Per records Admitted 06/2020 due to acute CHF with right heart failure to [facility]- cardio co nsulted- pt put on increased diuretics Coronary artery disease S/p 3 vessel CABG 2017 Per cardiac records- recent cath showing 80% distal LM and 90% LCx stenosis Diabetes mellitus, type 2 Fibromyalgia Hearing deficit History of GI bleed Hx of gout Hyperlipidemia Hypertension Mitral valve disease Mitral stenosis- REASON FOR UPCOMING CLEOPATRA Non-Hodgkin lymphoma diagnosed 2004 s/p chemo PAD (peripheral artery disease) s/p b/l iliac artery stents (2015) Pleural effusion due to CHF (congestive heart failure) REASON FOR LASIX Sleep apnea TESTING IN PROCESS Venous stasis ulcer Surgical History History of anesthesia reaction LOW OXYGEN SATURATION AFTER HERNIA SURGERY History of bilateral carpal tunnel release History of cardiac cath 2016 AND 08/25/20 AT [facility] History of esophagogastroduodenoscopy (EGD) History of left hip replacement History of lumbar discectomy History of lymph node biopsy History of phacoemulsification of cataract of both eyes with intraocular lens implantation History of right hip replacement History of tonsillectomy and adenoidectomy History of tooth extraction History of total hip arthroplasty RT/LEFT History of transesophageal echocardiography (CLEOPATRA) History of umbilical hernia repair Hx of left inguinal hernia repair Hx of right inguinal hernia repair S/P CABG x 3 2017 AT [facility] S/P colonoscopy 01/15/19 Status post insertion of iliac artery stent b/l (2015) Family History Grandmother (Paternal) Family history of diabetes mellitus Mother Family history of diabetes mellitus Aunt Family history of diabetes mellitus Uncle Family history of diabetes mellitus Grandfather (Maternal) Family history of diabetes mellitus Sister Family history of diabetes mellitus Father Family hx colonic polyps Other No family history of adverse response to anesthesia Social History Smoking Status: Never smoker Cigarettes Per Day: QUIT 45 YEARS AGO; Second Hand Exposure: No (father smoked); Hx Alcohol Use: Yes Alcohol type: beer Alcohol Intake Frequency: Monthly or Less Hx Substance Use: No Preferred Language: [place] Communication Ability: Effective Visual Impairment: Partially Limited Hearing Ability: Use of Hearing Aid 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: No Beliefs That Will Affect Care: None marital status: Current Living Situation: Spouse current occupational status: retired Feels Safe at Home: Yes Safety Concerns: Feels Safe At This Time Diet Comment: 1500 cc fluid restiction per pt caffeine: No during the past year weight has: decreased > 10 lbs Physical Activity Frequency: Does not Exercise Do you think of yourself as: straight/heterosexual Gender Identity: Male Assistive Devices: None Review of Systems Constitutional: + fever and + chills (at home); no anorexia Gastrointestinal: + constipation; no abdominal pain, no bloating, no nausea and no vomiting Physical Exam Constitutional: comfortable; no acute distress Respiratory: normal respiratory effort, lungs clear to auscultation Cardiovascular: Rate/Rhythm: regular rate (HR 86) Gastrointestinal (Abdomen): Inspection/Auscultation: + abdomen distended (mild) and + visible herniation (subxiphoid) Percussion/Palpation: abdomen soft; abdomen nontender Results & Data ([facility]) Vital Signs (Past 12 Hours) Vital Signs Temp Pulse Resp BP Pulse Ox 03/26/21 10:31 36.3 C L 94 H 18 100/66 95 03/26/21 05:34 37.0 C 103 H 18 113/69 95 PG Care Time/CCT Total # of Minutes Spent Total Time Spent with Patient: Total time spent is greater than 50% in coordination of care (as documented) at patient's floor/unit and/or counseling patient: Coding Level of Care Code 91987 Initial Inpt Care Lvl 2 Diagnoses Fecal impaction K56.41
[2021-03-26] MEDS: SODIUM CHLORIDE 0.9% 1000ML 1,000 ML IV SCH ×2 (15:05→23:18)
[2021-03-26] MEDS: ALBUMIN 25% 12.5 GM/50 ML VIAL IV SCH ×2 (15:06→15:58)
--- NOTE | 2021-03-26 15:40 | Critical Care Consultation ---
Date of Consultation March 26, 2021 Assessment & Plan (1) Hematuria: (2) Renal failure: (3) Fecal impaction: (4) Pleural effusion: (5) Diastolic heart failure: Impression: 81-year-old male with multiple medical comorbidities admitted with rectal impaction. He is now developed hematuria after Cole catheter placement and has been seen by urology. His white count was elevated however his exam is fairly benign. He does have an effusion but is currently on Plavix. There was concerned about initial low blood pressure and an elevated lactate. Recommendations: 1. Right pleural effusion: Unclear if this represents hepatic hydrothorax as the patient does have some fluid collection around his liver. Could consider thoracentesis however this is an elective procedure and the patient is on Plavix. If we were to sample this, ideally would like him to have off of Plavix for 5 days prior to thoracentesis. Holding diuresis currently given the patient's marginal blood pressure. 2. Lactic acidosis: Unclear if this is related to transient bacterial translocation associated with his manual disimpaction. He has been initiated on Zosyn. If he has underlying hepatic impairment, this may delay clearance of lactate. We will recheck his lactate as well as his chemistry panel now and reassess. We will judiciously support his blood pressure with crystalloid and colloid as needed. Hospitalist is ordered a repeat CT of the abdomen and pelvis post disimpaction which I think is reasonable. It is reassuring that his exam is relatively unremarkable. 3. Acute kidney failure: Nephrology has been consulted. Will recheck urinalysis with urine sodium and creatinine. AIN seems less likely. Recheck CPK levels. 4. Management patient's diabetes per primary service. 5. Hypoxemia: Secondary to pleural effusion. Continue supplemental oxygen for now. 6. Hematuria: Management per urology. There do not appear to be any clots and no indication for transitioning to continuous bladder irrigation. Suspect this may be related to Cole trauma, prostatic issues, and the patient being on antiplatelet agents. Continue to follow expectantly. We will continue to follow and follow-up with laboratory studies as noted above. History of Present Illness Attending Physician: Siddhartha Knight MD History of Present Illness Asked by hospitalist to evaluate this patient with acute renal failure, intermittent hypotension, questionable presyncopal event, and stool impaction with hematuria. History is obtained from discussion with the hospitalist as well as review the electronic medical record. Patient is an 81-year-old male with multiple medical issues including chronic kidney disease hyperlipidemia peripheral vascular disease diabetes and moderate aortic stenosis with diastolic heart failure who presented to the emergency room 03/25 with constipation and rectal pain. He was found to have stool impaction and underwent manual disimpaction in the emergency room. He has had GI consultation. A Cole catheter was placed due to urinary retention and the patient has had some hematuria. He had an elevation in his serum creatinine. He was observed overnight and found to have a marked elevation in his white blood cell count. Surgical consultation has been obtained. His abdominal exam is unremarkable. Due to the complexity of his issues he was transferred to the PCU. The nurse attending him had several questions for the hospitalist which prompted her to consult the acid regenerator. I presented to assess the patient at bedside. He is awake alert and conversant. He denies any complaints. He states he is passing some gas. He denies abdominal pain. He is slightly distended but nontender. He is awake alert and conversant and does not appear in any acute distress. There was concern about low blood pressure however on my recheck his blood pressure is in the 1 teens over 60s. He has received albumin as well as a 500 cc bolus of saline. There is some concern about potential underlying liver disease. Patient does have some perihepatic and perisplenic fluid concerning for potential cirrhosis. He also has a right effusion identified on CT of the chest but no evidence of pneumonia. Has been initiated on Zosyn. Repeat CT scan is currently pending. Allergies Allergy/AdvReac Type Severity Reaction Status Date / Time tramadol Allergy Severe Hallucinati Verified 03/25/21 10:02 ng amiodarone Allergy Intermediate "streaking Verified 03/25/21 10:02 up vein" and painful lactose Allergy Mild GI UPSET Verified 03/25/21 10:02 pollen extracts Allergy Mild HAYFEVER Verified 03/25/21 10:02 lisinopril AdvReac Mild COUGH Verified 03/25/21 10:02 Home Medications Medication Instructions Recorded Confirmed Type albuterol sulfate 90 mcg/actuation 2 puff INHALATION Q6H PRN 01/11/19 08/28/20 History aerosol inhaler allopurinol 100 mg tablet 100 mg PO BID 01/11/19 08/28/20 History amoxicillin 500 mg capsule 500 mg PO UD PRN 01/11/19 08/28/20 History aspirin 81 mg tablet,delayed 81 mg PO QAM 01/11/19 08/28/20 History release (Aspirin Low Dose) atorvastatin 40 mg tablet 40 mg PO PM 01/11/19 08/28/20 History benzonatate 200 mg capsule 200 mg PO TID PRN 01/11/19 08/28/20 History cetirizine 10 mg tablet 10 mg PO DAILY PRN 01/11/19 08/28/20 History clopidogrel 75 mg tablet 75 mg PO QAM 01/11/19 08/28/20 History docusate sodium 100 mg tablet 100 mg PO BID 01/11/19 08/28/20 History glucosamine sulf dipot 1 cap PO BID 01/11/19 08/28/20 History chlr,msm,chond 550 mg-C 30 mg-narcisa 1 mg capsule (Glucosamine Chondroitin) saw palmetto 450 mg capsule 450 mg PO QPM 01/11/19 08/28/20 History vit C 50 mg-E 15 unit-zinc cit 4.5 1 tab PO QAM 01/11/19 08/28/20 History mg-lutein 2.5 mg-zeaxan chew tablet ([employer] Leg Cramps 324 mg PO HS 02/01/19 08/28/20 History famotidine 40 mg tablet 40 mg PO DAILY PRN 07/10/20 08/28/20 History omeprazole 20 mg capsule,delayed 20 mg PO QAM 07/10/20 08/28/20 History release cholecalciferol (vitamin D3) 50 50 mcg PO QAM 08/28/20 08/28/20 History mcg (2,000 unit) tablet (Vitamin D3) glipizide 2.5 mg tablet, extended 2.5 mg PO DAILY 03/10/21 History release 24 hr spironolactone 25 mg tablet 25 mg PO QAM tab 03/10/21 History torsemide 10 mg tablet 10 mg PO DAILY PRN 03/10/21 History torsemide 10 mg tablet 10 mg PO QPM tab 03/10/21 History torsemide 20 mg tablet 30 mg PO DAILY tab 03/10/21 History Patient History Medical History Aortic stenosis 08/05/20 TTE suggestive of severe Cardio records state moderate per cath Asthma LAST USED INHALER THIS AM Chronic kidney disease, stage 3 Congestive heart failure with right ventricular systolic dysfunction Per records Admitted 06/2020 due to acute CHF with right heart failure to [facility]- cardio consulted- pt put on increased diuretics Coronary artery disease S/p 3 vessel CABG 2017 Per cardiac records- recent cath showing 80% distal LM and 90% LCx stenosis Diabetes mellitus, type 2 Fibromyalgia Hearing deficit History of GI bleed Hx of gout Hyperlipidemia Hypertension Mitral valve disease Mitral stenosis- REASON FOR UPCOMING CLEOPATRA Non-Hodgkin lymphoma diagnosed 2004 s/p chemo PAD (peripheral artery disease) s/p b/l iliac artery stents (2015) Pleural effusion due to CHF (congestive heart failure) REASON FOR LASIX Sleep apnea TESTING IN PROCESS Venous stasis ulcer Surgical History History of anesthesia reaction LOW OXYGEN SATURATION AFTER HERNIA SURGERY History of bilateral carpal tunnel release History of cardiac cath 2016 AND 08/25/20 AT [facility] History of esophagogastroduodenoscopy (EGD) History of left hip replacement History of lumbar discectomy History of lymph node biopsy History of phacoemulsification of cataract of both eyes with intraocular lens implantation History of right hip replacement History of tonsillectomy and adenoidectomy History of tooth extraction History of total hip arthroplasty RT/LEFT History of transesophageal echocardiography (CLEOPATRA) History of umbilical hernia repair Hx of left inguinal hernia repair Hx of right inguinal hernia repair S/P CABG x 3 2017 AT [facility] S/P colonoscopy 01/15/19 Status post insertion of iliac artery stent b/l (2015) Family History Grandmother (Paternal) Family history of diabetes mellitus Mother Family history of diabetes mellitus Aunt Family history of diabetes mellitus Uncle Family history of diabetes mellitus Grandfather (Maternal) Family history of diabetes mellitus Sister Family history of diabetes mellitus Father Family hx colonic polyps Other No family history of adverse response to anesthesia Social History Smoking Status: Never smoker Cigarettes Per Day: QUIT 45 YEARS AGO; Second Hand Exposure: No (father smoked); Hx Alcohol Use: Yes Alcohol type: beer Alcohol Intake Frequency: Monthly or Less Hx Substance Use: No Preferred Language: Wallisian Communication Ability: Effective Visual Impairment: Partially Limited Hearing Ability: Use of Hearing Aid 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 I have no additions or deletions Physical Exam Constitutional: well developed and well nourished; no acute distress and not ill appearing ENMT: Ears: no external ear abnormality Nose: no external nose abnormality Neck: normal visual inspection and trachea midline Respiratory: normal respiratory effort and able to speak in complete sentences; no respiratory distress and no audible wheezes On oxygen therapy via simple facemask Cardiovascular: Extremities: no calf tenderness Gastrointestinal (Abdomen): Inspection/Auscultation: abdomen normal to inspection; abdomen not distended Percussion/Palpation: + abdomen firm; abdomen nontender and no guarding Musculoskeletal: Moves all extremities without difficulty. Skin: No visible rashes, lesions, or wounds noted. Neurologic: moves all extremities and awake Psychiatric: Orientation: alert, oriented x 3 and cooperative Affect: euthymic affect Genitourinary: Cole catheter patent, hematuria noted Results & Data Results & Data ([facility]) Vital Signs (Past 12 Hours) Vital Signs Temp Pulse Resp BP Pulse Ox 03/26/21 10:31 36.3 C L 94 H 18 100/66 95 03/26/21 05:34 37.0 C 103 H 18 113/69 95 Critical Care Results & Data Vital Signs (Past 12 Hours) Vital Signs Temp Pulse Resp BP Pulse Ox 03/26/21 10:31 36.3 C L 94 H 18 100/66 95 03/26/21 05:34 37.0 C 103 H 18 113/69 95 Lab & Micro Results (Past 24 Hours) RBC 4.57 M/uL (4.7-6.1) L 03/26/21 WBC 23.84 K/uL (4.8-10.8) H 03/26/21 Hgb 14.8 g/dL (14.0-18.0) 03/26/21 Hct 44.2 % (42-52) 03/26/21 MCV 96.7 fL (80-100) 03/26/21 MCH 32.4 pg (25-34) 03/26/21 MCHC 33.5 g/dL (32-36) 03/26/21 RDW Standard Deviation 58.7 fL (36.4-46.3) H 03/26/21 RDW Coefficient of Variation 16.8 % (11.5-14.5) H 03/26/21 Plt Count 111 K/uL (130-400) L 03/26/21 MPV 12.4 fL (7.4-10.4) H 03/26/21 Neutrophils (%) (Auto) 86.5 % 03/26/21 Lymphocytes (%) (Auto) 4.8 % 03/26/21 Monocytes # (Auto) 1.75 K/uL (0.11-0.59) H 03/26/21 Eosinophils # (Auto) 0.00 K/uL (0-0.5) 03/26/21 Immature Granulocyte % (Auto) 0.3 % 03/26/21 Neutrophils # (Auto) 18.20 K/uL (1.4-6.5) H 03/26/21 Lymphocytes # (Auto) 1.02 K/uL (1.2-3.4) L 03/26/21 Monocytes # (Auto) 1.75 K/uL (0.11-0.59) H 03/26/21 Eosinophils # (Auto) 0.00 K/uL (0-0.5) 03/26/21 Basophils # (Auto) 0.02 K/uL (0-0.2) 03/26/21 Immature Granulocyte # (Auto) 0.07 K/uL (0.00-0.02) H 03/26/21 Na 130 mmol/L (136-145) L 03/26/21 K 5.1 mmol/L (3.5-5.1) 03/26/21 Cl 98 mmol/L (98-107) 03/26/21 CO2 21 mmol/L (21-32) 03/26/21 Anion Gap 11.0 (3-11) 03/26/21 BUN 54 mg/dl (7-18) H 03/26/21 Creatinine 2.96 mg/dl (0.6-1.4) H 03/26/21 Estimated GFR ( Amer) 21.9 ml/min 03/26/21 Estimated GFR (Non-Af Amer) 18.9 ml/min 03/26/21 BUN/Creatinine Ratio 18.2 (10-20) 03/26/21 Glu 101 mg/dl (70-99) H 03/26/21 Ca 9.9 mg/dl (8.5-10.1) 03/26/21 Phosphorus Level 6.0 mg/dl (2.5-4.9) H 03/26/21 Total Bilirubin 3.8 mg/dl (0.2-1) H 03/26/21 AST 58 U/L (15-37) H 03/26/21 ALT 28 U/L (12-78) 03/26/21 Alkaline Phosphatase 352 U/L (45-117) H 03/26/21 TP 7.4 gm/dl (6.4-8.2) 03/26/21 Albumin 3.5 gm/dl (3.4-5.0) 03/26/21 Globulin 3.9 gm/dl (2.5-4.0) 03/26/21 Albumin/Globulin Ratio 0.9 (0.9-2) 03/26/21 Mg 2.4 mg/dl (1.8-2.4) 03/26/21 11:55 03/26/21 Calcium Level 9.9 mg/dl (8.5-10.1) 03/26/21 11:55 03/26/21 Diagnostic Findings (Past 24 Hours) Abdomen/Pelvis CT 03/25/21 16:[address] WITHOUT CONTRAST CT DOSE: 399.26 mGy.cm HISTORY: not able to move bowels, rectal pain TECHNIQUE: Multiaxial CT images of the abdomen and pelvis were performed without contrast. A dose lowering technique was utilized adhering to the principles of ALARA. COMPARISON STUDY: Chest CT 07/11/2020. FINDINGS: No pneumoperitoneum. No pneumatosis. There are bilateral total hip arthroplasties. No suspicious lytic are blastic osseous lesions. Moderate right pleural effusion and right basilar linear densities have slightly improved. Mild body wall edema with a small amount of ascites. Stable 1 cm hypodense lesion within the left hepatic lobe. This is incompletely characterized on this noncontrast study but favors a cyst. The unenhanced gallbladder, spleen, adrenal glands, and pancreas are unremarkable. No retroperitoneal lymphadenopathy. No renal or ureteral stones. No hydronephrosis. Bilateral iliac artery stents are noted. Normal caliber abdominal aorta. Normal bladder. Suboptimal evaluation for bowel pathology due to the lack of intravenous and oral contrast. However, there is no definite bowel wall thickening or obstruction. Colonic diverticulosis. No evidence for acute diverticulitis. No evidence for acute appendicitis. Moderate well-formed stool seen throughout the majority the colon. There is also a large rectal stool ball measuring 6.7 cm. This may account for the patient's reported history of constipation. IMPRESSION: 1. Moderate stool within the colon with a large rectal stool ball. This may account for the patient's reported constipation. 2. Moderate right pleural effusion. This is slightly improved in the interval. 3. Small amount of ascites. 4. No evidence for bowel obstruction. 5. Colonic diverticulosis. 6. Additional findings as described above. ACT 112: Negative or not required by law. Electronically signed by: Venkat Yost M.D. 03/25/2021 6:[address] 03/26/21 08:41 CT chest diagnostic wo con CT DOSE: 329.47 mGy.cm CLINICAL HISTORY: 81 years-old Male with hypoxia. Acute shortness of breath with hypoxia TECHNIQUE: Multiaxial CT images of the chest were performed without contrast. A dose lowering technique was utilized adhering to the principles of ALARA. COMPARISON: Chest CT 07/11/2020 FINDINGS: Unremarkable thyroid. No adenopathy. Moderate cardiomegaly. Extensive coronary artery calcifications with advanced atherosclerotic plaque of the thoracic aorta. Prior median sternotomy with findings suggestive of CABG. Aortic and mitral annular calcifications. The pulmonary artery is dilated measuring up to 3.3 cm suggestive of pulmonary artery hypertension. Small left and moderate right pleural effusions appear stable to mildly decreased in size from comparison. No pneumothorax. There are consolidative and groundglass opacities of the right lung base. Minimal compressive atelectasis of the left lower lobe. 3 mm solid nodule of the left upper lobe on image 114 is unchanged. Scattered punctate pulmonary granulomata. Mild emphysema. 3 mm solid nodule of the right upper lobe on image 103 previously measured 2 mm. Central airways are patent. There is a small volume of upper abdominal ascites. Recanalization of the umbil ical vein. Hepatomegaly with hepatic steatosis. Mild nonspecific distal esophageal wall thickening with gastric distention. Small subxiphoid intra- abdominal wall hernia. No acute fracture. Degenerative changes of the shoulders and spine. IMPRESSION: 1. Small left and moderate right pleural effusions appear stable to mildly decreased in size from comparison. 2. Groundglass and consolidative opacities of the right lung base are suspicious for pneumonia versus aspiration pneumonitis. 3. Small volume of upper abdominal ascites. 4. Mild emphysema. 5. Additional findings as above. ACT 112: Negative or not required by law. Electronically signed by: Chavo Long M.D. 03/26/2021 1:10 PM Gallbladder Ultrasound 03/26/21 11:00 ULTRASOUND RIGHT UPPER QUADRANT ABDOMEN CLINICAL HISTORY: Sepsis. Elevated hepatic transaminases. COMPARISON STUDY: Abdominal CT dated 03/25/2021 TECHNIQUE: Real-time, grayscale, and color flow sonography of the right upper quadrant of the abdomen was performed. Images are reviewed in the transverse and longitudinal planes. FINDINGS: Liver: The liver is cirrhotic in morphology and heterogeneous in echotexture. There is nodularity of the hepatic surface contour. There is no intrahepatic biliary ductal dilatation. The main portal vein is patent. The left lobe hypodensity suggested by CT is not seen by ultrasound. Gallbladder: There is mild nonspecific gallbladder wall thickening, likely due to cirrhosis and ascites. No shadowing gallstones are identified. A sonographic Salas's sign is reportedly absent. The common bile duct measures up to 0.3 cm in diameter. Pancreas: Not visualized due to overlying bowel gas. Right kidney: Survey images of the right kidney demonstrate normal size and echotexture. There is no hydronephrosis. Ascites: There is a small volume of perihepatic ascites. Pleural spaces: A right pleural effusion is noted. IMPRESSION: 1. The liver is cirrhotic in morphology and heterogeneous in echotexture. 2. Small volume perihepatic ascites. 3. No shadowing gallstones are identified. 4. Mild nonspecific gallbladder wall thickening is likely related to cirrhosis and ascites. 5. Nonvisualization of the pancreas. 6. Right pleural effusion. ACT 112: Negative or not required by law. Electronically signed by: Darrell Painting M.D. 03/26/2021 11:22 AM I & O Totals 24 Hours 03/25/21 03/26/21 03/27/21 06:59 06:59 06:59 Intake Total 699.167 / 699.167 Output Total 0 / 0 Balance 0 / 0 699.167 / 699.167 Cumulative 03/25/21 16:01 thru 03/26/21 12:30 Intake Total 699.167 Output Total 0 Balance 699.167 RT Ventilator Mngmt (Last Documented) Ventilator Ordered Settings Respiratory Rate 18 03/26/21 10:31 Ventilator - PT Measurements Respiratory Rate 18 Coding Level of Care Code Critical Care 1st 30-74 mins Diagnoses Hematuria R31.9 Renal failure N19 Fecal impaction K56.41 Pleural effusion J90 Diastolic heart failure I50.30 Time Spent (min) 48 Comment 48 min CC time manging multiple abnormalities.
[2021-03-26 16:00] LABS: Albumin Level 3.3 gm/dl (3.4-5.0); BUN Creatinine Ratio 19.8 (10-20); Calcium 9.2 mg/dl (8.5-10.1); Est GFR (African American) 24.5 ml/min; Est GFR (Non-African American) 21.1 ml/min; Potassium 5.3 mmol/L (3.5-5.1)
[2021-03-26 16:03] LABS: Albumin Globulin Ratio 0.9 (0.9-2); Bilirubin,Total 3.9 mg/dl (0.2-1); Globulin 3.6 gm/dl (2.5-4.0); Total Protein 6.9 gm/dl (6.4-8.2)
--- NOTE | 2021-03-26 16:06 | CT Scan Report ---
CT SCAN OF THE ABDOMEN AND PELVIS WITHOUT IV CONTRAST CLINICAL HISTORY: Sepsis. COMPARISON STUDY: Abdominal CT dated 03/25/2021. TECHNIQUE: CT scan of the abdomen and pelvis is performed from the lung bases to the proximal femora. Images are reviewed in the axial, sagittal, and coronal planes. IV contrast was not administered for this examination. Note that the examination was performed in significantly suboptimal fashion withou t oral and IV contrast. There is motion artifact. A dose lowering technique was utilized adhering to the principles of ALARA. CT DOSE: 445.55 mGy.cm FINDINGS: Lung bases: The heart is normal in size and without pericardial effusion. The coronary arteries and m itral annulus are densely calcified. There are small to moderate right and trace left pleural effusio ns with right basilar consolidation. There are scattered calcified granulomas. Liver: The unenhanced liver is cirrhotic in morphology and heterogeneous in attenuation. There is nod ularity of the hepatic surface contour. There is no intrahepatic biliary ductal dilatation. Gallbladder: Unremarkable. Spleen: Normal in size and attenuation. Pancreas: The unenhanced pancreas is atrophic and grossly unremarkable. Adrenal glands: Unremarkable. Kidneys: The unenhanced kidneys are atrophic and without hydronephrosis. There are no renal calculi i dentified. There is no evidence of contour deforming renal mass lesion. Abdominal vasculature: The abdominal aorta is normal in course and caliber noting advanced atheroscle rotic calcification. Bilateral iliac artery stents are in place. Bowel: There is no bowel obstruction. There is moderate colonic diverticulosis without CT evidence of acute diverticulitis. Moderate fecal retention is seen typical. The appendix is normal as visualize d. Question rectal wall thickening. Peritoneum: There is a small volume of abdominopelvic ascites. No intraperitoneal free air is seen. Lymphadenopathy: None. Pelvic viscera: Evaluation of the pelvis is severely degraded by streak artifact from bilateral hip a rthroplasties. The bladder is decompressed around a Cole catheter and cannot be evaluated. The prost ate gland is not visualized due to streak artifact. Findings suggest previous left inguinal herniorrh aphy. Skeletal structures: The skeletal structures are osteopenic. There is moderate lumbosacral spondylosi s. Degenerative changes also seen in the sacroiliac joints. No lytic or blastic lesions are seen. Praveen ateral hip arthroplasties are in place. IMPRESSION: 1. Significantly suboptimal examination without oral and IV contrast. There is also streak and motion artifact. 2. No significant change from yesterday. 3. Right larger than left pleural effusions with bibasilar consolidation. This could represent atelec tasis an/or pneumonia and clinical correlation will be required. 4. Cirrhotic liver morphology and small volume of abdominopelvic ascites. 5. Moderate colonic fecal retention. 6. Question rectal wall thickening. Correlate clinically for evidence of proctitis. 7. Additional findings as above. ACT 112: Negative or not required by law. Electronically signed by: Darrell Painting M.D. 03/26/2021 4:04 PM
--- NOTE | 2021-03-26 17:06 | Nephrology Consultation ---
Date of Consultation March 26, 2021 Assessment & Plan (1) Acute on chronic renal failure: Stage I presumed nonoliguric acute on chronic renal failure CKD 3B with 300 mg baseline albuminuria. Renal function continues to trend upward. Favor ischemic ATN versus prerenal in the setting of sepsis, though definitive source of infection has yet to be located. no indication for discussion about dialysis. apart from K and mild hyponatremia, chemistries acceptable Follow-up pending blood cultures Mild hyperkalemia noted not needing intervention at this time; any diet orders or new fluid orders should be low potassium -current IVF ok for now Repeat CK in the morning with a.m. labs ordered -daily bmp History of Present Illness Reason for Consultation: JAMIE Requesting Physician: Dr Knight Attending Physician: Siddhartha Knight MD History of Present Illness 81-year-old male whom I am asked to see for acute renal failure was admitted early this morning with severe rectal pain, constipation, urinary retention. Past medical history includes hypertension, hyperlipidemia, type 2 diabetes, valvular heart failure with moderate aortic stenosis and preserved ejection fr action, coronary artery disease status post three-vessel CABG 2017, peripheral arterial disease status post bilateral iliac stents 2015, CKD3B baseline creatinine 1.5-1.6 and about 300 mg albuminuria, hyperlipidemia. Remote non- Hodgkin's lymphoma 2004 status post chemo. His outpatient blood pressures run in the 100-1 teens systolic. He was disimpacted in the emergency department but developed severe rectal pain requiring morphine. Also needed a Cole catheter to manage urinary retention, complicated by gross hematuria. Admitted for these reasons Overnight the patient's white count went from 8000-21,000, increasing further to 24,000 by midday today. He was noted to have a lactate level of 3.1, peaking at 4.9 by midday and trending down to 2.5 this afternoon. This afternoon the patie nt was noted to have periods of hypotension culminating in a syncopal/presyncopal episode with systolic blood pressures in the 80s. He received IV albumin as well as 1/2 L of normal saline. He does not follow with nephrology as an outpatient. His creatinine was 2.0 on presentation, increased to 3 this morning and is 2.7 this afternoon. GI evaluated the patient and recommended avoiding narcotics with tapwater enemas and MiraLAX. Urology evaluated the patient due to gross hematuria attributed to traumatic catheter placement in the setting of severe constipation and underlying prostatic hypertrophy. Urine sediment on presentation noted to be bland. General surgery evaluated the patient and recommended continued enemas Noted also to have right pleural effusion and some findings concerning for liver disease He tells me he is still feeling tired and weak. He has noted some shaking chills in the past 48 hours but no fever. He has been n.p.o. for 2 days. Abdominal pain at the time I evaluated him was not concerning. Denies nausea or vomiting. Denies anything other than exertional dyspnea. No orthopnea. No edema. He has been quite itchy recently with generalized pruritus and has been following at the wound clinic for bilateral lower extremity wounds and cellulitis. These have been improving recently Allergies Allergy/AdvReac Type Severity Reaction Status Date / Time tramadol Allergy Severe Hallucinati Verified 03/25/21 10:02 ng amiodarone Allergy Intermediate "streaking Verified 03/25/21 10:02 up vein" and painful lactose Allergy Mild GI UPSET Verified 03/25/21 10:02 pollen extracts Allergy Mild HAYFEVER Verified 03/25/21 10:02 lisinopril AdvReac Mild COUGH Verified 03/25/21 10:02 Home Medications Medication Instructions Recorded Confirmed Type albuterol sulfate 90 mcg/actuation 2 puff INHALATION Q6H PRN 01/11/19 08/28/20 History aerosol inhaler allopurinol 100 mg tablet 100 mg PO BID 01/11/19 08/28/20 History amoxicillin 500 mg capsule 500 mg PO UD PRN 01/11/19 08/28/20 History aspirin 81 mg tablet,delayed 81 mg PO QAM 01/11/19 08/28/20 History release (Aspirin Low Dose) atorvastatin 40 mg tablet 40 mg PO PM 01/11/19 08/28/20 History benzonatate 200 mg capsule 200 mg PO TID PRN 01/11/19 08/28/20 History cetirizine 10 mg tablet 10 mg PO DAILY PRN 01/11/19 08/28/20 History clopidogrel 75 mg tablet 75 mg PO QAM 01/11/19 08/28/20 History docusate sodium 100 mg tablet 100 mg PO BID 01/11/19 08/28/20 History glucosamine sulf dipot 1 cap PO BID 01/11/19 08/28/20 History chlr,msm,chond 550 mg-C 30 mg-narcisa 1 mg capsule (Glucosamine Chondroitin) saw palmetto 450 mg capsule 450 mg PO QPM 01/11/19 08/28/20 History vit C 50 mg-E 15 unit-zinc cit 4.5 1 tab PO QAM 01/11/19 08/28/20 History mg-lutein 2.5 mg-zeaxan chew tablet ([employer]uu[employer]) Leg Cramps 324 mg PO HS 02/01/19 08/28/20 History famotidine 40 mg tablet 40 mg PO DAILY PRN 07/10/20 08/28/20 History omeprazole 20 mg capsule,delayed 20 mg PO QAM 07/10/20 08/28/20 History release cholecalciferol (vitamin D3) 50 50 mcg PO QAM 08/28/20 08/28/20 History mcg (2,000 unit) tablet (Vitamin D3) glipizide 2.5 mg tablet, extended 2.5 mg PO DAILY 03/10/21 History release 24 hr spironolactone 25 mg tablet 25 mg PO QAM tab 03/10/21 History torsemide 10 mg tablet 10 mg PO DAILY PRN 03/10/21 History torsemide 10 mg tablet 10 mg PO QPM tab 03/10/21 History torsemide 20 mg tablet 30 mg PO DAILY tab 03/10/21 History Patient History Medical History Aortic stenosis 08/05/20 TTE suggestive of severe Cardio records state moderate per cath Asthma LAST USED INHALER THIS AM Chronic kidney disease, stage 3 Congestive heart failure with right ventricular systolic dysfunction Per records Admitted 06/2020 due to acute CHF with right heart failure to [facility]- cardio consulted- pt put on increased diuretics Coronary artery disease S/p 3 vessel CABG 2017 Per cardiac records- recent cath showing 80% distal LM and 90% LCx stenosis Diabetes mellitus, type 2 Fibromyalgia Hearing deficit History of GI bleed Hx of gout Hyperlipidemia Hypertension Mitral valve disease Mitral stenosis- REASON FOR UPCOMING CLEOPATRA Non-Hodgkin lymphoma diagnosed 2004 s/p chemo PAD (peripheral artery disease) s/p b/l iliac artery stents (2015) Pleural effusion due to CHF (congestive heart failure) REASON FOR LASIX Sleep apnea TESTING IN PROCESS Venous stasis ulcer Surgical History History of anesthesia reaction LOW OXYGEN SATURATION AFTER HERNIA SURGERY History of bilateral carpal tunnel release History of cardiac cath 2016 AND 08/25/20 AT [facility] History of esophagogastroduodenoscopy (EGD) History of left hip replacement History of lumbar discectomy History of lymph node biopsy History of phacoemulsification of cataract of both eyes with intraocular lens implantation History of right hip replacement History of tonsillectomy and adenoidectomy History of tooth extraction History of total hip arthroplasty RT/LEFT History of transesophageal echocardiography (CLEOPATRA) History of umbilical hernia repair Hx of left inguinal hernia repair Hx of right inguinal hernia repair S/P CABG x 3 2017 AT [facility] S/P colonoscopy 01/15/19 Status post insertion of iliac artery stent b/l (2015) Family History Grandmother (Paternal) Family history of diabetes mellitus Mother Family history of diabetes mellitus Aunt Family history of diabetes mellitus Uncle Family history of diabetes mellitus Grandfather (Maternal) Family history of diabetes mellitus Sister Family history of diabetes mellitus Father Family hx colonic polyps Other No family history of adverse response to anesthesia Social History Smoking Status: Never smoker Cigarettes Per Day: QUIT 45 YEARS AGO; Second Hand Exposure: No (father smoked); Hx Alcohol Use: Yes Alcohol type: beer Alcohol Intake Frequency: Monthly or L ess Hx Substance Use: No Preferred Language: Japanese Communication Ability: Effective Visual Impairment: Partially Limited Hearing Ability: Use of Hearing Aid Lime Supervisor Required: No Beliefs That Will Affect Care: None marital status: Current Living Situation: Spouse current occupational status: retired Feels Safe at Home: Yes Safety Concerns: Feels Safe At This Time Diet Comment: 1500 cc fluid restiction per pt caffeine: No during the past year weight has: decreased > 10 lbs Physical Activity Frequency: Does not Exercise Do you think of yourself as: straight/heterosexual Gender Identity: Male Assistive Devices: None Review of Systems Review of Systems: All systems reviewed & are unremarkable except as noted in HPI & below Physical Exam Constitutional: well developed, well nourished, + frail appearing and cooperative; no acute distress Eyes: EOM intact bilaterally ENMT: Ears: no external ear abnormality Nose: no external nose abnormality Mouth: + dry oral mucous membranes Neck: no nuchal rigidity Respiratory: normal respiratory effort Auscultation: + diminished lung sounds (Especially right base) and + wheezes (Occasional late inspiratory) Cardiovascular: Rate/Rhythm: regular rate and regular rhythm Heart Sounds: + murmur Extremities: + edema (Trace to 1+ bilateral pretibial) Gastrointestinal (Abdomen): Inspection/Auscultation: + abdomen distended (Slightly) and normal bowel sounds Percussion/Palpation: abdomen soft; abdomen nontender and no guarding Musculoskeletal: Extremities: strength 5/5 throughout Skin: no rashes, warm and dry Generalized pruritus noted during exam. Bandaged wounds left lateral and right medial lower extremity Neurologic: patricio, fluent speech, no tremor Psychiatric: Orientation: oriented x 3 Insight: good insight Judgement: good judgement Genitourinary: Cole with cloudy brown urine with less than 100 cc of output over the past 2 hours approximately Results & Data ([facility]) Vital Signs (Past 12 Hours) Vital Signs Temp Pulse Resp BP Pulse Ox 03/26/21 10:31 36.3 C L 94 H 18 100/66 95 03/26/21 05:34 37.0 C 103 H 18 113/69 95 Laboratory Results 03/26/21 11:55 03/26/21 15:29 CK 601, phosphorus 6 Admission UA: Clear yellow urine specific gravity 1012 1+ protein no bacteria no bilirubin no blood specific gravity 1012 Repeat urinalysis this afternoon brown turbid urine greater than 1030 specific gravity with 3+ protein 3+ blood 3+ bilirubin 1+ ketones and trace leukocyte Estrace Diagnostic Findings CT abdomen pelvis Noncon yesterday Moderate colonic stool with large rectal stool ball. Moderate right pleural effusion. Small amount of ascites. Kidneys and adrenal glands unremarkable.
[2021-03-26 17:18] LABS: Appearance Urine Turbid (Clear); Bilirubin Urine 3+ (Negative); Blood Urine 3+ (Negative); Color Urine Brown; Glucose Urine UA Negative (Negative); Ketones Urine 1+ (Negative); Leukocyte Esterase Urine Trace (Negative); Nitrite Urine Negative (Negative); Protein Urine 3+ (Negative); Specific Gravity Urine >= 1.030 (1.000-1.030); Urobilinogen Urine Negative (Negative)
[2021-03-26 17:23] LABS: Epithelial Cell Urine 0-5 /lpf (0-5); RBC Urine >30 /hpf (0-4)
[2021-03-26 17:26] LABS: Bacteria Urine 1+ (Negative)
[2021-03-26] MEDS: ACETAMINOPHEN 1000 MG/100 ML IV IV PRN (17:55)
[2021-03-26] MEDS ORDERED: NON-FORMULARY MEDICATION (Saw Palmetto 450 mg Capsule) PO SCH (21:00)
[2021-03-26] MEDS: PIPERACILLIN/TAZOBACTAM 3.375 GM in DEXTROSE 5% 100 ML IV SCH (21:21)
[2021-03-26] MEDS ORDERED: SODIUM CHLORIDE 0.9% 1000ML 250 ML IV ONE (22:51)
[2021-03-27] MEDS: INSULIN ASPART 100 UNITS/ML 3 ML PEN SC SCH ×5 (00:55→22:38)
[2021-03-27 02:49] LABS: Albumin Globulin Ratio 0.9 (0.9-2); Albumin Level 3.1 gm/dl (3.4-5.0); BUN Creatinine Ratio 21.3 (10-20); Bilirubin,Total 4.6 mg/dl (0.2-1); Calcium 8.9 mg/dl (8.5-10.1); Creatinine Clr Calc Pharmacy 16.7 ml/min; Est GFR (African American) 22.5 ml/min; Est GFR (Non-African American) 19.4 ml/min; Globulin 3.4 gm/dl (2.5-4.0); Magnesium 2.6 mg/dl (1.8-2.4); Phosphorus 5.9 mg/dl (2.5-4.9); Potassium 4.6 mmol/L (3.5-5.1); Total Protein 6.5 gm/dl (6.4-8.2)
[2021-03-27 02:55] LABS: Hematocrit (blood only) 42.6 % (42-52); Hemoglobin 14.4 g/dL (14.0-18.0); Mean Corpuscular Hemoglobin 32.4 pg (25-34); Mean Corpuscular Hgb Conc 33.8 g/dL (32-36); Mean Corpuscular Volume 95.9 fL (80-100); Platelet Count 72 K/uL (130-400); Platelet Estimate Decreased (Normal); RDW Coefficient of Variation 16.4 % (11.5-14.5); RDW Standard Deviation 58.2 fL (36.4-46.3); Red Blood Count 4.44 M/uL (4.7-6.1); White Blood Count 14.23 K/uL (4.8-10.8)
[2021-03-27] MEDS: ACETAMINOPHEN 1000 MG/100 ML IV IV PRN (06:31)
[2021-03-27] MEDS: HEPARIN SOD 5,000 UNIT/0.5 ML VIAL SQ SCH ×3 (06:32→21:34)
[2021-03-27] MEDS: SODIUM CHLORIDE 0.9% 1000ML 1,000 ML IV SCH ×2 (06:33→14:55)
--- NOTE | 2021-03-27 07:30 | Hospitalist Progress Note ---
Date of Service March 27, 2021 Assessment & Plan (1) Fecal impaction: (2) Pain in rectum: (3) Urinary retention: (4) Hematuria: Plan: Sepsis This is an 81-year-old male presented with constipation, severe rectal pain, and also urinary retention. 1. Severe rectal pain and constipation Severe rectal pain, could be from fissures from ongoing constipation. Underwent disimpaction in the ER May need treatment for possible fissures and stool impaction, even after disimpacted in the ER Placed him on gentle pain medications, MiraLax b.i.d. N.p.o. GI consulted Gen. surg. consulted -Recommend to continue stool softeners, obtain paracentesis to rule out SBP 03/27 - Patient had a bowel movement, no abdominal pain Will start clear with diet Rectal/skin wound -Continues to have significant pain, will practitioner consulted Sepsis Repeat morning labs significant for WBC of 20,000, lactic acid 3.1. Started on Zosyn in the morning and IV fluids, by outpatient surgery rn Patient also found to be hypoxic, on 4 to 5 L of oxygen and chest CT was obtained After IV fluids and being on IV Zosyn, blood work repeated. Lactic acid 4.9 and white blood cell count 23,000. In addition urine brown, and creatinine 3, elevated from baseline of 1.4, and 2 earlier this morning Contacted urology and GI General surgery also consulted Patient was to be transferred to telemetry, however there he had presyncopal/syncopal episode, systolic blood pressure into 80s Therefore access coordinator was consulted, patient now in ICU and stat CT abdomen ordered 03/27 - Hemodynamically stable overnight, plan to transfer from ICU Hypoxia -Likely secondary to right pleural effusion -Seen by pulmonary/access coordinator, may consider to drain however patient needs to be off Plavix -Currently comfortable, however using supplemental oxygen Elevated LFTs, bili, alk phos, cirrhosis -Cirrhosis noted on imaging -GI following, plan to follow-up as outpatient for cirrhosis -Recommend to obtain diagnostic paracentesis to rule out SBP -Monitor CMP -Hepatitis panel obtained -Ultrasound liver obtained 1. The liver is cirrhotic in morphology and heterogeneous in echotexture. 2. Small volume perihepatic ascites. 3. No shadowing gallstones are identified. 4. Mild nonspecific gallbladder wall thickening is likely related to cirrhosis and ascites. 5. Nonvisualization of the pancreas. 6. Right pleural effusion. 2. Urinary retention, placed on Cole catheter. Urology consulted 3. JAMIE on CKD III. Baseline creatinine 1.3, on admission creatinine of 2. After IVF and Abx , now Cr 3 Urine brown, repeat UA, u cultx Nephrology consulted Continue IVF, IV albumin for now 4. History of right sided HF and history of diastolic CHF and valvular heart failure, currently holding diuretics. IV fluids, monitor for volume overload. 5. History of hypertension. Currently BP low despite IVF, likely sepsis, cont IV Abx, IV albumin, IVF Holding diuretics as above will monitor blood pressure. 6. Aortic stenosis rheumatic valvular heart disease. needs followup. 7. CAD, s/p CABG. Continue home medications. 8. PAD s/p illiac stent. Continue aspirin, Plavix and statin. 9. Diabetes: Hold glipizide, place on insulin sliding scale. Follow the blood sugars. 11. Thrombocytopenia, seems chronic. Continue to monitor DVT subq heparin DISPOSITION: PCU Code: Full Admission and Anticipated Discharge Date Admission Date: March 25, 2021 Subjective Patient admitted due to stool burden, underwent disimpaction in the ED, but continued to have severe rectal pain Was found to have urine retention, and Cole catheter was placed GI and urology were consulted Yesterday AM WBC 21,000, lactic acid elevated at 3.1, Cr worsened to ~3 Patient also hypoxic, on 4 to [address] chest was ordered to eval hypoxia - pl. effusion Patient was started on empiric Zosyn and IV fluids Repeat CT abd. pelvis was obtained, gen. 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 CARDIOVASCULAR: S1 and S2 heard, regular rate and rhythm. No murmur, no gallop. RESPIRATORY: No accessory muscle use. Speaks in full sentences, on 3L of NC. No wheezing, diminished breath sounds at R base ABDOMEN/ GI: Soft, bowel sounds present, nontender, no distention. + rectal wound : Cole catheter placed - drains dark urine NEURO: Alert oriented answering questions appropriately, speech fluent, moves extremities EXTREMITIES: Lower extremities, chronic skin changes noted. Currently, no significant edema. Results & Data Results & Data ([facility]) Vital Signs (Past 12 Hours) Vital Signs Temp Pulse Resp Pulse Ox 03/26/21 23:00 84 13 95 03/26/21 22:00 80 9 L 96 03/26/21 21:00 77 12 94 03/26/21 20:00 36.6 C 75 12 95 Laboratory Results 03/27/21 03/27/21 03/27/21 Range/Units 02:10 02:10 00:18 WBC 14.23 H (4.8-10.8) K/uL RBC 4.44 L (4.7-6.1) M/uL Hgb 14.4 (14.0-18.0) g/dL Hct 42.6 (42-52) % MCV 95.9 (80-100) fL MCH 32.4 (25-34) pg MCHC 33.8 (32-36) g/dL RDW Std Deviation 58.2 H (36.4-46.3) fL RDW Coeff of Josh 16.4 H (11.5-14.5) % Plt Count 72 L (130-400) K/uL MPV 12.0 H (7.4-10.4) fL Platelet Estimate Decreased L (Normal) Sodium 129 L (136-145) mmol/L Potassium 4.6 (3.5-5.1) mmol/L Chloride 101 (98-107) mmol/L Carbon Dioxide 21 (21-32) mmol/L Anion Gap 7.0 (3-11) BUN 62 H (7-18) mg/dl Creatinine 2.90 H (0.6-1.4) mg/dl Est Cr Clr Drug Dosing 16.7 ml/min Est GFR ( Amer) 22.5 ml/min Est GFR (Non-Af Amer) 19.4 ml/min BUN/Creatinine Ratio 21.3 H (10-20) Glucose 80 (70-99) mg/dl POC Glucose 87 (70-99) mg/dl Estimat Average Glucose mg/dl Hemoglobin A1c (4.5-5.6) % Lactate (0.4-2.0) mmol/L Calcium 8.9 (8.5-10.1) mg/dl Phosphorus 5.9 H (2.5-4.9) mg/dl Magnesium 2.6 H (1.8-2.4) mg/dl Total Bilirubin 4.6 H (0.2-1) mg/dl AST 287 H (15-37) U/L ALT 189 H (12-78) U/L Alkaline Phosphatase 255 H (45-117) U/L Total Creatine Kinase 429 H (39-308) U/L Total Protein 6.5 (6.4-8.2) gm/dl Albumin 3.1 L (3.4-5.0) gm/dl Globulin 3.4 (2.5-4.0) gm/dl Albumin/Globulin Ratio 0.9 (0.9-2) Urine Color Urine Appearance (Clear) Urine pH (4.5-7.5) Ur Specific [facility] (1.000-1.030) Urine Protein (Negative) Urine Glucose (UA) (Negative) Urine Ketones (Negative) Urine Blood (Negative) Urine Nitrite (Negative) Urine Bilirubin (Negative) Urine Urobilinogen (Negative) Ur Leukocyte Esterase (Negative) Urine RBC (0-4) /hpf Urine WBC (0-5) /hpf Ur Epithelial Cells (0-5) /lpf Urine Bacteria (Negative) Ur Random Creatinine mg/dl Ur Random Sodium mmol/L Nasal Screen MRSA (PCR) (Negative) 03/26/21 03/26/21 03/26/21 Range/Units 18:13 18:00 15:29 WBC (4.8-10.8) K/uL RBC (4.7-6.1) M/uL Hgb (14.0-18.0) g/dL Hct (42-52) % MCV (80-100) fL MCH (25-34) pg MCHC (32-36) g/dL RDW Std Deviation (36.4-46.3) fL RDW Coeff of Josh (11.5-14.5) % Plt Count (130-400) K/uL MPV (7.4-10.4) fL Platelet Estimate (Normal) Sodium 130 L (136-145) mmol/L Potassium 5.3 H (3.5-5.1) mmol/L Chloride 100 (98-107) mmol/L Carbon Dioxide 22 (21-32) mmol/L Anion Gap 8.0 (3-11) BUN 54 H (7-18) mg/dl Creatinine 2.70 H (0.6-1.4) mg/dl Est Cr Clr Drug Dosing 18.0 ml/min Est GFR ( Amer) 24.5 ml/min Est GFR (Non-Af Amer) 21.1 ml/min BUN/Creatinine Ratio 19.8 (10-20) Glucose 101 H (70-99) mg/dl POC Glucose 75 (70-99) mg/dl Estimat Average Glucose mg/dl Hemoglobin A1c (4.5-5.6) % Lactate (0.4-2.0) mmol/L Calcium 9.2 (8.5-10.1) mg/dl Phosphorus (2.5-4.9) mg/dl Magnesium (1.8-2.4) mg/dl Total Bilirubin 3.9 H (0.2-1) mg/dl AST 63 H (15-37) U/L ALT 30 (12-78) U/L Alkaline Phosphatase 307 H (45-117) U/L Total Creatine Kinase 601 H (39-308) U/L Total Protein 6.9 (6.4-8.2) gm/dl Albumin 3.3 L (3.4-5.0) gm/dl Globulin 3.6 (2.5-4.0) gm/dl Albumin/Globulin Ratio 0.9 (0.9-2) Urine Color Urine Appearance (Clear) Urine pH (4.5-7.5) Ur Specific [facility] (1.000-1.030) Urine Protein (Negative) Urine Glucose (UA) (Negative) Urine Ketones (Negative) Urine Blood (Negative) Urine Nitrite (Negative) Urine Bilirubin (Negative) Urine Urobilinogen (Negative) Ur Leukocyte Esterase (Negative) Urine RBC (0-4) /hpf Urine WBC (0-5) /hpf Ur Epithelial Cells (0-5) /lpf Urine Bacteria (Negative) Ur Random Creatinine mg/dl Ur Random Sodium mmol/L Nasal Screen MRSA (PCR) Negative (Negative) 03/26/21 03/26/21 03/26/21 Range/Units 15:29 15:10 15:10 WBC (4.8-10.8) K/uL RBC (4.7-6.1) M/uL Hgb (14.0-18.0) g/dL Hct (42-52) % MCV (80-100) fL MCH (25-34) pg MCHC (32-36) g/dL RDW Std Deviation (36.4-46.3) fL RDW Coeff of Josh (11.5-14.5) % Plt Count (130-400) K/uL MPV (7.4-10.4) fL Platelet Estimate (Normal) Sodium (136-145) mmol/L Potassium (3.5-5.1) mmol/L Chloride (98-107) mmol/L Carbon Dioxide (21-32) mmol/L Anion Gap (3-11) BUN (7-18) mg/dl Creatinine (0.6-1.4) mg/dl Est Cr Clr Drug Dosing ml/min Est GFR ( Amer) ml/min Est GFR (Non-Af Amer) ml/min BUN/Creatinine Ratio (10-20) Glucose (70-99) mg/dl POC Glucose (70-99) mg/dl Estimat Average Glucose mg/dl Hemoglobin A1c (4.5-5.6) % Lactate 2.5 H* (0.4-2.0) mmol/L Calcium (8.5-10.1) mg/dl Phosphorus (2.5-4.9) mg/dl Magnesium (1.8-2.4) mg/dl Total Bilirubin (0.2-1) mg/dl AST (15-37) U/L ALT (12-78) U/L Alkaline Phosphatase (45-117) U/L Total Creatine Kinase (39-308) U/L Total Protein (6.4-8.2) gm/dl Albumin (3.4-5.0) gm/dl Globulin (2.5-4.0) gm/dl Albumin/Globulin Ratio (0.9-2) Urine Color Brown Urine Appearance Turbid A (Clear) Urine pH 5.0 (4.5-7.5) Ur Specific [facility] >= 1.030 (1.000-1.030) Urine Protein 3+ H (Negative) Urine Glucose (UA) Negative (Negative) Urine Ketones 1+ H (Negative) Urine Blood 3+ H (Negative) Urine Nitrite Negative (Negative) Urine Bilirubin 3+ H (Negative) Urine Urobilinogen Negative (Negative) Ur Leukocyte Esterase Trace H (Negative) Urine RBC >30 H (0-4) /hpf Urine WBC 5-10 H (0-5) /hpf Ur Epithelial Cells 0-5 (0-5) /lpf Urine Bacteria 1+ H (Negative) Ur Random Creatinine 186.0 mg/dl Ur Random Sodium 11 mmol/L Nasal Screen MRSA (PCR) (Negative) 03/26/21 03/26/21 03/26/21 Range/Units 13:57 12:33 11:55 WBC (4.8-10.8) K/uL RBC (4.7-6.1) M/uL Hgb (14.0-18.0) g/dL Hct (42-52) % MCV (80-100) fL MCH (25-34) pg MCHC (32-36) g/dL RDW Std Deviation (36.4-46.3) fL RDW Coeff of Josh (11.5-14.5) % Plt Count (130-400) K/uL MPV (7.4-10.4) fL Platelet Estimate (Normal) Sodium (136-145) mmol/L Potassium (3.5-5.1) mmol/L Chloride (98-107) mmol/L Carbon Dioxide (21-32) mmol/L Anion Gap (3-11) BUN (7-18) mg/dl Creatinine (0.6-1.4) mg/dl Est Cr Clr Drug Dosing ml/min Est GFR ( Amer) ml/min Est GFR (Non-Af Amer) ml/min BUN/Creatinine Ratio (10-20) Glucose (70-99) mg/dl POC Glucose 100 H (70-99) mg/dl Estimat Average Glucose mg/dl Hemoglobin A1c (4.5-5.6) % Lactate 4.0 H* (0.4-2.0) mmol/L Calcium (8.5-10.1) mg/dl Phosphorus (2.5-4.9) mg/dl Magnesium (1.8-2.4) mg/dl Total Bilirubin (0.2-1) mg/dl AST (15-37) U/L ALT (12-78) U/L Alkaline Phosphatase (45-117) U/L Total Creatine Kinase 734 H (39-308) U/L Total Protein (6.4-8.2) gm/dl Albumin (3.4-5.0) gm/dl Globulin (2.5-4.0) gm/dl Albumin/Globulin Ratio (0.9-2) Urine Color Urine Appearance (Clear) Urine pH (4.5-7.5) Ur Specific [facility] (1.000-1.030) Urine Protein (Negative) Urine Glucose (UA) (Negative) Urine Ketones (Negative) Urine Blood (Negative) Urine Nitrite (Negative) Urine Bilirubin (Negative) Urine Urobilinogen (Negative) Ur Leukocyte Esterase (Negative) Urine RBC (0-4) /hpf Urine WBC (0-5) /hpf Ur Epithelial Cells (0-5) /lpf Urine Bacteria (Negative) Ur Random Creatinine mg/dl Ur Random Sodium mmol/L Nasal Screen MRSA (PCR) (Negative) 03/26/21 03/26/21 03/26/21 Range/Units 11:55 11:55 11:55 WBC 23.84 H (4.8-10.8) K/uL RBC 4.57 L (4.7-6.1) M/uL Hgb 14.8 (14.0-18.0) g/dL Hct 44.2 (42-52) % MCV 96.7 (80-100) fL MCH 32.4 (25-34) pg MCHC 33.5 (32-36) g/dL RDW Std Deviation 58.7 H (36.4-46.3) fL RDW Coeff of Josh 16.8 H (11.5-14.5) % Plt Count 111 L (130-400) K/uL MPV 12.4 H (7.4-10.4) fL Platelet Estimate (Normal) Sodium 130 L (136-145) mmol/L Potassium 5.1 D (3.5-5.1) mmol/L Chloride 98 (98-107) mmol/L Carbon Dioxide 21 (21-32) mmol/L Anion Gap 11.0 (3-11) BUN 54 H (7-18) mg/dl Creatinine 2.96 H D (0.6-1.4) mg/dl Est Cr Clr Drug Dosing 16.4 ml/min Est GFR ( Amer) 21.9 ml/min Est GFR (Non-Af Amer) 18.9 ml/min BUN/Creatinine Ratio 18.2 (10-20) Glucose 101 H (70-99) mg/dl POC Glucose (70-99) mg/dl Estimat Average Glucose mg/dl Hemoglobin A1c (4.5-5.6) % Lactate 4.9 H* (0.4-2.0) mmol/L Calcium 9.9 (8.5-10.1) mg/dl Phosphorus 6.0 H (2.5-4.9) mg/dl Magnesium 2.4 (1.8-2.4) mg/dl Total Bilirubin 3.8 H (0.2-1) mg/dl AST 58 H (15-37) U/L ALT 28 (12-78) U/L Alkaline Phosphatase 352 H (45-117) U/L Total Creatine Kinase (39-308) U/L Total Protein 7.4 (6.4-8.2) gm/dl Albumin 3.5 (3.4-5.0) gm/dl Globulin 3.9 (2.5-4.0) gm/dl Albumin/Globulin Ratio 0.9 (0.9-2) Urine Color Urine Appearance (Clear) Urine pH (4.5-7.5) Ur Specific [facility] (1.000-1.030) Urine Protein (Negative) Urine Glucose (UA) (Negative) Urine Ketones (Negative) Urine Blood (Negative) Urine Nitrite (Negative) Urine Bilirubin (Negative) Urine Urobilinogen (Negative) Ur Leukocyte Esterase (Negative) Urine RBC (0-4) /hpf Urine WBC (0-5) /hpf Ur Epithelial Cells (0-5) /lpf Urine Bacteria (Negative) Ur Random Creatinine mg/dl Ur Random Sodium mmol/L Nasal Screen MRSA (PCR) (Negative) 03/26/21 03/26/21 Range/Units 08:24 06:13 WBC (4.8-10.8) K/uL RBC (4.7-6.1) M/uL Hgb (14.0-18.0) g/dL Hct (42-52) % MCV (80-100) fL MCH (25-34) pg MCHC (32-36) g/dL RDW Std Deviation (36.4-46.3) fL RDW Coeff of Josh (11.5-14.5) % Plt Count (130-400) K/uL MPV (7.4-10.4) fL Platelet Estimate (Normal) Sodium (136-145) mmol/L Potassium (3.5-5.1) mmol/L Chloride (98-107) mmol/L Carbon Dioxide (21-32) mmol/L Anion Gap (3-11) BUN (7-18) mg/dl Creatinine (0.6-1.4) mg/dl Est Cr Clr Drug Dosing ml/min Est GFR ( Amer) ml/min Est GFR (Non-Af Amer) ml/min BUN/Creatinine Ratio (10-20) Glucose (70-99) mg/dl POC Glucose 105 H (70-99) mg/dl Estimat Average Glucose 140 mg/dl Hemoglobin A1c 6.5 H (4.5-5.6) % Lactate (0.4-2.0) mmol/L Calcium (8.5-10.1) mg/dl Phosphorus (2.5-4.9) mg/dl Magnesium (1.8-2.4) mg/dl Total Bilirubin (0.2-1) mg/dl AST (15-37) U/L ALT (12-78) U/L Alkaline Phosphatase (45-117) U/L Total Creatine Kinase (39-308) U/L Total Protein (6.4-8.2) gm/dl Albumin (3.4-5.0) gm/dl Globulin (2.5-4.0) gm/dl Albumin/Globulin Ratio (0.9-2) Urine Color Urine Appearance (Clear) Urine pH (4.5-7.5) Ur Specific [facility] (1.000-1.030) Urine Protein (Negative) Urine Glucose (UA) (Negative) Urine Ketones (Negative) Urine Blood (Negative) Urine Nitrite (Negative) Urine Bilirubin (Negative) Urine Urobilinogen (Negative) Ur Leukocyte Esterase (Negative) Urine RBC (0-4) /hpf Urine WBC (0-5) /hpf Ur Epithelial Cells (0-5) /lpf Urine Bacteria (Negative) Ur Random Creatinine mg/dl Ur Random Sodium mmol/L Nasal Screen MRSA (PCR) (Negative) Medications Administered Current Inpatient Medications Acetaminophen (Acetaminophen 1000 Mg/100 Ml Iv) 1,000 mg IV TID PRN PRN Reason: Pain or Fever Stop: 03/29/21 02:18 Last Admin: 03/27/21 06:31 Dose: 1,000 mg Documented by: Albuterol (Albuterol Hfa 8 Gm Inhaler) 2 puffs INH Q6H PRN PRN Reason: Shortness Of Breath Stop: 04/25/21 02:18 Allopurinol (Allopurinol 100 Mg Tab) 100 mg PO BID [facility] Stop: 04/25/21 08:59 Last Admin: 03/26/21 21:22 Dose: 100 mg Documented by: Aspirin (Aspirin 81 Mg Ectab) 81 mg PO QAM [facility] Stop: 04/25/21 08:59 Last Admin: 03/26/21 09:38 Dose: 81 mg Documented by: Benzonatate (Benzonatate 100 Mg Capsule) 200 mg PO TID PRN PRN Reason: Cough Stop: 04/25/21 02:18 Cetirizine HCl (Cetirizine Hcl 10 Mg Tablet) 10 mg PO DAILY PRN PRN Reason: Allergy Symptoms Stop: 04/25/21 02:18 Clopidogrel Bisulfate (Clopidogrel Bisulfate 75 Mg Tab) 75 mg PO QAM [facility] Stop: 04/25/21 08:59 Last Admin: 03/26/21 09:38 Dose: 75 mg Documented by: Dextrose (Dextrose 50% 50 Ml Syringe) 25 - 50 ml IV UD PRN; Protocol PRN Reason: Hypoglycemia Protocol Stop: 04/25/21 03:14 Dicyclomine HCl (Dicyclomine Hcl 10 Mg Cap) 10 mg PO TID [facility] Stop: 04/25/21 08:59 Last Admin: 03/26/21 21:22 Dose: 10 mg Documented by: Docusate Sodium (Docusate Sodium 100 Mg Cap) 100 mg PO BID [facility] Stop: 04/25/21 08:59 Last Admin: 03/26/21 21:22 Dose: 100 mg Documented by: Famotidine (Famotidine 40 Mg Tablet) 40 mg PO DAILY PRN PRN Reason: Heartburn Stop: 04/25/21 02:18 Glucagon (Glucagon For Inj 1 Mg Vial) 1 mg IM UD PRN; Protocol PRN Reason: Hypoglycemia Protocol Stop: 04/25/21 03:14 Glucose (Glucose 40% Gel 15 Gm Tube) 15 - 30 gm PO UD PRN; Protocol PRN Reason: Hypoglycemia Protocol Stop: 04/25/21 03:14 Glucose (Glucose 10 Tabs/Tube) 4 - 8 tabs PO UD PRN; Protocol PRN Reason: Hypoglycemia Protocol Stop: 04/25/21 03:14 Heparin Sodium (Porcine) (Heparin Sod 5,000 Unit/0.5 Ml Vial) 5,000 units SQ Q8 [facility] Stop: 04/25/21 05:59 Last Admin: 03/27/21 06:32 Dose: 5,000 units Documented by: Piperacillin Sod/Tazobactam (Sod 3.375 gm/ Dextrose) 115 mls @ 28.75 mls/hr IV Q12H [facility]RAN; Protocol Stop: 04/05/21 19:59 Last Infusion: 03/27/21 01:21 Dose: Infused Documented by: Sodium Chloride (Nss 1000ml) 1,000 mls @ 125 mls/hr IV .Q8H [facility] Stop: 04/25/21 14:44 Last Admin: 03/27/21 06:33 Dose: 125 mls/hr Documented by: Insulin Aspart (Insulin Aspart 100 Units/Ml 3 Ml Pen) 0 units SC Q6 [facility] Stop: 04/25/21 17:59 Last Admin: 03/27/21 07:04 Dose: Not Given Documented by: Miscellaneous (Carbohydrates For Hypoglycemia ) 15 - 30 gm PO UD PRN PRN Reason: Hypoglycemia Treatment Stop: 04/25/21 03:14 Miscellaneous Information (Piperacill/Tazobac Consult Active) 1 ea N/A UD PRN PRN Reason: Consult Stop: 04/25/21 11:01 Multivitamins/Minerals (Cerovite Adv Formula Tab) [facility] [place] Stop: 04/25/21 08:59 Last Admin: 03/26/21 09:37 Dose: 1 tab Documented by: Ondansetron HCl (Ondansetron Inj 2 Mg/Ml 2 Ml Vial) 4 mg IV Q6H PRN PRN Reason: Nausea Stop: 04/25/21 02:18 Pantoprazole Sodium (Pantoprazole 40 Mg Tab) 40 mg PO QAM [facility] Stop: 04/25/21 08:59 Last Admin: 03/26/21 09:38 Dose: 40 mg Documented by: Polyethylene Glycol (Polyethylene (Miralax) 17 Gm Pack) 17 gm PO BID [facility] Stop: 04/25/21 02:18 Last Admin: 03/26/21 21:22 Dose: 17 gm Documented by: Vitamin D (Cholecalciferol 1,000 Units 25 Mcg Tab) 2,000 units PO QAM [facility] Stop: 04/25/21 08:59 Last Admin: 03/26/21 09:39 Dose: 2,000 units Documented by:
--- NOTE | 2021-03-27 08:01 | Critical Care Progress Note ---
Date of Service March 27, 2021 Assessment & Plan (1) Hematuria: (2) Renal failure: (3) Fecal impaction: (4) Pleural effusion: (5) Diastolic heart failure: Plan: Impression: 81-year-old male with multiple medical comorbidities admitted with rectal impaction. He is now developed hematuria after Cole catheter placement and has been seen by urology. His white count was elevated however his exam is fairly benign. He does have an effusion but is currently on Plavix. There was initial concern about initial low blood pressure and an elevated lactate. Overnight he has been hemodynamically stable. His lactate is clearing. His hematuria is clearing. He was able to have a bowel movement and his abdominal distention is better. Recommendations: 1. Right pleural effusion: Unclear if this represents hepatic hydrothorax as the patient does have some fluid collection around his liver. Patient denies prior alcohol use. Cirrhosis is noted on the films and by GI. Work-up per GI recommended as the patient does not endorse significant alcohol intake. Could consider thoracentesis however this is an elective procedure and the patient is on Plavix. His indication for Plavix is iliac stents placed through [facility]. If thoracentesis were to be considered, would ideally like to have him off Plavix for 5days. He has no symptoms referable to the effusion currently. He denies any chest pain shortness of breath or cough. This is likely contributing to his hypoxemia. He would like to manage conservatively although I am unclear if this will get better with his worsening kidney function 2. Lactic acidosis: Resolving. Exam benign. He is been placed empirically on antibiotics in the form of Zosyn. Cultures are negative to date. Seems reasonable to continue antibiotics for 72 hours pending finalization of cultures and trending clinical response. 3. Acute kidney failure: Nephrology consult reviewed. Serum creatinine slightly increased today and urine output poor overnight. Fluid status, acid- base, electrolytes acceptable 4. Diabetes: Continue glycemic control 5. Hypoxemia: Secondary to pleural effusion. Continue supplemental oxygen for now. 6. Hematuria: Management per urology. Seems to be clearing for now. Keep Cole catheter per their recommendations Patient's clinical condition appears significantly improved or stable at this point time. He is okay to transfer out of the ICU. Hospitalist to resume care. Will sign off. Please reconsult if we can be of additional assistance Admission and Anticipated Discharge Date Admission Date: March 25, 2021 Subjective Patient seen and examined. EMR reviewed. Discussed with bedside critical care nurse and patient at bedside. He states he is feeling well. He was able to have a bowel movement. He complains of significant rectal pain with his bowel movements. He is not nauseous. He is not having any abdominal pain. His distention is improved. He has been hemodynamically stable. Nephrology consultation was obtained. His serum creatinine is slightly worse this a.m.. His hematuria is clearing. Review of Systems Review of Systems: All systems reviewed & are unremarkable except as noted in HPI & below Physical Exam Constitutional: well developed and well nourished; no acute distress and not ill appearing ENMT: Ears: no external ear abnormality Nose: no external nose abnormality Neck: normal visual inspection and trachea midline Respiratory: normal respiratory effort and able to speak in complete sentences; no respiratory distress and no audible wheezes Cardiovascular: Extremities: no calf tenderness Gastrointestinal (Abdomen): Inspection/Auscultation: abdomen normal to inspection Percussion/Palpation: abdomen nontender and no guarding Neurologic: moves all extremities and awake Psychiatric: Orientation: alert, oriented x 3 and cooperative Affect: euthymic affect Results & Data Results & Data ([facility]) Vital Signs (Past 12 Hours) Vital Signs Temp Pulse Resp Pulse Ox 03/26/21 23:00 84 13 95 03/26/21 22:00 80 9 L 96 03/26/21 21:00 77 12 94 03/26/21 20:00 36.6 C 75 12 95 Critical Care Results & Data Vital Signs (Past 12 Hours) Vital Signs Pulse Resp Pulse Ox 03/26/21 23:00 84 13 95 03/26/21 22:00 80 9 L 96 03/26/21 21:00 77 12 94 Lab & Micro Results (Past 24 Hours) RBC 4.44 M/uL (4.7-6.1) L 03/27/21 WBC 14.23 K/uL (4.8-10.8) H 03/27/21 Hgb 14.4 g/dL (14.0-18.0) 03/27/21 Hct 42.6 % (42-52) 03/27/21 MCV 95.9 fL (80-100) 03/27/21 MCH 32.4 pg (25-34) 03/27/21 MCHC 33.8 g/dL (32-36) 03/27/21 RDW Standard Deviation 58.2 fL (36.4-46.3) H 03/27/21 RDW Coefficient of Variation 16.4 % (11.5-14.5) H 03/27/21 Plt Count 72 K/uL (130-400) L 03/27/21 MPV 12.0 fL (7.4-10.4) H 03/27/21 Na 129 mmol/L (136-145) L 03/27/21 K 4.6 mmol/L (3.5-5.1) 03/27/21 Cl 101 mmol/L (98-107) 03/27/21 CO2 21 mmol/L (21-32) 03/27/21 Anion Gap 7.0 (3-11) 03/27/21 BUN 62 mg/dl (7-18) H 03/27/21 Creatinine 2.90 mg/dl (0.6-1.4) H 03/27/21 Estimated GFR ( Amer) 22.5 ml/min 03/27/21 Estimated GFR (Non-Af Amer) 19.4 ml/min 03/27/21 BUN/Creatinine Ratio 21.3 (10-20) H 03/27/21 Glu 80 mg/dl (70-99) 03/27/21 Ca 8.9 mg/dl (8.5-10.1) 03/27/21 Phosphorus Level 5.9 mg/dl (2.5-4.9) H 03/27/21 Total Bilirubin 4.6 mg/dl (0.2-1) H 03/27/21 AST 287 U/L (15-37) H 03/27/21 ALT 189 U/L (12-78) H 03/27/21 Alkaline Phosphatase 255 U/L (45-117) H 03/27/21 TP 6.5 gm/dl (6.4-8.2) 03/27/21 Albumin 3.1 gm/dl (3.4-5.0) L 03/27/21 Globulin 3.4 gm/dl (2.5-4.0) 03/27/21 Albumin/Globulin Ratio 0.9 (0.9-2) 03/27/21 Mg 2.6 mg/dl (1.8-2.4) H 03/27/21 02:10 03/27/21 Calcium Level 8.9 mg/dl (8.5-10.1) 03/27/21 02:10 03/27/21 Diagnostic Findings (Past 24 Hours) Chest CT 03/26/21 08:41 CT chest diagnostic wo con CT DOSE: 329.47 mGy.cm CLINICAL HISTORY: 81 years-old Male with hypoxia. Acute shortness of breath with hypoxia TECHNIQUE: Multiaxial CT images of the chest were performed without contrast. A dose lowering technique was utilized adhering to the principles of ALARA. COMPARISON: Chest CT 07/11/2020 FINDINGS: Unremarkable thyroid. No adenopathy. Moderate cardiomegaly. Extensive coronary artery calcifications with advanced atherosclerotic plaque of the thoracic aorta. Prior median sternotomy with findings suggestive of CABG. Aortic and mitral annular calcifications. The pulmonary artery is dilated measuring up to 3.3 cm suggestive of pulmonary artery hypertension. Small left and moderate right pleural effusions appear stable to mildly decreased in size from comparison. No pneumothorax. There are consolidative and groundglass opacities of the right lung base. Minimal compressive atelectasis of the left lower lobe. 3 mm solid nodule of the left upper lobe on image 114 is unchanged. Scattered punctate pulmonary granulomata. Mild emphysema. 3 mm solid nodule of the right upper lobe on image 103 previously measured 2 mm. Central airways are patent. There is a small volume of upper abdominal ascites. Recanalization of the umbilical vein. Hepatomegaly with hepatic steatosis. Mild nonspecific distal esophageal wall thickening with gastric distention. Small subxiphoid intra- abdominal wall hernia. No acute fracture. Degenerative changes of the shoulders and spine. IMPRESSION: 1. Small left and moderate right pleural effusions appear stable to mildly decreased in size from comparison. 2. Groundglass and consolidative opacities of the right lung base are suspicious for pneumonia versus aspiration pneumonitis. 3. Small volume of upper abdominal ascites. 4. Mild emphysema. 5. Additional findings as above. ACT 112: Negative or not required by law. Electronically signed by: Chavo Long M.D. 03/26/2021 1:10 PM Gallbladder Ultrasound 03/26/21 11:00 ULTRASOUND RIGHT UPPER QUADRANT ABDOMEN CLINICAL HISTORY: Sepsis. Elevated hepatic transaminases. COMPARISON STUDY: Abdominal CT dated 03/25/2021 TECHNIQUE: Real-time, grayscale, and color flow sonography of the right upper quadrant of the abdomen was performed. Images are reviewed in the transverse and longitudinal planes. FINDINGS: Liver: The liver is cirrhotic in morphology and heterogeneous in echotexture. There is nodularity of the hepatic surface contour. There is no intrahepatic biliary ductal dilatation. The main portal vein is patent. The left lobe hypodensity suggested by CT is not seen by ultrasound. Gallbladder: There is mild nonspecific gallbladder wall thickening, likely due to cirrhosis and ascites. No shadowing gallstones are identified. A sonographic Salas's sign is reportedly absent. The common bile duct measures up to 0.3 cm in diameter. Pancreas: Not visualized due to overlying bowel gas. Right kidney: Survey images of the right kidney demonstrate normal size and echotexture. There is no hydronephrosis. Ascites: There is a small volume of perihepatic ascites. Pleural spaces: A right pleural effusion is noted. IMPRESSION: 1. The liver is cirrhotic in morphology and heterogeneous in echotexture. 2. Small volume perihepatic ascites. 3. No shadowing gallstones are identified. 4. Mild nonspecific gallbladder wall thickening is likely related to cirrhosis and ascites. 5. Nonvisualization of the pancreas. 6. Right pleural effusion. ACT 112: Negative or not required by law. Electronically signed by: Darrell Painting M.D. 03/26/2021 11:22 AM Abdomen/Pelvis CT 03/26/21 14:54 CT SCAN OF THE ABDOMEN AND PELVIS WITHOUT IV CONTRAST CLINICAL HISTORY: Sepsis. COMPARISON STUDY: Abdominal CT dated 03/25/2021. TECHNIQUE: CT scan of the abdomen and pelvis is performed from the lung bases to the proximal femora. Images are reviewed in the axial, sagittal, and coronal planes. IV contrast was not administered for this examination. Note that the examination was performed in significantly suboptimal fashion without oral and IV contrast. There is motion artifact. A dose lowering technique was utilized adhering to the principles of ALARA. CT DOSE: 445.55 mGy.cm FINDINGS: Lung bases: The heart is normal in size and without pericardial effusion. The coronary arteries and mitral annulus are densely calcified. There are small to moderate right and trace left pleural effusions with right basilar consolidation. There are scattered calcified granulomas. Liver: The unenhanced liver is cirrhotic in morphology and heterogeneous in attenuation. There is nodularity of the hepatic surface contour. There is no intrahepatic biliary ductal dilatation. Gallbladder: Unremarkable. Spleen: Normal in size and attenuation. Pancreas: The unenhanced pancreas is atrophic and grossly unremarkable. Adrenal glands: Unremarkable. Kidneys: The unenhanced kidneys are atrophic and without hydronephrosis. There are no renal calculi identified. There is no evidence of contour deforming renal mass lesion. Abdominal vasculature: The abdominal aorta is normal in course and caliber noting advanced atherosclerotic calcification. Bilateral iliac artery stents are in place. Bowel: There is no bowel obstruction. There is moderate colonic diverticulosis without CT evidence of acute diverticulitis. Moderate fecal retention is seen typical. The appendix is normal as visualized. Question rectal wall thickening. Peritoneum: There is a small volume of abdominopelvic ascites. No intraperitoneal free air is seen. Lymphadenopathy: None. Pelvic viscera: Evaluation of the pelvis is severely degraded by streak artifact from bilateral hip arthroplasties. The bladder is decompressed around a Cole catheter and cannot be evaluated. The prostate gland is not visualized due to streak artifact. Findings suggest previous left inguinal herniorrhaphy. Skeletal structures: The skeletal structures are osteopenic. There is moderate lumbosacral spondylosis. Degenerative changes also seen in the sacroiliac joints. No lytic or blastic lesions are seen. Bilateral hip arthroplasties are in place. IMPRESSION: 1. Significantly suboptimal examination without oral and IV contrast. There is also streak and motion artifact. 2. No significant change from yesterday. 3. Right larger than left pleural effusions with bibasilar consolidation. This could represent atelectasis an/or pneumonia and clinical correlation will be required. 4. Cirrhotic liver morphology and small volume of abdominopelvic ascites. 5. Moderate colonic fecal retention. 6. Question rectal wall thickening. Correlate clinically for evidence of proctitis. 7. Additional findings as above. ACT 112: Negative or not required by law. Electronically signed by: Darrell Painting M.D. 03/26/2021 4:04 PM I & O Totals 24 Hours 03/26/21 03/27/21 03/28/21 06:59 06:59 06:59 Intake Total 4143.750 / 4143.750 Output Total 0 / 0 215 / 215 Balance 0 / 0 3928.750 / 3928.750 Cumulative 03/25/21 16:01 thru 03/27/21 06:33 Intake Total 4143.750 Output Total 215 Balance 3928.750 RT Ventilator Mngmt (Last Documented) Ventilator Ordered Settings Respiratory Rate 13 03/26/21 23:00 Ventilator - PT Measurements Respiratory Rate 13 Coding Level of Care Code 00308 Subseq Hosp Care Lvl 3 Diagnoses Hematuria R31.9 Renal failure N19 Fecal impaction K56.41 Pleural effusion J90 Diastolic heart failure I50.30
[2021-03-27] MEDS: allopurinoL 100 MG TAB PO SCH ×2 (09:12→21:33)
[2021-03-27] MEDS: ASPIRIN 81 MG ECTAB PO SCH (09:13)
[2021-03-27] MEDS: CETIRIZINE HCL 10 MG TABLET PO PRN (09:13)
[2021-03-27] MEDS: CHOLECALCIFEROL 1,000 UNITS 25 MCG TAB PO SCH (09:13)
[2021-03-27] MEDS: DICYCLOMINE HCL 10 MG CAP PO SCH ×3 (09:13→21:33)
[2021-03-27] MEDS: FAMOTIDINE 40 MG TABLET PO PRN (09:14)
[2021-03-27] MEDS: PANTOprazole 40 MG TAB PO SCH (09:14)
[2021-03-27] MEDS: CLOPIDOGREL BISULFATE 75 MG TAB PO SCH (09:15)
[2021-03-27] MEDS: DOCUSATE SODIUM 100 MG CAP PO SCH ×2 (09:15→21:33)
[2021-03-27] MEDS: CEROVITE ADV FORMULA TAB PO SCH (09:22)
[2021-03-27] MEDS: POLYETHYLENE (MIRALAX) 17 GM PACK PO SCH ×2 (09:24→21:32)
[2021-03-27] MEDS: PIPERACILLIN/TAZOBACTAM 3.375 GM in DEXTROSE 5% 100 ML IV SCH ×2 (09:24→21:31)
[2021-03-27] MEDS ORDERED: BENZOCAINE 20% AER SPR 82.5 GM CAN EXT PRN (11:09)
[2021-03-27 13:04] LABS: INR 1.7 (0.9-1.1); Prothrombin Time 16.8 Seconds (9.0-12.0)
[2021-03-27] MEDS: ALBUMIN 25% 12.5 GM/50 ML VIAL IV SCH ×4 (14:03→21:32)
--- NOTE | 2021-03-27 14:36 | Nephrology Progress Note ---
Date of Service March 27, 2021 Assessment & Plan (1) Acute on chronic renal failure: Plan: Stage I presumed nonoliguric acute on chronic renal failure CKD 3B with 300 mg baseline albuminuria. Baseline creatinine 1.5-1.6 w/ about 300 mg albuminuria. creatinine essentially plateau'd; chemistries and volume status acceptable: ischemic ATN in the setting of sepsis, though definitive source of infection has yet to be located. no indication for discussion about dialysis. apart from mild hyponatremia, chemistries acceptable. Marked and worsening transaminitis noted; also s/p near syncopal episode today Follow-up pending blood cultures continue low potassium diet -current IVF ok for now though could consider changing to 25% albumin for hydration -daily bmp >> would check BID chemistries if NS continues and have ordered recheck -transaminitis per primary service Admission and Anticipated Discharge Date Admission Date: March 25, 2021 Subjective Patient had unresponsive episode for a few seconds after sitting up on the bedside commode for about half an hour, preceded by presyncopal symptoms. Critical care does not believe right thoracentesis indicated as inpatient, in part due to need hold Plavix Review of Systems Review of Systems: All systems reviewed & are unremarkable except as noted in Subjective Physical Exam Constitutional: well developed, well nourished, + frail appearing and cooperative; no acute distress Eyes: EOM intact bilaterally ENMT: Ears: no external ear abnormality Nose: no external nose abnormality Mouth: + dry oral mucous membranes Neck: no nuchal rigidity Respiratory: normal respiratory effort Auscultation: + diminished lung sounds (Especially right base) Cardiovascular: Rate/Rhythm: regular rate and regular rhythm Heart Sounds: + murmur Extremities: + edema (Trace to 1+ bilateral pretibial) Gastrointestinal (Abdomen): Inspection/Auscultation: + abdomen distended (Slightly) and normal bowel sounds Percussion/Palpation: abdomen soft; abdomen nontender and no guarding Musculoskeletal: Extremities: strength 5/5 throughout Skin: no rashes, warm and dry Bandaged wounds bilateral lower extremities Psychiatric: Orientation: oriented x 3 Insight: good insight Judgement: good judgement Results & Data ([facility]) Vital Signs (Past 12 Hours) Vital Signs Temp 03/27/21 12:20 36.4 C L Laboratory Results 03/27/21 02:10 03/27/21 02:10 CK 429
[2021-03-27 17:13] LABS: BUN Creatinine Ratio 22.1 (10-20); Calcium 8.4 mg/dl (8.5-10.1); Creatinine Clr Calc Pharmacy 16.3 ml/min; Est GFR (African American) 21.8 ml/min; Est GFR (Non-African American) 18.8 ml/min; Potassium 3.9 mmol/L (3.5-5.1)
--- NOTE | 2021-03-27 18:26 | Wound Consultation ---
Date of Consultation March 27, 2021 Assessment & Plan (1) Venous stasis ulcers of both lower extremities: Continue dressing the wounds with Aquacel AG and optifoams every 2-3 days. Patient is scheduled for bilateral venous reflux and arterial duplex studies with [facility] on 03/31/21 with f/u with vascular surgery the following week. May need rescheduled if he remains inpatient. (2) Tear of skin of buttock: Traumatic skin tear/skin fissure of the gluteal fold. Recommend tucking Aquacel AG into the fold BID and PRN. Calmoseptine cream to the periwound BID. Keep area free from stool. Clean with soap and water. Benzocaine spray as needed for discomfort. Wound care nurse has been consulted to follow while inpatient. They will be able to photo and measure the wound on Monday. Thanks for the consult. Will plan to follow as an outpatient at the wound center. History of Present Illness Reason for Consultation: wound to the gluteal crease Attending Physician: Siddhartha Knight MD History of Present Illness 81 year old male admitted for severe constipation and sepsis. He is known to myself as I have been seeing him at the [facility] wound center for BLE venous stasis ulcers. I have been asked to see the patient by Dr. Knight today for wound of the gluteal cleft. Wound occurred while inpatient d/t trauma endured during fecal disimpaction. Patient reports pain associated with the wound. Past medical history includes a history of CHF, lymphoma, gout, GI bleed, hypertension, CKD stage III, dose of anemia, asthma, CAD, aortic stenosis, mitral stenosis, and chronic shortness of breath. Allergies Allergy/AdvReac Type Severity Reaction Status Date / Time tramadol Allergy Severe Hallucinati Verified 03/25/21 10:02 ng amiodarone Allergy Intermediate "streaking Verified 03/25/21 10:02 up vein" and painful lactose Allergy Mild GI UPSET Verified 03/25/21 10:02 pollen extracts Allergy Mild HAYFEVER Verified 03/25/21 10:02 lisinopril AdvReac Mild COUGH Verified 03/25/21 10:02 Home Medications Medication Instructions Recorded Confirmed Type albuterol sulfate 90 mcg/actuation 2 puff INHALATION Q6H PRN 01/11/19 08/28/20 History aerosol inhaler allopurinol 100 mg tablet 100 mg PO BID 01/11/19 08/28/20 History amoxicillin 500 mg capsule 500 mg PO UD PRN 01/11/19 08/28/20 History aspirin 81 mg tablet,delayed 81 mg PO QAM 01/11/19 08/28/20 History release (Aspirin Low Dose) atorvastatin 40 mg tablet 40 mg PO PM 01/11/19 08/28/20 History benzonatate 200 mg capsule 200 mg PO TID PRN 01/11/19 08/28/20 History cetirizine 10 mg tablet 10 mg PO DAILY PRN 01/11/19 08/28/20 History clopidogrel 75 mg tablet 75 mg PO QAM 01/11/19 08/28/20 History docusate sodium 100 mg tablet 100 mg PO BID 01/11/19 08/28/20 History glucosamine sulf dipot 1 cap PO BID 01/11/19 08/28/20 History chlr,msm,chond 550 mg-C 30 mg-narcisa 1 mg capsule (Glucosamine Chondroitin) saw palmetto 450 mg capsule 450 mg PO QPM 01/11/19 08/28/20 History vit C 50 mg-E 15 unit-zinc cit 4.5 1 tab PO QAM 01/11/19 08/28/20 History mg-lutein 2.5 mg-zeaxan chew tablet ([employer]) Leg Cramps 324 mg PO HS 02/01/19 08/28/20 History famotidine 40 mg tablet 40 mg PO DAILY PRN 07/10/20 08/28/20 History omeprazole 20 mg capsule,delayed 20 mg PO QAM 07/10/20 08/28/20 History release cholecalciferol (vitamin D3) 50 50 mcg PO QAM 08/28/20 08/28/20 History mcg (2,000 unit) tablet (Vitamin D3) glipizide 2.5 mg tablet, extended 2.5 mg PO DAILY 03/10/21 History release 24 hr spironolactone 25 mg tablet 25 mg PO QAM tab 03/10/21 History torsemide 10 mg tablet 10 mg PO DAILY PRN 03/10/21 History torsemide 10 mg tablet 10 mg PO QPM tab 03/10/21 History torsemide 20 mg tablet 30 mg PO DAILY tab 03/10/21 History Patient History Medical History Aortic stenosis 08/05/20 TTE suggestive of severe Cardio records state moderate per cath Asthma LAST USED INHALER THIS AM Chronic kidney disease, stage 3 Congestive heart failure with right ventricular systolic dysfunction Per records Admitted 06/2020 due to acute CHF with right heart failure to [facility]- cardio consulted- pt put on increased diuretics Coronary artery disease S/p 3 vessel CABG 2017 Per cardiac records- recent cath showing 80% distal LM and 90% LCx stenosis Diabetes mellitus, type 2 Fibromyalgia Hearing deficit History of GI bleed Hx of gout Hyperlipidemia Hypertension Mitral valve disease Mitral stenosis- REASON FOR UPCOMING CLEOPATRA Non-Hodgkin lymphoma diagnosed 2004 s/p chemo PAD (peripheral artery disease) s/p b/l iliac artery stents (2015) Pleural effusion due to CHF (congestive heart failure) REASON FOR LASIX Sleep apnea TESTING IN PROCESS Venous stasis ulcer Surgical History History of anesthesia reaction LOW OXYGEN SATURATION AFTER HERNIA SURGERY History of bilateral carpal tunnel release History of cardiac cath 2016 AND 08/25/20 AT [facility] History of esophagogastroduodenoscopy (EGD) History of left hip replacement History of lumbar discectomy History of lymph node biopsy History of phacoemulsification of cataract of both eyes with intraocular lens implantation History of right hip replacement History of tonsillectomy and adenoidectomy History of tooth extraction History of total hip arthroplasty RT/LEFT History of transesophageal echocardiography (CLEOPATRA) History of umbilical hernia repair Hx of left inguinal hernia repair Hx of right inguinal hernia repair S/P CABG x 3 2017 AT [facility] S/P colonoscopy 01/15/19 Status post insertion of iliac artery stent b/l (2015) Family History Grandmother (Paternal) Family history of diabetes mellitus Mother Family history of diabetes mellitus Aunt Family history of diabetes mellitus Uncle Family history of diabetes mellitus Grandfather (Maternal) Family history of diabetes mellitus Sister Family history of diabetes mellitus Father Family hx colonic polyps Other No family history of adverse response to anesthesia Social History Smoking Status: Never smoker Cigarettes Per Day: QUIT 45 YEARS AGO; Second Hand Exposure: No (father smoked); Hx Alcohol Use: Yes Alcohol type: beer Alcohol Intake Frequency: Monthly or Less Hx Substance Use: No Preferred Language: Argentine Communication Ability: Effective Visual Impairment: Partially Limited Hearing Ability: Use of Hearing Aid Speech Instructor Required: No Beliefs That Will Affect Care: None marital status: Current Living Situation: Spouse current occupational status: retired Feels Safe at Home: Yes Safety Concerns: Feels Safe At This Time Diet Comment: 1500 cc fluid restiction per pt caffeine: No during the past year weight has: decreased > 10 lbs Physical Activity Frequency: Does not Exercise Do you think of yourself as: straight/heterosexual Gender Identity: Male Assistive Devices: None Review of Systems Review of Systems: All systems reviewed & are unremarkable except as noted in HPI & below Physical Exam Physical Exam: Venous wounds of the BLE reviewed today. No photos or measurements taken. Both wounds were small. Wound bases yellow with eschar noted. No odor present. Scant amount of serosanguineous drainage noted. Periwounds intact. Patient also noted to have fissure of the gluteal cleft on exam today. Wound base is erythematous with a small amount of serosanguineous drainage noted. No odor present. Periwound is erythematous. Wound is painful to touch. Fecal incontinence noted as well. Constitutional: average body habitus; no acute distress Eyes: + anicteric sclerae ENMT: Ears: no hearing impairment Neck: normal visual inspection Respiratory: normal respiratory effort Cardiovascular: Vessels: no JVD Extremities: no edema Psychiatric: A+Ox3, euthymic affect Results & Data ([facility]) Vital Signs (Past 12 Hours) Vital Signs Temp Pulse Pulse Resp BP BP Pulse Ox 03/27/21 16:00 79 03/27/21 15:47 36.6 C 86 14 100/53 L 96 03/27/21 14:00 83 03/27/21 13:00 93 H 103/61 03/27/21 12:20 36.4 C L 03/27/21 12:00 91 H 93/53 L 92 03/27/21 11:00 83 110/66 93 03/27/21 10:00 85 17 103/67 94 03/27/21 09:00 92 H 16 115/72 03/27/21 08:00 89 16 98/58 L 93 03/27/21 07:00 87 18 110/67 95 PG Care Time/CCT Total # of Minutes Spent Total Time Spent with Patient: Total time spent is greater than 50% in coordination of care (as documented) at patient's floor/unit and/or counseling patient: Coding Level of Care Code 36560 Initial Inpt Care Lvl 1 History Detailed Exam Detailed Medical Decision Making Moderate Complexity Diagnoses Venous stasis ulcers of both lower extremities I83.019; I83.029; L97.919; L97.929 Tear of skin of buttock S31.801A
[2021-03-27] MEDS ORDERED: HYDROmorphone INJ 0.5 MG/0.5 ML SYR IV STA (21:25)
[2021-03-27] MEDS ORDERED: Nursing to Pharmacy Communication SCH (22:15)
[2021-03-28 05:15] LABS: Albumin Level 3.6 gm/dl (3.4-5.0); BUN Creatinine Ratio 21.9 (10-20); Est GFR (African American) 21.3 ml/min; Est GFR (Non-African American) 18.4 ml/min; Magnesium 2.4 mg/dl (1.8-2.4); Potassium 4.4 mmol/L (3.5-5.1)
[2021-03-28 05:16] LABS: INR 1.8 (0.9-1.1); Prothrombin Time 17.2 Seconds (9.0-12.0)
[2021-03-28 05:17] LABS: Albumin Globulin Ratio 1.2 (0.9-2); Bilirubin,Total 4.3 mg/dl (0.2-1); Globulin 2.9 gm/dl (2.5-4.0); Phosphorus 5.2 mg/dl (2.5-4.9); Total Protein 6.5 gm/dl (6.4-8.2)
[2021-03-28 05:49] LABS: Hematocrit (blood only) 41.3 % (42-52); Hemoglobin 14.1 g/dL (14.0-18.0); Mean Corpuscular Hemoglobin 32.3 pg (25-34); Mean Corpuscular Hgb Conc 34.1 g/dL (32-36); Mean Corpuscular Volume 94.5 fL (80-100); Mean Platelet Volume 12.2 fL (7.4-10.4); Platelet Count 77 K/uL (130-400); RDW Coefficient of Variation 16.1 % (11.5-14.5); RDW Standard Deviation 55.9 fL (36.4-46.3); Red Blood Count 4.37 M/uL (4.7-6.1); White Blood Count 12.23 K/uL (4.8-10.8)
[2021-03-28] MEDS: HEPARIN SOD 5,000 UNIT/0.5 ML VIAL SQ SCH ×3 (06:38→21:02)
[2021-03-28] MEDS: SODIUM CHLORIDE 0.9% 1000ML 1,000 ML IV SCH (07:57)
--- NOTE | 2021-03-28 08:09 | Hospitalist Progress Note ---
Date of Service March 28, 2021 Assessment & Plan (1) Fecal impaction: (2) Pain in rectum: (3) Urinary retention: (4) Hematuria: Plan: Sepsis This is an 81-year-old male presented with constipation, severe rectal pain, and urinary retention. 1. Severe rectal pain and constipation Severe rectal pain, could be from fissures from ongoing constipation. There is also now gluteal fold fissure/ skin tear from disimpaction Underwent disimpaction in the ER May need treatment for possible fissures and stool impaction, even after disimpacted in the ER Placed him on gentle pain medications, MiraLax b.i.d. N.p.o. GI consulted Gen. surg. consulted -Recommend to continue stool softeners, obtain paracentesis to rule out SBP 03/27 - Patient had a bowel movement, no abdominal pain Started clear with diet Pt continues to have loose stools now Gluteal fold skin tear -Continues to have significant pain, wound care practitioner consulted Sepsis Repeat morning labs significant for WBC of 20,000, lactic acid 3.1. Started on Zosyn in the morning and IV fluids, by mineral economist Patient also found to be hypoxic, on 4 to 5 L of oxygen and chest CT was obtained After IV fluids and being on IV Zosyn, blood work repeated. Lactic acid 4.9 and white blood cell count 23,000. In addition urine brown, and creatinine 3, elevated from baseline of 1.4, and 2 earlier in the morning Contacted urology and GI General surgery also consulted Patient was to be transferred to telemetry, however there he had presyncopal/syncopal episode, systolic blood pressure into 80s Therefore financial compliance officer was consulted, patient tranasferred to ICU and stat CT abdomen ordered 03/27 - Hemodynamically stable overnight, plan to transfer out from ICU 03/28 - Leukocytosis WBC 23K on 03/26, now trending down 12k (on 03/28) - cont. IV zosyn - BP improved, however abdomen more distended - Continue IV albumin, hold IV fluids with normal saline for now Hypoxia -Likely secondary to right pleural effusion -Seen by pulmonary/financial compliance officer, may consider to drain however patient needs to be off Plavix -Currently comfortable, however using supplemental oxygen Elevated LFTs, bili, alk phos, cirrhosis -Cirrhosis noted on imaging -GI following, plan to follow-up as outpatient for cirrhosis -Recommend to obtain diagnostic paracentesis to rule out SBP -Monitor CMP -Hepatitis panel obtained -Ultrasound liver obtained 1. The liver is cirrhotic in morphology and heterogeneous in echotexture. 2. Small volume perihepatic ascites. 3. No shadowing gallstones are identified. 4. Mild nonspecific gallbladder wall thickening is likely related to cirrhosis and ascites. 5. Nonvisualization of the pancreas. 6. Right pleural effusion. 03/28 - MELD score 32 (unchanged from yesterday) -Patient has hyponatremia, creatinine 3, INR elevated at 1.8, T bili elevated at 4.3 Discussed further with GI, given acute changes, likely shock liver, from hypotension 2. Urinary retention, placed on Cole catheter. Urology consulted 3. JAMIE on CKD III. Baseline creatinine 1.3, on admission creatinine of 2. After IVF and Abx , now Cr 3 Urine brown, repeat UA, u cultx Nephrology consulted cont. IV albumin, hold IVF w/ NS for now - repeat BMP, cont. to closely monitor 4. History of right sided HF and history of diastolic CHF and valvular heart failure, currently holding diuretics. IV fluids, monitor for volume overload. 5. History of hypertension. Currently BP low despite IVF, likely sepsis, cont IV Abx, IV albumin, IVF Holding diuretics as above will monitor blood pressure. 6. Aortic stenosis rheumatic valvular heart disease. needs followup. 7. CAD, s/p CABG. Continue home medications. 8. PAD s/p illiac stent. Continue aspirin, Plavix and statin. 9. Diabetes: Hold glipizide, place on insulin sliding scale. Follow the blood sugars. 11. Thrombocytopenia, seems chronic. Continue to monitor DVT subq heparin DISPOSITION: PCU Code: Full Admission and Anticipated Discharge Date Admission Date: March 25, 2021 Subjective Patient admitted due to stool burden, underwent disimpaction in the ED, but continued to have severe rectal pain Was found to have urine retention, and Cole catheter was placed GI and urology were consulted Morning after admission WBC 21 K, lactic acid elevated at 3.1, Cr worsened to ~3 Patient also hypoxic, on 4 to [address] chest was ordered to eval hypoxia - pl. effusion Patient was started on empiric Zosyn and IV fluids, IV albumin Repeat CT abd. pelvis was obtained, gen. 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 Denies any chest pain, increased shortness of breath, abdominal pain, however has significant rectal discomfort Now having loose stools Per nursing staff, patient continues to have presyncopal syncopal episodes with any even minor movements/or getting up from bed In addition, patient's blood work not improving, current MELD score 32, cirrhosis on imaging, no prior history of liver disease per patient or chart review - discussed further w/ GI - given acute e - likely shock liver from hypotension Review of Systems Review of Systems: All systems reviewed & are unremarkable except as noted in Subjective Physical Exam Physical Exam: GENERAL: slender M, not in acute distress, but on 4-5 L NC, +discomfort in rectal region HEENT: NC/AT, EOMI, PERRL NECK: No JVD, no neck masses. CARDIOVASCULAR: S1 and S2 heard, regular rate and rhythm. No murmur, no gallop. RESPIRATORY: No accessory muscle use. Speaks in full sentences, on NC. No wheezing, diminished breath sounds at R base ABDOMEN/ GI: + distended (change from previous exam), soft, +bowel sounds, nontender, + rectal/skin wound : Cole catheter placed dark yellow urine draining NEURO: Alert oriented answering questions appropriately, speech fluent, moves extremities EXTREMITIES: Lower extremities- chronic skin changes noted. Currently, no significant edema. Results & Data Results & Data ([facility]) Vital Signs (Past 12 Hours) Vital Signs Temp Pulse Pulse Resp BP Pulse Ox 03/28/21 07:43 98 H 03/28/21 07:32 36.5 C 94 H 16 126/72 93 03/28/21 04:15 36.8 C 90 18 117/72 95 03/27/21 22:24 36.9 C 88 18 111/74 96 03/27/21 21:06 80 20 95/67 L 93 Laboratory Results 03/28/21 03/28/21 03/28/21 Range/Units 07:17 04:34 04:34 WBC (4.8-10.8) K/uL RBC (4.7-6.1) M/uL Hgb (14.0-18.0) g/dL Hct (42-52) % MCV (80-100) fL MCH (25-34) pg MCHC (32-36) g/dL RDW Std Deviation (36.4-46.3) fL RDW Coeff of Josh (11.5-14.5) % Plt Count (130-400) K/uL MPV (7.4-10.4) fL PT 17.2 H (9.0-12.0) Seconds INR 1.8 H (0.9-1.1) Sodium 130 L (136-145) mmol/L Potassium 4.4 (3.5-5.1) mmol/L Chloride 101 (98-107) mmol/L Carbon Dioxide 22 (21-32) mmol/L Anion Gap 7.0 (3-11) BUN 66 H (7-18) mg/dl Creatinine 3.03 H (0.6-1.4) mg/dl Est Cr Clr Drug Dosing 16.0 ml/min Est GFR ( Amer) 21.3 ml/min Est GFR (Non-Af Amer) 18.4 ml/min BUN/Creatinine Ratio 21.9 H (10-20) Glucose 86 (70-99) mg/dl POC Glucose 91 (70-99) mg/dl Calcium 9.0 (8.5-10.1) mg/dl Phosphorus 5.2 H (2.5-4.9) mg/dl Magnesium 2.4 (1.8-2.4) mg/dl Total Bilirubin 4.3 H (0.2-1) mg/dl AST 393 H (15-37) U/L ALT 313 H (12-78) U/L Alkaline Phosphatase 219 H (45-117) U/L Total Creatine Kinase 168 (39-308) U/L Total Protein 6.5 (6.4-8.2) gm/dl Albumin 3.6 (3.4-5.0) gm/dl Globulin 2.9 (2.5-4.0) gm/dl Albumin/Globulin Ratio 1.2 (0.9-2) Hepatitis A IgM Ab Hep Bs Antigen Hep B Core IgM Ab Hepatitis C Antibody 03/28/21 03/27/21 03/27/21 Range/Units 04:34 21:46 16:42 WBC 12.23 H (4.8-10.8) K/uL RBC 4.37 L (4.7-6.1) M/uL Hgb 14.1 (14.0-18.0) g/dL Hct 41.3 L (42-52) % MCV 94.5 (80-100) fL MCH 32.3 (25-34) pg MCHC 34.1 (32-36) g/dL RDW Std Deviation 55.9 H (36.4-46.3) fL RDW Coeff of Josh 16.1 H (11.5-14.5) % Plt Count 77 L (130-400) K/uL MPV 12.2 H (7.4-10.4) fL PT (9.0-12.0) Seconds INR (0.9-1.1) Sodium 132 L (136-145) mmol/L Potassium 3.9 D (3.5-5.1) mmol/L Chloride 101 (98-107) mmol/L Carbon Dioxide 22 (21-32) mmol/L Anion Gap 9.0 (3-11) BUN 66 H (7-18) mg/dl Creatinine 2.98 H (0.6-1.4) mg/dl Est Cr Clr Drug Dosing 16.3 ml/min Est GFR ( Amer) 21.8 ml/min Est GFR (Non-Af Amer) 18.8 ml/min BUN/Creatinine Ratio 22.1 H (10-20) Glucose 80 (70-99) mg/dl POC Glucose 100 H (70-99) mg/dl Calcium 8.4 L (8.5-10.1) mg/dl Phosphorus (2.5-4.9) mg/dl Magnesium (1.8-2.4) mg/dl Total Bilirubin (0.2-1) mg/dl AST (15-37) U/L ALT (12-78) U/L Alkaline Phosphatase (45-117) U/L Total Creatine Kinase (39-308) U/L Total Protein (6.4-8.2) gm/dl Albumin (3.4-5.0) gm/dl Globulin (2.5-4.0) gm/dl Albumin/Globulin Ratio (0.9-2) Hepatitis A IgM Ab Hep Bs Antigen Hep B Core IgM Ab Hepatitis C Antibody 03/27/21 03/27/21 03/27/21 Range/Units 16:13 12:39 12:39 WBC (4.8-10.8) K/uL RBC (4.7-6.1) M/uL Hgb (14.0-18.0) g/dL Hct (42-52) % MCV (80-100) fL MCH (25-34) pg MCHC (32-36) g/dL RDW Std Deviation (36.4-46.3) fL RDW Coeff of Josh (11.5-14.5) % Plt Count (130-400) K/uL MPV (7.4-10.4) fL PT (9.0-12.0) Seconds INR (0.9-1.1) Sodium (136-145) mmol/L Potassium (3.5-5.1) mmol/L Chloride (98-107) mmol/L Carbon Dioxide (21-32) mmol/L Anion Gap (3-11) BUN (7-18) mg/dl Creatinine (0.6-1.4) mg/dl Est Cr Clr Drug Dosing ml/min Est GFR ( Amer) ml/min Est GFR (Non-Af Amer) ml/min BUN/Creatinine Ratio (10-20) Glucose (70-99) mg/dl POC Glucose 112 H 119 H (70-99) mg/dl Calcium (8.5-10.1) mg/dl Phosphorus (2.5-4.9) mg/dl Magnesium (1.8-2.4) mg/dl Total Bilirubin (0.2-1) mg/dl AST (15-37) U/L ALT (12-78) U/L Alkaline Phosphatase (45-117) U/L Total Creatine Kinase (39-308) U/L Total Protein (6.4-8.2) gm/dl Albumin (3.4-5.0) gm/dl Globulin (2.5-4.0) gm/dl Albumin/Globulin Ratio (0.9-2) Hepatitis A IgM Ab Pending Hep Bs Antigen Hep B Core IgM Ab Pending Hepatitis C Antibody 03/27/21 03/27/21 Range/Units 12:39 12:39 WBC (4.8-10.8) K/uL RBC (4.7-6.1) M/uL Hgb (14.0-18.0) g/dL Hct (42-52) % MCV (80-100) fL MCH (25-34) pg MCHC (32-36) g/dL RDW Std Deviation (36.4-46.3) fL RDW Coeff of Josh (11.5-14.5) % Plt Count (130-400) K/uL MPV (7.4-10.4) fL PT 16.8 H (9.0-12.0) Seconds INR 1.7 H (0.9-1.1) Sodium (136-145) mmol/L Potassium (3.5-5.1) mmol/L Chloride (98-107) mmol/L Carbon Dioxide (21-32) mmol/L Anion Gap (3-11) BUN (7-18) mg/dl Creatinine (0.6-1.4) mg/dl Est Cr Clr Drug Dosing ml/min Est GFR ( Amer) ml/min Est GFR (Non-Af Amer) ml/min BUN/Creatinine Ratio (10-20) Glucose (70-99) mg/dl POC Glucose (70-99) mg/dl Calcium (8.5-10.1) mg/dl Phosphorus (2.5-4.9) mg/dl Magnesium (1.8-2.4) mg/dl Total Bilirubin (0.2-1) mg/dl AST (15-37) U/L ALT (12-78) U/L Alkaline Phosphatase (45-117) U/L Total Creatine Kinase (39-308) U/L Total Protein (6.4-8.2) gm/dl Albumin (3.4-5.0) gm/dl Globulin (2.5-4.0) gm/dl Albumin/Globulin Ratio (0.9-2) Hepatitis A IgM Ab Hep Bs Antigen Pending Hep B Core IgM Ab Hepatitis C Antibody Pending Medications Administered Current Inpatient Medications Acetaminophen (Acetaminophen 1000 Mg/100 Ml Iv) 1,000 mg IV TID PRN PRN Reason: Pain or Fever Stop: 03/29/21 02:18 Last Admin: 03/27/21 06:31 Dose: 1,000 mg Documented by: Albuterol (Albuterol Hfa 8 Gm Inhaler) 2 puffs INH Q6H PRN PRN Reason: Shortness Of Breath Stop: 04/25/21 02:18 Allopurinol (Allopurinol 100 Mg Tab) 100 mg PO BID [facility] Stop: 04/25/21 08:59 Last Admin: 03/27/21 21:33 Dose: 100 mg Documented by: Aspirin (Aspirin 81 Mg Ectab) 81 mg PO QAM [facility] Stop: 04/25/21 08:59 Last Admin: 03/27/21 09:13 Dose: 81 mg Documented by: Benzocaine (Benzocaine 20% Aer Spr 82.5 Gm Can) 1 appln EXT Q4H PRN PRN Reason: ITCHINESS Stop: 04/26/21 11:08 Benzonatate (Benzonatate 100 Mg Capsule) 200 mg PO TID PRN PRN Reason: Cough Stop: 04/25/21 02:18 Cetirizine HCl (Cetirizine Hcl 10 Mg Tablet) 10 mg PO DAILY PRN PRN Reason: Allergy Symptoms Stop: 04/25/21 02:18 Last Admin: 03/27/21 09:13 Dose: 10 mg Documented by: Clopidogrel Bisulfate (Clopidogrel Bisulfate 75 Mg Tab) 75 mg PO QAM [facility] Stop: 04/25/21 08:59 Last Admin: 03/27/21 09:15 Dose: 75 mg Documented by: Dextrose (Dextrose 50% 50 Ml Syringe) 25 - 50 ml IV UD PRN; Protocol PRN Reason: Hypoglycemia Protocol Stop: 04/25/21 03:14 Dicyclomine HCl (Dicyclomine Hcl 10 Mg Cap) 10 mg PO TID [facility] Stop: 04/25/21 08:59 Last Admin: 03/27/21 21:33 Dose: 10 mg Documented by: Docusate Sodium (Docusate Sodium 100 Mg Cap) 100 mg PO BID [facility] Stop: 04/25/21 08:59 Last Admin: 03/27/21 21:33 Dose: 100 mg Documented by: Famotidine (Famotidine 40 Mg Tablet) 40 mg PO DAILY PRN PRN Reason: Heartburn Stop: 04/25/21 02:18 Last Admin: 03/27/21 09:14 Dose: 40 mg Documented by: Glucagon (Glucagon For Inj 1 Mg Vial) 1 mg IM UD PRN; Protocol PRN Reason: Hypoglycemia Protocol Stop: 04/25/21 03:14 Glucose (Glucose 40% Gel 15 Gm Tube) 15 - 30 gm PO UD PRN; Protocol PRN Reason: Hypoglycemia Protocol Stop: 04/25/21 03:14 Glucose (Glucose 10 Tabs/Tube) 4 - 8 tabs PO UD PRN; Protocol PRN Reason: Hypoglycemia Protocol Stop: 04/25/21 03:14 Heparin Sodium (Porcine) (Heparin Sod 5,000 Unit/0.5 Ml Vial) 5,000 units SQ Q8 [facility]RAN Stop: 04/25/21 05:59 Last Admin: 03/28/21 06:38 Dose: 5,000 units Documented by: Piperacillin Sod/Tazobactam (Sod 3.375 gm/ Dextrose) 115 mls @ 28.75 mls/hr IV Q12H SIMRAN; Protocol Stop: 04/05/21 19:59 Last Infusion: 03/28/21 02:08 Dose: Infused Documented by: Sodium Chloride (Nss 1000ml) 1,000 mls @ 80 mls/hr IV .[id number] [facility] Stop: 04/25/21 14:44 Last Admin: 03/28/21 07:57 Dose: 80 mls/hr Documented by: Insulin Aspart (Insulin Aspart 100 Units/Ml 3 Ml Pen) 0 units SC ACHS [facility] Stop: 04/26/21 22:29 Last Admin: 03/27/21 22:38 Dose: Not Given Documented by: Miscellaneous (Carbohydrates For Hypoglycemia ) 15 - 30 gm PO UD PRN PRN Reason: Hypoglycemia Treatment Stop: 04/25/21 03:14 Miscellaneous Information (Piperacill/Tazobac Consult Active) 1 ea N/A UD PRN PRN Reason: Consult Stop: 04/25/21 11:01 Multivitamins/Minerals (Cerovite Adv Formula Tab) 1 tab PO QAM [facility] Stop: 04/25/21 08:59 Last Admin: 03/27/21 09:22 Dose: 1 tab Documented by: Ondansetron HCl (Ondansetron Inj 2 Mg/Ml 2 Ml Vial) 4 mg IV Q6H PRN PRN Reason: Nausea Stop: 04/25/21 02:18 Pantoprazole Sodium (Pantoprazole 40 Mg Tab) 40 mg PO QAM [facility] Stop: 04/25/21 08:59 Last Admin: 03/27/21 09:14 Dose: 40 mg Documented by: Polyethylene Glycol (Polyethylene (Miralax) 17 Gm Pack) 17 gm PO BID [facility] Stop: 04/25/21 02:18 Last Admin: 03/27/21 21:32 Dose: 17 gm Documented by: Vitamin D (Cholecalciferol 1,000 Units 25 Mcg Tab) 2,000 units PO QAM [facility] Stop: 04/25/21 08:59 Last Admin: 03/27/21 09:13 Dose: 2,000 units Documented by: Vitamin D (Cholecalciferol 400 Units 10 Mcg Tab) 2,000 units PO QAM [facility] Stop: 03/28/21 09:01
[2021-03-28] MEDS: ONDANSETRON INJ 2 MG/ML 2 ML VIAL IV PRN (08:10)
[2021-03-28] MEDS: INSULIN ASPART 100 UNITS/ML 3 ML PEN SC SCH ×4 (08:22→21:03)
[2021-03-28] MEDS: PANTOprazole 40 MG TAB PO SCH (08:26)
[2021-03-28] MEDS: POLYETHYLENE (MIRALAX) 17 GM PACK PO SCH ×2 (08:26→21:06)
[2021-03-28] MEDS: DICYCLOMINE HCL 10 MG CAP PO SCH ×3 (08:27→21:02)
[2021-03-28] MEDS: ASPIRIN 81 MG ECTAB PO SCH (08:27)
[2021-03-28] MEDS: CEROVITE ADV FORMULA TAB PO SCH (08:27)
[2021-03-28] MEDS: CLOPIDOGREL BISULFATE 75 MG TAB PO SCH (08:27)
[2021-03-28] MEDS: DOCUSATE SODIUM 100 MG CAP PO SCH ×2 (08:28→21:02)
[2021-03-28] MEDS: allopurinoL 100 MG TAB PO SCH ×2 (08:28→21:02)
[2021-03-28] MEDS ORDERED: CHOLECALCIFEROL 400 UNITS 10 MCG TAB PO SCH (09:00)
[2021-03-28] MEDS: PIPERACILLIN/TAZOBACTAM 3.375 GM in DEXTROSE 5% 100 ML IV SCH ×2 (09:13→21:01)
--- NOTE | 2021-03-28 13:11 | Gastroenterology Progress Note ---
Date of Service March 28, 2021 Assessment & Plan (1) Diastolic heart failure: (2) Pleural effusion: (3) Elevated LFTs: Plan: Most likely secondary to ischemic hepatopathy from Right Heart failure and hypotension during this admission RUQ US and CT imaging showed no cholelithiasis or CBD dilation Cirrhotic appearance of liver on imaging, however, he had normal liver panel prior to this admission, without any evidence of decompensation Recommend continuing current therapy and supportive care Tammy JAMIL to resume care on 03/29/2021 Admission and Anticipated Discharge Date Admission Date: March 25, 2021 Subjective I was asked to see Mr. Camara this AM by the Hospitalist service due to elevated liver panel and abdominal distention. I did discuss this case in detail with Dr. Knight. At the time I saw the patient, he was sitting up in his bed eating a liquid lunch. He was able to answer all questions appropriately. He denies any abdominal pain, fevers, chills, nausea or vomiting. He states that he frequently has abdominal distention, "which they've always blamed on my heart." He states that he has had several liquid BM's today, as they have been giving him Miralax therapy. He denies any further complaints. Review of Systems Constitutional: as per Subjective / HPI Eyes: as per Subjective / HPI Ear, Nose, Mouth, Throat: as per Subjective / HPI Respiratory: as per Subjective / HPI Cardiovascular: as per Subjective / HPI Gastrointestinal: as per Subjective / HPI Musculoskeletal: as per Subjective / HPI Integumentary: as per Subjective / HPI Neurologic: as per Subjective / HPI Psychiatric: as per Subjective / HPI Endocrine: as per Subjective / HPI Hematologic / Lymphatic: as per Subjective / HPI Allergy / Immunological: as per Subjective / HPI Physical Exam Constitutional: no acute distress and not ill appearing Eyes: + anicteric sclerae ENMT: external ear and nose normal, oropharynx normal Neck: normal visual inspection Respiratory: normal respiratory effort, lungs clear to auscultation Cardiovascular: Rate/Rhythm: regular rate and regular rhythm Gastrointestinal (Abdomen): Inspection/Auscultation: + abdomen distended and normal bowel sounds Percussion/Palpation: abdomen soft; abdomen nontender, no guarding, abdomen not rigid and no fluid wave Skin: no rashes, warm and dry Psychiatric: A+Ox3, euthymic affect Results & Data Results & Data ([facility]) Vital Signs (Past 12 Hours) Vital Signs Temp Pulse Pulse Resp BP Pulse Ox 03/28/21 11:17 36.4 C L 88 16 116/74 96 03/28/21 07:43 98 H 03/28/21 07:32 36.5 C 94 H 16 126/72 93 03/28/21 04:15 36.8 C 90 18 117/72 95 PG Care Time/CCT Total # of Minutes Spent Total Time Spent with Patient: Total time spent is greater than 50% in coordination of care (as documented) at patient's floor/unit and/or counseling patient: Coding Level of Care Code 96099 Subseq Hosp Care Lvl 3 Diagnoses Diastolic heart failure I50.30 Pleural effusion J90 Elevated LFTs R79.89
[2021-03-28] MEDS: oxyCODONE HCL IR 5 MG TAB (IMMEDIATE RELEASE) PO PRN ×2 (13:24→17:27)
--- NOTE | 2021-03-28 13:41 | Nephrology Progress Note ---
Date of Service March 28, 2021 Assessment & Plan (1) Acute on chronic renal failure: Plan: Stage I presumed nonoliguric acute on chronic renal failure CKD 3B with 300 mg baseline albuminuria. Baseline creatinine 1.5-1.6 w/ about 300 mg albuminuria. creatinine essentially plateau'd; chemistries and volume status acceptable: ischemic ATN in the setting of severe MS, diffuse vascular dz, HF. no indication for discussion about dialysis. apart from mild hyponatremia, chemistries acceptable. Marked and worsening transaminitis noted; also s/p near syncopal episode at least 2X in hospital and not getting out of bed currently d/t worries about this. blood cxs ngtd x 48 hrs. continue low potassium diet -quite positive now (7L by I & 0) and w/ increasing abd girth, more 02 needs agree w/ no further fluids -- would give albumin if SBP drops again -diagnostic paracentesis and TTE planned -daily bmp -transaminitis per primary service/GI/cardiology (2) Biventricular heart failure, NYHA class 3: Plan: w/ hx of severe MS for which CT surgery recommended though high risk s/p CFLX stenting 09/2020 and w/ severe NADYA on bipap -recommend cardiology consultation for optimal mgt of volume status, transaminitis, recurrent syncope Admission and Anticipated Discharge Date Admission Date: March 25, 2021 Subjective transaminitis worsening; not out of bed today b/c of concerns about syncope; no worsening sob - stable exertional he states; tolerating po; significant rectal pain at rectal tear. no chest discomfort Review of Systems Review of Systems: All systems reviewed & are unremarkable except as noted in Subjective Physical Exam Constitutional: well developed, well nourished, + frail appearing and cooperative; no acute distress Eyes: EOM intact bilaterally ENMT: Ears: no external ear abnormality Nose: no external nose abnormality Mouth: + dry oral mucous membranes Neck: no nuchal rigidity Respiratory: normal respiratory effort Auscultation: + diminished lung sounds (Especially right base) Cardiovascular: Rate/Rhythm: regular rate and regular rhythm Heart Sounds: + murmur Extremities: + edema (Trace bilateral pretibial) Gastrointestinal (Abdomen): Inspection/Auscultation: + abdomen distended (more today) and normal bowel sounds Percussion/Palpation: abdomen soft; abdomen nontender and no guarding Musculoskeletal: Extremities: strength 5/5 throughout Skin: no rashes, warm and dry Psychiatric: Orientation: oriented x 3 Insight: good insight Judgement: good judgement Genitourinary: jacobson w/ scant brown urine Results & Data ([facility]) Vital Signs (Past 12 Hours) Vital Signs Temp Pulse Pulse Resp BP Pulse Ox 03/28/21 11:17 36.4 C L 88 16 116/74 96 03/28/21 07:43 98 H 03/28/21 07:32 36.5 C 94 H 16 126/72 93 03/28/21 04:15 36.8 C 90 18 117/72 95 Laboratory Results 03/28/21 04:34 03/28/21 04:34 transaminases increased to 300s
--- NOTE | 2021-03-28 15:56 | Cardiology Consultation ---
Date of Consultation March 28, 2021 Assessment & Plan (1) Aortic stenosis, severe: (2) Mitral stenosis: (3) Cor pulmonale (chronic): (4) HFrEF (heart failure with reduced ejection fraction): The patient's liver function abnormalities are due to congestion from heart failure. He is difficult to manage because of his mixed valvular disease and chronic right heart failure due to pulmonary hypertension. If you over diuresis him he will lose his preload and drop his blood pressure. Under diurese him and he will go into congestive heart failure. He is a difficult case to manage and we will help out where we can. History of Present Illness Attending Physician: Siddhartha Knight MD History of Present Illness This is an elderly 81-year-old male patient who has a complex cardiac history with previous coronary artery bypass surgery in 2018 and drug-eluting stents left circumflex artery 2020. He has mixed valvular heart disease with severe calcific aortic stenosis and severe calcification of the mitral apparatus with severe mitral regurgitation. He has cor pulmonale due to pulmonary hypertension from his valvular heart disease. He also has slowly been developing HFrEF. He is followed by vascular surgery with history of peripheral vascular disease and bilateral iliac stents. He was admitted several days ago with a fecal impaction and urine retention. He was disimpacted in the emergency department and was admitted to the ICU. He has had some hypotension today and we have been asked to see him. Allergies Allergy/AdvReac Type Severity Reaction Status Date / Time tramadol Allergy Severe Hallucinati Verified 03/25/21 10:02 ng amiodarone Allergy Intermediate "streaking Verified 03/25/21 10:02 up vein" and painful lactose Allergy Mild GI UPSET Verified 03/25/21 10:02 pollen extracts Allergy Mild HAYFEVER Verified 03/25/21 10:02 lisinopril AdvReac Mild COUGH Verified 03/25/21 10:02 Home Medications Medication Instructions Recorded Confirmed Type albuterol sulfate 90 mcg/actuation 2 puff INHALATION Q6H PRN 01/11/19 08/28/20 History aerosol inhaler allopurinol 100 mg tablet 100 mg PO BID 01/11/19 08/28/20 History amoxicillin 500 mg capsule 500 mg PO UD PRN 01/11/19 08/28/20 History aspirin 81 mg tablet,delayed 81 mg PO QAM 01/11/19 08/28/20 History release (Aspirin Low Dose) atorvastatin 40 mg tablet 40 mg PO PM 01/11/19 08/28/20 History benzonatate 200 mg capsule 200 mg PO TID PRN 01/11/19 08/28/20 History cetirizine 10 mg tablet 10 mg PO DAILY PRN 01/11/19 08/28/20 History clopidogrel 75 mg tablet 75 mg PO QAM 01/11/19 08/28/20 History docusate sodium 100 mg tablet 100 mg PO BID 01/11/19 08/28/20 History glucosamine sulf dipot 1 cap PO BID 01/11/19 08/28/20 History chlr,msm,chond 550 mg-C 30 mg-narcisa 1 mg capsule (Glucosamine Chondroitin) saw palmetto 450 mg capsule 450 mg PO QPM 01/11/19 08/28/20 History vit C 50 mg-E 15 unit-zinc cit 4.5 1 tab PO QAM 01/11/19 08/28/20 History mg-lutein 2.5 mg-zeaxan chew tablet (Supramed) Leg Cramps 324 mg PO HS 02/01/19 08/28/20 History famotidine 40 mg tablet 40 mg PO DAILY PRN 07/10/20 08/28/20 History omeprazole 20 mg capsule,delayed 20 mg PO QAM 07/10/20 08/28/20 History release cholecalciferol (vitamin D3) 50 50 mcg PO QAM 08/28/20 08/28/20 History mcg (2,000 unit) tablet (Vitamin D3) glipizide 2.5 mg tablet, extended 2.5 mg PO DAILY 03/10/21 History release 24 hr spironolactone 25 mg tablet 25 mg PO QAM tab 03/10/21 History torsemide 10 mg tablet 10 mg PO DAILY PRN 03/10/21 History torsemide 10 mg tablet 10 mg PO QPM tab 03/10/21 History torsemide 20 mg tablet 30 mg PO DAILY tab 03/10/21 History Patient History Medical History Aortic stenosis 08/05/20 TTE suggestive of severe Cardio records state moderate per cath Asthma LAST USED INHALER THIS AM Biventricular heart failure, NYHA class 3 Chronic kidney disease, stage 3 Congestive heart failure with right ventricular systolic dysfunction Per records Admitted 06/2020 due to acute CHF with right heart failure to [facility]- cardio consulted- pt put on increased diuretics Coronary artery disease S/p 3 vessel CABG 2017 Per cardiac records- recent cath showing 80% distal LM and 90% LCx stenosis Diabetes mellitus, type 2 Fibromyalgia Hearing deficit History of GI bleed Hx of gout Hyperlipidemia Hypertension Mitral stenosis severe; follows w/ CT surgery [facility] Non-Hodgkin lymphoma diagnosed 2004 s/p chemo PAD (peripheral artery disease) s/p b/l iliac artery stents (2015) Pleural effusion due to CHF (congestive heart failure) REASON FOR LASIX Sleep apnea TESTING IN PROCESS Venous stasis ulcer Surgical History History of anesthesia reaction LOW OXYGEN SATURATION AFTER HERNIA SURGERY History of bilateral carpal tunnel release History of cardiac cath 2016 AND 08/25/20 AT [facility] History of esophagogastroduodenoscopy (EGD) History of left hip replacement History of lumbar discectomy History of lymph node biopsy History of phacoemulsification of cataract of both eyes with intraocular lens implantation History of right hip replacement History of tonsillectomy and adenoidectomy History of tooth extraction History of total hip arthroplasty RT/LEFT History of transesophageal echocardiography (CLEOPATRA) History of umbilical hernia repair Hx of left inguinal hernia repair Hx of right inguinal hernia repair S/P CABG x 3 2017 AT [facility] S/P colonoscopy 01/15/19 Status post insertion of iliac artery stent b/l (2015) Family History Grandmother (Paternal) Family history of diabetes mellitus Mother Family history of diabetes mellitus Aunt Family history of diabetes mellitus Uncle Family history of diabetes mellitus Grandfather (Maternal) Family history of diabetes mellitus Sister Family history of diabetes mellitus Father Family hx colonic polyps Other No family history of adverse response to anesthesia Social History Smoking Status: Never smoker Cigarettes Per Day: QUIT 45 YEARS AGO; Second Hand Exposure: No (father smoked); Hx Alcohol Use: Yes Alcohol type: beer Alcohol Intake Frequency: Monthly or Less Hx Substance Use: No Preferred Language: Faroese Communication Ability: Effective Visual Impairment: Partially Limited Hearing Ability: Use of Hearing Aid 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 All other 10 point review of systems are negative. Physical Exam Physical Exam: General: no acute distress and stated age Head: normocephalic, no masses, lesions, tenderness or abnormalities Eyes: conjunctiva are pink and non-injected, sclera clear Neck: supple, no adenopathy, no bruits, normal jugular venous pulse, no hepatojugular reflux Chest: normal shape and normal respiratory effort Lungs: clear to auscultation and percussion Cardiac Exam: - regular rate & rhythm, systolic murmur left sternal border- normal S1, normal S2 Pulses: 2(+) throughout Abdomen: abdomen soft, non-tender, no abnormal masses and no hepatosplenomegaly Musculoskeletal: no gait disturbance, no joint inflammation, no deforming arthritis Extremities: no edema and no cyanosis Neuro: grossly normal exam Results & Data ([facility]) Vital Signs (Past 12 Hours) Vital Signs Temp Pulse Pulse Resp BP BP Pulse Ox 03/28/21 15:18 82 03/28/21 14:00 82 12 116/74 94 03/28/21 11:17 36.4 C L 88 16 116/74 96 03/28/21 07:43 98 H 03/28/21 07:32 36.5 C 94 H 16 126/72 93 03/28/21 04:15 36.8 C 90 18 117/72 95 Laboratory Results Laboratory Results - last 24 hr 03/27/21 03/27/21 03/27/21 16:13 16:42 21:46 WBC RBC Hgb Hct MCV MCH MCHC RDW Std Deviation RDW Coeff of Josh Plt Count MPV PT INR Sodium 132 L Potassium 3.9 D Chloride 101 Carbon Dioxide 22 Anion Gap 9.0 BUN 66 H Creatinine 2.98 H Est Cr Clr Drug Dosing 16.3 Est GFR ( Amer) 21.8 Est GFR (Non-Af Amer) 18.8 BUN/Creatinine Ratio 22.1 H Glucose 80 POC Glucose 112 H 100 H Calcium 8.4 L Phosphorus Magnesium Total Bilirubin AST ALT Alkaline Phosphatase Total Creatine Kinase Total Protein Albumin Globulin Albumin/Globulin Ratio 03/28/21 03/28/21 03/28/21 04:34 04:34 04:34 WBC 12.23 H RBC 4.37 L Hgb 14.1 Hct 41.3 L MCV 94.5 MCH 32.3 MCHC 34.1 RDW Std Deviation 55.9 H RDW Coeff of Josh 16.1 H Plt Count 77 L MPV 12.2 H PT 17.2 H INR 1.8 H Sodium 130 L Potassium 4.4 Chloride 101 Carbon Dioxide 22 Anion Gap 7.0 BUN 66 H Creatinine 3.03 H Est Cr Clr Drug Dosing 16.0 Est GFR ( Amer) 21.3 Est GFR (Non-Af Amer) 18.4 BUN/Creatinine Ratio 21.9 H Glucose 86 POC Glucose Calcium 9.0 Phosphorus 5.2 H Magnesium 2.4 Total Bilirubin 4.3 H AST 393 H ALT 313 H Alkaline Phosphatase 219 H Total Creatine Kinase 168 Total Protein 6.5 Albumin 3.6 Globulin 2.9 Albumin/Globulin Ratio 1.2 03/28/21 03/28/21 07:17 11:11 WBC RBC Hgb Hct MCV MCH MCHC RDW Std Deviation RDW Coeff of Josh Plt Count MPV PT INR Sodium Potassium Chloride Carbon Dioxide Anion Gap BUN Creatinine Est Cr Clr Drug Dosing Est GFR ( Amer) Est GFR (Non-Af Amer) BUN/Creatinine Ratio Glucose POC Glucose 91 126 H Calcium Phosphorus Magnesium Total Bilirubin AST ALT Alkaline Phosphatase Total Creatine Kinase Total Protein Albumin Globulin Albumin/Globulin Ratio Medications Administered Current Inpatient Medications Acetaminophen (Acetaminophen 1000 Mg/100 Ml Iv) 1,000 mg IV TID PRN PRN Reason: Pain or Fever Stop: 03/29/21 02:18 Last Admin: 03/27/21 06:31 Dose: 1,000 mg Documented by: Albuterol (Albuterol Hfa 8 Gm Inhaler) 2 puffs INH Q6H PRN PRN Reason: Shortness Of Breath Stop: 04/25/21 02:18 Allopurinol (Allopurinol 100 Mg Tab) 100 mg PO BID [facility]RAN Stop: 04/25/21 08:59 Last Admin: 03/28/21 08:28 Dose: 100 mg Documented by: Aspirin (Aspirin 81 Mg Ectab) 81 mg PO QAM [facility] Stop: 04/25/21 08:59 Last Admin: 03/28/21 08:27 Dose: 81 mg Documented by: Benzocaine (Benzocaine 20% Aer Spr 82.5 Gm Can) 1 appln EXT Q4H PRN PRN Reason: ITCHINESS Stop: 04/26/21 11:08 Benzonatate (Benzonatate 100 Mg Capsule) 200 mg PO TID PRN PRN Reason: Cough Stop: 04/25/21 02:18 Cetirizine HCl (Cetirizine Hcl 10 Mg Tablet) 10 mg PO DAILY PRN PRN Reason: Allergy Symptoms Stop: 04/25/21 02:18 Last Admin: 03/27/21 09:13 Dose: 10 mg Documented by: Clopidogrel Bisulfate (Clopidogrel Bisulfate 75 Mg Tab) 75 mg PO [facility] Stop: 04/25/21 08:59 Last Admin: 03/28/21 08:27 Dose: 75 mg Documented by: Dextrose (Dextrose 50% 50 Ml Syringe) 25 - 50 ml IV UD PRN; Protocol PRN Reason: Hypoglycemia Protocol Stop: 04/25/21 03:14 Dicyclomine HCl (Dicyclomine Hcl 10 Mg Cap) 10 mg PO TID [facility] Stop: 04/25/21 08:59 Last Admin: 03/28/21 13:50 Dose: 10 mg Documented by: Docusate Sodium (Docusate Sodium 100 Mg Cap) 100 mg PO BID [facility] Stop: 04/25/21 08:59 Last Admin: 03/28/21 08:28 Dose: 100 mg Documented by: Famotidine (Famotidine 40 Mg Tablet) 40 mg PO DAILY PRN PRN Reason: Heartburn Stop: 04/25/21 02:18 Last Admin: 03/27/21 09:14 Dose: 40 mg Documented by: Glucagon (Glucagon For Inj 1 Mg Vial) 1 mg IM UD PRN; Protocol PRN Reason: Hypoglycemia Protocol Stop: 04/25/21 03:14 Glucose (Glucose 40% Gel 15 Gm Tube) 15 - 30 gm PO UD PRN; Protocol PRN Reason: Hypoglycemia Protocol Stop: 04/25/21 03:14 Glucose (Glucose 10 Tabs/Tube) 4 - 8 tabs PO UD PRN; Protocol PRN Reason: Hypoglycemia Protocol Stop: 04/25/21 03:14 Heparin Sodium (Porcine) (Heparin Sod 5,000 Unit/0.5 Ml Vial) 5,000 units SQ Q8 [facility] Stop: 04/25/21 05:59 Last Admin: 03/28/21 13:50 Dose: 5,000 units Documented by: Piperacillin Sod/Tazobactam (Sod 3.375 gm/ Dextrose) 115 mls @ 28.75 mls/hr IV Q12H [facility]; Protocol Stop: 04/05/21 19:59 Last Infusion: 03/28/21 13:45 Dose: Infused Documented by: Sodium Chloride (Nss 1000ml) 1,000 mls @ 80 mls/hr IV .[id number] [facility] Stop: 04/25/21 14:44 Last Infusion: 03/28/21 09:13 Dose: Infused Documented by: Insulin Aspart (Insulin Aspart 100 Units/Ml 3 Ml Pen) 0 units SC ACHS [facility] Stop: 04/26/21 22:29 Last Admin: 03/28/21 13:27 Dose: Not Given Documented by: Miscellaneous (Carbohydrates For Hypoglycemia ) 15 - 30 gm PO UD PRN PRN Reason: Hypoglycemia Treatment Stop: 04/25/21 03:14 Miscellaneous Information (Piperacill/Tazobac Consult Active) 1 ea N/A UD PRN PRN Reason: Consult Stop: 04/25/21 11:01 Multivitamins/Minerals (Cerovite Adv Formula Tab) 1 tab PO [facility] Stop: 04/25/21 08:59 Last Admin: 03/28/21 08:27 Dose: 1 tab Documented by: Ondansetron HCl (Ondansetron Inj 2 Mg/Ml 2 Ml Vial) 4 mg IV Q6H PRN PRN Reason: Nausea Stop: 04/25/21 02:18 Last Admin: 03/28/21 08:10 Dose: 4 mg Documented by: Oxycodone HCl (Oxycodone Hcl Ir 5 Mg Tab (Immediate Release)) 5 mg PO Q4H PRN PRN Reason: Moderate Pain Stop: 04/11/21 13:02 Last Admin: 03/28/21 13:24 Dose: 5 mg Documented by: Pantoprazole Sodium (Pantoprazole 40 Mg Tab) [facility] Stop: 04/25/21 08:59 Last Admin: 03/28/21 08:26 Dose: 40 mg Documented by: Polyethylene Glycol (Polyethylene (Miralax) 17 Gm Pack) 17 gm PO BID [facility] Stop: 04/25/21 02:18 Last Admin: 03/28/21 08:26 Dose: 17 gm Documented by: Vitamin D (Cholecalciferol 1,000 Units 25 Mcg Tab) 2,000 units PO QAM [facility] Stop: 04/25/21 08:59 Last Admin: 03/27/21 09:13 Dose: 2,000 units Documented by:
[2021-03-29] MEDS: oxyCODONE HCL IR 5 MG TAB (IMMEDIATE RELEASE) PO PRN (04:05)
[2021-03-29 05:39] LABS: Hematocrit (blood only) 42.7 % (42-52); Hemoglobin 14.7 g/dL (14.0-18.0); Mean Corpuscular Hemoglobin 32.9 pg (25-34); Mean Corpuscular Hgb Conc 34.4 g/dL (32-36); Mean Corpuscular Volume 95.5 fL (80-100); Nucleated RBC # (auto) 0.06 K/uL (0-0); Nucleated RBC % (auto) 0.5 %; Platelet Count 92 K/uL (130-400); RDW Coefficient of Variation 16.1 % (11.5-14.5); RDW Standard Deviation 55.9 fL (36.4-46.3); Red Blood Count 4.47 M/uL (4.7-6.1); White Blood Count 11.11 K/uL (4.8-10.8)
[2021-03-29 05:40] LABS: Albumin Level 3.1 gm/dl (3.4-5.0); BUN Creatinine Ratio 24.4 (10-20); Calcium 8.2 mg/dl (8.5-10.1); Creatinine Clr Calc Pharmacy 16.8 ml/min; Est GFR (African American) 22.6 ml/min; Est GFR (Non-African American) 19.5 ml/min; Magnesium 2.5 mg/dl (1.8-2.4); Platelet Estimate Decreased (Normal); Potassium 4.2 mmol/L (3.5-5.1)
[2021-03-29 06:20] LABS: Albumin Globulin Ratio 0.9 (0.9-2); Bilirubin,Total 4.2 mg/dl (0.2-1); Globulin 3.5 gm/dl (2.5-4.0); Phosphorus 4.1 mg/dl (2.5-4.9); Total Protein 6.6 gm/dl (6.4-8.2)
[2021-03-29] MEDS: HEPARIN SOD 5,000 UNIT/0.5 ML VIAL SQ SCH ×3 (06:33→21:02)
--- NOTE | 2021-03-29 08:46 | Cardiology Progress Note ---
Date of Service March 29, 2021 Assessment & Plan (1) Aortic stenosis, severe: (2) Mitral stenosis: (3) Cor pulmonale (chronic): (4) HFrEF (heart failure with reduced ejection fraction): (5) Elevated LFTs: Plan: Elevated LFT's, trending higher. GI consulted. Etiology like CHF based on his history vs cirrhosis. Diagnostic paracentesis performed this morning. KUB also demonstrated possible small ileus? Atorvastatin on hold. BP improved. No recurrent syncope/near syncope on the basis of hypotension He is +7 liters since admission which is slightly concerning for worsening volume status. However his renal function has not improved, despite holding diuretics. He is difficult to manage because of his mixed valvular disease and chronic right heart failure due to pulmonary hypertension. If you over diuresis him he will lose preload and drop his blood pressure. Under diurese him and he will go into congestive heart failure. Repeat chest xray given high demand oxygen needs currently. Low threshold to resume diuretic therapy, at least at lower dose. His home diuretics including spironolactone 25 mg daily and torsemide 30 mg in AM and 10 mg in afternoon. Case discussed with Dr. Abdi. Will follow. Admission and Anticipated Discharge Date Admission Date: March 25, 2021 Supervising Physician Co-Signing Physician Notes I have reviewed the medical record and discussed the case with Ms. Rodriguez. I have seen and evaluated the patient. I agree with the plan as outlined above. This is a very difficult patient to manage due to his valvular heart disease, pulmonary hypertension with cor pulmonale and now progressive left ventricular dysfunction. I believe that his LFTs are most likely elevated due to liver congestion from his heart failure. Subjective Patient resting in bed. He reports ongoing weakness, but denies recurrent synco pe/near syncope when getting out of bed. Reports ongoing abdominal pain and distention. Went for diagnostic paracentesis this morning with 60 cc removed. KUB demonstrates possible ileus. He reports SOB at baseline but appears his oxygen requirements increased over the last 24 hours. No chest pain. No worsening fever, cough, chills. Previously reported edema, improved. Review of Systems Review of Systems: Review of Systems: See HPI for pertinent positives. All other 10 point review of systems are negative. Physical Exam Constitutional: WD/WN, vitals as above Eyes: sclerae not anicteric Neck: trachea midline, no thyromegaly Respiratory: + labored breathing (mild conversational dyspnea; dyspneic with minimal movement in bed) Auscultation: + diminished lung sounds (bases) and + crackles Cardiovascular: Rate/Rhythm: regular rate and regular rhythm Heart Sounds: + murmur (III/ systolic murmur LSB and apex) Vessels: no JVD Extremities: no edema Gastrointestinal (Abdomen): Inspection/Auscultation: + abdomen distended Percussion/Palpation: + abdomen firm Musculoskeletal: no cyanosis or clubbing, extremities motor strength 5/5 Skin: no rashes, warm and dry Neurologic: PERRL, EOMI, accommodation nl, no face palsy, no dysarthria Psychiatric: A+Ox3, euthymic affect Results & Data ([facility]) Vital Signs (Past 12 Hours) Vital Signs Temp Pulse Resp BP Pulse Ox 03/29/21 04:06 37.1 C 92 H 16 128/82 92 03/28/21 23:38 37 C 82 20 114/77 95 03/28/21 20:56 36.4 C L 88 20 129/81 94 Laboratory Results 03/29/21 03/29/21 03/29/21 Range/Units 07:19 04:38 04:38 WBC 11.11 H (4.8-10.8) K/uL RBC 4.47 L (4.7-6.1) M/uL Hgb 14.7 (14.0-18.0) g/dL Hct 42.7 (42-52) % MCV 95.5 (80-100) fL MCH 32.9 (25-34) pg MCHC 34.4 (32-36) g/dL RDW Std Deviation 55.9 H (36.4-46.3) fL RDW Coeff of Josh 16.1 H (11.5-14.5) % Plt Count 92 L (130-400) K/uL MPV 12.0 H (7.4-10.4) fL Absolute Nucleated RBC 0.06 H (0-0) K/uL Nucleated RBC % (auto) 0.5 % Platelet Estimate Decreased L (Normal) Sodium 132 L (136-145) mmol/L Potassium 4.2 (3.5-5.1) mmol/L Chloride 102 (98-107) mmol/L Carbon Dioxide 19 L (21-32) mmol/L Anion Gap 10.0 (3-11) BUN 71 H (7-18) mg/dl Creatinine 2.89 H (0.6-1.4) mg/dl Est Cr Clr Drug Dosing 16.8 ml/min Est GFR ( Amer) 22.6 ml/min Est GFR (Non-Af Amer) 19.5 ml/min BUN/Creatinine Ratio 24.4 H (10-20) Glucose 103 H (70-99) mg/dl POC Glucose 96 (70-99) mg/dl Calcium 8.2 L (8.5-10.1) mg/dl Phosphorus 4.1 D (2.5-4.9) mg/dl Magnesium 2.5 H (1.8-2.4) mg/dl Total Bilirubin 4.2 H (0.2-1) mg/dl AST 481 H (15-37) U/L ALT 433 H (12-78) U/L Alkaline Phosphatase 228 H (45-117) U/L Total Protein 6.6 (6.4-8.2) gm/dl Albumin 3.1 L (3.4-5.0) gm/dl Globulin 3.5 (2.5-4.0) gm/dl Albumin/Globulin Ratio 0.9 (0.9-2) 03/28/21 03/28/21 03/28/21 Range/Units 20:58 16:02 11:11 WBC (4.8-10.8) K/uL RBC (4.7-6.1) M/uL Hgb (14.0-18.0) g/dL Hct (42-52) % MCV (80-100) fL MCH (25-34) pg MCHC (32-36) g/dL RDW Std Deviation (36.4-46.3) fL RDW Coeff of Josh (11.5-14.5) % Plt Count (130-400) K/uL MPV (7.4-10.4) fL Absolute Nucleated RBC (0-0) K/uL Nucleated RBC % (auto) % Platelet Estimate (Normal) Sodium (136-145) mmol/L Potassium (3.5-5.1) mmol/L Chloride (98-107) mmol/L Carbon Dioxide (21-32) mmol/L Anion Gap (3-11) BUN (7-18) mg/dl Creatinine (0.6-1.4) mg/dl Est Cr Clr Drug Dosing ml/min Est GFR ( Amer) ml/min Est GFR (Non-Af Amer) ml/min BUN/Creatinine Ratio (10-20) Glucose (70-99) mg/dl POC Glucose 135 H 108 H 126 H (70-99) mg/dl Calcium (8.5-10.1) mg/dl Phosphorus (2.5-4.9) mg/dl Magnesium (1.8-2.4) mg/dl Total Bilirubin (0.2-1) mg/dl AST (15-37) U/L ALT (12-78) U/L Alkaline Phosphatase (45-117) U/L Total Protein (6.4-8.2) gm/dl Albumin (3.4-5.0) gm/dl Globulin (2.5-4.0) gm/dl Albumin/Globulin Ratio (0.9-2) Diagnostic Findings KUB reviewed from this morning: IMPRESSION: 1. Borderline dilated gas-filled loops of large and small bowel seen throughout the abdomen. This favors a mild ileus. 2. Right pleural effusion, unchanged. Ultrasound guided paracentesis this morning: IMPRESSION: Ultrasound-guided diagnostic paracentesis with removal of 60 cc of ascites which was sent to the laboratory for analysis as ordered. Echo report reviewed dated 03/28/2021: Compared to previous study the echo is essentially unchanged except LV ejection fraction has declined. LV cavity is small. Severe concentric LVH. Ejection fraction 25 to 30%. Flattened septum is consistent with RV pressure overload. RV is severely dilated with severely reduced function. Left and the right atrium is severely dilated. Severe calcific aortic valve stenosis. Severe mitral annular calcification with moderate to severe mitral stenosis. Moderate TR. Medications Administered Current Inpatient Medications Albuterol (Albuterol Hfa 8 Gm Inhaler) 2 puffs INH Q6H PRN PRN Reason: Shortness Of Breath Stop: 04/25/21 02:18 Allopurinol (Allopurinol 100 Mg Tab) 100 mg PO BID [facility] Stop: 04/25/21 08:59 Last Admin: 03/28/21 21:02 Dose: 100 mg Documented by: Aspirin (Aspirin 81 Mg Ectab) 81 mg PO QAM [facility] Stop: 04/25/21 08:59 Last Admin: 03/28/21 08:27 Dose: 81 mg Documented by: Benzocaine (Benzocaine 20% Aer Spr 82.5 Gm Can) 1 appln EXT Q4H PRN PRN Reason: ITCHINESS Stop: 04/26/21 11:08 Benzonatate (Benzonatate 100 Mg Capsule) 200 mg PO TID PRN PRN Reason: Cough Stop: 04/25/21 02:18 Cetirizine HCl (Cetirizine Hcl 10 Mg Tablet) 10 mg PO DAILY PRN PRN Reason: Allergy Symptoms Stop: 04/25/21 02:18 Last Admin: 03/27/21 09:13 Dose: 10 mg Documented by: Clopidogrel Bisulfate (Clopidogrel Bisulfate 75 Mg Tab) [facility] Stop: 04/25/21 08:59 Last Admin: 03/28/21 08:27 Dose: 75 mg Documented by: Dextrose (Dextrose 50% 50 Ml Syringe) 25 - 50 ml IV UD PRN; Protocol PRN Reason: Hypoglycemia Protocol Stop: 04/25/21 03:14 Dicyclomine HCl (Dicyclomine Hcl 10 Mg Cap) 10 mg PO TID [facility] Stop: 04/25/21 08:59 Last Admin: 03/28/21 21:02 Dose: 10 mg Documented by: Docusate Sodium (Docusate Sodium 100 Mg Cap) 100 mg PO BID [facility] Stop: 04/25/21 08:59 Last Admin: 03/28/21 21:02 Dose: 100 mg Documented by: Famotidine (Famotidine 40 Mg Tablet) 40 mg PO DAILY PRN PRN Reason: Heartburn Stop: 04/25/21 02:18 Last Admin: 03/27/21 09:14 Dose: 40 mg Documented by: Glucagon (Glucagon For Inj 1 Mg Vial) 1 mg IM UD PRN; Protocol PRN Reason: Hypoglycemia Protocol Stop: 04/25/21 03:14 Glucose (Glucose 40% Gel 15 Gm Tube) 15 - 30 gm PO UD PRN; Protocol PRN Reason: Hypoglycemia Protocol Stop: 04/25/21 03:14 Glucose (Glucose 10 Tabs/Tube) 4 - 8 tabs PO UD PRN; Protocol PRN Reason: Hypoglycemia Protocol Stop: 04/25/21 03:14 Heparin Sodium (Porcine) (Heparin Sod 5,000 Unit/0.5 Ml Vial) 5,000 units SQ Q8 [facility] Stop: 04/25/21 05:59 Last Admin: 03/29/21 06:33 Dose: 5,000 units Documented by: Piperacillin Sod/Tazobactam (Sod 3.375 gm/ Dextrose) 115 mls @ 28.75 mls/hr IV Q12H [facility]; Protocol Stop: 04/05/21 19:59 Last Infusion: 03/29/21 01:42 Dose: Infused Documented by: Sodium Chloride (Nss 1000ml) 1,000 mls @ 80 mls/hr IV .[id number] [facility] Stop: 04/25/21 14:44 Last Infusion: 03/28/21 09:13 Dose: Infused Documented by: Insulin Aspart (Insulin Aspart 100 Units/Ml 3 Ml Pen) 0 units SC ACHS [facility] Stop: 04/26/21 22:29 Last Admin: 03/28/21 21:03 Dose: Not Given Documented by: Miscellaneous (Carbohydrates For Hypoglycemia ) 15 - 30 gm PO UD PRN PRN Reason: Hypoglycemia Treatment Stop: 04/25/21 03:14 Miscellaneous Information (Piperacill/Tazobac Consult Active) 1 ea N/A UD PRN PRN Reason: Consult Stop: 04/25/21 11:01 Multivitamins/Minerals (Cerovite Adv Formula Tab) 1 tab PO [facility] Stop: 04/25/21 08:59 Last Admin: 03/28/21 08:27 Dose: 1 tab Documented by: Ondansetron HCl (Ondansetron Inj 2 Mg/Ml 2 Ml Vial) 4 mg IV Q6H PRN PRN Reason: Nausea Stop: 04/25/21 02:18 Last Admin: 03/28/21 08:10 Dose: 4 mg Documented by: Oxycodone HCl (Oxycodone Hcl Ir 5 Mg Tab (Immediate Release)) 5 mg PO Q4H PRN PRN Reason: Moderate Pain Stop: 04/11/21 13:02 Last Admin: 03/29/21 04:05 Dose: 5 mg Documented by: Pantoprazole Sodium (Pantoprazole 40 Mg Tab) 40 mg PO [facility] Stop: 04/25/21 08:59 Last Admin: 03/28/21 08:26 Dose: 40 mg Documented by: Polyethylene Glycol (Polyethylene (Miralax) 17 Gm Pack) 17 gm PO BID [facility] Stop: 04/25/21 02:18 Last Admin: 03/28/21 21:06 Dose: 17 gm Documented by: Vitamin D (Cholecalciferol 1,000 Units 25 Mcg Tab) 2,000 units PO QAM [facility] Stop: 04/25/21 08:59 Last Admin: 03/27/21 09:13 Dose: 2,000 units Documented by:
[2021-03-29] MEDS: INSULIN ASPART 100 UNITS/ML 3 ML PEN SC SCH ×5 (09:48→21:38)
[2021-03-29] MEDS: PIPERACILLIN/TAZOBACTAM 3.375 GM in DEXTROSE 5% 100 ML IV SCH ×2 (09:49→21:00)
[2021-03-29] MEDS: ASPIRIN 81 MG ECTAB PO SCH (09:50)
[2021-03-29] MEDS: DICYCLOMINE HCL 10 MG CAP PO SCH ×2 (09:50→12:26)
[2021-03-29] MEDS: allopurinoL 100 MG TAB PO SCH ×2 (09:50→21:01)
[2021-03-29] MEDS: DOCUSATE SODIUM 100 MG CAP PO SCH ×2 (09:50→21:01)
[2021-03-29] MEDS: CLOPIDOGREL BISULFATE 75 MG TAB PO SCH (09:50)
[2021-03-29] MEDS: CEROVITE ADV FORMULA TAB PO SCH (09:50)
[2021-03-29] MEDS: PANTOprazole 40 MG TAB PO SCH (09:50)
[2021-03-29] MEDS: CHOLECALCIFEROL 1,000 UNITS 25 MCG TAB PO SCH (09:50)
--- NOTE | 2021-03-29 09:57 | Ultrasound Report ---
ULTRASOUND GUIDED DIAGNOSTIC PARACENTESIS CLINICAL HISTORY: Ascites. Abdominal pain. r/o SBP COMPARISON STUDY: CT of the abdomen and pelvis March 26, 2021. PROCEDURE: The risks, benefits, and alternatives to the procedure were discussed with the patient inc luding the risk of bleeding, infection and injury to adjacent structures. The patient agreed to the procedure and informed written consent was obtained. Following real-time ultrasound localization, the skin of the right lower quadrant was prepped and draped. Following local anesthesia with Xylocaine, a 3 1/2 inch, 18-gauge spinal needle was directed into the peritoneal cavity. There was immediate ret urn of serosanguineous ascites. 60 cc was aspirated and sent to laboratory for analysis. The needle w as removed. The patient tolerated the procedure well and no immediate complications were evident. IMPRESSION: Ultrasound-guided diagnostic paracentesis with removal of 60 cc of ascites which was sen t to the laboratory for analysis as ordered. ACT 112: Negative or not required by law. Electronically signed by: Vaughn Lujan M.D. 03/29/2021 9:56 AM
--- NOTE | 2021-03-29 10:07 | XRay Report ---
KUB HISTORY: abd distension, eval for stool burden, gas COMPARISON: Abdomen and pelvis CT 03/26/2021. FINDINGS: Mildly dilated gas-filled stomach. There are multiple borderline dilated gas-filled loops o f large or small bowel seen throughout the abdomen. Findings favor a mild ileus. There is a small of gas within the bladder which may be due to prior catheterization. There are bilateral total hip arthr oplasties. Iliac artery stents are again noted. No renal calculi. No ureteral calculi. No pneumoperi toneum or pneumatosis. Right pleural effusion and cardiomegaly persist. IMPRESSION: 1. Borderline dilated gas-filled loops of large and small bowel seen throughout the abdomen. This fav ors a mild ileus. 2. Right pleural effusion, unchanged. ACT 112: Negative or not required by law. Electronically signed by: Venkat Yost M.D. 03/29/2021 10:06 AM
[2021-03-29] MEDS: POLYETHYLENE (MIRALAX) 17 GM PACK PO SCH ×2 (10:09→21:02)
--- NOTE | 2021-03-29 10:12 | Gastroenterology Progress Note ---
Date of Service March 29, 2021 Assessment & Plan (1) HFrEF (heart failure with reduced ejection fraction): (2) Cor pulmonale (chronic): (3) Elevated LFTs: Plan: Pt is a 81 yo male followed for elevated LFTs, abd distension. He has hx of congestive HF, and on imaging studies signs of cirrhosis but no significant signs of ascites. Suspect elevated LFTs related to congestive/ischemic hepatopathy. On exam abd distension sounds more tympanic thus likely gaseous in stead of ascites accumulation. - KUB to re-eval stool burden. Will continue Miralax and Colace for now - U/S diagnostic paracentesis ordered by hospitalist; will calculate SAAG if fluid able to be obtained - Trend LFTs - Avoid hepatotoxic meds - F/U acute hepatitis panel. - Will follow peripherally Admission and Anticipated Discharge Date Admission Date: March 25, 2021 Supervising Physician Co-Signing Physician Notes Admitted 03/25/21 with rectal pain s/p dimpaction with bowel movements thereafter. incidental findings of cirrhosis on imaging presumed to be from ischemic cardiomyopathy thus far (additional studies pending for etiology of liver disease). Recent cardiac ef 25-30% per echo, tb 4.2, cr 2.9, ast 481/alt 433, ap 228 Agree with further plan of care as above. Subjective Pt denies any increased SOB, or CP. Is having abd distension but no pain, n/v. Is passing flatus and having loose stools on laxatives. Review of Systems Review of Systems: All systems reviewed & are unremarkable except as noted in HPI & below Physical Exam Constitutional: WD/WN, vitals as above well groomed, cooperative and comfortable Eyes: PERRL, conjunctivae normal, anicteric sclerae ENMT: external ear and nose normal, oropharynx normal Respiratory: normal respiratory effort, lungs clear to auscultation Diminished overall lung sounds Cardiovascular: RRR, no murmur, no edema Gastrointestinal (Abdomen): Distended, hypoactive bowel sounds, non tender Skin: no rashes, warm and dry no jaundice Psychiatric: A+Ox3, euthymic affect Lymphatic: no lymphedema Results & Data ([facility]) Vital Signs (Past 12 Hours) Vital Signs Temp Pulse Resp BP Pulse Ox 03/29/21 04:06 37.1 C 92 H 16 128/82 92 03/28/21 23:38 37 C 82 20 114/77 95
[2021-03-29 10:32] LABS: INR 1.8 (0.9-1.1); Prothrombin Time 17.5 Seconds (9.0-12.0)
[2021-03-29 11:01] LABS: Albumin Peritoneal Fluid 1.9 g/dl; Total Protein Peritoneal Fluid 3.8 g/dl
[2021-03-29 11:13] LABS: Hepatitis B Surf Ag Rflx Conf Neg (Neg)
[2021-03-29 11:42] LABS: Hepatitis C IgG 13Yrs+Old_Rflx Neg (Neg)
--- NOTE | 2021-03-29 12:17 | Urology Progress Note ---
Date of Service March 29, 2021 Assessment & Plan (1) Hematuria: (2) Urinary retention: Plan: 81 year-old male patient, with multiple comorbidities, admitted with rectal pain and severe constipation. -Urology consulted for urinary retention, which is likely multifactorial including severe constipation/underlying BPH. -Patient did develop hematuria post catheter insertion which has since cleared. -He is afebrile. -Labs reviewed - Wbc downtrending and creatinine up to 2.89, nephrology following -Urine culture no growth; Blood cultures NGTD -Cole catheter intact, draining concentrated yellow urine, output appears adequate -CT imaging -No evidence of acute findings or obstruction, no hydronephrosis. -Recommend maintaining catheter for at least 7-10 days, while correcting severe constipation and other acute issues. -Continue with supportive care and management per primary team. -Will arrange outpatient follow-up with urology for continued care - will sign-off now, please reconsult us with additional questions, concerns or changes in patient status. Admission and Anticipated Discharge Date Admission Date: March 25, 2021 Subjective Pt examined at bedside this AM. Awake, resting in bed on arrival. He is alert, appears comfortable, and non-toxic in appearance. He currently denies abdominal or flank pain. Tolerating Cole catheter well without discomfort. Catheter intact, patent, draining concentrated yellow urine. Denies fevers or chills. Denies nausea or vomiting. Patient had US guided paracentesis today with removal of 60 cc of ascites KUB this morning - 1. Borderline dilated gas-filled loops of large and small bowel seen throughout the abdomen. This favors a mild ileus. 2. Right pleural effusion, unchanged. Review of Systems Constitutional: as per Subjective / HPI Gastrointestinal: as per Subjective / HPI Genitourinary: + as per Subjective / HPI Physical Exam Constitutional: cooperative; no acute distress Respiratory: no labored breathing and no audible wheezes Gastrointestinal (Abdomen): Inspection/Auscultation: + abdomen distended No pain with palpation. Musculoskeletal: Head/Neck/Chest: normocephalic Skin: No visible rashes or lesions to exposed skin areas Neurologic: moves all extremities and awake Psychiatric: Orientation: alert, oriented to person and cooperative Genitourinary: Cole catheter intact Results & Data ([facility]) Vital Signs (Past 12 Hours) Vital Signs Temp Pulse Resp BP Pulse Ox 03/29/21 08:00 36.4 C L 93 H 14 115/73 92 03/29/21 04:06 37.1 C 92 H 16 128/82 92 PG Care Time/CCT Total # of Minutes Spent Total Time Spent with Patient: Total time spent is greater than 50% in coordination of care (as documented) at patient's floor/unit and/or counseling patient: Coding Level of Care Code 61861 Subseq Hosp Care Lvl 2 Diagnoses Hematuria R31.9 Urinary retention R33.9
--- NOTE | 2021-03-29 12:19 | Hospitalist Progress Note ---
Date of Service March 29, 2021 Assessment & Plan (1) Fecal impaction: (2) Pain in rectum: (3) Urinary retention: (4) Hematuria: Plan: Sepsis This is an 81-year-old male presented with constipation, severe rectal pain, and urinary retention. 1. Severe rectal pain and constipation Severe rectal pain, could be from fissures from ongoing constipation. There is also now gluteal fold fissure/ skin tear from disimpaction Underwent disimpaction in the ER May need treatment for possible fissures and stool impaction, even after disimpacted in the ER Placed him on gentle pain medications, MiraLax b.i.d. N.p.o. GI consulted Gen. surg. consulted -Recommend to continue stool softeners, obtain paracentesis to rule out SBP 03/27 - Patient had a bowel movement, no abdominal pain Started clear liquid diet Pt had some loose stools, no BM today (03/29) Gluteal fold skin tear -Continues to have significant pain, wound care practitioner consulted Sepsis Repeat morning labs significant for WBC of 20,000, lactic acid 3.1. Started on Zosyn in the morning and IV fluids, by screen tender helper Patient also found to be hypoxic, on 4 to 5 L of oxygen and chest CT was obtained After IV fluids and being on IV Zosyn, blood work repeated. Lactic acid 4.9 and white blood cell count 23,000. In addition urine brown, and creatinine 3, elevated from baseline of 1.4, and 2 earlier in the morning Contacted urology and GI General surgery also consulted Patient was to be transferred to telemetry, however there he had presyncopal/syncopal episode, systolic blood pressure into 80s Therefore sander setter was consulted, patient transferred to ICU and stat CT abdomen ordered 03/27 - Hemodynamically stable overnight, plan to transfer out from ICU 03/28 - Leukocytosis WBC 23K on 03/26, now trending down 12k (on 03/28) - cont. IV zosyn - BP improved, however abdomen more distended - Continue IV albumin, hold IV fluids with normal saline for now 03/29 - pt seen by cardiology and nephrology - plan to start gentle diuresis as pt's is positive about 7L -laying in bed most of the time as he continues to have syncopal episodes w/ minor movememt - underwent diagnostic paracentesis today (03/30) - large L flank ecchymosis noted (not sure if new), Hgb fairly stable, will obtain CT abd. pelvis to r/o any hemorrhage Hypoxia -Likely secondary to right pleural effusion -Seen by pulmonary/sander setter, may consider to drain however patient needs to be off Plavix -Currently comfortable, however using supplemental oxygen Elevated LFTs, bili, alk phos, cirrhosis -Cirrhosis noted on imaging -GI following, plan to follow-up as outpatient for cirrhosis -Recommend to obtain diagnostic paracentesis to rule out SBP -Monitor CMP -Hepatitis panel obtained -Ultrasound liver obtained 1. The liver is cirrhotic in morphology and heterogeneous in echotexture. 2. Small volume perihepatic ascites. 3. No shadowing gallstones are identified. 4. Mild nonspecific gallbladder wall thickening is likely related to cirrhosis and ascites. 5. Nonvisualization of the pancreas. 6. Right pleural effusion. 03/28 - MELD score 32 (unchanged from previous day) -Patient has hyponatremia, creatinine 3, INR elevated at 1.8, T bili elevated at 4.3 Discussed further with GI, given acute changes, likely congestive/ischemic etiology 03/29 s/p diagnostic paracentesis - plan for gentle diuresis, ordered 20 IV lasix 2. Urinary retention, placed on Cole catheter. Urology consulted 3. JAMIE on CKD III. Baseline creatinine 1.3, on admission creatinine of 2. After IVF and Abx , now Cr 3 Urine brown, repeat UA, u cultx Nephrology consulted cont. IV albumin as needed only for hypotension, hold IVF w/ NS - repeat BMP, cont. to closely monitor 4. History of right sided HF and history of diastolic CHF and valvular heart failure, initially holding diuretics. Received IV fluids, now about 7L positive. Plan for gentle diuresis as BP tolerates. 5. History of hypertension. Currently BP low despite IVF, likely sepsis, cont IV Abx, was also given IV albumin, IVF (on hold now) Started diuretics as above, will monitor blood pressure. 6. Aortic stenosis rheumatic valvular heart disease. needs followup. 7. CAD, s/p CABG. Continue home medications. 8. PAD s/p illiac stent. Continue aspirin, Plavix and statin. 9. Diabetes: Hold glipizide, place on insulin sliding scale. Follow the blood sugars. 11. Thrombocytopenia, seems chronic. Continue to monitor DVT subq heparin DISPOSITION: PCU Code: Full Admission and Anticipated Discharge Date Admission Date: March 25, 2021 Subjective Patient admitted due to stool burden, underwent disimpaction in the ED, but continued to have severe rectal pain Was found to have urine retention, and Cole catheter was placed GI and urology were consulted Morning after admission WBC 21 K, lactic acid elevated at 3.1, Cr worsened to ~3 Patient also hypoxic, on 4 to [address] chest was ordered to eval hypoxia - pl. effusion Patient was started on empiric Zosyn and IV fluids, IV albumin Repeat CT abd. pelvis was obtained, gen. 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 pelvis w/o contrast to r/o any hemorrhage Review of Systems Review of Systems: All systems reviewed & are unremarkable except as noted in Subjective Physical Exam Physical Exam: GENERAL: slender M, not in acute distress, but on 4-5 L NC, +discomfort in rectal region HEENT: NC/AT, EOMI, PERRL NECK: No JVD, no neck masses. CARDIOVASCULAR: S1 and S2 heard, regular rate and rhythm. No murmur, no gallop. RESPIRATORY: No accessory muscle use. Speaks in full sentences, on NC. No wheezing, diminished breath sounds at R base ABDOMEN/ GI: + distended, soft, +bowel sounds, nontender, + rectal/skin wound : Cole catheter placed dark yellow urine draining NEURO: Alert oriented answering questions appropriately, speech fluent, moves extremities EXTREMITIES: Lower extremities- chronic skin changes noted. Currently, no significant LR edema. Results & Data Results & Data ([facility]) Vital Signs (Past 12 Hours) Vital Signs Temp Pulse Resp BP Pulse Ox 03/29/21 08:00 36.4 C L 93 H 14 115/73 92 03/29/21 04:06 37.1 C 92 H 16 128/82 92 Laboratory Results 03/29/21 03/29/21 03/29/21 Range/Units 10:53 10:00 10:00 WBC (4.8-10.8) K/uL RBC (4.7-6.1) M/uL Hgb (14.0-18.0) g/dL Hct (42-52) % MCV (80-100) fL MCH (25-34) pg MCHC (32-36) g/dL RDW Std Deviation (36.4-46.3) fL RDW Coeff of Josh (11.5-14.5) % Plt Count (130-400) K/uL MPV (7.4-10.4) fL Absolute Nucleated RBC (0-0) K/uL Nucleated RBC % (auto) % Platelet Estimate (Normal) PT 17.5 H (9.0-12.0) Seconds INR 1.8 H (0.9-1.1) Sodium (136-145) mmol/L Potassium (3.5-5.1) mmol/L Chloride (98-107) mmol/L Carbon Dioxide (21-32) mmol/L Anion Gap (3-11) BUN (7-18) mg/dl Creatinine (0.6-1.4) mg/dl Est Cr Clr Drug Dosing ml/min Est GFR ( Amer) ml/min Est GFR (Non-Af Amer) ml/min BUN/Creatinine Ratio (10-20) Glucose (70-99) mg/dl POC Glucose 152 H (70-99) mg/dl Calcium (8.5-10.1) mg/dl Phosphorus (2.5-4.9) mg/dl Magnesium (1.8-2.4) mg/dl Total Bilirubin (0.2-1) mg/dl AST (15-37) U/L ALT (12-78) U/L Alkaline Phosphatase (45-117) U/L Total Protein (6.4-8.2) gm/dl Albumin (3.4-5.0) gm/dl Globulin (2.5-4.0) gm/dl Albumin/Globulin Ratio (0.9-2) Fluid Neutrophils % Pending Fluid Lymphocytes % Pending Fluid Eosinophils % Pending Fluid Meso/Macro/[place] % Pending Fluid Comment Peritoneal Color Pending Peritoneal Appearance Pending Peritoneal WBC Pending Peritoneal RBC Pending Peritoneal Tot Protein 3.8 g/dl Peritoneal Albumin 1.9 g/dl Hep Bs Antigen (Neg) Hepatitis C Antibody (Neg) 03/29/21 03/29/21 03/29/21 Range/Units 07:19 04:38 04:38 WBC 11.11 H (4.8-10.8) K/uL RBC 4.47 L (4.7-6.1) M/uL Hgb 14.7 (14.0-18.0) g/dL Hct 42.7 (42-52) % MCV 95.5 (80-100) fL MCH 32.9 (25-34) pg MCHC 34.4 (32-36) g/dL RDW Std Deviation 55.9 H (36.4-46.3) fL RDW Coeff of Josh 16.1 H (11.5-14.5) % Plt Count 92 L (130-400) K/uL MPV 12.0 H (7.4-10.4) fL Absolute Nucleated RBC 0.06 H (0-0) K/uL Nucleated RBC % (auto) 0.5 % Platelet Estimate Decreased L (Normal) PT (9.0-12.0) Seconds INR (0.9-1.1) Sodium 132 L (136-145) mmol/L Potassium 4.2 (3.5-5.1) mmol/L Chloride 102 (98-107) mmol/L Carbon Dioxide 19 L (21-32) mmol/L Anion Gap 10.0 (3-11) BUN 71 H (7-18) mg/dl Creatinine 2.89 H (0.6-1.4) mg/dl Est Cr Clr Drug Dosing 16.8 ml/min Est GFR ( Amer) 22.6 ml/min Est GFR (Non-Af Amer) 19.5 ml/min BUN/Creatinine Ratio 24.4 H (10-20) Glucose 103 H (70-99) mg/dl POC Glucose 96 (70-99) mg/dl Calcium 8.2 L (8.5-10.1) mg/dl Phosphorus 4.1 D (2.5-4.9) mg/dl Magnesium 2.5 H (1.8-2.4) mg/dl Total Bilirubin 4.2 H (0.2-1) mg/dl AST 481 H (15-37) U/L ALT 433 H (12-78) U/L Alkaline Phosphatase 228 H (45-117) U/L Total Protein 6.6 (6.4-8.2) gm/dl Albumin 3.1 L (3.4-5.0) gm/dl Globulin 3.5 (2.5-4.0) gm/dl Albumin/Globulin Ratio 0.9 (0.9-2) Fluid Neutrophils % Fluid Lymphocytes % Fluid Eosinophils % Fluid Meso/Macro/[place] % Fluid Comment Peritoneal Color Peritoneal Appearance Peritoneal WBC Peritoneal RBC Peritoneal Tot Protein g/dl Peritoneal Albumin g/dl Hep Bs Antigen (Neg) Hepatitis C Antibody (Neg) 03/28/21 03/28/21 03/27/21 Range/Units 20:58 16:02 12:39 WBC (4.8-10.8) K/uL RBC (4.7-6.1) M/uL Hgb (14.0-18.0) g/dL Hct (42-52) % MCV (80-100) fL MCH (25-34) pg MCHC (32-36) g/dL RDW Std Deviation (36.4-46.3) fL RDW Coeff of Josh (11.5-14.5) % Plt Count (130-400) K/uL MPV (7.4-10.4) fL Absolute Nucleated RBC (0-0) K/uL Nucleated RBC % (auto) % Platelet Estimate (Normal) PT (9.0-12.0) Seconds INR (0.9-1.1) Sodium (136-145) mmol/L Potassium (3.5-5.1) mmol/L Chloride (98-107) mmol/L Carbon Dioxide (21-32) mmol/L Anion Gap (3-11) BUN (7-18) mg/dl Creatinine (0.6-1.4) mg/dl Est Cr Clr Drug Dosing ml/min Est GFR ( Amer) ml/min Est GFR (Non-Af Amer) ml/min BUN/Creatinine Ratio (10-20) Glucose (70-99) mg/dl POC Glucose 135 H 108 H (70-99) mg/dl Calcium (8.5-10.1) mg/dl Phosphorus (2.5-4.9) mg/dl Magnesium (1.8-2.4) mg/dl Total Bilirubin (0.2-1) mg/dl AST (15-37) U/L ALT (12-78) U/L Alkaline Phosphatase (45-117) U/L Total Protein (6.4-8.2) gm/dl Albumin (3.4-5.0) gm/dl Globulin (2.5-4.0) gm/dl Albumin/Globulin Ratio (0.9-2) Fluid Neutrophils % Fluid Lymphocytes % Fluid Eosinophils % Fluid Meso/Macro/[place] % Fluid Comment Peritoneal Color Peritoneal Appearance Peritoneal WBC Peritoneal RBC Peritoneal Tot Protein g/dl Peritoneal Albumin g/dl Hep Bs Antigen Neg (Neg) Hepatitis C Antibody Neg (Neg) Medications Administered Current Inpatient Medications Albuterol (Albuterol Hfa 8 Gm Inhaler) 2 puffs INH Q6H PRN PRN Reason: Shortness Of Breath Stop: 04/25/21 02:18 Allopurinol (Allopurinol 100 Mg Tab) 100 mg PO BID [facility] Stop: 04/25/21 08:59 Last Admin: 03/29/21 09:50 Dose: 100 mg Documented by: Aspirin (Aspirin 81 Mg Ectab) [facility] [place]: 04/25/21 08:59 Last Admin: 03/29/21 09:50 Dose: 81 mg Documented by: Benzocaine (Benzocaine 20% Aer Spr 82.5 Gm Can) 1 appln EXT Q4H PRN PRN Reason: ITCHINESS Stop: 04/26/21 11:08 Benzonatate (Benzonatate 100 Mg Capsule) 200 mg PO TID PRN PRN Reason: Cough Stop: 04/25/21 02:18 Cetirizine HCl (Cetirizine Hcl 10 Mg Tablet) 10 mg PO DAILY PRN PRN Reason: Allergy Symptoms Stop: 04/25/21 02:18 Last Admin: 03/27/21 09:13 Dose: 10 mg Documented by: Clopidogrel Bisulfate (Clopidogrel Bisulfate 75 Mg Tab) [facility] [place]: 04/25/21 08:59 Last Admin: 03/29/21 09:50 Dose: 75 mg Documented by: Dextrose (Dextrose 50% 50 Ml Syringe) 25 - 50 ml IV UD PRN; Protocol PRN Reason: Hypoglycemia Protocol Stop: 04/25/21 03:14 Dicyclomine HCl (Dicyclomine Hcl 10 Mg Cap) 10 mg PO TID [facility] Stop: 04/25/21 08:59 Last Admin: 03/29/21 09:50 Dose: 10 mg Documented by: Docusate Sodium (Docusate Sodium 100 Mg Cap) 100 mg PO BID [facility] Stop: 04/25/21 08:59 Last Admin: 03/29/21 09:50 Dose: 100 mg Documented by: Famotidine (Famotidine 40 Mg Tablet) 40 mg PO DAILY PRN PRN Reason: Heartburn Stop: 04/25/21 02:18 Last Admin: 03/27/21 09:14 Dose: 40 mg Documented by: Glucagon (Glucagon For Inj 1 Mg Vial) 1 mg IM UD PRN; Protocol PRN Reason: Hypoglycemia Protocol Stop: 04/25/21 03:14 Glucose (Glucose 40% Gel 15 Gm Tube) 15 - 30 gm PO UD PRN; Protocol PRN Reason: Hypoglycemia Protocol Stop: 04/25/21 03:14 Glucose (Glucose 10 Tabs/Tube) 4 - 8 tabs PO UD PRN; Protocol PRN Reason: Hypoglycemia Protocol Stop: 04/25/21 03:14 Heparin Sodium (Porcine) (Heparin Sod 5,000 Unit/0.5 Ml Vial) 5,000 units SQ Q8 [facility]AN Stop: 04/25/21 05:59 Last Admin: 03/29/21 06:33 Dose: 5,000 units Documented by: Piperacillin Sod/Tazobactam (Sod 3.375 gm/ Dextrose) 115 mls @ 28.75 mls/hr IV Q12H [facility]; Protocol Stop: 04/05/21 19:59 Last Admin: 03/29/21 09:49 Dose: 28.8 mls/hr Documented by: Sodium Chloride (Nss 1000ml) 1,000 mls @ 80 mls/hr IV .[id number] [facility] Stop: 04/25/21 14:44 Last Infusion: 03/28/21 09:13 Dose: Infused Documented by: Insulin Aspart (Insulin Aspart 100 Units/Ml 3 Ml Pen) 0 units SC ACHS [facility] Stop: 04/26/21 22:29 Last Admin: 03/29/21 09:48 Dose: Not Given Documented by: Miscellaneous (Carbohydrates For Hypoglycemia ) 15 - 30 gm PO UD PRN PRN Reason: Hypoglycemia Treatment Stop: 04/25/21 03:14 Miscellaneous Information (Piperacill/Tazobac Consult Active) 1 ea N/A UD PRN PRN Reason: Consult Stop: 04/25/21 11:01 Multivitamins/Minerals (Cerovite Adv Formula Tab) [facility] [place]: 04/25/21 08:59 Last Admin: 03/29/21 09:50 Dose: 1 tab Documented by: Ondansetron HCl (Ondansetron Inj 2 Mg/Ml 2 Ml Vial) 4 mg IV Q6H PRN PRN Reason: Nausea Stop: 04/25/21 02:18 Last Admin: 03/28/21 08:10 Dose: 4 mg Documented by: Oxycodone HCl (Oxycodone Hcl Ir 5 Mg Tab (Immediate Release)) 5 mg PO Q4H PRN PRN Reason: Moderate Pain Stop: 04/11/21 13:02 Last Admin: 03/29/21 04:05 Dose: 5 mg Documented by: Pantoprazole Sodium (Pantoprazole 40 Mg Tab) 40 mg PO [facility] Stop: 04/25/21 08:59 Last Admin: 03/29/21 09:50 Dose: 40 mg Documented by: Polyethylene Glycol (Polyethylene (Miralax) 17 Gm Pack) 17 gm PO BID [facility] Stop: 04/25/21 02:18 Last Admin: 03/29/21 10:09 Dose: Not Given Documented by: Vitamin D (Cholecalciferol 1,000 Units 25 Mcg Tab) 2,000 units PO QAM [facility] Stop: 04/25/21 08:59 Last Admin: 03/29/21 09:50 Dose: 2,000 units Documented by:
[2021-03-29 12:20] LABS: Appearance Peritoneal Fluid CLOUDY; Basophils, Fluid 0 %; Color Peritoneal Fluid AMBER; Eosinophils, Fluid 1 %; Lymphocytes, Fluid 11 %; Mono,Macrophage,Mesothelial 23 %; Neutrophils, Fluid 65 %; RBC Peritoneal Fluid (A) 13000 /uL; WBC Peritoneal Fluid (A) 706 /ul (0-300)
--- NOTE | 2021-03-29 12:32 | Nephrology Progress Note ---
Date of Service March 29, 2021 Assessment & Plan Admission and Anticipated Discharge Date Admission Date: March 25, 2021 Subjective Assessment & Plan (1) Acute on chronic renal failure: Plan: Stage I presumed nonoliguric acute on chronic renal failure CKD 3B with 300 mg baseline albuminuria. Baseline creatinine 1.5-1.6 w/ about 300 mg albuminuria. creatinine essentially plateau'd; chemistries and volume status acceptable: ischemic ATN ( based on urine Analysis) in the setting of severe MS, diffuse vascular dz, HF. Also Cardio-renal Syndrome picture is there. No indication for discussion about dialysis. apart from mild hyponatremia, chemistries acceptable. continue low potassium diet --No ascites. --transaminitis per primary service/GI/cardiology---Cardiac Cirrhosis and liver congestion causing Abnormal LFT. Creat stable to slightly better. - would start with some iv lasix--maybe 30 mg iv bid. No aldactone yet.--More than 7liters positive. Worsening creat was from ATN which seems to have Peaked/Plateaued (2) Biventricular heart failure, NYHA class 3: Plan: w/ hx of severe MS for which CT surgery recommended though high risk s/p CFLX stenting 09/2020 and w/ severe NADYA on bipap -recommend cardiology consultation for optimal mgt of volume status, transaminitis, recurrent syncope Subjective Starting clear liquid diet. So farok. Not out of bed today b/c of concerns about syncope; no worsening sob - stable exertional he states. significant rectal pain at rectal tear. Urine out slightly higher yesterday than daybefore. No chest discomfort Review of Systems Review of Systems: All systems reviewed & are unremarkable except as noted in Subjective Physical Exam Constitutional: well developed, well nourished, + frail appearing and cooperative; no acute distress Eyes: EOM intact bilaterally ENMT: Ears: no external ear abnormality Nose: no external nose abnormality Mouth: + dry oral mucous membranes Neck: no nuchal rigidity Respiratory: normal respiratory effort Auscultation: + diminished lung sounds (Especially right base) Cardiovascular: Rate/Rhythm: regular rate and regular rhythm Heart Sounds: + murmur Extremities: + edema (Trace bilateral pretibial) Gastrointestinal (Abdomen): Inspection/Auscultation: + abdomen distended (more today) and normal bowel sounds Percussion/Palpation: abdomen soft; abdomen nontender and no guarding Musculoskeletal: Extremities: strength 5/5 throughout Skin: no rashes, warm and dry Psychiatric: Orientation: oriented x 3 Insight: good insight Judgement: good judgement Genitourinary: jacobson w/ scant brown urine Results & Data ([facility]) Vital Signs (Past 12 Hours) Vital Signs Temp Pulse Resp BP Pulse Ox 03/29/21 08:00 36.4 C L 93 H 14 115/73 92 03/29/21 04:06 37.1 C 92 H 16 128/82 92
--- NOTE | 2021-03-29 13:04 | XRay Report ---
XR chest 1V portable CLINICAL HISTORY: chf; hypoxia TECHNIQUE: Single frontal radiograph of the chest was obtained. Comparison: Comparison is made to chest 2 views 07/12/2020 FINDINGS: Stable median sternotomy wires. The cardiomediastinal silhouette is stable. There is opacification of the right lower lobe with silhouetting of the right hemidiaphragm. No pneumothorax or left pleural e ffusion is seen. An underlying right effusion cannot be excluded. IMPRESSION: Opacification of the right lower lobe which may reflect atelectasis, pneumonia, aspiration, and/or la yering effusion. ACT 112: Negative or not required by law. Electronically signed by: Kei Nicholas M.D. 03/29/2021 1:02 PM
[2021-03-29 14:43] LABS: Appearance Urine Cloudy (Clear); Bacteria Urine Automated Negative (Negative); Blood Urine 3+ (Negative); Color Urine Dark Yellow; Epithelial Cell Urine Auto >30 /lpf (0-5); Glucose Urine UA Negative (Negative); Ketones Urine Trace (Negative); Leukocyte Esterase Urine 1+ (Negative); Nitrite Urine Negative (Negative); Protein Urine 2+ (Negative); Specific Gravity Urine 1.024 (1.000-1.030); Urobilinogen Urine Negative (Negative)
[2021-03-29 14:46] LABS: Bilirubin Urine 1+ (Negative)
[2021-03-29] MEDS ORDERED: FUROSEMIDE 20 MG in SYRINGE 0 ML IV ONE (15:00)
[2021-03-29 15:08] LABS: RBC Urine Automated >30 /hpf (0-4)
[2021-03-29 15:09] LABS: Renal Epithelial Cells Urine 0-5 /lpf (0-5)
[2021-03-29] MEDS: ONDANSETRON INJ 2 MG/ML 2 ML VIAL IV PRN (17:01)
[2021-03-29] MEDS ORDERED: ALBUMIN 25% 12.5 GM/50 ML VIAL IV ONE ×2 (20:43→22:12)
--- NOTE | 2021-03-29 21:07 | CT Scan Report ---
CT abd pelvis wo con CLINICAL HISTORY: large flank ecchymosis, r/o hemorrhage TECHNIQUE: Helical axial images of the abdomen and pelvis were obtained. Automated dose lowering tech niques and/or adjustment according to patient size were utilized for this exam. This exam was perfor med without intravenous contrast. COMPARISON: None available at the time of this dictation. FINDINGS: Lower chest: Moderate bilateral pleural effusions are seen, right greater than left, with underlying atelectasis. Liver: Nodular contour of the liver is seen compatible with cirrhosis. Gallbladder and biliary tree: No calcified gallstones. Normal caliber wall. No intra- or extrahepatic biliary ductal dilation. Pancreas: Unremarkable, no focal lesions. Spleen: Unremarkable. Adrenals: Unremarkable. Kidneys and ureters: Unremarkable. Bladder: A focus of gas is seen. Limited evaluation due to streak artifact. Reproductive organs: Limited evaluation due to streak artifact. Bowel: Diverticulosis is seen without evidence of diverticulitis. Radiodensities are noted within the appendix, however no appendiceal wall thickening or periappendiceal abscess is seen. Lymph nodes Retroperitoneal: Unremarkable. Mesenteric: Unremarkable. Pelvic: Unremarkable. Peritoneum: Large ascites is seen. Vessels: Bilateral common iliac stents noted. Extensive atherosclerotic disease is seen. Abdominal wall: Soft tissue stranding is seen bilaterally. Bones: Degenerative changes in the visualized spine. Bilateral total hip arthroplasties are seen. IMPRESSION: 1. No evidence of intra-abdominal injury. There is diffuse subcutaneous soft tissue stranding. 2. Cirrhosis with large ascites. Moderate bilateral pleural effusions. 3. Appendicoliths without evidence of appendicitis. ACT 112: Negative or not required by law. Electronically signed by: Kei Nicholas M.D. 03/29/2021 9:06 PM
[2021-03-29 21:29] LABS: BUN Creatinine Ratio 22.5 (10-20); Calcium 8.6 mg/dl (8.5-10.1); Creatinine Clr Calc Pharmacy 15.8 ml/min; Est GFR (African American) 20.9 ml/min; Hematocrit (blood only) 42.6 % (42-52); Hemoglobin 14.8 g/dL (14.0-18.0); Mean Corpuscular Hgb Conc 34.7 g/dL (32-36); Mean Corpuscular Volume 95.1 fL (80-100); Mean Platelet Volume 12.5 fL (7.4-10.4); Nucleated RBC # (auto) 0.09 K/uL (0-0); Nucleated RBC % (auto) 0.8 %; Platelet Count 90 K/uL (130-400); Potassium 4.5 mmol/L (3.5-5.1); RDW Coefficient of Variation 16.1 % (11.5-14.5); RDW Standard Deviation 55.3 fL (36.4-46.3); Red Blood Count 4.48 M/uL (4.7-6.1); White Blood Count 10.61 K/uL (4.8-10.8)
[2021-03-29 21:30] LABS: Basophils # (auto) 0.02 K/uL (0-0.2); Basophils % (auto) 0.2 %; Echinocytes 2+; Eosinophils # (auto) 0.04 K/uL (0-0.5); Eosinophils % (auto) 0.4 %; Immature Granulocytes # (auto) 0.02 K/uL (0.00-0.02); Immature Granulocytes % (auto) 0.2 %; Lymphocytes # (auto) 1.15 K/uL (1.2-3.4); Lymphocytes % (auto) 10.8 %; Monocytes # (auto) 1.77 K/uL (0.11-0.59); Monocytes % (auto) 16.7 %; Neutrophils # (auto) 7.61 K/uL (1.4-6.5); Neutrophils % (auto) 71.7 %; Ovalocytes 1+
--- NOTE | 2021-03-29 22:12 | Communication Note ---
Date of Service: March 29, 2021 Recurrent syncopal events overnight coinciding with orthostasis (hypotension with assuming upright position) as per RN. Initiate Midodrine. Will relay to AM provider.
[2021-03-30] MEDS: ALBUMIN 25% 12.5 GM/50 ML VIAL IV SCH ×2 (02:51→03:34)
[2021-03-30 04:49] LABS: Hematocrit (blood only) 41.3 % (42-52); Hemoglobin 14.3 g/dL (14.0-18.0); Mean Corpuscular Hemoglobin 32.7 pg (25-34); Mean Corpuscular Hgb Conc 34.6 g/dL (32-36); Mean Corpuscular Volume 94.5 fL (80-100); Nucleated RBC # (auto) 0.06 K/uL (0-0); Nucleated RBC % (auto) 0.6 %; RDW Coefficient of Variation 16.1 % (11.5-14.5); RDW Standard Deviation 55.1 fL (36.4-46.3); Red Blood Count 4.37 M/uL (4.7-6.1); White Blood Count 9.19 K/uL (4.8-10.8)
[2021-03-30 04:51] LABS: Mean Platelet Volume 11.3 fL (7.4-10.4); Platelet Count 64 K/uL (130-400)
[2021-03-30 04:59] LABS: INR 1.9 (0.9-1.1); Prothrombin Time 18.5 Seconds (9.0-12.0)
[2021-03-30] MEDS: MIDODRINE HCL 2.5 MG TAB PO SCH ×4 (05:06→17:44)
[2021-03-30] MEDS: HEPARIN SOD 5,000 UNIT/0.5 ML VIAL SQ SCH ×3 (05:07→22:14)
[2021-03-30 05:12] LABS: Albumin Level 3.7 gm/dl (3.4-5.0); BUN Creatinine Ratio 23.7 (10-20); Calcium 8.6 mg/dl (8.5-10.1); Creatinine Clr Calc Pharmacy 15.5 ml/min; Est GFR (African American) 20.6 ml/min; Est GFR (Non-African American) 17.8 ml/min; Magnesium 2.4 mg/dl (1.8-2.4); Potassium 4.2 mmol/L (3.5-5.1)
[2021-03-30 05:23] LABS: Albumin Globulin Ratio 1.3 (0.9-2); Bilirubin,Total 4.6 mg/dl (0.2-1); Globulin 2.9 gm/dl (2.5-4.0); Phosphorus 4.1 mg/dl (2.5-4.9); Total Protein 6.6 gm/dl (6.4-8.2)
[2021-03-30 05:43] LABS: Hepatitis A Antibody IgM NON-REACTIVE (NON-REACTIVE); Hepatitis B Core Antibody IgM REACTIVE (NON-REACTIVE)
--- NOTE | 2021-03-30 07:19 | Hospitalist Progress Note ---
Date of Service March 30, 2021 Assessment & Plan (1) Fecal impaction: (2) Pain in rectum: (3) Urinary retention: (4) Hematuria: Plan: Sepsis This is an 81-year-old male presented with constipation, severe rectal pain, and urinary retention. 1. Severe rectal pain and constipation Severe rectal pain, could be from fissures from ongoing constipation. There is also now gluteal fold fissure/ skin tear from disimpaction Underwent disimpaction in the ER May need treatment for possible fissures and stool impaction, even after disimpacted in the ER Placed him on gentle pain medications, MiraLax b.i.d. N.p.o. GI consulted Gen. surg. consulted -Recommend to continue stool softeners, obtain paracentesis to rule out SBP 03/27 - Patient had a bowel movement, no abdominal pain Started clear liquid diet Pt had some loose stools before, no BM on (03/29) on miralax - now cont. to have loose stools Gluteal fold skin tear -Continues to have significant pain, wound care practitioner consulted Sepsis Repeat morning labs significant for WBC of 20,000, lactic acid 3.1. Started on Zosyn in the morning and IV fluids, by baby doctor Patient also found to be hypoxic, on 4 to 5 L of oxygen and chest CT was obtained After IV fluids and being on IV Zosyn, blood work repeated. Lactic acid 4.9 and white blood cell count 23,000. In addition urine brown, and creatinine 3, elevated from baseline of 1.4, and 2 earlier in the morning Contacted urology and GI General surgery also consulted Patient was to be transferred to telemetry, however there he had presyncopal/syncopal episode, systolic blood pressure into 80s Therefore instructional coordinator was consulted, patient transferred to ICU and stat CT abdomen ordered 03/27 - Hemodynamically stable overnight, plan to transfer out from ICU 03/28 - Leukocytosis WBC 23K on 03/26, now trending down 12k (on 03/28) - cont. IV zosyn - BP improved, however abdomen more distended - Continue IV albumin, hold IV fluids with normal saline for now 03/29 - pt seen by cardiology and nephrology - plan to start gentle diuresis as pt's is positive about 7L -laying in bed most of the time as he continues to have syncopal episodes w/ minor movememt - underwent diagnostic paracentesis today (03/30) - large L flank ecchymosis noted (not sure if new), Hgb fairly stable, will obtain CT abd. pelvis to r/o any hemorrhage- CT negative 03/30 - cont. gentle diuresis, monitor hemodynamic status -IgM for Hep B (core) positive, GI notified , ordering viral load Hypoxia -Likely secondary to right pleural effusion -Seen by pulmonary/instructional coordinator, may consider to drain however patient needs to be off Plavix -Currently comfortable, however using supplemental oxygen Elevated LFTs, bili, alk phos, cirrhosis -Cirrhosis noted on imaging -GI following, plan to follow-up as outpatient for cirrhosis -Recommend to obtain diagnostic paracentesis to rule out SBP -Monitor CMP -Hepatitis panel obtained -Ultrasound liver obtained 1. The liver is cirrhotic in morphology and heterogeneous in echotexture. 2. Small volume perihepatic ascites. 3. No shadowing gallstones are identified. 4. Mild nonspecific gallbladder wall thickening is likely related to cirrhosis and ascites. 5. Nonvisualization of the pancreas. 6. Right pleural effusion. 03/28 - MELD score 32 (unchanged from previous day) -Patient has hyponatremia, creatinine 3, INR elevated at 1.8, T bili elevated at 4.3 Discussed further with GI, given acute changes, likely congestive/ischemic etiology 03/29 s/p diagnostic paracentesis - plan for gentle diuresis, ordered 20 IV lasix 03/30 - -IgM for Hep B (core) positive, GI notified , ordering viral load 2. Urinary retention, placed on Cole catheter. Urology consulted 3. JAMIE on CKD III. Baseline creatinine 1.3, on admission creatinine of 2. After IVF and Abx , now Cr 3 Urine brown, repeat UA, u cultx Nephrology consulted cont. IV albumin as needed only for hypotension, hold IVF w/ NS - repeat BMP, cont. to closely monitor - started gentle diuresis 4. History of right sided HF and history of diastolic CHF and valvular heart failure, initially holding diuretics. Received IV fluids, now about 7L positive. Plan for gentle diuresis as BP tolerates. 5. History of hypertension. Currently BP low despite IVF, likely sepsis, cont IV Abx, was also given IV albumin, IVF (on hold now) Started diuretics as above, will monitor blood pressure. 6. Aortic stenosis rheumatic valvular heart disease. needs followup. 7. CAD, s/p CABG. Continue home medications. 8. PAD s/p illiac stent. Continue aspirin, Plavix and statin. 9. Diabetes: Hold glipizide, place on insulin sliding scale. Follow the blood sugars. 11. Thrombocytopenia, seems chronic. Continue to monitor DVT subq heparin DISPOSITION: PCU Code: Full Pt's updated over the phone, plans to come visit the pt into the hospital. Admission and Anticipated Discharge Date Admission Date: March 25, 2021 Subjective Patient admitted due to stool burden, underwent disimpaction in the ED, but continued to have severe rectal pain Was found to have urine retention, and Cole catheter was placed GI and urology were consulted Morning after admission WBC 21 K, lactic acid elevated at 3.1, Cr worsened to ~3 Patient also hypoxic, on 4 to [address] chest was ordered to eval hypoxia - pl. effusion Patient was started on empiric Zosyn and IV fluids, IV albumin Repeat CT abd. pelvis was obtained, gen. 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 Review of Systems Review of Systems: All systems reviewed & are unremarkable except as noted in Subjective Physical Exam Physical Exam: GENERAL: slender M, not in acute distress, but on 4-5 L NC, +discomfort in rectal region HEENT: NC/AT, EOMI, PERRL NECK: No JVD, no neck masses. CARDIOVASCULAR: S1 and S2 heard, regular rate and rhythm. No murmur, no gallop. RESPIRATORY: No accessory muscle use. Speaks in full sentences, on NC. No whe ezing, diminished breath sounds at R base ABDOMEN/ GI: + distended, soft, +bowel sounds, nontender, + rectal/skin wound : Cole catheter placed dark yellow urine draining NEURO: Alert oriented answering questions appropriately, speech fluent, moves extremities EXTREMITIES: Lower extremities- chronic skin changes noted. Currently, no significant LE edema. Results & Data Results & Data ([facility]) Vital Signs (Past 12 Hours) Vital Signs Temp Pulse Resp BP Pulse Ox 03/30/21 05:04 84 14 108/71 91 03/30/21 04:23 37.0 C 85 16 113/80 94 03/30/21 00:06 36.7 C 85 16 102/63 92 03/29/21 20:34 21 114/81 90 03/29/21 20:28 103 H 24 89/61 L 92 03/29/21 19:30 36.8 C 90 14 106/75 93 Laboratory Results 03/30/21 03/30/21 03/30/21 Range/Units 04:39 04:39 04:39 WBC (4.8-10.8) K/uL RBC (4.7-6.1) M/uL Hgb (14.0-18.0) g/dL Hct (42-52) % MCV (80-100) fL MCH (25-34) pg MCHC (32-36) g/dL RDW Std Deviation (36.4-46.3) fL RDW Coeff of Josh (11.5-14.5) % Plt Count (130-400) K/uL MPV (7.4-10.4) fL Immature Gran % (Auto) % Neut % (Auto) % Lymph % (Auto) % Branch % (Auto) % Eos % (Auto) % Baso % (Auto) % Neut # (Auto) (1.4-6.5) K/uL Lymph # (Auto) (1.2-3.4) K/uL Branch # (Auto) (0.11-0.59) K/uL Eos # (Auto) (0-0.5) K/uL Baso # (Auto) (0-0.2) K/uL Immature Gran # (Auto) (0.00-0.02) K/uL Absolute Nucleated RBC (0-0) K/uL Nucleated RBC % (auto) % Ovalocytes Echinocytes PT 18.5 H (9.0-12.0) Seconds INR 1.9 H (0.9-1.1) Sodium 131 L (136-145) mmol/L Potassium 4.2 (3.5-5.1) mmol/L Chloride 100 (98-107) mmol/L Carbon Dioxide 20 L (21-32) mmol/L Anion Gap 11.0 (3-11) BUN 74 H (7-18) mg/dl Creatinine 3.12 H (0.6-1.4) mg/dl Est Cr Clr Drug Dosing 15.5 ml/min Est GFR ( Amer) 20.6 ml/min Est GFR (Non-Af Amer) 17.8 ml/min BUN/Creatinine Ratio 23.7 H (10-20) Glucose 98 (70-99) mg/dl POC Glucose (70-99) mg/dl Lactate 2.1 H* (0.4-2.0) mmol/L Calcium 8.6 (8.5-10.1) mg/dl Phosphorus 4.1 (2.5-4.9) mg/dl Magnesium 2.4 (1.8-2.4) mg/dl Total Bilirubin 4.6 H (0.2-1) mg/dl AST 614 H (15-37) U/L ALT 558 H (12-78) U/L Alkaline Phosphatase 190 H (45-117) U/L Total Protein 6.6 (6.4-8.2) gm/dl Albumin 3.7 (3.4-5.0) gm/dl Globulin 2.9 (2.5-4.0) gm/dl Albumin/Globulin Ratio 1.3 (0.9-2) Urine Color Urine Appearance (Clear) Urine pH (4.5-7.5) Ur Specific [place] (1.000-1.030) Urine Protein (Negative) Urine Glucose (UA) (Negative) Urine Ketones (Negative) Urine Blood (Negative) Urine Nitrite (Negative) Urine Bilirubin (Negative) Urine Urobilinogen (Negative) Ur Leukocyte Esterase (Negative) Urine WBC (Auto) (0-5) /hpf Urine RBC (Auto) (0-4) /hpf U Hyaline Cast (Auto) (0-5) /lpf U Epithel Cells (Auto) (0-5) /lpf Urine Bacteria (Auto) (Negative) Ur Renal Epithelial Cell (0-5) /lpf Urine Yeast Fluid Neutrophils % % Fluid Lymphocytes % % Fluid Eosinophils % % Fluid Basophils % % Fluid Meso/Macro/Branch % % Fluid Comment Peritoneal Color Peritoneal Appearance Peritoneal WBC (0-300) /ul Peritoneal RBC /uL Peritoneal Tot Protein g/dl Peritoneal Albumin g/dl Hepatitis A IgM Ab (NON-REACTIVE) Hep Bs Antigen (Neg) Hep B Core IgM Ab (NON-REACTIVE) Hepatitis C Antibody (Neg) 03/30/21 03/30/21 03/29/21 Range/Units 04:39 01:26 21:37 WBC 9.19 (4.8-10.8) K/uL RBC 4.37 L (4.7-6.1) M/uL Hgb 14.3 (14.0-18.0) g/dL Hct 41.3 L (42-52) % MCV 94.5 (80-100) fL MCH 32.7 (25-34) pg MCHC 34.6 (32-36) g/dL RDW Std Deviation 55.1 H (36.4-46.3) fL RDW Coeff of Josh 16.1 H (11.5-14.5) % Plt Count 64 L (130-400) K/uL MPV 11.3 H (7.4-10.4) fL Immature Gran % (Auto) % Neut % (Auto) % Lymph % (Auto) % Branch % (Auto) % Eos % (Auto) % Baso % (Auto) % Neut # (Auto) (1.4-6.5) K/uL Lymph # (Auto) (1.2-3.4) K/uL Branch # (Auto) (0.11-0.59) K/uL Eos # (Auto) (0-0.5) K/uL Baso # (Auto) (0-0.2) K/uL Immature Gran # (Auto) (0.00-0.02) K/uL Absolute Nucleated RBC 0.06 H (0-0) K/uL Nucleated RBC % (auto) 0.6 % Ovalocytes Echinocytes PT (9.0-12.0) Seconds INR (0.9-1.1) Sodium (136-145) mmol/L Potassium (3.5-5.1) mmol/L Chloride (98-107) mmol/L Carbon Dioxide (21-32) mmol/L Anion Gap (3-11) BUN (7-18) mg/dl Creatinine (0.6-1.4) mg/dl Est Cr Clr Drug Dosing ml/min Est GFR ( Amer) ml/min Est GFR (Non-Af Amer) ml/min BUN/Creatinine Ratio (10-20) Glucose (70-99) mg/dl POC Glucose 127 H (70-99) mg/dl Lactate 2.8 H* (0.4-2.0) mmol/L Calcium (8.5-10.1) mg/dl Phosphorus (2.5-4.9) mg/dl Magnesium (1.8-2.4) mg/dl Total Bilirubin (0.2-1) mg/dl AST (15-37) U/L ALT (12-78) U/L Alkaline Phosphatase (45-117) U/L Total Protein (6.4-8.2) gm/dl Albumin (3.4-5.0) gm/dl Globulin (2.5-4.0) gm/dl Albumin/Globulin Ratio (0.9-2) Urine Color Urine Appearance (Clear) Urine pH (4.5-7.5) Ur Specific [place] (1.000-1.030) Urine Protein (Negative) Urine Glucose (UA) (Negative) Urine Ketones (Negative) Urine Blood (Negative) Urine Nitrite (Negative) Urine Bilirubin (Negative) Urine Urobilinogen (Negative) Ur Leukocyte Esterase (Negative) Urine WBC (Auto) (0-5) /hpf Urine RBC (Auto) (0-4) /hpf U Hyaline Cast (Auto) (0-5) /lpf U Epithel Cells (Auto) (0-5) /lpf Urine Bacteria (Auto) (Negative) Ur Renal Epithelial Cell (0-5) /lpf Urine Yeast Fluid Neutrophils % % Fluid Lymphocytes % % Fluid Eosinophils % % Fluid Basophils % % Fluid Meso/Macro/Branch % % Fluid Comment Peritoneal Color Peritoneal Appearance Peritoneal WBC (0-300) /ul Peritoneal RBC /uL Peritoneal Tot Protein g/dl Peritoneal Albumin g/dl Hepatitis A IgM Ab (NON-REACTIVE) Hep Bs Antigen (Neg) Hep B Core IgM Ab (NON-REACTIVE) Hepatitis C Antibody (Neg) 03/29/21 03/29/21 03/29/21 Range/Units 20:58 20:58 20:58 WBC 10.61 (4.8-10.8) K/uL RBC 4.48 L (4.7-6.1) M/uL Hgb 14.8 (14.0-18.0) g/dL Hct 42.6 (42-52) % MCV 95.1 (80-100) fL MCH 33.0 (25-34) pg MCHC 34.7 (32-36) g/dL RDW Std Deviation 55.3 H (36.4-46.3) fL RDW Coeff of Josh 16.1 H (11.5-14.5) % Plt Count 90 L (130-400) K/uL MPV 12.5 H (7.4-10.4) fL Immature Gran % (Auto) 0.2 % Neut % (Auto) 71.7 % Lymph % (Auto) 10.8 % Branch % (Auto) 16.7 % Eos % (Auto) 0.4 % Baso % (Auto) 0.2 % Neut # (Auto) 7.61 H (1.4-6.5) K/uL Lymph # (Auto) 1.15 L (1.2-3.4) K/uL Branch # (Auto) 1.77 H (0.11-0.59) K/uL Eos # (Auto) 0.04 (0-0.5) K/uL Baso # (Auto) 0.02 (0-0.2) K/uL Immature Gran # (Auto) 0.02 (0.00-0.02) K/uL Absolute Nucleated RBC 0.09 H (0-0) K/uL Nucleated RBC % (auto) 0.8 % Ovalocytes 1+ Echinocytes 2+ PT (9.0-12.0) Seconds INR (0.9-1.1) Sodium 130 L (136-145) mmol/L Potassium 4.5 (3.5-5.1) mmol/L Chloride 100 (98-107) mmol/L Carbon Dioxide 19 L (21-32) mmol/L Anion Gap 11.0 (3-11) BUN 69 H (7-18) mg/dl Creatinine 3.08 H (0.6-1.4) mg/dl Est Cr Clr Drug Dosing 15.8 ml/min Est GFR ( Amer) 20.9 ml/min Est GFR (Non-Af Amer) 18.0 ml/min BUN/Creatinine Ratio 22.5 H (10-20) Glucose 121 H (70-99) mg/dl POC Glucose (70-99) mg/dl Lactate 2.9 H* (0.4-2.0) mmol/L Calcium 8.6 (8.5-10.1) mg/dl Phosphorus (2.5-4.9) mg/dl Magnesium (1.8-2.4) mg/dl Total Bilirubin (0.2-1) mg/dl AST (15-37) U/L ALT (12-78) U/L Alkaline Phosphatase (45-117) U/L Total Protein (6.4-8.2) gm/dl Albumin (3.4-5.0) gm/dl Globulin (2.5-4.0) gm/dl Albumin/Globulin Ratio (0.9-2) Urine Color Urine Appearance (Clear) Urine pH (4.5-7.5) Ur Specific [place] (1.000-1.030) Urine Protein (Negative) Urine Glucose (UA) (Negative) Urine Ketones (Negative) Urine Blood (Negative) Urine Nitrite (Negative) Urine Bilirubin (Negative) Urine Urobilinogen (Negative) Ur Leukocyte Esterase (Negative) Urine WBC (Auto) (0-5) /hpf Urine RBC (Auto) (0-4) /hpf U Hyaline Cast (Auto) (0-5) /lpf U Epithel Cells (Auto) (0-5) /lpf Urine Bacteria (Auto) (Negative) Ur Renal Epithelial Cell (0-5) /lpf Urine Yeast Fluid Neutrophils % % Fluid Lymphocytes % % Fluid Eosinophils % % Fluid Basophils % % Fluid Meso/Macro/Branch % % Fluid Comment Peritoneal Color Peritoneal Appearance Peritoneal WBC (0-300) /ul Peritoneal RBC /uL Peritoneal Tot Protein g/dl Peritoneal Albumin g/dl Hepatitis A IgM Ab (NON-REACTIVE) Hep Bs Antigen (Neg) Hep B Core IgM Ab (NON-REACTIVE) Hepatitis C Antibody (Neg) 03/29/21 03/29/21 03/29/21 Range/Units 15:55 14:15 10:53 WBC (4.8-10.8) K/uL RBC (4.7-6.1) M/uL Hgb (14.0-18.0) g/dL Hct (42-52) % MCV (80-100) fL MCH (25-34) pg MCHC (32-36) g/dL RDW Std Deviation (36.4-46.3) fL RDW Coeff of Josh (11.5-14.5) % Plt Count (130-400) K/uL MPV (7.4-10.4) fL Immature Gran % (Auto) % Neut % (Auto) % Lymph % (Auto) % Branch % (Auto) % Eos % (Auto) % Baso % (Auto) % Neut # (Auto) (1.4-6.5) K/uL Lymph # (Auto) (1.2-3.4) K/uL Branch # (Auto) (0.11-0.59) K/uL Eos # (Auto) (0-0.5) K/uL Baso # (Auto) (0-0.2) K/uL Immature Gran # (Auto) (0.00-0.02) K/uL Absolute Nucleated RBC (0-0) K/uL Nucleated RBC % (auto) % Ovalocytes Echinocytes PT (9.0-12.0) Seconds INR (0.9-1.1) Sodium (136-145) mmol/L Potassium (3.5-5.1) mmol/L Chloride (98-107) mmol/L Carbon Dioxide (21-32) mmol/L Anion Gap (3-11) BUN (7-18) mg/dl Creatinine (0.6-1.4) mg/dl Est Cr Clr Drug Dosing ml/min Est GFR ( Amer) ml/min Est GFR (Non-Af Amer) ml/min BUN/Creatinine Ratio (10-20) Glucose (70-99) mg/dl POC Glucose 95 152 H (70-99) mg/dl Lactate (0.4-2.0) mmol/L Calcium (8.5-10.1) mg/dl Phosphorus (2.5-4.9) mg/dl Magnesium (1.8-2.4) mg/dl Total Bilirubin (0.2-1) mg/dl AST (15-37) U/L ALT (12-78) U/L Alkaline Phosphatase (45-117) U/L Total Protein (6.4-8.2) gm/dl Albumin (3.4-5.0) gm/dl Globulin (2.5-4.0) gm/dl Albumin/Globulin Ratio (0.9-2) Urine Color Dark Yellow Urine Appearance Cloudy A (Clear) Urine pH 5.0 (4.5-7.5) Ur Specific [place] 1.024 (1.000-1.030) Urine Protein 2+ H (Negative) Urine Glucose (UA) Negative (Negative) Urine Ketones Trace H (Negative) Urine Blood 3+ H (Negative) Urine Nitrite Negative (Negative) Urine Bilirubin 1+ H (Negative) Urine Urobilinogen Negative (Negative) Ur Leukocyte Esterase 1+ H (Negative) Urine WBC (Auto) 10-30 H (0-5) /hpf Urine RBC (Auto) >30 H (0-4) /hpf U Hyaline Cast (Auto) 1-5 (0-5) /lpf U Epithel Cells (Auto) >30 H (0-5) /lpf Urine Bacteria (Auto) Negative (Negative) Ur Renal Epithelial Cell 0-5 (0-5) /lpf Urine Yeast Not Reportable Fluid Neutrophils % % Fluid Lymphocytes % % Fluid Eosinophils % % Fluid Basophils % % Fluid Meso/Macro/Branch % % Fluid Comment Peritoneal Color Peritoneal Appearance Peritoneal WBC (0-300) /ul Peritoneal RBC /uL Peritoneal Tot Protein g/dl Peritoneal Albumin g/dl Hepatitis A IgM Ab (NON-REACTIVE) Hep Bs Antigen (Neg) Hep B Core IgM Ab (NON-REACTIVE) Hepatitis C Antibody (Neg) 03/29/21 03/29/21 03/29/21 Range/Units 10:00 10:00 07:19 WBC (4.8-10.8) K/uL RBC (4.7-6.1) M/uL Hgb (14.0-18.0) g/dL Hct (42-52) % MCV (80-100) fL MCH (25-34) pg MCHC (32-36) g/dL RDW Std Deviation (36.4-46.3) fL RDW Coeff of Josh (11.5-14.5) % Plt Count (130-400) K/uL MPV (7.4-10.4) fL Immature Gran % (Auto) % Neut % (Auto) % Lymph % (Auto) % Branch % (Auto) % Eos % (Auto) % Baso % (Auto) % Neut # (Auto) (1.4-6.5) K/uL Lymph # (Auto) (1.2-3.4) K/uL Branch # (Auto) (0.11-0.59) K/uL Eos # (Auto) (0-0.5) K/uL Baso # (Auto) (0-0.2) K/uL Immature Gran # (Auto) (0.00-0.02) K/uL Absolute Nucleated RBC (0-0) K/uL Nucleated RBC % (auto) % Ovalocytes Echinocytes PT 17.5 H (9.0-12.0) Seconds INR 1.8 H (0.9-1.1) Sodium (136-145) mmol/L Potassium (3.5-5.1) mmol/L Chloride (98-107) mmol/L Carbon Dioxide (21-32) mmol/L Anion Gap (3-11) BUN (7-18) mg/dl Creatinine (0.6-1.4) mg/dl Est Cr Clr Drug Dosing ml/min Est GFR ( Amer) ml/min Est GFR (Non-Af Amer) ml/min BUN/Creatinine Ratio (10-20) Glucose (70-99) mg/dl POC Glucose 96 (70-99) mg/dl Lactate (0.4-2.0) mmol/L Calcium (8.5-10.1) mg/dl Phosphorus (2.5-4.9) mg/dl Magnesium (1.8-2.4) mg/dl Total Bilirubin (0.2-1) mg/dl AST (15-37) U/L ALT (12-78) U/L Alkaline Phosphatase (45-117) U/L Total Protein (6.4-8.2) gm/dl Albumin (3.4-5.0) gm/dl Globulin (2.5-4.0) gm/dl Albumin/Globulin Ratio (0.9-2) Urine Color Urine Appearance (Clear) Urine pH (4.5-7.5) Ur Specific [place] (1.000-1.030) Urine Protein (Negative) Urine Glucose (UA) (Negative) Urine Ketones (Negative) Urine Blood (Negative) Urine Nitrite (Negative) Urine Bilirubin (Negative) Urine Urobilinogen (Negative) Ur Leukocyte Esterase (Negative) Urine WBC (Auto) (0-5) /hpf Urine RBC (Auto) (0-4) /hpf U Hyaline Cast (Auto) (0-5) /lpf U Epithel Cells (Auto) (0-5) /lpf Urine Bacteria (Auto) (Negative) Ur Renal Epithelial Cell (0-5) /lpf Urine Yeast Fluid Neutrophils % 65 % Fluid Lymphocytes % 11 % Fluid Eosinophils % 1 % Fluid Basophils % 0 % Fluid Meso/Macro/Branch % 23 % Fluid Comment Peritoneal Color INA Peritoneal Appearance CLOUDY Peritoneal WBC 706 H (0-300) /ul Peritoneal RBC 53162 /uL Peritoneal Tot Protein 3.8 g/dl Peritoneal Albumin 1.9 g/dl Hepatitis A IgM Ab (NON-REACTIVE) Hep Bs Antigen (Neg) Hep B Core IgM Ab (NON-REACTIVE) Hepatitis C Antibody (Neg) 03/27/21 03/27/21 Range/Units 12:39 12:39 WBC (4.8-10.8) K/uL RBC (4.7-6.1) M/uL Hgb (14.0-18.0) g/dL Hct (42-52) % MCV (80-100) fL MCH (25-34) pg MCHC (32-36) g/dL RDW Std Deviation (36.4-46.3) fL RDW Coeff of Josh (11.5-14.5) % Plt Count (130-400) K/uL MPV (7.4-10.4) fL Immature Gran % (Auto) % Neut % (Auto) % Lymph % (Auto) % Branch % (Auto) % Eos % (Auto) % Baso % (Auto) % Neut # (Auto) (1.4-6.5) K/uL Lymph # (Auto) (1.2-3.4) K/uL Branch # (Auto) (0.11-0.59) K/uL Eos # (Auto) (0-0.5) K/uL Baso # (Auto) (0-0.2) K/uL Immature Gran # (Auto) (0.00-0.02) K/uL Absolute Nucleated RBC (0-0) K/uL Nucleated RBC % (auto) % Ovalocytes Echinocytes PT (9.0-12.0) Seconds INR (0.9-1.1) Sodium (136-145) mmol/L Potassium (3.5-5.1) mmol/L Chloride (98-107) mmol/L Carbon Dioxide (21-32) mmol/L Anion Gap (3-11) BUN (7-18) mg/dl Creatinine (0.6-1.4) mg/dl Est Cr Clr Drug Dosing ml/min Est GFR ( Amer) ml/min Est GFR (Non-Af Amer) ml/min BUN/Creatinine Ratio (10-20) Glucose (70-99) mg/dl POC Glucose (70-99) mg/dl Lactate (0.4-2.0) mmol/L Calcium (8.5-10.1) mg/dl Phosphorus (2.5-4.9) mg/dl Magnesium (1.8-2.4) mg/dl Total Bilirubin (0.2-1) mg/dl AST (15-37) U/L ALT (12-78) U/L Alkaline Phosphatase (45-117) U/L Total Protein (6.4-8.2) gm/dl Albumin (3.4-5.0) gm/dl Globulin (2.5-4.0) gm/dl Albumin/Globulin Ratio (0.9-2) Urine Color Urine Appearance (Clear) Urine pH (4.5-7.5) Ur Specific [place] (1.000-1.030) Urine Protein (Negative) Urine Glucose (UA) (Negative) Urine Ketones (Negative) Urine Blood (Negative) Urine Nitrite (Negative) Urine Bilirubin (Negative) Urine Urobilinogen (Negative) Ur Leukocyte Esterase (Negative) Urine WBC (Auto) (0-5) /hpf Urine RBC (Auto) (0-4) /hpf U Hyaline Cast (Auto) (0-5) /lpf U Epithel Cells (Auto) (0-5) /lpf Urine Bacteria (Auto) (Negative) Ur Renal Epithelial Cell (0-5) /lpf Urine Yeast Fluid Neutrophils % % Fluid Lymphocytes % % Fluid Eosinophils % % Fluid Basophils % % Fluid Meso/Macro/Branch % % Fluid Comment Peritoneal Color Peritoneal Appearance Peritoneal WBC (0-300) /ul Peritoneal RBC /uL Peritoneal Tot Protein g/dl Peritoneal Albumin g/dl Hepatitis A IgM Ab NON-REACTIVE (NON-REACTIVE) Hep Bs Antigen Neg (Neg) Hep B Core IgM Ab REACTIVE A (NON-REACTIVE) Hepatitis C Antibody Neg (Neg)
[2021-03-30] MEDS: CETIRIZINE HCL 10 MG TABLET PO PRN (09:06)
[2021-03-30] MEDS: allopurinoL 100 MG TAB PO SCH ×2 (09:06→20:04)
[2021-03-30] MEDS: PANTOprazole 40 MG TAB PO SCH (09:06)
[2021-03-30] MEDS: CLOPIDOGREL BISULFATE 75 MG TAB PO SCH (09:06)
[2021-03-30] MEDS: ASPIRIN 81 MG ECTAB PO SCH (09:06)
[2021-03-30] MEDS: POLYETHYLENE (MIRALAX) 17 GM PACK PO SCH ×3 (09:07→20:05)
[2021-03-30] MEDS: FAMOTIDINE 40 MG TABLET PO PRN (09:07)
[2021-03-30] MEDS: DOCUSATE SODIUM 100 MG CAP PO SCH ×2 (09:07→20:04)
--- NOTE | 2021-03-30 09:07 | Communication Note ---
Date of Service: March 30, 2021 Pt's KUB yesterday showed signs of ileus. He is having liquid stools. Dicyclomine DC'd and Miralax increased to 17g TID. Recommend OOB and ambulation, keep K >4 and avoiding narcotics. US diagnostic paracentesis obtained. Total fluid protein >2.5. SAAG >1.1; ascites accumulation likely related to CHF No new GI plans at this time; pls recall prn
[2021-03-30] MEDS: CHOLECALCIFEROL 1,000 UNITS 25 MCG TAB PO SCH (09:08)
[2021-03-30] MEDS: CEROVITE ADV FORMULA TAB PO SCH (09:08)
[2021-03-30] MEDS: INSULIN ASPART 100 UNITS/ML 3 ML PEN SC SCH ×4 (09:12→20:30)
[2021-03-30] MEDS: PIPERACILLIN/TAZOBACTAM 3.375 GM in DEXTROSE 5% 100 ML IV SCH ×2 (09:22→20:03)
--- NOTE | 2021-03-30 11:11 | Nephrology Progress Note ---
Date of Service March 30, 2021 Assessment & Plan Admission and Anticipated Discharge Date Admission Date: March 25, 2021 Subjective Subjective Assessment & Plan (1) Acute on chronic renal failure: Plan: Stage I presumed nonoliguric acute on chronic renal failure CKD 3B with 300 mg baseline albuminuria. Baseline creatinine 1.5-1.6 w/ about 300 mg albuminuria. creatinine essentially plateau'd; chemistries and volume status acceptable: ischemic ATN ( based on urine Analysis) in the setting of severe MS, diffuse vascular dz, HF. Also Cardio-renal Syndrome picture is there. No indication for discussion about dialysis. apart from mild hyponatremia, chemistries acceptable. continue low potassium diet --No ascites. --transaminitis per primary service/GI/cardiology---Cardiac Cirrhosis and liver congestion causing Abnormal LFT. Creat stable to slightly worse.. - would start with some iv lasix--20 mg iv bid. No aldactone yet.--More than 7 liters positive. Worsening creat is from ATN and is adding to the CHF/fluid overload problem. may need more lasix. (2) Biventricular heart failure, NYHA class 3: Plan: w/ hx of severe MS for which CT surgery recommended though high risk s/p CFLX stenting 09/2020 and w/ severe NADYA on bipap -recommend cardiology consultation for optimal mgt of volume status, transaminitis, recurrent syncope Subjective Starting clear liquid diet. So far ok. Not out of bed today b/c of concerns about syncope; no worsening sob - stable exertional he states. significant rectal pain at rectal tear. Urine out slightly higher yesterday . No chest discomfort Review of Systems Review of Systems: All systems reviewed & are unremarkable except as noted in Subjective Physical Exam Constitutional: well developed, well nourished, + frail appearing and cooperative; no acute distress Eyes: EOM intact bilaterally ENMT: Ears: no external ear abnormality Nose: no external nose abnormality Mouth: + dry oral mucous membranes Neck: no nuchal rigidity Respiratory: normal respiratory effort Auscultation: + diminished lung sounds (Especially right base) Cardiovascular: Rate/Rhythm: regular rate and regular rhythm Heart Sounds: + murmur Extremities: + edema (Trace bilateral pretibial) Gastrointestinal (Abdomen): Inspection/Auscultation: + abdomen distended (more today) and normal bowel sounds Percussion/Palpation: abdomen soft; abdomen nontender and no guarding Musculoskeletal: Extremities: strength 5/5 throughout Skin: no rashes, warm and dry Psychiatric: Orientation: oriented x 3 Insight: good insight Judgement: good judgement Genitourinary: jacobson w/ Darkish brown urine Results & Data ([facility]) Vital Signs (Past 12 Hours) Vital Signs Temp Pulse Pulse Resp BP Pulse Ox 03/30/21 09:00 83 03/30/21 07:41 36.6 C 83 16 106/63 92 03/30/21 05:04 84 14 108/71 91 03/30/21 04:23 37.0 C 85 16 113/80 94 03/30/21 00:06 36.7 C 85 16 102/63 92
--- NOTE | 2021-03-30 11:13 | Cardiology Progress Note ---
Date of Service March 30, 2021 Assessment & Plan (1) Aortic stenosis, severe: (2) Mitral stenosis: (3) Cor pulmonale (chronic): (4) HFrEF (heart failure with reduced ejection fraction): (5) Elevated LFTs: Plan: Elevated LFT's, trending higher. GI consulted. Etiology like CHF based on his history vs cirrhosis. Diagnostic paracentesis performed, consistent with CHF. Atorvastatin on hold. BP improved. No recurrent syncope/near syncope on the basis of hypotension He is +7 liters since admission which is slightly concerning for worsening volume status. However his renal function has not improved, despite holding diuretics. He is difficult to manage because of his mixed valvular disease and chronic right heart failure due to pulmonary hypertension. If you over diuresis him he will lose preload and drop his blood pressure. Under diurese him and he will go into congestive heart failure. Low threshold to resume diuretic therapy, at least at lower dose. His home diuretics including spironolactone 25 mg daily and torsemide 30 mg in AM and 10 mg in afternoon. We will perform an ultrasound of the right lung today to quantify effusion size. Given difficulty with diuretics patient may benefit clinically from paracentesis should significant fluid volume be present. Given his severe mitral stenosis and pulmonary hypertension I believe his prognosis is very poor given his most recent insult. Should he fail to improve with above treatments consideration should be given to goals of care being discussed by our palliative colleagues with the patient and his . Previously, he has been wanting to hold off on mitral valve surgery but with this most recent insult he is not a candidate at this time. Admission and Anticipated Discharge Date Admission Date: March 25, 2021 Subjective Patient seen and examined, chart reviewed. Patient is very fatigued today and lethargic but denies chest pain, shortness of breath or lightheadedness. Review of Systems Review of Systems: Review of Systems: See HPI for pertinent positives. All other 10 point review of systems are negative. Physical Exam Physical Exam: General: Awake, alert and oriented x 3. No acute distress. HEENT: Normocephalic, atraumatic. Pupils equal, round and reactive to light and accommodation. Extraocular muscles are intact. Anicteric sclera. Moist mucous membranes. Neck: No JVD. No bruit. Cardiovascular: Regular. Positive S-4. Normal S-1 and S-2. No S-3. 3/6 holosystolic ejection murmur, left sternal border, mid-clavicular line with ra diation to the axilla. No rubs. Pulmonary: Decreased breath sounds in the bilateral bases, right greater than left. Mild crackles on the right base as well. Abdomen: Bowel sounds x 4, soft. No rebound, guarding or tenderness. No organomegaly. Extremities: No clubbing, cyanosis or edema. +2 pedal pulses bilaterally. Skin: Warm and dry. Results & Data ([facility]) Vital Signs (Past 12 Hours) Vital Signs Temp Pulse Pulse Resp BP Pulse Ox 03/30/21 09:00 83 03/30/21 07:41 36.6 C 83 16 106/63 92 03/30/21 05:04 84 14 108/71 91 03/30/21 04:23 37.0 C 85 16 113/80 94 03/30/21 00:06 36.7 C 85 16 102/63 92
[2021-03-30] MEDS: FUROSEMIDE 30 MG in SYRINGE 0 ML IV SCH ×2 (12:04→20:04)
--- NOTE | 2021-03-30 14:24 | Ultrasound Report ---
US effusion-chest/mediastinum CLINICAL HISTORY: Right pleural effusion. COMPARISON STUDY: Abdomen and pelvis CT 03/29/2021. FINDINGS: Real-time sonographic imaging of the chest was performed with real estate representative images submitt ed. Bilateral pleural effusions are again noted. The large right pleural effusion demonstrates a volu me of 1631 cc. The moderate left pleural effusion demonstrates a volume of 803 cc. These were not mar ked for thoracentesis. IMPRESSION: A large right and moderate left pleural effusion as described above. ACT 112: Negative or not required by law. Electronically signed by: Venkat Yost M.D. 03/30/2021 2:23 PM
[2021-03-30] MEDS ORDERED: NITROGLYCERIN SL 0.4 MG/TAB TAB ONE (16:07)
[2021-03-30 16:37] LABS: Hepatitis B Surface Ab Quant < 3.10 mIU/mL (>or=10mIU/mL Immune); Hepatitis B Surface Antibody Non-Immune
[2021-03-30 16:48] LABS: Hepatitis B Surf Ag Rflx Conf Neg (Neg)
[2021-03-30] MEDS: oxyCODONE HCL IR 5 MG TAB (IMMEDIATE RELEASE) PO PRN (20:02)
[2021-03-31 04:54] LABS: Hematocrit (blood only) 42.2 % (42-52); Hemoglobin 14.4 g/dL (14.0-18.0); Mean Corpuscular Hemoglobin 32.2 pg (25-34); Mean Corpuscular Hgb Conc 34.1 g/dL (32-36); Mean Corpuscular Volume 94.4 fL (80-100); Nucleated RBC # (auto) 0.09 K/uL (0-0); RDW Coefficient of Variation 16.2 % (11.5-14.5); RDW Standard Deviation 54.9 fL (36.4-46.3); Red Blood Count 4.47 M/uL (4.7-6.1); White Blood Count 9.09 K/uL (4.8-10.8)
[2021-03-31 04:56] LABS: Mean Platelet Volume 11.3 fL (7.4-10.4); Platelet Count 76 K/uL (130-400)
[2021-03-31 05:02] LABS: INR 1.7 (0.9-1.1); Prothrombin Time 16.5 Seconds (9.0-12.0)
[2021-03-31 05:14] LABS: Albumin Level 3.3 gm/dl (3.4-5.0); BUN Creatinine Ratio 24.4 (10-20); Calcium 8.9 mg/dl (8.5-10.1); Creatinine Clr Calc Pharmacy 15.2 ml/min; Est GFR (Non-African American) 17.2 ml/min; Magnesium 2.5 mg/dl (1.8-2.4); Potassium 4.2 mmol/L (3.5-5.1)
[2021-03-31 05:19] LABS: Albumin Globulin Ratio 1.1 (0.9-2); Bilirubin,Total 4.3 mg/dl (0.2-1); Total Protein 6.3 gm/dl (6.4-8.2)
[2021-03-31] MEDS: HEPARIN SOD 5,000 UNIT/0.5 ML VIAL SQ SCH ×2 (05:19→13:15)
[2021-03-31] MEDS: INSULIN ASPART 100 UNITS/ML 3 ML PEN SC SCH ×4 (08:19→20:24)
[2021-03-31] MEDS: PIPERACILLIN/TAZOBACTAM 3.375 GM in DEXTROSE 5% 100 ML IV SCH (08:22)
[2021-03-31] MEDS: FUROSEMIDE 30 MG in SYRINGE 0 ML IV SCH (08:22)
[2021-03-31] MEDS: ASPIRIN 81 MG ECTAB PO SCH (08:23)
[2021-03-31] MEDS: CETIRIZINE HCL 10 MG TABLET PO PRN (08:23)
[2021-03-31] MEDS: PANTOprazole 40 MG TAB PO SCH (08:23)
[2021-03-31] MEDS: CLOPIDOGREL BISULFATE 75 MG TAB PO SCH (08:23)
[2021-03-31] MEDS: FAMOTIDINE 40 MG TABLET PO PRN (08:23)
[2021-03-31] MEDS: CHOLECALCIFEROL 1,000 UNITS 25 MCG TAB PO SCH (08:23)
[2021-03-31] MEDS: MIDODRINE HCL 2.5 MG TAB PO SCH ×3 (08:23→18:34)
[2021-03-31] MEDS: CEROVITE ADV FORMULA TAB PO SCH (08:23)
[2021-03-31] MEDS: POLYETHYLENE (MIRALAX) 17 GM PACK PO SCH ×3 (08:24→20:24)
[2021-03-31] MEDS: allopurinoL 100 MG TAB PO SCH (08:24)
[2021-03-31] MEDS: DOCUSATE SODIUM 100 MG CAP PO SCH ×2 (08:24→20:24)
--- NOTE | 2021-03-31 08:48 | Pulmonology Progress Note ---
Date of Service March 31, 2021 Assessment & Plan (1) Hematuria: (2) Renal failure: (3) Fecal impaction: (4) Pleural effusion: (5) Diastolic heart failure: Plan: Impression: 81-year-old male with multiple medical comorbidities admitted with rectal impaction. He is well-known to me from his ICU stay. pulmonary was reconsulted today for pleural effusion. This was addressed during his critical care stay as well. Recommendations: 1. Right pleural effusion: Unclear if this represents hepatic hydrothorax as the patient does have some fluid collection around his liver. Patient denies prior alcohol use. Cirrhosis is noted on the films and by GI. Work-up per GI recommended as the patient does not endorse significant alcohol intake. Could consider thoracentesis however this is an elective procedure and the patient is on Plavix. His indication for Plavix is iliac stents placed through [facility]. If thoracentesis were to be considered, would ideally like to have him off Plavix for 5days. He has no symptoms referable to the effusion currently. He denies any chest pain shortness of breath or cough. This is likely contributing to his hypoxemia. He would like to manage conservatively although I am unclear if this will get better with his worsening kidney function. In addition, his underlying cardiovascular disease and renal failure may result in rapid reaccumulation of the pleural fluid and thoracentesis would not constitute a long-term management strategy. Intrathoracic bleeding may be a fatal event in this patient and as this is AN elective procedure would like to minimize his risk is much as possible. If the patient and his elect to proceed with thoracentesis on antiplatelet agents, I would be happy to perform the procedure. If long-term palliative care is engaged, consideration for Pleurx catheter may be appropriate however again would like the patient off Plavix before considering that procedure. Review of his labs also indicates that his INR is elevated, possibly consistent with congestive hepatopathy. This would need to be corrected to an INR below 1.5 before consideration of invasive pleural procedures. 2. Hypoxemia: Secondary to pleural effusion. Continue supplemental oxygen for now. Cardiology notes indicate possible palliative care consultation which I think is reasonable if the patient is not felt to be a candidate for addressing his mitral valve disease. Admission and Anticipated Discharge Date Admission Date: March 25, 2021 Review of Systems Review of Systems: All systems reviewed & are unremarkable except as noted in Subjective Physical Exam Constitutional: + ill appearing and + thin; not in distress Neck: trachea midline, no thyromegaly Respiratory: normal respiratory effort; no respiratory distress and no labored breathing Diminished breath sounds at bilateral bases with dullness to percussion Cardiovascular: Rate/Rhythm: regular rhythm Heart Sounds: normal S1, normal S2 and + murmur Extremities: + edema Total body anasarca Gastrointestinal (Abdomen): Inspection/Auscultation: + abdomen distended Umbilical hernia. There is extensive bruising and ecchymoses extending posteriorly on the left flank. Musculoskeletal: Extremities: extremities normal to inspection Skin: no rashes, warm and dry Neurologic: Nonfocal exam Lymphatic: no cervical lymphadenopathy Results & Data Results & Data ([facility]) Vital Signs (Past 12 Hours) Vital Signs Temp Pulse Resp BP Pulse Ox 03/31/21 07:47 36.6 C 87 12 130/78 91 03/31/21 07:24 36.6 C 86 16 130/78 93 03/31/21 05:00 36.7 C 86 14 117/70 92 03/30/21 23:46 36.4 C L 82 20 110/65 90 Laboratory Results 03/31/21 04:44 03/31/21 04:[address] the abdomen and pelvis performed 03/29 was independently reviewed and with attention to the lung messina. There are moderate bilateral pleural effusions noted. Ultrasound of the chest performed yesterday showed bilateral pleural effusions. PG Care Time/CCT Total # of Minutes Spent Total Time Spent with Patient: Total time spent is greater than 50% in coordination of care (as documented) at patient's floor/unit and/or counseling patient: Coding Level of Care Code 93943 Subseq Hosp Care Lvl 3 Diagnoses Hematuria R31.9 Renal failure N19 Fecal impaction K56.41 Pleural effusion J90 Diastolic heart failure I50.30
--- NOTE | 2021-03-31 09:31 | XRay Report ---
KUB HISTORY: Abdominal distention. re-eval ileus COMPARISON: Abdomen and pelvis CT 03/29/2021. KUB 03/29/2021. FINDINGS: Mildly dilated gas-filled loops of large and small bowel seen throughout the abdomen. This is similar to the prior study. The stomach is also mildly distended and gas-filled. This remains unch anged. There are bilateral total hip arthroplasties. Right pleural effusion is partially visualized. No renal calculi. No ureteral calculi. No pneumoperitoneum or pneumatosis. IMPRESSION: No change in the mildly dilated gas-filled loops of stomach and bowel. This favors a mild ileus. ACT 112: Negative or not required by law. Electronically signed by: Venkat Yost M.D. 03/31/2021 9:29 AM
[2021-03-31] MEDS: oxyCODONE HCL IR 5 MG TAB (IMMEDIATE RELEASE) PO PRN (10:31)
--- NOTE | 2021-03-31 10:51 | Nephrology Progress Note ---
Date of Service March 31, 2021 Assessment & Plan Admission and Anticipated Discharge Date Admission Date: March 25, 2021 Subjective Subjective Subjective Assessment & Plan (1) Acute on chronic renal failure: Plan: Stage I presumed nonoliguric acute on chronic renal failure CKD 3B with 300 mg baseline albuminuria. Baseline creatinine 1.5-1.6 w/ about 300 mg albuminuria. creatinine essentially plateau'd; chemistries and volume status acceptable: ischemic ATN ( based on urine Analysis) in the setting of severe MS, diffuse vascular dz, HF. Also Cardio-renal Syndrome picture is there. No indication for discussion about dialysis. apart from mild hyponatremia, chemistries acceptable. continue low potassium diet --No ascites. --transaminitis per primary service/GI/cardiology---Cardiac Cirrhosis and liver congestion causing Abnormal LFT. Creat stable to slightly worse but no major change with lasix vs No lasix. . - would continue with some iv lasix-- urine output went up a bit to 950 ml. Can raise the dose to 30 bid. No aldactone yet.--More than 7 liters positive. Worsening creat is from ATN and is adding to the CHF/fluid overload problem. reviewed cards and Pulm note and possible palliative med. He will not be a candidate for Dialysis if such need arise. --Just updated by RN that he is now Comfort care only. (2) Biventricular heart failure, NYHA class 3: Plan: w/ hx of severe MS for which CT surgery recommended though high risk s/p CFLX stenting 09/2020 and w/ severe NADYA on bipap Subjective Starting clear liquid diet. So far ok. Not out of bed today b/c of concerns about syncope; no worsening sob - stable exertional he states. significant rectal pain at rectal tear. Urine out slightly higher yesterday . No chest discomfort Review of Systems Review of Systems: All systems reviewed & are unremarkable except as noted in Subjective Physical Exam Constitutional: well developed, well nourished, + frail appearing and cooperative; no acute distress Eyes: EOM intact bilaterally ENMT: Ears: no external ear abnormality Nose: no external nose abnormality Mouth: + dry oral mucous membranes Neck: no nuchal rigidity Respiratory: normal respiratory effort Auscultation: + diminished lung sounds (Especially right base) Cardiovascular: Rate/Rhythm: regular rate and regular rhythm Heart Sounds: + murmur Extremities: + edema (Trace bilateral pretibial) Gastrointestinal (Abdomen): Inspection/Auscultation: + abdomen distended (more today) and normal bowel sounds Percussion/Palpation: abdomen soft; abdomen nontender and no guarding Musculoskeletal: Extremities: strength 5/5 throughout Skin: no rashes, warm and dry Psychiatric: Orientation: oriented x 3 Insight: good insight Judgement: good judgement Genitourinary: jacobson w/ Darkish brown urine Results & Data ([facility]) Vital Signs (Past 12 Hours) Vital Signs Temp Pulse Resp BP Pulse Ox 03/31/21 07:47 36.6 C 87 12 130/78 91 03/31/21 07:24 36.6 C 86 16 130/78 93 03/31/21 05:00 36.7 C 86 14 117/70 92 03/30/21 23:46 36.4 C L 82 20 110/65 90
[2021-03-31] MEDS ORDERED: LORazepam 0.5 MG TAB PO PRN (12:04)
[2021-03-31] MEDS ORDERED: ONDANSETRON INJ 2 MG/ML 2 ML VIAL IV PRN (12:04)
[2021-03-31] MEDS ORDERED: LORazepam 0.5 MG/1 ML VIAL IV PRN (12:04)
[2021-03-31] MEDS ORDERED: ONDANSETRON 4 MG OD TAB SL PRN (12:04)
--- NOTE | 2021-03-31 12:09 | Cardiology Progress Note ---
Date of Service March 31, 2021 Assessment & Plan (1) Aortic stenosis, severe: (2) Mitral stenosis: (3) Cor pulmonale (chronic): (4) HFrEF (heart failure with reduced ejection fraction): (5) Elevated LFTs: Plan: I had a family meeting at the bedside including the patient, his and son, Randal. I have known them for many years now and follow him closely as an outpatient. Discussed findings and grave prognosis. Patient, and son all in agreement with comfort care and hopeful home hospice. I have placed the comfort care order set. D/c'ed plavix for possible pleurex catheter placement for comfort. Admission and Anticipated Discharge Date Admission Date: March 25, 2021 Subjective Pt seen and examined, chart reviewed. States that his breathing continues to decline. Frustrated with frequent diarrhea. Very fatigued. I had a family meeting at the bedside including the patient, his and son, Randal. I have known them for many years now and follow him closely as an outpatient. Discussed findings and grave prognosis. Patient, and son all in agreement with comfort care and hopeful home hospice. Review of Systems Review of Systems: Review of Systems: See HPI for pertinent positives. All other 10 point review of systems are negative. Physical Exam Physical Exam: General: Awake, alert and oriented x 3. No acute distress. HEENT: Normocephalic, atraumatic. Pupils equal, round and reactive to light and accommodation. Extraocular muscles are intact. Anicteric sclera. Moist mucous membranes. Neck: No JVD. No bruit. Cardiovascular: Regular. Positive S-4. Normal S-1 and S-2. No S-3. 3/6 holosystolic ejection murmur, left sternal border, mid-clavicular line with radiation to the axilla. No rubs. Pulmonary: Decreased breath sounds in the bilateral bases, right greater than left. Mild crackles on the right base as well. Abdomen: Bowel sounds x 4, soft. No rebound, guarding or tenderness. No organomegaly. Extremities: No clubbing, cyanosis or edema. +2 pedal pulses bilaterally. Skin: Warm and dry. Results & Data ([facility]) Vital Signs (Past 12 Hours) Vital Signs Temp Pulse Resp BP Pulse Ox 03/31/21 11:30 36.6 C 89 14 115/82 92 03/31/21 07:47 36.6 C 87 12 130/78 91 03/31/21 07:24 36.6 C 86 16 130/78 93 03/31/21 05:00 36.7 C 86 14 117/70 92
--- NOTE | 2021-03-31 12:49 | Hospitalist Progress Note ---
Date of Service March 31, 2021 Assessment & Plan (1) Fecal impaction: (2) Pain in rectum: (3) Urinary retention: (4) Hematuria: Plan: Patient is 81-year-old male with past medical history of heart disease, diastolic heart failure, hypertension, CKD, hyperlipidemia, peripheral artery disease, diabetes mellitus type 2, 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 Patient was found to have severe rectal pain, constipation and urinary retention on admission. Given his overall clinical status and multiple comorbidities patient and the family decided to proceed with comfort/hospice measures. Palliative medicine was consulted. Patient is to be discharged tomorrow on hospice services. Oxycodone for pain control. Plan to have Pleurx catheter as an outpatient. Severe rectal pain and constipation Severe rectal pain, could be from fissures from ongoing constipation. There is also now gluteal fold fissure/ skin tear from disimpaction GI and general surgery were consulted. Underwent disimpaction in the ER on admission. Patient is currently having loose stools. Remains on MiraLAX. Currently on heart healthy carb diet. Gluteal fold skin tear -Continues to have significant pain, wound care practitioner consulted Sepsis Lactic acidosis Repeat morning labs significant for WBC of 20,000, lactic acid 3.1. Started on Zosyn in the morning and IV fluids, by solder deposit operator Patient also found to be hypoxic, on 4 to 5 L of oxygen and chest CT was obtained After IV fluids and being on IV Zosyn, blood work repeated. Lactic acid 4.9 and white blood cell count 23,000. In addition urine brown, and creatinine 3, elevated from baseline of 1.4, and 2 earlier in the morning Contacted urology and GI General surgery also consulted Patient was to be transferred to telemetry, however there he had presyncopal/syncopal episode, systolic blood pressure into 80s Therefore ui designer was consulted, patient transferred to ICU and stat CT abdomen ordered 03/27 - Hemodynamically stable overnight, plan to transfer out from ICU 03/28 - Leukocytosis WBC 23K on 03/26, now trending down 12k (on 03/28) - cont. IV zosyn - BP improved, however abdomen more distended - Continue IV albumin, hold IV fluids with normal saline for now 03/29 - pt seen by cardiology and nephrology - plan to start gentle diuresis as pt's is positive about 7L -laying in bed most of the time as he continues to have syncopal episodes w/ minor movememt - underwent diagnostic paracentesis today (03/30) - large L flank ecchymosis noted (not sure if new), Hgb fairly stable, will obtain CT abd. pelvis to r/o any hemorrhage- CT negative 03/30 - cont. gentle diuresis, monitor hemodynamic status -IgM for Hep B (core) positive, GI notified , ordering viral load Acute hypoxic respiratory failure Secondary to right pleural effusion. Today patient is being transitioned to comfort measures Plans to have a Pleurx placed in a few days. Currently on 3 L of nasal cannula and does not appear to be in any distress. Elevated LFTs, bili, alk phos, cirrhosis -Cirrhosis noted on imaging -GI plans to follow-up as an outpatient for cirrhosis work-up. GI believes is likely secondary to congestive/ischemic etiology. -Recommend to obtain diagnostic paracentesis to rule out SBP. Patient underwent diagnostic paracentesis on 03/29. Getting diuresis with IV Lasix daily. 03/30 - -IgM for Hep B (core) positive, GI notified , ordering viral load - Hepatitis panel obtained -Ultrasound liver obtained 1. The liver is cirrhotic in morphology and heterogeneous in echotexture. 2. Small volume perihepatic ascites. 3. No shadowing gallstones are identified. 4. Mild nonspecific gallbladder wall thickening is likely related to cirrhosis and ascites. 5. Nonvisualization of the pancreas. 6. Right pleural effusion. Urinary retention, placed on Cole catheter. Cole catheter in place. Appreciate urology input. JAMIE on CKD III. Baseline creatinine 1.3, on admission creatinine of 2. After IVF and Abx , today creatitine at 3.20 Urine brown, repeat UA, u cultx Nephrolgoy has been on board. 4. History of right sided HF and history of diastolic CHF and valvular heart failure, initially holding diuretics. 5. History of hypertension: stable 6. Aortic stenosis rheumatic valvular heart disease. needs followup. 7. CAD, s/p CABG. Continue home medications. 8. PAD s/p illiac stent. Continue aspirin, Plavix and statin. 9. Diabetes: Hold glipizide, place on insulin sliding scale. Follow the blood sugars. 11. Thrombocytopenia, seems chronic. Continue to monitor DVT subq heparin DISPOSITION: PCU Code: Full Admission and Anticipated Discharge Date Admission Date: March 25, 2021 Subjective This morning patient was awake and alert. was at bedside. Patient currently remains on 3 L of nasal cannula. He does not appear to be in any distress. However he does endorse some shortness of breath and rectal discomfort. No nausea or vomiting. Denies any chest pain or abdominal pain at the moment. Review of Systems Review of Systems: All systems reviewed & are unremarkable except as noted in HPI & below Physical Exam Physical Exam: General: A&Ox3. NAD HENT: NCAT, MMM, EOMI Eyes: PERRLA Neck: Supple, normal range of motion CVS: normal rate and rhythm Resp: b/l Abdomen: Soft, ND/NT, +BS Extremities: No c/c/e Neuro: face symmetric, strength grossly equal, no focal deficit Skin: warm and dry, no rashes/lesions/errythema MSK: normal ROM, no joint swelling/erythema Results & Data Results & Data ([facility]) Vital Signs (Past 12 Hours) Vital Signs Temp Pulse Resp BP Pulse Ox 03/31/21 11:30 36.6 C 89 14 115/82 92 03/31/21 07:47 36.6 C 87 12 130/78 91 03/31/21 07:24 36.6 C 86 16 130/78 93 03/31/21 05:00 36.7 C 86 14 117/70 92
[2021-03-31] MEDS ORDERED: oxyCODONE HCL IR 5 MG TAB (IMMEDIATE RELEASE) PO SCH (13:00)
[2021-03-31] MEDS ORDERED: oxyCODONE HCL IR 5 MG TAB (IMMEDIATE RELEASE) PO PRN (15:58)
--- NOTE | 2021-03-31 16:03 | Palliative Care Consultation ---
Date of Consultation March 31, 2021 Assessment & Plan (1) Pain in rectum: Oxycodone has been very effective at 10mg dose per his . Plan is for discharge home with hospice tomorrow. Will continue oxycodone which can be easily administered at home. Discussed dosing prior to pain becoming severe to achieve better analgesic control. Long acting or routine dosing can be converted when we have assessment of opioid needed for adequate analgesia. (2) Palliative care encounter: I talked with Mrs. Camara, her son and daughter in law, at bedside. They are all in agreement with comfort directed approach to care and will be meeting with hospice later this afternoon in anticipation of discharge tomorrow. We discussed adjusting medication list with focus of medications that will provide symptom relief or improve comfort. They asked about what to expect and we discussed normal progression of disease and approaching . (3) Pleural effusion due to CHF (congestive heart failure): Anticipating pleurex catheter placement after plavix clears. (4) Congestive heart failure with right ventricular systolic dysfunction: (5) Urinary retention: History of Present Illness Reason for Consultation: comfort care Requesting Physician: Dr. Duncan Attending Physician: Ezra Andrade MD History of Present Illness 81 yo gentleman with CAD and heart failure with severe aortic and mitral stenosis. He also has CKD, PAD, diabetes and NADYA. He had been having problems with constipation at home and had been trying to manually disimpact himself. He developed severe rectal pain and urinary retention. He was admitted and found to have fecal impaction. He has continued to have severe rectal pain with fissure. He has also had complicated course with difficulty managing fluid balance and blood pressure due to his valvular heart disease. He has developed multiorgan failure with creatinine of 3.2, elevated liver enzymes and pleural effusion. After discussion with Dr. Duncan, family has decided to shift focus of care to comfort. He is currently lethargic but resting comfortably in bed. He denies pain or dyspnea. He has received 15mg oxycodone since 11 am for pain. Allergies Allergy/AdvReac Type Severity Reaction Status Date / Time tramadol Allergy Severe Hallucinati Verified 03/25/21 10:02 ng amiodarone Allergy Intermediate "streaking Verified 03/25/21 10:02 up vein" and painful lactose Allergy Mild GI UPSET Verified 03/25/21 10:02 pollen extracts Allergy Mild HAYFEVER Verified 03/25/21 10:02 lisinopril AdvReac Mild COUGH Verified 03/25/21 10:02 Home Medications Medication Instructions Recorded Confirmed Type albuterol sulfate 90 mcg/actuation 2 puff INHALATION Q6H PRN 01/11/19 08/28/20 History aerosol inhaler allopurinol 100 mg tablet 100 mg PO BID 01/11/19 08/28/20 History amoxicillin 500 mg capsule 500 mg PO UD PRN 01/11/19 08/28/20 History aspirin 81 mg tablet,delayed 81 mg PO QAM 01/11/19 08/28/20 History release (Aspirin Low Dose) atorvastatin 40 mg tablet 40 mg PO PM 01/11/19 08/28/20 History benzonatate 200 mg capsule 200 mg PO TID PRN 01/11/19 08/28/20 History cetirizine 10 mg tablet 10 mg PO DAILY PRN 01/11/19 08/28/20 History clopidogrel 75 mg tablet 75 mg PO QAM 01/11/19 08/28/20 History docusate sodium 100 mg tablet 100 mg PO BID 01/11/19 08/28/20 History glucosamine sulf dipot 1 cap PO BID 01/11/19 08/28/20 History chlr,msm,chond 550 mg-C 30 mg-narcisa 1 mg capsule (Glucosamine Chondroitin) saw palmetto 450 mg capsule 450 mg PO QPM 01/11/19 08/28/20 History vit C 50 mg-E 15 unit-zinc cit 4.5 1 tab PO QAM 01/11/19 08/28/20 History mg-lutein 2.5 mg-zeaxan chew tablet ([employer] [facility]) Leg Cramps 324 mg PO HS 02/01/19 08/28/20 History famotidine 40 mg tablet 40 mg PO DAILY PRN 07/10/20 08/28/20 History omeprazole 20 mg capsule,delayed 20 mg PO QAM 07/10/20 08/28/20 History release cholecalciferol (vitamin D3) 50 50 mcg PO QAM 08/28/20 08/28/20 History mcg (2,000 unit) tablet (Vitamin D3) glipizide 2.5 mg tablet, extended 2.5 mg PO DAILY 03/10/21 History release 24 hr spironolactone 25 mg tablet 25 mg PO QAM tab 03/10/21 History torsemide 10 mg tablet 10 mg PO DAILY PRN 03/10/21 History torsemide 10 mg tablet 10 mg PO QPM tab 03/10/21 History torsemide 20 mg tablet 30 mg PO DAILY tab 03/10/21 History Patient History Medical History Aortic stenosis 08/05/20 TTE suggestive of severe Cardio records state moderate per cath Asthma LAST USED INHALER THIS AM Biventricular heart failure, NYHA class 3 Chronic kidney disease, stage 3 Congestive heart failure with right ventricular systolic dysfunction Per records Admitted 06/2020 due to acute CHF with right heart failure to [facility]- cardio consulted- pt put on increased diuretics Coronary artery disease S/p 3 vessel CABG 2017 Per cardiac records- recent cath showing 80% distal LM and 90% LCx stenosis Diabetes mellitus, type 2 Fibromyalgia Hearing deficit History of GI bleed Hx of gout Hyperlipidemia Hypertension Mitral stenosis severe; [place] [facility] [place] Non-Hodgkin lymphoma diagnosed 2004 s/p chemo PAD (peripheral artery disease) s/p b/l iliac artery stents (2015) Pleural effusion due to CHF (congestive heart failure) REASON FOR LASIX Sleep apnea TESTING IN PROCESS Venous stasis ulcer Surgical History History of anesthesia reaction LOW OXYGEN SATURATION AFTER HERNIA SURGERY History of bilateral carpal tunnel release History of cardiac cath 2016 AND 08/25/20 AT [facility] History of esophagogastroduodenoscopy (EGD) History of left hip replacement History of lumbar discectomy History of lymph node biopsy History of phacoemulsification of cataract of both eyes with intraocular lens implantation History of right hip replacement History of tonsillectomy and adenoidectomy History of tooth extraction History of total hip arthroplasty RT/LEFT History of transesophageal echocardiography (CLEOPATRA) History of umbilical hernia repair Hx of left inguinal hernia repair Hx of right inguinal hernia repair S/P CABG x 3 2017 AT [facility] S/P colonoscopy 01/15/19 Status post insertion of iliac artery stent b/l (2015) Family History Grandmother (Paternal) Family history of diabetes mellitus Mother Family history of diabetes mellitus Aunt Family history of diabetes mellitus Uncle Family history of diabetes mellitus Grandfather (Maternal) Family history of diabetes mellitus Sister Family history of diabetes mellitus Father Family hx colonic polyps Other No family history of adverse response to anesthesia Social History Smoking Status: Never smoker Cigarettes Per Day: QUIT 45 YEARS AGO; Second Hand Exposure: No (father smoked); Hx Alcohol Use: Yes Alcohol type: beer Alcohol Intake Frequency: Monthly or Less Hx Substance Use: No Preferred Language: Albanian Communication Ability: Effective Visual Impairment: Partially Limited Hearing Ability: Use of Hearing Aid Psychiatric Assistant Required: No Beliefs That Will Affect Care: None marital status: Current Living Situation: Spouse current occupational status: retired Feels Safe at Home: Yes Safety Concerns: Feels Safe At This Time Diet Comment: 1500 cc fluid restiction per pt caffeine: No during the past year weight has: decreased > 10 lbs Physical Activity Frequency: Does not Exercise Do you think of yourself as: straight/heterosexual Gender Identity: Male Assistive Devices: Glasses, Hearing Aid - Bilateral and Oxygen - Continuous Review of Systems Review of Systems: [place] Symptom Assessment Scale Pain 0/3 Dyspnea 0/3 Anxiety 0/3 Fatigue 3/3 Drowsiness 2/3 Palliative Performance Score 30% Physical Exam Constitutional: + ill appearing; no acute distress Respiratory: normal respiratory effort; no labored breathing Cardiovascular: trace LE edema Skin: vascular skin changes lower extremities Neurologic: lethargic Results & Data ([facility]) Vital Signs (Past 12 Hours) Vital Signs Temp Pulse Resp BP Pulse Ox 03/31/21 11:30 97.9 F 89 14 115/82 92 03/31/21 07:47 97.9 F 87 12 130/78 91 03/31/21 07:24 97.9 F 86 16 130/78 93 03/31/21 05:00 98.1 F 86 14 117/70 92 PG Care Time/CCT Total # of Minutes Spent Total Time Spent: 60 Total Time Spent with Patient: Total time spent is greater than 50% in coordination of care (as documented) at patient's floor/unit and/or counseling patient: symptom management, what to expect, family education and support Coding Level of Care Code 20824 Initial Inpt Care Lvl 2 Diagnoses Pain in rectum K62.89 Palliative care encounter Z51.5 Pleural effusion due to CHF (congestive heart failure) I50.9 Congestive heart failure with right ventricular systolic dysfunction I50.82; I50.20 Urinary retention R33.9
[2021-03-31] MEDS: SODIUM CHLORIDE 0.9% 1000ML 1,000 ML IV SCH (18:34)
[2021-04-01] MEDS: SODIUM CHLORIDE 0.9% 1000ML 1,000 ML IV SCH (06:15)
[2021-04-01 07:25] LABS: Albumin Level 3.2 gm/dl (3.4-5.0); BUN Creatinine Ratio 24.6 (10-20); Calcium 9.1 mg/dl (8.5-10.1); Est GFR (African American) 19.7 ml/min; Potassium 3.9 mmol/L (3.5-5.1)
[2021-04-01 07:28] LABS: Albumin Globulin Ratio 0.9 (0.9-2); Bilirubin,Total 4.4 mg/dl (0.2-1); Globulin 3.5 gm/dl (2.5-4.0); Total Protein 6.7 gm/dl (6.4-8.2)
[2021-04-01] MEDS: DOCUSATE SODIUM 100 MG CAP PO SCH (08:43)
[2021-04-01] MEDS: MIDODRINE HCL 2.5 MG TAB PO SCH ×2 (08:43→11:16)
[2021-04-01] MEDS: POLYETHYLENE (MIRALAX) 17 GM PACK PO SCH ×2 (08:43→13:46)
[2021-04-01] MEDS: PANTOprazole 40 MG TAB PO SCH (08:43)
--- NOTE | 2021-04-01 09:58 | Pulmonology Progress Note ---
Date of Service April 01, 2021 Assessment & Plan (1) Pleural effusion: (2) Diastolic heart failure: Plan: Impression: 81-year-old male with multiple medical comorbidities admitted with rectal impaction. Transitioned to palliative care measures and plans on going home with hospice later today Recommendations: 1. Right pleural effusion: I had a long discussion with the patient and his at bedside. I advised them that as they are pursuing palliative care, it may be reasonable to tap the effusion acknowledging the potential increased risk of bleeding complications with his coagulopathy and renal failure. This was discussed in detail with the patient. We are going to try and palliate his symptoms as much as possible. He understands it there is an increased risk but would like to see if this offers him a clinical benefit. We will plan on proceeding with therapeutic ultrasound-guided thoracentesis on the right and see how he does. 2. Hypoxemia: Secondary to pleural effusion. Continue supplemental oxygen for now. Patient is going home with hospice later today. I would be happy to follow-up virtually if needed to review his pleural fluid studies although given the fact that he is in hospice I do not think it is good to global director air and climate change. If the effusion remains problematic and symptomatic, I would be happy to arrange for outpatient follow-up with him if needed. The above recommendations and plan were discussed with the patient as well as with his at the bedside. Questions were answered to the best my ability. They expressed understanding and are in agreement the plan as outlined Admission and Anticipated Discharge Date Admission Date: March 25, 2021 Subjective Patient seen and examined. EMR reviewed. Discussed with spouse at bedside. The patient is transition to palliative care. He received OxyContin this morning and is somewhat somnolent. He denies any shortness of breath or chest p ain although his states that he has had increasing cough. His Plavix has been discontinued. Review of Systems Review of Systems: All systems reviewed & are unremarkable except as noted in Subjective Physical Exam Constitutional: + ill appearing; no acute distress Respiratory: normal respiratory effort; no labored breathing Cardiovascular: trace LE edema Skin: vascular skin changes lower extremities Neurologic: lethargic PG Care Time/CCT Total # of Minutes Spent Total Time Spent with Patient: Total time spent is greater than 50% in coordination of care (as documented) at patient's floor/unit and/or counseling patient: Coding Level of Care Code 82713 Subseq Hosp Care Lvl 3 Diagnoses Pleural effusion J90 Diastolic heart failure I50.30
--- NOTE | 2021-04-01 10:00 | Procedure Note ---
Procedure Note Date of Service April 01, 2021 Note Procedure: Diagnostic therapeutic ultrasound-guided catheter thoracentesis [place] Worker: Dr. Coy Sena Indication: Pleural effusion Consent: Signed by patient and verified with timeout prior to procedure Anesthesia: 8 mL's 1% lidocaine without epinephrine local. Procedure: Consent was verified and timeout performed. Appropriate imaging studies were reviewed prior to the procedure. Patient was placed in a seated position and limited thoracic ultrasound was performed of the bilateral chest. Moderate bilateral effusions were noted. The effusion on the right seem to be somewhat larger and we elected to proceed with right sided thoracentesis. Site appropriate for thoracentesis was selected. The skin was prepped and draped in normal sterile fashion. Lidocaine was used for local analgesia. Fluid was aspirated via the finder needle. A small skin smita was made with the scalpel and the catheter over the needle apparatus was advanced over the rib into the pleural space. Using the syringe one-way valve system, a total of 1500 mL's of yellow slightly cloudy fluid was removed. Procedure was terminated due to patient cough. The catheter was removed and observed to be intact. A sterile dressing was applied. Post procedure chest x-ray was ordered. Fluid was sent for cell count differential, Gram stain and culture, AFB culture, cytology, glucose, LDH, total protein. The patient tolerated the procedure well without obvious complication Coding CPT Codes Pulmonary/Thoracic - Pulmonary and Thoracic: 25748 Thoracentesis w imaging ([id number]) [facility] [place] ([place]) Pulmonary/Thoracic Procedure 1: Pulmonary and Thoracic: 09953 Thoracentesis w imaging
--- NOTE | 2021-04-01 10:22 | Palliative Care Progress Note ---
Date of Service April 01, 2021 Assessment & Plan (1) Urinary retention: Plan: Discussed with Mr. Camara and his . Plan is for home with hospice today and I'm concerned that they will have problems at home. He had pain with catheter in the past which he described as crampy. We discussed using levsin as needed for bladder spasms if catheter were replaced. She asked about straight cath by hospice nurses at home but they will be seeing daily at [facility] and would not be able to do this as often as needed. Discussed withDr. Andrade. Later spoke with patient's son to update. Will place jacobson prior to discharge for urinary retention,. (2) Pain in rectum: Plan: Improved control. Continue prn oxycodone (3) Palliative care encounter: Plan: Plan for home with hospice. Family at bedside. Very supportive. Deny questions or concerns. Admission and Anticipated Discharge Date Admission Date: March 25, 2021 Subjective Moving around better in bed per his . He was able to stand and void this morning with assistance. However, he had 460cc residual after voiding. Denies pain currently. Did have oxycodone earlier this morning. Review of Systems Review of Systems: [place] Symptom Assessment Scale Pain 0/3 Dyspnea 0/3 Anxiety 0/3 Fatigue 2/3 Drowsiness 1.3 Palliative Performance Score 40% Physical Exam Constitutional: no acute distress ENMT: hard of hearing Respiratory: normal respiratory effort; no labored breathing Gastrointestinal (Abdomen): nondistended Neurologic: + confused (mild confusion at times) PG Care Time/CCT Total # of Minutes Spent Total Time Spent: 35 Total Time Spent with Patient: Total time spent is greater than 50% in coordination of care (as documented) at patient's floor/unit and/or counseling patient: symptom management, patient and family education, coordination of care. Coding Level of Care Code 82479 Subseq Hosp Care Lvl 3 Diagnoses Urinary retention R33.9 Palliative care encounter Z51.5 Pain in rectum K62.89
[2021-04-01] MEDS ORDERED: HYOSCYAMINE SULFATE 0.125 MG TAB SL PRN (10:23)
[2021-04-01 10:37] LABS: Total Protein Pleural Fluid 3.1 g/dl
[2021-04-01 10:43] LABS: Appearance Pleural Fluid CLEAR; Basophils, Fluid 0 %; Color Pleural Fluid YELLOW; Eosinophils, Fluid 0 %; Lymphocytes, Fluid 67 %; Mono,Macrophage,Mesothelial 21 %; Neutrophils, Fluid 12 %; RBC Pleural Fluid (A) < 3000 /uL; Source Pleural Fluid RIGHT LUNG; WBC Pleural Fluid (A) 276 /uL
--- NOTE | 2021-04-01 11:04 | XRay Report ---
XR chest 1V portable CLINICAL HISTORY: S/P Thoracentesis TECHNIQUE: Single frontal radiograph of the chest was obtained. Comparison: Comparison is made to chest one view 03/29/2021 FINDINGS: Median sternotomy wires are unchanged. The cardiomediastinal silhouette is stable. Lungs are underinf lated. Bilateral lower lung predominant airspace opacities are seen. Interval significant reduction i n right pleural effusion. IMPRESSION: 1. Interval significant reduction in right pleural effusion. No evidence of pneumothorax. 2. Bilateral airspace opacities likely represent atelectasis with or without superimposed aspiration or pneumonia. 3. Stable cardiomegaly. ACT 112: Negative or not required by law. Electronically signed by: Kei Nicholas M.D. 04/01/2021 11:02 AM
--- NOTE | 2021-04-01 11:13 | Cardiology Progress Note ---
Date of Service April 01, 2021 Assessment & Plan (1) Aortic stenosis, severe: (2) Mitral stenosis: (3) Cor pulmonale (chronic): (4) HFrEF (heart failure with reduced ejection fraction): (5) Elevated LFTs: Plan: I had a family meeting at the bedside including the patient, his and son, Randal. I have known them for many years now and follow him closely as an outpatient. Discussed findings and grave prognosis. Patient, and son all in agreement with comfort care and hopeful home hospice. I have placed the comfort care order set. D/c'ed plavix for possible pleurex catheter placement for comfort. Admission and Anticipated Discharge Date Admission Date: March 25, 2021 Subjective Patient seen and examined, currently sleeping. Spoke with son and grandson at the bedside.
[2021-04-01] MEDS: INSULIN ASPART 100 UNITS/ML 3 ML PEN SC SCH ×2 (11:14→11:15)
[2021-04-04 00:56] LABS: Hepatitis B Core Antibody IgM REACTIVE (NON-REACTIVE); Hepatitis B Core Antibody Total NON-REACTIVE (NON-REACTIVE); Hepatitis BE Antibody Nonreactive; Hepatitis BE Antigen Nonreactive
--- NOTE | 2021-04-15 08:49 | Discharge Summary ---
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 The patient says for last 2 weeks, he is having constipation, last bowel movement was a couple of 2 days ago. Today, he could not move his bowels and there was a lot of rectal pain. He also having rectal pain from last 2 weeks, but it got worse in the last couple of days. Today, he also could not micturate, so he came to the ER. He has tried mineral oil enema and stool softeners at home, but it did not help. In the ER, CAT scan showed stool impaction and in ER, he was disimpacted and as per the ER physician large amount of stool came out, but still patient is not able to move his bowels on his own yet and is still having a lot of rectal pain. In the ER, he was also having urinary retention, was placed Cole catheter.Patient was also given morphine for severe pain. Currently the patient could not lie on his back because of rectal pain. Denies any other complaints. No headache, no blurred visions, no earache, no runny nose, no sore throat, no cough, no nausea, no chest pain. He has some shortness of breath on exertion. He used to have lot of swelling in the legs, but has improved with diuretics. He has a small wound on the leg following with wound care. He was also recently treated for cellulitis with Keflex and he finished the course of antibiotics. Admission Exam Per Admitting Provider GENERAL: The patient is of moderate build, not in acute distress. VITAL SIGNS: Temperature 37, pulse 102, respiratory rate 23, blood pressure 126/77, oxygen 94% on 4 liters. HEENT: Pupils equal, round and reactive to light. Oral mucosa moist. NECK: No JVD, no neck masses. CARDIOVASCULAR: S1 and S2 heard, regular rate and rhythm. No murmur, no gallop. RESPIRATORY: Normal AP diameter. No accessory muscle use. No wheezing, no crackles. ABDOMEN: Soft, bowel sounds present, nontender, no distention. CENTRAL NERVOUS SYSTEM: Cranial nerves II-XII grossly intact, nonfocal. EXTREMITIES: Lower extremities, chronic skin changes seen. Currently, no edema seen. Principal Diagnosis sepsis Discharge Exam General: patient was resting comfortably Discharge Data Allergies Allergy/AdvReac Type Severity Reaction Status Date / Time tramadol Allergy Severe Hallucinati Verified 03/25/21 10:02 ng amiodarone Allergy Intermediate "streaking Verified 03/25/21 10:02 up vein" and painful lactose Allergy Mild GI UPSET Verified 03/25/21 10:02 pollen extracts Allergy Mild HAYFEVER Verified 03/25/21 10:02 lisinopril AdvReac Mild COUGH Verified 03/25/21 10:02 Consultations 03/25/21 22:07 ED Decision to Admit Stat 03/26/21 08:00 Consult Gastroenterology Routine Consult Urology Routine 03/26/21 12:49 Consult General Surgery Routine 03/26/21 13:01 Consult Nephrology Routine 03/26/21 14:55 Consult Public Relations Counselor Routine 03/27/21 12:01 Consult Wound Care Provider Routine 03/28/21 13:57 Consult Cardiology Routine 03/30/21 15:37 Consult Pulmonology Routine 03/31/21 12:04 Consult Palliative Care Routine Ordered Studies 03/25/21 16:51 CT abd pelvis wo con Stat 03/26/21 08:41 CT chest diagnostic wo con Urgent 03/26/21 11:00 US gallbladder Urgent 03/26/21 14:54 CT abd pelvis wo con Stat 03/29/21 08:00 US paracentesis abd w/image Routine 03/29/21 18:50 CT abd pelvis wo con Routine 03/30/21 10:18 US effusion-chest/mediastinum Routine Hospital Course (1) Fecal impaction: (2) Pain in rectum: (3) Urinary retention: (4) Hematuria: Patient is 81-year-old male with past medical history of heart disease, diastolic heart failure, hypertension, CKD, hyperlipidemia, peripheral artery disease, diabetes mellitus type 2, 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 Patient was found to have severe rectal pain, constipation and urinary retention on admission. Given his overall clinical status and multiple comorbidities patient and the family decided to proceed with comfort/hospice measures. Palliative medicine was consulted. Oxycodone for pain control. Plan to have Pleurx catheter as an outpatient. Severe rectal pain and constipation Severe rectal pain, could be from fissures from ongoing constipation. There is also now gluteal fold fissure/ skin tear from disimpaction GI and general surgery were consulted. Underwent disimpaction in the ER on admission. Patient is currently having loose stools. Remains on MiraLAX. Gluteal fold skin tear Sepsis Lactic acidosis Repeat morning labs significant for WBC of 20,000, lactic acid 3.1. Started on Zosyn in the morning and IV fluids, by food counselor Patient also found to be hypoxic, on 4 to 5 L of oxygen and chest CT was obtained After IV fluids and being on IV Zosyn, blood work repeated. Lactic acid 4.9 and white blood cell count 23,000. In addition urine brown, and creatinine 3, elevated from baseline of 1.4, and 2 earlier in the morning Contacted urology and GI General surgery also consulted Patient was to be transferred to telemetry, however there he had presyncopal/syncopal episode, systolic blood pressure into 80s Therefore strategic planning consultant was consulted, patient transferred to ICU and stat CT abdomen ordered 03/27 - Hemodynamically stable overnight, plan to transfer out from ICU 03/28 - Leukocytosis WBC 23K on 03/26, now trending down 12k (on 03/28) - cont. IV zosyn - BP improved, however abdomen more distended - Continue IV albumin, hold IV fluids with normal saline for now 03/29 - pt seen by cardiology and nephrology - plan to start gentle diuresis as pt's is positive about 7L -laying in bed most of the time as he continues to have syncopal episodes w/ minor movememt - underwent diagnostic paracentesis today (03/30) - large L flank ecchymosis noted (not sure if new), Hgb fairly stable, will obtain CT abd. pelvis to r/o any hemorrhage- CT negative 03/30 - cont. gentle diuresis, monitor hemodynamic status -IgM for Hep B (core) positive, GI notified , ordering viral load Acute hypoxic respiratory failure Secondary to right pleural effusion. Patient is being transitioned to comfort measures Currently on 3 L of nasal cannula and does not appear to be in any distress. Elevated LFTs, bili, alk phos, cirrhosis -Cirrhosis noted on imaging -GI plans to follow-up as an outpatient for cirrhosis work-up. GI believes is likely secondary to congestive/ischemic etiology. -Recommend to obtain diagnostic paracentesis to rule out SBP. Patient underwent diagnostic paracentesis on 03/29. Getting diuresis with IV Lasix daily. 03/30 - -IgM for Hep B (core) positive, GI notified , ordering viral load - Hepatitis panel obtained -Ultrasound liver obtained 1. The liver is cirrhotic in morphology and heterogeneous in echotexture. 2. Small volume perihepatic ascites. 3. No shadowing gallstones are identified. 4. Mild nonspecific gallbladder wall thickening is likely related to cirrhosis and ascites. 5. Nonvisualization of the pancreas. 6. Right pleural effusion. Urinary retention, placed on Cole catheter. Cole catheter in place. Appreciate urology input. JAMIE on CKD III. Baseline creatinine 1.3, on admission creatinine of 2. After IVF and Abx , today creatitine at 3.20 Urine brown, repeat UA, u cultx Nephrolgoy has been on board. 4. History of right sided HF and history of diastolic CHF and valvular heart failure, initially holding diuretics. 5. History of hypertension: stable 6. Aortic stenosis rheumatic valvular heart disease. needs followup. 7. CAD, s/p CABG. Continue home medications. 8. PAD s/p illiac stent. Continue aspirin, Plavix and statin. 9. Diabetes: Hold glipizide, place on insulin sliding scale. Follow the blood sugars. 11. Thrombocytopenia, seems chronic. Continue to monitor DVT subq heparin DISPOSITION: PCU Code: Full Total Time Total Time Spent Total Time Spent (In Minutes): 35 Discharge Plan Discharge Items Patient Disposition: Hospice - Home Reason For Visit: RECTAL PAIN Discharge Diagnosis: Rectal pain Condition on Discharge: Good Activity: Resume your previous activity Non-emergency contact: Aligner Typewriter Call non-emergency contact if: your symptoms worsen Follow-up/Referrals: Daryl Schwartz MD [Primary Care Provider] - Diet: Regular Addtl Attending Provider Instructions: Comfort care. Pending Studies at Discharge: No Stand-Alone Forms: My [employer], Smoking Cessation Medications and DC Order Prescriptions: New hyoscyamine sulfate [Levsin] 0.125 mg Tablet 0.125 mg sublingual Q4H PRN (Reason: drying) Qty: 20 RF: 0 lorazepam 0.5 mg Tablet 0.5 mg PO Q4H PRN (Reason: agitation) Qty: 30 RF: 0 oxycodone 5 mg Tablet 10 mg PO Q4H PRN (Reason: pain) Qty: 30 RF: 0 Continued docusate sodium 100 mg Tablet 100 mg PO BID RF: 0 Discontinued torsemide 20 mg tablet 30 mg PO DAILY RF: 0 torsemide 10 mg tablet 10 mg PO QPM RF: 0 torsemide 10 mg tablet 10 mg PO DAILY PRNRF: 0 glipizide 2.5 mg tablet extended release 24hr 2.5 mg PO DAILY RF: 0 omeprazole 20 mg capsule,delayed release(DR/EC) 20 mg PO QAM RF: 0 famotidine 40 mg tablet 40 mg PO DAILY PRN (Reason: Heartburn) RF: 0 amoxicillin 500 mg Capsule 500 mg PO UD PRN (Reason: prior to procedures) RF: 0 atorvastatin 40 mg Tablet 40 mg PO PM RF: 0 cetirizine 10 mg Tablet 10 mg PO DAILY PRN (Reason: Allergy Symptoms) RF: 0 benzonatate 200 mg Capsule 200 mg PO TID PRN (Reason: Cough) RF: 0 clopidogrel 75 mg Tablet 75 mg PO QAM RF: 0 allopurinol 100 mg Tablet 100 mg PO BID RF: 0 aspirin [Aspirin Low Dose] 81 mg Tablet,Delayed Release (Dr/Ec) 81 mg PO QAM RF: 0 albuterol sulfate 90 mcg/actuation Hfa Aerosol Inhaler 2 puff INHALATION Q6H PRN (Reason: Shortness Of Breath) RF: 0 saw palmetto 450 mg Capsule 450 mg PO QPM RF: 0 Ocuvite Eye Health 50 mg-15 unit- 4.5 mg-2.5 mg Tablet,Chewable 1 tab PO QAM RF: 0 Glucosamine Chondroitin 550-30-1 mg Capsule 1 cap PO BID RF: 0 Leg Cramps 324 mg PO HS RF: 0 cholecalciferol (vitamin D3) [Vitamin D3] 50 mcg (2,000 unit) Tablet 50 mcg PO QAM RF: 0 spironolactone 25 mg tablet 25 mg PO QAM RF: 0 Discharge Orders: Discharge Order (Routine); Ordered 04/01/21 Ordered By: Ezra Delong/Other Patient Handouts: A1C, Managing Type 2 Diabetes Admission Data Admit Date/Time: 03/25/21 23:59 Attending Provider: Ezra Andrade Admit Provider: Perez Sultana Primary Care Provider: aDryl Schwartz Other Providers: Coy Sena ; [facility] ; Perez Sultana ; Jabari Castano ; Gatito Lopes ; Cecilio Sesay ; Javi Walker ; Radhika Young ; Milton Rosen ; Samantha Ochoa ; Whitley Jensen ; Argenis Brandt ; Prem Rao ; Joseph Elliott ; Chula Cook ; Renuka Brandt ; Alfred Kwon ; Cecilio Navarro ; Nancy Ya ; Radha Oconnor ; Dago Abdi ; Rosi Jarquin Other Interventions: Discharge Summary Assessment (RN) Last Done: 04/01/21 15:06
--- NOTE | 2021-04-16 06:08 | Coding Query ---
CODING QUERY To promote full compliance with coding requirements relating to patient care, provider participation is requested in all cases of pantograph machine set up operator uncertainty. Please assist us with the question(s) below: Coding Question(s): Patient admitted on 03/25 for rectal pain, fecal impaction. 03/26 Hospitalist progress note documented WBC 21.3 lactic acid 3.1. Zosyn started . Oxygen increased 4-5 L. Admission 03/25 WBC in ED 8.0 . Seeking to clarify if Sepsis was present on admission. Please check below the phrase that describes the Sepsis. Thanks for your help. Alfred [facility] Physician's Response(s): Sepsis was present on admission Sepsis was not present on admission Unable to Clinically Correlate if Sepsis was present on admission Other: Please document: Principal Diagnosis: "that condition established after study, to be chiefly responsible for occasioning the admission of the patient to the hospital for care." Co-Existing Principal Diagnosis: "when two or more diagnoses equally meet the criteria for principal diagnosis as determined by the circumstances of admission, diagnostic work up, and/or therapy provided, and the Alphabetic Index, Tabular List, or another coding guideline does not provide sequencing direction, any one of the diagnoses may be sequenced first." "When the physician has documented what appears to be a current diagnosis in the body of the record, but has not included the diagnosis in the final diagnostic statement, the physician should be asked whether the diagnosis should be added." (Source Coding Clinic 2 QTR90. p3-4) CHAPOD
== END 2021-04-01 16:16 | disposition hospice, home (50) | DRG 871 ==
LOC: ED 16:01 → 3N 23:59 → SUATTDRO 23:59 → 3N 03-26 01:38 → 1E 03-26 13:47 → 3E 03-31 12:49
DX: Z79.02 Long term (current) use of antithrombotics/antiplatelets; E11.51 Type 2 diabetes mellitus with diabetic peripheral angiopathy without gangrene; E11.22 Type 2 diabetes mellitus with diabetic chronic kidney disease; I73.9 Peripheral vascular disease, unspecified; M79.7 Fibromyalgia; S61.402A Unspecified open wound of left hand, initial encounter; R23.4 Changes in skin texture; H91.90 Unspecified hearing loss, unspecified ear; I25.5 Ischemic cardiomyopathy; Z96.642 Presence of left artificial hip joint; Z96.643 Presence of artificial hip joint, bilateral; I50.20 Unspecified systolic (congestive) heart failure; K62.5 Hemorrhage of anus and rectum; K74.60 Unspecified cirrhosis of liver; Z95.1 Presence of aortocoronary bypass graft; E78.5 Hyperlipidemia, unspecified; R33.9 Retention of urine, unspecified; E87.2 Acidosis; Y84.8 Other medical procedures as the cause of abnormal reaction of the patient, or of later complication, without mention of misadventure at the time of the procedure; I95.1 Orthostatic hypotension; N17.0 Acute kidney failure with tubular necrosis; L97.829 Non-pressure chronic ulcer of other part of left lower leg with unspecified severity; I50.82 Biventricular heart failure; J96.01 Acute respiratory failure with hypoxia; K56.41 Fecal impaction; K56.7 Ileus, unspecified; N18.32 Chronic kidney disease, stage 3b; Z95.5 Presence of coronary angioplasty implant and graft; K62.89 Other specified diseases of anus and rectum; G47.33 Obstructive sleep apnea (adult) (pediatric); I50.32 Chronic diastolic (congestive) heart failure; Z85.72 Personal history of non-Hodgkin lymphomas; I83.019 Varicose veins of right lower extremity with ulcer of unspecified site; E11.622 Type 2 diabetes mellitus with other skin ulcer; I25.10 Atherosclerotic heart disease of native coronary artery without angina pectoris; I87.2 Venous insufficiency (chronic) (peripheral); K60.2 Anal fissure, unspecified; R31.0 Gross hematuria; E87.1 Hypo-osmolality and hyponatremia; I13.0 Hypertensive heart and chronic kidney disease with heart failure and stage 1 through stage 4 chronic kidney disease, or unspecified chronic kidney disease; Z87.891 Personal history of nicotine dependence; K62.81 Anal sphincter tear (healed) (nontraumatic) (old); L97.819 Non-pressure chronic ulcer of other part of right lower leg with unspecified severity; Z66 Do not resuscitate; J45.909 Unspecified asthma, uncomplicated; I27.81 Cor pulmonale (chronic); W27.2XXA Contact with scissors, initial encounter; I08.0 Rheumatic disorders of both mitral and aortic valves; I83.029 Varicose veins of left lower extremity with ulcer of unspecified site; A41.9 Sepsis, unspecified organism; Y92.239 Unspecified place in hospital as the place of occurrence of the external cause; R18.8 Other ascites; I50.812 Chronic right heart failure; Z83.3 Family history of diabetes mellitus; J91.8 Pleural effusion in other conditions classified elsewhere; X58.XXXA Exposure to other specified factors, initial encounter; Z51.5 Encounter for palliative care; B19.10 Unspecified viral hepatitis B without hepatic coma; S30.91XA Unspecified superficial injury of lower back and pelvis, initial encounter; Z88.8 Allergy status to other drugs, medicaments and biological substances